=== PATIENT | male | born 1960 | race Caucasian/White ===

== ENCOUNTER 2022-01-06 05:56 | Inpatient (IN) | payer MEDICAID ==
[~2022-01-06] VITALS: Ht 175.3 cm; Wt 73.1 kg
[2022-01-06] MEDS ORDERED: LORazepam 0.5 MG TAB PO ONE (11:15)
[2022-01-06] MEDS ORDERED: D5W/SOD CHLO 0.9% 1,000 ML IV ONE (11:15)
[2022-01-06 12:00] LABS: Basophils # (auto) 0 10 ^3/uL (0-0.2); Basophils % (auto) 0.1 % (0.0-2.0); Eosinophils # (auto) 0 10 ^3/uL (0-0.8); Hematocrit 9.9 % (41.0-53.0); Lymphocytes % (auto) 7.3 % (10.0-50.0); Mean Corpuscular Hemoglobin 23.1 pg (28.0-32.0); Mean Corpuscular Volume 79.6 fL (80.0-100.0); Monocytes # (auto) 1.4 10 ^3/uL (0-1.3); Monocytes % (auto) 10.8 % (0.0-12.0); Neutrophils # (auto) 10.7 10 ^3/uL (1.6-8.6); Neutrophils % (auto) 81.8 % (37.0-80.0); Nucleated Red Blood Cells % 0.3 %; Red Blood Cells 1.25 10^6/uL (4.5-5.90); White Blood Cell 13.1 10^3/uL (4.4-10.8)
[2022-01-06 12:01] LABS: INR 1.83 (0.9-1.15); Partial Thromboplastin Time 31.5 sec (24.6-33.4)
[2022-01-06 12:02] LABS: Albumin 2.7 g/dL (3.4-5.0); Anion Gap 12 (5-15); Blood Urea Nitrogen 19 mg/dL (7-18); Calcium 7.9 mg/dL (8.5-10.1); Carbon Dioxide 19 mmol/L (21-32); Chloride 106 mmol/L (98-107); Glucose 105 mg/dL (74-106); Hemoglobin 2.9 g/dL (13.5-17.5); Potassium 3.5 mmol/L (3.5-5.1); Red Cell Distribution Width 20.8 % (11.8-14.3); Sodium 137 mmol/L (136-145)
[2022-01-06 12:07] LABS: Alanine Aminotransferase 32 U/L (16-61); Alkaline Phosphatase 58 U/L (45-117); Aspartate Aminotransferase 44 U/L (15-37); BUN/Creatinine Ratio 19.6; Bilirubin, Total 2.2 mg/dL (0.2-1.0); Blood Alcohol < 3.0 mg/dL (0-5); GFR African American 102 mL/min; GFR Non-African American 84 mL/min; Total Protein 5.7 g/dL (6.4-8.2)
[2022-01-06] MEDS ORDERED: LIDOCAINE 1%HCL (LOCAL ANESTH) 10 ML MDV ONE (13:08)
[2022-01-06] MEDS ORDERED: IOHEXOL 300 MG/ML 100ML BOTTLE IJ ONE (14:14)
[2022-01-06] MEDS ORDERED: HALOPERIDOL LACTATE 5 MG/ML INJ VIAL IV ONE (14:15)
[2022-01-06] MEDS ORDERED: CALCIUM CHL 100MG/ML 1,000 MG in D5W 5% 100 ML IV ONE (14:15)
[2022-01-06 15:10] LABS: Basophils # (auto) 0 10 ^3/uL (0-0.2); Basophils % (auto) 0.4 % (0.0-2.0); Eosinophils # (auto) 0 10 ^3/uL (0-0.8); Hematocrit 19.3 % (41.0-53.0); Lymphocytes # (auto) 0.8 10 ^3/uL (0.4-5.4); Lymphocytes % (auto) 6.7 % (10.0-50.0); Mean Corpuscular Hemoglobin 25.6 pg (28.0-32.0); Mean Corpuscular Volume 82.7 fL (80.0-100.0); Monocytes # (auto) 1.6 10 ^3/uL (0-1.3); Monocytes % (auto) 12.6 % (0.0-12.0); Neutrophils # (auto) 10.1 10 ^3/uL (1.6-8.6); Neutrophils % (auto) 80.3 % (37.0-80.0); Nucleated Red Blood Cells % 0.3 %; Red Blood Cells 2.33 10^6/uL (4.5-5.90); Red Cell Distribution Width 18.9 % (11.8-14.3); White Blood Cell 12.5 10^3/uL (4.4-10.8)
[2022-01-06 15:35] LABS: Lactic Acid w/Reflex 3.1 mmol/L (0.4-2.0)
[2022-01-06 15:39] LABS: Albumin 2.5 g/dL (3.4-5.0); Calcium 7.3 mg/dL (8.5-10.1); Potassium 3.3 mmol/L (3.5-5.1)
[2022-01-06 15:41] LABS: BUN/Creatinine Ratio 21.8
[2022-01-06 15:43] LABS: Bilirubin, Total 2.6 mg/dL (0.2-1.0); Total Protein 5.6 g/dL (6.4-8.2)
[2022-01-06] MEDS ORDERED: cefTRIAXone 1GM/50ML D5W 50 ML IV ONE (18:30)
[2022-01-06] MEDS ORDERED: MORPHINE SULFATE INJ 2 MG/ml SYRG IV PRN (18:30)
[2022-01-06] MEDS ORDERED: NITROGLYCERIN 0.4 MG SL TAB SL PRN (18:30)
[2022-01-06] MEDS ORDERED: PANTOPRAZOLE 40 MG/10 ML VIAL INJ IV ONE (18:30)
[2022-01-06] MEDS ORDERED: phytonadione 10 MG in SODIUM CHL 0.9% 50 ML IV ONE (18:30)
[2022-01-06 21:18] VITALS: BP 152/85
[2022-01-06 21:33] VITALS: BP 154/84
[2022-01-06] MEDS: metroNIDAZOLE 500MG/100ML 100 ML IV SCH (21:48)
[2022-01-06 22:10] VITALS: BP 136/85
[2022-01-06] MEDS: FOLIC ACID 1 MG, MULTIPLE VITAMIN 10 ML, THIAMINE INJ 100 MG in SODIUM CHLORIDE 0.9% 1,... INJ SCH (22:22)
[2022-01-06 22:50] VITALS: BP 136/74
[2022-01-06 23:05] VITALS: BP 142/82
[2022-01-06] MEDS: MIDAZOLAM HCL 2MG/2ML 2ml VIAL (1mg/ml) IV PRN (23:29)
[2022-01-06 23:30] LABS: Hematocrit 20.3 % (41.0-53.0)
[2022-01-06 23:38] LABS: Hemoglobin 6.3 g/dL (13.5-17.5)
[2022-01-07] VITALS (15 sets, daily range): BP systolic 130–167; BP diastolic 82–98
[2022-01-07 04:02] LABS: Basophils # (auto) 0 10 ^3/uL (0-0.2); Basophils % (auto) 0.1 % (0.0-2.0); Eosinophils # (auto) 0 10 ^3/uL (0-0.8); Hematocrit 22.6 % (41.0-53.0); Hemoglobin 7.3 g/dL (13.5-17.5); Lymphocytes # (auto) 0.7 10 ^3/uL (0.4-5.4); Lymphocytes % (auto) 4.1 % (10.0-50.0); Mean Corpuscular Hemoglobin 26.6 pg (28.0-32.0); Mean Corpuscular Hgb Conc. 32.4 g/dL (32.0-36.0); Mean Corpuscular Volume 82.1 fL (80.0-100.0); Monocytes # (auto) 1.6 10 ^3/uL (0-1.3); Monocytes % (auto) 8.8 % (0.0-12.0); Neutrophils # (auto) 16.1 10 ^3/uL (1.6-8.6); Nucleated Red Blood Cells % 0.3 %; Red Blood Cells 2.76 10^6/uL (4.5-5.90); Red Cell Distribution Width 18.2 % (11.8-14.3); White Blood Cell 18.5 10^3/uL (4.4-10.8)
[2022-01-07] MEDS: MIDAZOLAM HCL 2MG/2ML 2ml VIAL (1mg/ml) IV PRN ×5 (04:13→23:18)
[2022-01-07 04:24] LABS: Albumin 2.9 g/dL (3.4-5.0); BUN/Creatinine Ratio 17.9; Bilirubin, Total 4.9 mg/dL (0.2-1.0); Total Protein 6.2 g/dL (6.4-8.2)
[2022-01-07 04:33] LABS: Potassium 2.9 mmol/L (3.5-5.1)
[2022-01-07] MEDS: POTASSIUM CHL 20MEQ/100ML 100 ML IV SCH ×2 (05:12→08:59)
[2022-01-07 06:14] LABS: INR 1.46 (0.9-1.15); Partial Thromboplastin Time 31.3 sec (24.6-33.4)
[2022-01-07] MEDS: metroNIDAZOLE 500MG/100ML 100 ML IV SCH ×3 (06:25→21:26)
[2022-01-07] MEDS: PANTOPRAZOLE 40 MG/10 ML VIAL INJ IV SCH ×2 (06:56→19:15)
[2022-01-07] MEDS ORDERED: cefTRIAXone 1GM/50ML D5W 50 ML IV SCH (09:00)
[2022-01-07] MEDS: FOLIC ACID 1 MG, MULTIPLE VITAMIN 10 ML, THIAMINE INJ 100 MG in SODIUM CHLORIDE 0.9% 1,... INJ SCH (12:00)
[2022-01-07 12:42] LABS: Hemoglobin 7.1 g/dL (13.5-17.5)
[2022-01-07 12:43] LABS: Hematocrit 23.2 % (41.0-53.0)
[2022-01-07] MEDS ORDERED: FUROSEMIDE 20 MG/2 ML VIAL IV ONE (13:00)
[2022-01-07] MEDS ORDERED: OCTREOTIDE ACETATE 100 MCG in SODIUM CHL 0.9% 50 ML IV ONE (13:15)
[2022-01-07] MEDS ORDERED: diphenhdrAMINE HCL 50 MG/1 ML VL ONE (15:37)
[2022-01-07] MEDS ORDERED: ACETAMINOPHEN 650 MG RECT SUPP PR PRN (15:45)
[2022-01-07] MEDS ORDERED: diphenhdrAMINE HCL 50 MG/1 ML VL IV ONE (15:45)
[2022-01-07] MEDS: OCTREOTIDE ACETATE 500 MCG in SODIUM CHL 0.9% 99 ML IV SCH (15:55)
[2022-01-07] MEDS: PIPERACILLIN-TAZOB 3.375GM 100 ML IV SCH ×2 (17:54→22:00)
[2022-01-07 19:59] LABS: Hematocrit 23.4 % (41.0-53.0)
[2022-01-07] MEDS ORDERED: OCTREOTIDE ACETATE 500 MCG/ML VL ONE (23:52)
[2022-01-08] VITALS (68 sets, daily range): BP systolic 94–150; BP diastolic 61–74
[2022-01-08] MEDS ORDERED: OCTREOTIDE ACETATE 500 MCG/ML VL ONE
[2022-01-08] MEDS ORDERED: OCTREOTIDE ACETATE 100 MCG/ML VL ONE (00:01)
[2022-01-08] MEDS: OCTREOTIDE ACETATE 500 MCG in SODIUM CHL 0.9% 99 ML IV SCH ×2 (00:07→09:10)
[2022-01-08] MEDS ORDERED: HALOPERIDOL LACTATE 5 MG/ML INJ VIAL IM ONE (00:45)
[2022-01-08] MEDS ORDERED: ALBUTEROL SULF 2.5 MG/0.5ML(0.5%) NEB SOLN ONE (01:06)
[2022-01-08] MEDS ORDERED: IPRATROPIUM BROM 0.5 MG/2.5ML INH SOL ONE (01:06)
[2022-01-08] MEDS: MIDAZOLAM HCL 2MG/2ML 2ml VIAL (1mg/ml) IV PRN ×2 (01:16→03:14)
[2022-01-08] MEDS ORDERED: ETOMIDATE (2MG/ML) 20ML VIAL IV ONE ×2 (04:07→04:10)
[2022-01-08] MEDS ORDERED: SUCCINYLCHOLINE CHLORIDE 20 MG/ML 10ML VIAL IV ONE ×2 (04:08→04:10)
[2022-01-08 04:10] LABS: Urine Bacteria NONE SEEN /hpf (None Seen); Urine Blood 2+ /uL (Negative); Urine Specific Gravity 1.024 (1.001-1.035); Urine WBC 15 /hpf (0 - 3)
[2022-01-08] MEDS ORDERED: PROPOFOL 100 ML IV ONE (04:16)
[2022-01-08 04:20] LABS: Alcohol, Urine < 3.0 mg/dL (0-10); Amphetamine Screen, Urine NEGATIVE (NEGATIVE); Barbiturate Scree,Urine NEGATIVE (NEGATIVE); Benzodiazephine Screen, Urine POSITIVE (NEGATIVE); Cannabinoid Screen, Urine NEGATIVE (NEGATIVE); Cocaine Screen, Urine NEGATIVE (NEGATIVE); Opiate Scree,Urine NEGATIVE (NEGATIVE); Phencyclidine Screen, Urine NEGATIVE (NEGATIVE)
[2022-01-08] MEDS: PROPOFOL 100 ML IV SCH ×2 (04:20→13:36)
[2022-01-08] MEDS ORDERED: NOREPINEPHRINE 8 MG/250ML KIT 250 ML IV ONE (04:58)
[2022-01-08] MEDS: NOREPINEPHRINE 8 MG/250ML KIT 250 ML IV SCH (05:10)
[2022-01-08] MEDS: metroNIDAZOLE 500MG/100ML 100 ML IV SCH (05:10)
[2022-01-08] MEDS ORDERED: POTASSIUM CHL 20MEQ/100ML 100 ML IV ONE (05:15)
[2022-01-08 05:56] LABS: Basophils # (auto) 0 10 ^3/uL (0-0.2); Basophils % (auto) 0.1 % (0.0-2.0); Eosinophils # (auto) 0 10 ^3/uL (0-0.8); Red Cell Distribution Width 18.5 % (11.8-14.3)
[2022-01-08 05:59] LABS: Hematocrit 21.5 % (41.0-53.0); Lymphocytes # (auto) 0.4 10 ^3/uL (0.4-5.4); Lymphocytes % (auto) 1.9 % (10.0-50.0); Mean Corpuscular Hemoglobin 25.7 pg (28.0-32.0); Mean Corpuscular Hgb Conc. 30.3 g/dL (32.0-36.0); Mean Corpuscular Volume 84.9 fL (80.0-100.0); Monocytes # (auto) 2.1 10 ^3/uL (0-1.3); Monocytes % (auto) 10.9 % (0.0-12.0); Neutrophils # (auto) 16.6 10 ^3/uL (1.6-8.6); Neutrophils % (auto) 87.1 % (37.0-80.0); Nucleated Red Blood Cells % 0.2 %; Red Blood Cells 2.54 10^6/uL (4.5-5.90); White Blood Cell 19.1 10^3/uL (4.4-10.8)
[2022-01-08 06:09] LABS: Hemoglobin 6.5 g/dL (13.5-17.5)
[2022-01-08] MEDS: fentaNYL Drip 2500mCg/250mlNS 250 ML IV SCH (06:09)
[2022-01-08 06:22] LABS: Albumin 2.5 g/dL (3.4-5.0); BUN/Creatinine Ratio 14.9; Bilirubin, Total 3.6 mg/dL (0.2-1.0); Calcium 7.4 mg/dL (8.5-10.1); Total Protein 5.5 g/dL (6.4-8.2)
[2022-01-08] MEDS: PIPERACILLIN-TAZOB 3.375GM 100 ML IV SCH ×3 (06:22→23:00)
[2022-01-08] MEDS: PANTOPRAZOLE 40 MG/10 ML VIAL INJ IV SCH ×2 (06:49→22:00)
[2022-01-08] MEDS ORDERED: VANCOMYCIN PER PHARMACY 0 MG IV SCH (08:45)
[2022-01-08] MEDS: VANCOMYCIN 1GM/250ML 250 ML IV SCH ×2 (10:30→22:00)
[2022-01-08] MEDS: FOLIC ACID 1 MG, MULTIPLE VITAMIN 10 ML, THIAMINE INJ 100 MG in SODIUM CHLORIDE 0.9% 1,... INJ SCH (12:00)
[2022-01-09] VITALS (91 sets, daily range): BP systolic 92–118; BP diastolic 51–89
[2022-01-09 03:58] LABS: Basophils # (auto) 0.1 10 ^3/uL (0-0.2); Basophils % (auto) 0.7 % (0.0-2.0); Eosinophils # (auto) 0.5 10 ^3/uL (0-0.8); Eosinophils % (auto) 3.2 % (0.0-7.0); Hematocrit 23.6 % (41.0-53.0); Hemoglobin 7.3 g/dL (13.5-17.5); Lymphocytes # (auto) 1.5 10 ^3/uL (0.4-5.4); Lymphocytes % (auto) 9.5 % (10.0-50.0); Mean Corpuscular Hemoglobin 26.3 pg (28.0-32.0); Mean Corpuscular Volume 84.7 fL (80.0-100.0); Monocytes # (auto) 2.2 10 ^3/uL (0-1.3); Monocytes % (auto) 13.9 % (0.0-12.0); Neutrophils # (auto) 11.5 10 ^3/uL (1.6-8.6); Neutrophils % (auto) 72.7 % (37.0-80.0); Nucleated Red Blood Cells % 0.1 %; Red Blood Cells 2.79 10^6/uL (4.5-5.90); Red Cell Distribution Width 19.4 % (11.8-14.3); White Blood Cell 15.9 10^3/uL (4.4-10.8)
[2022-01-09 04:29] LABS: INR 1.52 (0.9-1.15); Partial Thromboplastin Time 34.2 sec (24.6-33.4)
[2022-01-09 05:32] LABS: BUN/Creatinine Ratio 18.8; Calcium 7.5 mg/dL (8.5-10.1); Potassium 3.3 mmol/L (3.5-5.1)
[2022-01-09] MEDS: PIPERACILLIN-TAZOB 3.375GM 100 ML IV SCH ×3 (06:00→21:40)
[2022-01-09] MEDS: OCTREOTIDE ACETATE 500 MCG in SODIUM CHL 0.9% 99 ML IV SCH ×2 (07:49→16:56)
[2022-01-09] MEDS: PROPOFOL 100 ML IV SCH ×4 (09:15→22:43)
[2022-01-09] MEDS: VANCOMYCIN 1GM/250ML 250 ML IV SCH ×2 (09:27→22:00)
[2022-01-09] MEDS: PANTOPRAZOLE 40 MG/10 ML VIAL INJ IV SCH ×2 (09:28→21:33)
[2022-01-09] MEDS: FOLIC ACID 1 MG, MULTIPLE VITAMIN 10 ML, THIAMINE INJ 100 MG in SODIUM CHLORIDE 0.9% 1,... INJ SCH (12:51)
[2022-01-09] MEDS: NOREPINEPHRINE 8 MG/250ML KIT 250 ML IV SCH (19:59)
[2022-01-10] VITALS (106 sets, daily range): BP systolic 86–120; BP diastolic 53–78
[2022-01-10] MEDS: OCTREOTIDE ACETATE 500 MCG in SODIUM CHL 0.9% 99 ML IV SCH (01:55)
[2022-01-10] MEDS: PROPOFOL 100 ML IV SCH ×4 (02:53→18:43)
[2022-01-10] MEDS: fentaNYL Drip 2500mCg/250mlNS 250 ML IV SCH ×2 (03:55→05:15)
[2022-01-10 04:34] LABS: Basophils # (auto) 0.1 10 ^3/uL (0-0.2); Basophils % (auto) 0.8 % (0.0-2.0); Eosinophils # (auto) 0.5 10 ^3/uL (0-0.8); Eosinophils % (auto) 3.7 % (0.0-7.0); Hematocrit 23.4 % (41.0-53.0); Lymphocytes # (auto) 1.3 10 ^3/uL (0.4-5.4); Mean Corpuscular Hemoglobin 25.4 pg (28.0-32.0); Mean Corpuscular Hgb Conc. 29.9 g/dL (32.0-36.0); Mean Corpuscular Volume 84.8 fL (80.0-100.0); Monocytes # (auto) 2.1 10 ^3/uL (0-1.3); Monocytes % (auto) 14.6 % (0.0-12.0); Neutrophils # (auto) 10.4 10 ^3/uL (1.6-8.6); Neutrophils % (auto) 71.9 % (37.0-80.0); Nucleated Red Blood Cells % 0.2 %; Red Blood Cells 2.76 10^6/uL (4.5-5.90); White Blood Cell 14.4 10^3/uL (4.4-10.8)
[2022-01-10 04:38] LABS: Red Cell Distribution Width 20.1 % (11.8-14.3)
[2022-01-10 04:50] LABS: INR 1.56 (0.9-1.15); Partial Thromboplastin Time 40.7 sec (24.6-33.4)
[2022-01-10 04:55] LABS: BUN/Creatinine Ratio 13.9; Calcium 7.5 mg/dL (8.5-10.1); Potassium 3.5 mmol/L (3.5-5.1)
[2022-01-10] MEDS: NOREPINEPHRINE 8 MG/250ML KIT 250 ML IV SCH ×2 (05:15→10:38)
[2022-01-10] MEDS: PIPERACILLIN-TAZOB 3.375GM 100 ML IV SCH (05:45)
[2022-01-10] MEDS ORDERED: FLUMAZENIL 0.1 MG/ML INJ 10ML MDV IV ONE (07:45)
[2022-01-10] MEDS ORDERED: NALOXONE HCL 0.4 MG/ML VIAL ONE (07:45)
[2022-01-10] MEDS ORDERED: SODIUM CHLORIDE LOCK 10 ML ONE (07:49)
[2022-01-10] MEDS ORDERED: MIDAZOLAM HCL 5 MG/ML-1ML VIAL ONE (07:50)
[2022-01-10] MEDS ORDERED: fentaNYL CITRATE 100 MCG/2 ML VL ONE (07:50)
[2022-01-10] MEDS ORDERED: diphenhdrAMINE HCL 50 MG/1 ML VL ONE (07:50)
[2022-01-10 09:48] LABS: Hemoglobin 7.3 g/dL (13.5-17.5)
[2022-01-10] MEDS: VANCOMYCIN 1GM/250ML 250 ML IV SCH ×2 (10:36→22:00)
[2022-01-10] MEDS: PANTOPRAZOLE 40 MG/10 ML VIAL INJ IV SCH ×2 (10:37→21:53)
[2022-01-10] MEDS ORDERED: FUROSEMIDE 20 MG/2 ML VIAL IV ONE (11:30)
[2022-01-10] MEDS: FOLIC ACID 1 MG, MULTIPLE VITAMIN 10 ML, THIAMINE INJ 100 MG in SODIUM CHLORIDE 0.9% 1,... INJ SCH (12:49)
[2022-01-11] VITALS (104 sets, daily range): BP systolic 84–123; BP diastolic 53–80
[2022-01-11] MEDS: PROPOFOL 100 ML IV SCH ×6 (00:12→20:50)
[2022-01-11] MEDS: fentaNYL Drip 2500mCg/250mlNS 250 ML IV SCH ×2 (01:07→16:59)
[2022-01-11 04:38] LABS: Basophils # (auto) 0.1 10 ^3/uL (0-0.2); Eosinophils # (auto) 0.3 10 ^3/uL (0-0.8); Neutrophils # (auto) 7.2 10 ^3/uL (1.6-8.6); Nucleated Red Blood Cells % 0.2 %; Red Blood Cells 2.68 10^6/uL (4.5-5.90)
[2022-01-11 04:39] LABS: Basophils % (auto) 1.4 % (0.0-2.0); Eosinophils % (auto) 3.2 % (0.0-7.0); Hematocrit 22.2 % (41.0-53.0); Lymphocytes # (auto) 0.9 10 ^3/uL (0.4-5.4); Lymphocytes % (auto) 9.1 % (10.0-50.0); Mean Corpuscular Hemoglobin 26.1 pg (28.0-32.0); Mean Corpuscular Hgb Conc. 31.5 g/dL (32.0-36.0); Monocytes # (auto) 1.6 10 ^3/uL (0-1.3); Monocytes % (auto) 15.3 % (0.0-12.0); White Blood Cell 10.2 10^3/uL (4.4-10.8)
[2022-01-11 04:44] LABS: Red Cell Distribution Width 20.6 % (11.8-14.3)
[2022-01-11 04:56] LABS: Calcium 7.6 mg/dL (8.5-10.1); Potassium 3.4 mmol/L (3.5-5.1)
[2022-01-11] MEDS: PANTOPRAZOLE 40 MG/10 ML VIAL INJ IV SCH ×2 (09:34→22:09)
[2022-01-11] MEDS: VANCOMYCIN 1GM/250ML 250 ML IV SCH (09:34)
[2022-01-11] MEDS: FUROSEMIDE 20 MG/2 ML VIAL IV SCH (09:35)
[2022-01-11] MEDS ORDERED: ceFAZolin 1GM/50ML 50 ML IV ONE (12:15)
[2022-01-11] MEDS: FOLIC ACID 1 MG, MULTIPLE VITAMIN 10 ML, THIAMINE INJ 100 MG in SODIUM CHLORIDE 0.9% 1,... INJ SCH (12:50)
[2022-01-11] MEDS: ACETYLCYSTEINE 10 %(100MG/ML) SOL 4ML NEB SCH ×2 (15:35→22:12)
[2022-01-11] MEDS: ALBUTEROL SULF 2.5 MG/0.5ML(0.5%) NEB SOLN NEB PRN ×2 (15:35→22:12)
[2022-01-11] MEDS: ceFAZolin 1GM/50ML 50 ML IV SCH (22:09)
[2022-01-12] VITALS (109 sets, daily range): BP systolic 87–104; BP diastolic 46–60
[2022-01-12] MEDS: PROPOFOL 100 ML IV SCH ×7 (00:50→22:19)
[2022-01-12 03:58] LABS: Eosinophils # (auto) 0.4 10 ^3/uL (0-0.8); Lymphocytes # (auto) 1.1 10 ^3/uL (0.4-5.4); Mean Corpuscular Hemoglobin 25.7 pg (28.0-32.0); Mean Corpuscular Hgb Conc. 30.6 g/dL (32.0-36.0)
[2022-01-12 04:02] LABS: Basophils # (auto) 0.1 10 ^3/uL (0-0.2); Eosinophils % (auto) 2.7 % (0.0-7.0); Hematocrit 22.9 % (41.0-53.0); Lymphocytes % (auto) 7.8 % (10.0-50.0); Mean Corpuscular Volume 83.8 fL (80.0-100.0); Monocytes # (auto) 1.9 10 ^3/uL (0-1.3); Monocytes % (auto) 13.2 % (0.0-12.0); Neutrophils % (auto) 75.3 % (37.0-80.0); Red Blood Cells 2.73 10^6/uL (4.5-5.90); White Blood Cell 14.6 10^3/uL (4.4-10.8)
[2022-01-12 04:24] LABS: Potassium 3.7 mmol/L (3.5-5.1)
[2022-01-12 04:35] LABS: Albumin 1.9 g/dL (3.4-5.0); BUN/Creatinine Ratio 10.4; Bilirubin, Total 2.3 mg/dL (0.2-1.0); Calcium 7.5 mg/dL (8.5-10.1); Total Protein 5.2 g/dL (6.4-8.2)
[2022-01-12] MEDS: fentaNYL Drip 2500mCg/250mlNS 250 ML IV SCH ×2 (04:50→16:55)
[2022-01-12 05:21] LABS: Red Cell Distribution Width 20.6 % (11.8-14.3)
[2022-01-12] MEDS: ceFAZolin 1GM/50ML 50 ML IV SCH ×3 (06:17→22:19)
[2022-01-12] MEDS: ACETYLCYSTEINE 10 %(100MG/ML) SOL 4ML NEB SCH ×3 (07:44→22:19)
[2022-01-12] MEDS: ALBUTEROL SULF 2.5 MG/0.5ML(0.5%) NEB SOLN NEB PRN ×4 (07:45→22:19)
[2022-01-12] MEDS: NOREPINEPHRINE 8 MG/250ML KIT 250 ML IV SCH (08:29)
[2022-01-12] MEDS: PANTOPRAZOLE 40 MG/10 ML VIAL INJ IV SCH ×2 (10:12→22:19)
[2022-01-12] MEDS: FUROSEMIDE 20 MG/2 ML VIAL IV SCH (10:13)
[2022-01-12] MEDS: FOLIC ACID 1 MG, MULTIPLE VITAMIN 10 ML, THIAMINE INJ 100 MG in SODIUM CHLORIDE 0.9% 1,... INJ SCH (12:06)
[2022-01-12 12:25] LABS: Protein, Urine 17.2 mg/dL (0.0-11.9)
[2022-01-12 12:37] LABS: Urine Bacteria FEW /hpf (None Seen); Urine Blood 3+ /uL (Negative); Urine Specific Gravity 1.002 (1.001-1.035); Urine WBC 4 /hpf (0 - 3)
[2022-01-13] VITALS (107 sets, daily range): BP systolic 92–118; BP diastolic 51–68
[2022-01-13] MEDS: PROPOFOL 100 ML IV SCH ×4 (02:50→22:35)
[2022-01-13] MEDS: fentaNYL Drip 2500mCg/250mlNS 250 ML IV SCH ×2 (04:50→17:03)
[2022-01-13 05:12] LABS: Basophils # (auto) 0.2 10 ^3/uL (0-0.2); Eosinophils # (auto) 0.4 10 ^3/uL (0-0.8); Nucleated Red Blood Cells % 0.1 %
[2022-01-13 05:15] LABS: Albumin 1.7 g/dL (3.4-5.0); Calcium 7.6 mg/dL (8.5-10.1); Potassium 3.7 mmol/L (3.5-5.1)
[2022-01-13] MEDS: NOREPINEPHRINE 8 MG/250ML KIT 250 ML IV SCH ×2 (05:15→14:41)
[2022-01-13 05:17] LABS: Basophils % (auto) 1.2 % (0.0-2.0); Eosinophils % (auto) 2.4 % (0.0-7.0); Hematocrit 25.7 % (41.0-53.0); Lymphocytes # (auto) 1.3 10 ^3/uL (0.4-5.4); Lymphocytes % (auto) 8.9 % (10.0-50.0); Mean Corpuscular Hemoglobin 26.1 pg (28.0-32.0); Mean Corpuscular Volume 84.2 fL (80.0-100.0); Monocytes # (auto) 1.8 10 ^3/uL (0-1.3); Monocytes % (auto) 12.1 % (0.0-12.0); Neutrophils # (auto) 11.3 10 ^3/uL (1.6-8.6); Neutrophils % (auto) 75.4 % (37.0-80.0); Red Blood Cells 3.05 10^6/uL (4.5-5.90)
[2022-01-13 05:19] LABS: BUN/Creatinine Ratio 8.2; Total Protein 5.3 g/dL (6.4-8.2); Uric Acid 4.3 mg/dL (3.5-7.2)
[2022-01-13 06:00] LABS: Red Cell Distribution Width 20.2 % (11.8-14.3)
[2022-01-13] MEDS: ceFAZolin 1GM/50ML 50 ML IV SCH ×3 (06:06→22:35)
[2022-01-13] MEDS: ALBUTEROL SULF 2.5 MG/0.5ML(0.5%) NEB SOLN NEB PRN ×4 (06:13→22:09)
[2022-01-13] MEDS: ACETYLCYSTEINE 10 %(100MG/ML) SOL 4ML NEB SCH ×3 (06:13→18:06)
[2022-01-13] MEDS: PANTOPRAZOLE 40 MG/10 ML VIAL INJ IV SCH ×2 (10:07→22:35)
[2022-01-13] MEDS: FUROSEMIDE 20 MG/2 ML VIAL IV SCH (10:07)
[2022-01-13] MEDS: FOLIC ACID 1 MG, MULTIPLE VITAMIN 10 ML, THIAMINE INJ 100 MG in SODIUM CHLORIDE 0.9% 1,... INJ SCH (12:34)
[2022-01-13] MEDS ORDERED: BUMETANIDE INJECTION 10 ML ONE (16:56)
[2022-01-13] MEDS ORDERED: BUMETANIDE 2.5mg/10ml (0.25 mg/ml) INJ IV ONE (17:00)
[2022-01-14] VITALS (104 sets, daily range): BP systolic 91–128; BP diastolic 48–69
[2022-01-14] MEDS: ALBUTEROL SULF 2.5 MG/0.5ML(0.5%) NEB SOLN NEB PRN ×4 (02:15→18:51)
[2022-01-14 03:43] LABS: Monocytes # (auto) 1.6 10 ^3/uL (0-1.3)
[2022-01-14 03:47] LABS: Basophils # (auto) 0.1 10 ^3/uL (0-0.2); Basophils % (auto) 0.9 % (0.0-2.0); Eosinophils # (auto) 0.4 10 ^3/uL (0-0.8); Eosinophils % (auto) 3.2 % (0.0-7.0); Hematocrit 25.8 % (41.0-53.0); Hemoglobin 8.2 g/dL (13.5-17.5); Lymphocytes # (auto) 1.1 10 ^3/uL (0.4-5.4); Lymphocytes % (auto) 8.2 % (10.0-50.0); Mean Corpuscular Hemoglobin 26.6 pg (28.0-32.0); Mean Corpuscular Hgb Conc. 31.7 g/dL (32.0-36.0); Neutrophils # (auto) 10.8 10 ^3/uL (1.6-8.6); Neutrophils % (auto) 76.7 % (37.0-80.0); Red Blood Cells 3.07 10^6/uL (4.5-5.90); White Blood Cell 14.1 10^3/uL (4.4-10.8)
[2022-01-14 03:56] LABS: Red Cell Distribution Width 20.4 % (11.8-14.3)
[2022-01-14 04:01] LABS: Albumin 1.8 g/dL (3.4-5.0); Anion Gap 13 (5-15); Blood Urea Nitrogen 40 mg/dL (7-18); Calcium 8.1 mg/dL (8.5-10.1); Carbon Dioxide 18 mmol/L (21-32); Chloride 112 mmol/L (98-107); Glucose 92 mg/dL (74-106); Potassium 3.7 mmol/L (3.5-5.1); Sodium 143 mmol/L (136-145)
[2022-01-14 04:03] LABS: BUN/Creatinine Ratio 8.6; GFR African American 17 mL/min; GFR Non-African American 14 mL/min
[2022-01-14 04:06] LABS: Alanine Aminotransferase < 6 U/L (16-61); Alkaline Phosphatase 117 U/L (45-117); Aspartate Aminotransferase 43 U/L (15-37); Total Protein 5.6 g/dL (6.4-8.2)
[2022-01-14] MEDS: ACETYLCYSTEINE 10 %(100MG/ML) SOL 4ML NEB SCH ×3 (06:09→18:51)
[2022-01-14] MEDS: fentaNYL Drip 2500mCg/250mlNS 250 ML IV SCH (06:23)
[2022-01-14] MEDS: ceFAZolin 1GM/50ML 50 ML IV SCH ×3 (06:23→22:01)
[2022-01-14 08:51] LABS: Cholesterol 86 mg/dL (< 200); HDL Cholesterol 11 mg/dL (40-59); LDL Cholesterol 50 mg/dL (< 100); Triglycerides 144 mg/dL (< 150)
[2022-01-14] MEDS: FUROSEMIDE 20 MG/2 ML VIAL IV SCH (09:01)
[2022-01-14] MEDS: PANTOPRAZOLE 40 MG/10 ML VIAL INJ IV SCH ×2 (09:01→22:00)
[2022-01-14 10:54] LABS: Folate (Folic Acid) > 24.00 ng/mL (5.38-24)
[2022-01-14] MEDS: FOLIC ACID 1 MG, MULTIPLE VITAMIN 10 ML, THIAMINE INJ 100 MG in SODIUM CHLORIDE 0.9% 1,... INJ SCH (12:00)
[2022-01-14] MEDS: ALBUMIN 25% 100 ML IV SCH ×2 (15:31→22:53)
[2022-01-14] MEDS: SODIUM BICARBONATE 8.4 % INJ 50ML VIAL IV SCH ×2 (15:41→22:01)
[2022-01-14] MEDS: FUROSEMIDE 100 MG/10ML VIAL IV SCH ×2 (16:26→18:00)
[2022-01-15] VITALS (106 sets, daily range): BP systolic 93–128; BP diastolic 37–68
[2022-01-15] MEDS: PROPOFOL 100 ML IV SCH ×3 (03:33→23:13)
[2022-01-15 03:39] LABS: Eosinophils # (auto) 0.3 10 ^3/uL (0-0.8); Mean Corpuscular Hemoglobin 26.7 pg (28.0-32.0)
[2022-01-15 03:41] LABS: Basophils # (auto) 0 10 ^3/uL (0-0.2); Basophils % (auto) 0.2 % (0.0-2.0); Eosinophils % (auto) 1.8 % (0.0-7.0); Hematocrit 22.9 % (41.0-53.0); Hemoglobin 7.4 g/dL (13.5-17.5); Lymphocytes # (auto) 0.8 10 ^3/uL (0.4-5.4); Lymphocytes % (auto) 5.5 % (10.0-50.0); Mean Corpuscular Hgb Conc. 32.1 g/dL (32.0-36.0); Mean Corpuscular Volume 83.1 fL (80.0-100.0); Monocytes # (auto) 1.5 10 ^3/uL (0-1.3); Neutrophils # (auto) 12.3 10 ^3/uL (1.6-8.6); Neutrophils % (auto) 82.5 % (37.0-80.0); Red Blood Cells 2.76 10^6/uL (4.5-5.90)
[2022-01-15 03:48] LABS: Red Cell Distribution Width 20.7 % (11.8-14.3)
[2022-01-15 03:50] LABS: Alanine Aminotransferase < 6 U/L (16-61); Albumin 2.3 g/dL (3.4-5.0); Anion Gap 13 (5-15); Aspartate Aminotransferase 42 U/L (15-37); BUN/Creatinine Ratio 8.5; Blood Urea Nitrogen 48 mg/dL (7-18); Calcium 8.2 mg/dL (8.5-10.1); Carbon Dioxide 20 mmol/L (21-32); Chloride 111 mmol/L (98-107); GFR African American 13 mL/min; GFR Non-African American 11 mL/min; Glucose 91 mg/dL (74-106); Magnesium 2.2 mg/dL (1.6-2.6); Potassium 3.8 mmol/L (3.5-5.1); Sodium 144 mmol/L (136-145)
[2022-01-15 03:53] LABS: Alkaline Phosphatase 107 U/L (45-117); Bilirubin, Total 2.4 mg/dL (0.2-1.0); Total Protein 5.7 g/dL (6.4-8.2)
[2022-01-15] MEDS: NOREPINEPHRINE 8 MG/250ML KIT 250 ML IV SCH (05:15)
[2022-01-15] MEDS: FUROSEMIDE 100 MG/10ML VIAL IV SCH (05:46)
[2022-01-15] MEDS: ceFAZolin 1GM/50ML 50 ML IV SCH ×3 (05:47→21:45)
[2022-01-15] MEDS: SODIUM BICARBONATE 8.4 % INJ 50ML VIAL IV SCH ×3 (05:53→21:45)
[2022-01-15] MEDS: ACETYLCYSTEINE 10 %(100MG/ML) SOL 4ML NEB SCH ×3 (06:24→22:06)
[2022-01-15] MEDS: ALBUTEROL SULF 2.5 MG/0.5ML(0.5%) NEB SOLN NEB PRN ×3 (06:24→22:06)
[2022-01-15] MEDS: ALBUMIN 25% 100 ML IV SCH (06:32)
[2022-01-15] MEDS ORDERED: Jevity 1.2 Cal/Fiber 1 Liter GT SCH (08:30)
[2022-01-15] MEDS: PANTOPRAZOLE 40 MG/10 ML VIAL INJ IV SCH ×2 (08:58→21:45)
[2022-01-15] MEDS: THIAMINE 100mg/ml INJ (200mg/2ml VIAL) IV SCH (09:15)
[2022-01-15] MEDS: FOLIC ACID 1 MG in D5W 5% 50 ML INJ SCH (10:25)
[2022-01-15 11:22] LABS: INR 1.47 (0.9-1.15)
[2022-01-15] MEDS: FUROSEMIDE INJECTION 100 MG in D5W 5% 100 ML IV SCH ×2 (15:35→18:10)
[2022-01-16] VITALS (104 sets, daily range): BP systolic 92–129; BP diastolic 44–74
[2022-01-16 03:45] LABS: Basophils % (auto) 1.7 % (0.0-2.0); Lymphocytes % (auto) 6.6 % (10.0-50.0); Mean Corpuscular Hgb Conc. 31.7 g/dL (32.0-36.0); White Blood Cell 14.6 10^3/uL (4.4-10.8)
[2022-01-16 03:48] LABS: Basophils # (auto) 0.3 10 ^3/uL (0-0.2); Eosinophils # (auto) 0.3 10 ^3/uL (0-0.8); Hematocrit 22.8 % (41.0-53.0); Hemoglobin 7.2 g/dL (13.5-17.5); Mean Corpuscular Hemoglobin 26.2 pg (28.0-32.0); Mean Corpuscular Volume 82.7 fL (80.0-100.0); Monocytes # (auto) 1.5 10 ^3/uL (0-1.3); Monocytes % (auto) 9.9 % (0.0-12.0); Neutrophils # (auto) 11.7 10 ^3/uL (1.6-8.6); Neutrophils % (auto) 79.8 % (37.0-80.0); Red Blood Cells 2.76 10^6/uL (4.5-5.90)
[2022-01-16 04:02] LABS: Red Cell Distribution Width 20.5 % (11.8-14.3)
[2022-01-16 04:13] LABS: Albumin 2.3 g/dL (3.4-5.0); Anion Gap 12 (5-15); Blood Urea Nitrogen 55 mg/dL (7-18); Calcium 7.8 mg/dL (8.5-10.1); Carbon Dioxide 23 mmol/L (21-32); Chloride 111 mmol/L (98-107); Glucose 113 mg/dL (74-106); Potassium 3.7 mmol/L (3.5-5.1); Sodium 146 mmol/L (136-145)
[2022-01-16 04:18] LABS: Alanine Aminotransferase < 6 U/L (16-61); Alkaline Phosphatase 108 U/L (45-117); Aspartate Aminotransferase 37 U/L (15-37); BUN/Creatinine Ratio 8.2; Bilirubin, Total 2.2 mg/dL (0.2-1.0); GFR African American 11 mL/min; GFR Non-African American 9 mL/min; Total Protein 5.7 g/dL (6.4-8.2)
[2022-01-16] MEDS: FUROSEMIDE INJECTION 100 MG in D5W 5% 100 ML IV SCH ×3 (04:30→10:29)
[2022-01-16] MEDS: NOREPINEPHRINE 8 MG/250ML KIT 250 ML IV SCH (05:15)
[2022-01-16] MEDS: fentaNYL Drip 2500mCg/250mlNS 250 ML IV SCH (05:15)
[2022-01-16] MEDS: ceFAZolin 1GM/50ML 50 ML IV SCH ×3 (05:40→21:32)
[2022-01-16] MEDS: SODIUM BICARBONATE 8.4 % INJ 50ML VIAL IV SCH ×2 (05:42→17:25)
[2022-01-16] MEDS: ACETYLCYSTEINE 10 %(100MG/ML) SOL 4ML NEB SCH ×3 (06:16→22:22)
[2022-01-16] MEDS: ALBUTEROL SULF 2.5 MG/0.5ML(0.5%) NEB SOLN NEB PRN ×4 (06:18→22:22)
[2022-01-16] MEDS: THIAMINE 100mg/ml INJ (200mg/2ml VIAL) IV SCH (10:29)
[2022-01-16] MEDS: PANTOPRAZOLE 40 MG/10 ML VIAL INJ IV SCH ×2 (10:29→21:32)
[2022-01-16] MEDS: FOLIC ACID 1 MG in D5W 5% 50 ML INJ SCH (10:30)
[2022-01-16] MEDS ORDERED: SODIUM CHL 0.9% 1000 ML BAG XX ONE (12:15)
[2022-01-16] MEDS ORDERED: SODIUM BICARBONATE 8.4 % INJ 50ML VIAL IV ONE (17:19)
[2022-01-16] MEDS ORDERED: EPOETIN ALFA-EPBX 10,000 UNIT/1ML VIAL SC ONE (21:00)
[2022-01-16] MEDS: PROPOFOL 100 ML IV SCH (21:48)
[2022-01-17] VITALS (102 sets, daily range): BP systolic 88–135; BP diastolic 48–76
[2022-01-17] MEDS: fentaNYL Drip 2500mCg/250mlNS 250 ML IV SCH ×2 (02:16→16:45)
[2022-01-17] MEDS: NOREPINEPHRINE 8 MG/250ML KIT 250 ML IV SCH (02:16)
[2022-01-17 03:40] LABS: BUN/Creatinine Ratio 7.5; Calcium 8.1 mg/dL (8.5-10.1); Potassium 3.5 mmol/L (3.5-5.1)
[2022-01-17 04:33] LABS: Basophils # (auto) 0.3 10 ^3/uL (0-0.2); Hematocrit 22.7 % (41.0-53.0); Nucleated Red Blood Cells % 0.1 %
[2022-01-17 04:34] LABS: Basophils % (auto) 1.8 % (0.0-2.0); Eosinophils # (auto) 0.5 10 ^3/uL (0-0.8); Eosinophils % (auto) 3.5 % (0.0-7.0); Hemoglobin 7.3 g/dL (13.5-17.5); Lymphocytes # (auto) 1.2 10 ^3/uL (0.4-5.4); Lymphocytes % (auto) 8.4 % (10.0-50.0); Mean Corpuscular Hemoglobin 26.3 pg (28.0-32.0); Mean Corpuscular Hgb Conc. 32.1 g/dL (32.0-36.0); Mean Corpuscular Volume 82.1 fL (80.0-100.0); Monocytes # (auto) 1.4 10 ^3/uL (0-1.3); Monocytes % (auto) 9.7 % (0.0-12.0); Neutrophils % (auto) 76.6 % (37.0-80.0); Red Blood Cells 2.77 10^6/uL (4.5-5.90); White Blood Cell 14.3 10^3/uL (4.4-10.8)
[2022-01-17 04:35] LABS: Red Cell Distribution Width 20.9 % (11.8-14.3)
[2022-01-17] MEDS: ceFAZolin 1GM/50ML 50 ML IV SCH ×3 (06:00→21:41)
[2022-01-17] MEDS: PROPOFOL 100 ML IV SCH ×2 (06:28→15:30)
[2022-01-17] MEDS ORDERED: SODIUM CHL 0.9% 1000 ML BAG XX ONE (07:00)
[2022-01-17] MEDS: THIAMINE 100mg/ml INJ (200mg/2ml VIAL) IV SCH (10:00)
[2022-01-17] MEDS: FOLIC ACID 1 MG in D5W 5% 50 ML INJ SCH (10:00)
[2022-01-17] MEDS: PANTOPRAZOLE 40 MG/10 ML VIAL INJ IV SCH ×2 (10:00→21:41)
[2022-01-17 13:28] LABS: Hepatitis A Ab IgM Negative
[2022-01-17 13:29] LABS: Hepatitis B Core IgM Negative; Hepatitis C Antibody Negative (Negative)
[2022-01-17] MEDS: ALBUMIN 25% 100 ML IV PRN ×2 (15:34→17:00)
[2022-01-17] MEDS ORDERED: FUROSEMIDE 20 MG/2 ML VIAL IV ONE (20:00)
[2022-01-17] MEDS ORDERED: EPOETIN ALFA-EPBX 10,000 UNIT/1ML VIAL SC ONE (21:00)
[2022-01-17] MEDS: ACETYLCYSTEINE 10 %(100MG/ML) SOL 4ML NEB SCH (22:20)
[2022-01-17] MEDS: ALBUTEROL SULF 2.5 MG/0.5ML(0.5%) NEB SOLN NEB PRN (22:20)
[2022-01-18] VITALS (112 sets, daily range): BP systolic 86–147; BP diastolic 48–81
[2022-01-18] MEDS: PROPOFOL 100 ML IV SCH ×3 (00:28→21:38)
[2022-01-18 02:34] LABS: Basophils # (auto) 0.3 10 ^3/uL (0-0.2); Basophils % (auto) 2.2 % (0.0-2.0); Lymphocytes # (auto) 1.2 10 ^3/uL (0.4-5.4); Nucleated Red Blood Cells % 0.1 %; White Blood Cell 13.7 10^3/uL (4.4-10.8)
[2022-01-18 02:36] LABS: Eosinophils # (auto) 0.6 10 ^3/uL (0-0.8); Eosinophils % (auto) 4.3 % (0.0-7.0); Hematocrit 21.5 % (41.0-53.0); Lymphocytes % (auto) 9.1 % (10.0-50.0); Mean Corpuscular Hemoglobin 26.3 pg (28.0-32.0); Mean Corpuscular Hgb Conc. 32.1 g/dL (32.0-36.0); Mean Corpuscular Volume 81.9 fL (80.0-100.0); Monocytes # (auto) 1.1 10 ^3/uL (0-1.3); Monocytes % (auto) 8.1 % (0.0-12.0); Neutrophils # (auto) 10.4 10 ^3/uL (1.6-8.6); Neutrophils % (auto) 76.3 % (37.0-80.0); Red Blood Cells 2.63 10^6/uL (4.5-5.90)
[2022-01-18 02:52] LABS: BUN/Creatinine Ratio 7.4; Calcium 8.2 mg/dL (8.5-10.1); Potassium 3.7 mmol/L (3.5-5.1)
[2022-01-18 03:07] LABS: Red Cell Distribution Width 20.9 % (11.8-14.3)
[2022-01-18 03:08] LABS: Hemoglobin 6.9 g/dL (13.5-17.5)
[2022-01-18] MEDS: NOREPINEPHRINE 8 MG/250ML KIT 250 ML IV SCH (05:15)
[2022-01-18] MEDS: fentaNYL Drip 2500mCg/250mlNS 250 ML IV SCH ×2 (05:15→09:20)
[2022-01-18] MEDS: ceFAZolin 1GM/50ML 50 ML IV SCH ×3 (05:45→21:36)
[2022-01-18] MEDS: ALBUTEROL SULF 2.5 MG/0.5ML(0.5%) NEB SOLN NEB PRN ×3 (06:20→22:12)
[2022-01-18] MEDS: ACETYLCYSTEINE 10 %(100MG/ML) SOL 4ML NEB SCH ×3 (06:21→22:12)
[2022-01-18] MEDS: PANTOPRAZOLE 40 MG/10 ML VIAL INJ IV SCH ×2 (09:07→21:38)
[2022-01-18] MEDS: THIAMINE 100mg/ml INJ (200mg/2ml VIAL) IV SCH (09:07)
[2022-01-18] MEDS: FOLIC ACID 1 MG in D5W 5% 50 ML INJ SCH (09:08)
[2022-01-18] MEDS: ALBUMIN 25% 100 ML IV SCH ×2 (09:25→15:27)
[2022-01-18] MEDS ORDERED: FUROSEMIDE 20 MG/2 ML VIAL IV SCH (10:00)
[2022-01-18] MEDS: DOPamine 1600MCG/ML D5W 250 ML IV SCH (10:14)
[2022-01-18] MEDS: BUMETANIDE INJECTION 12.5 MG in GIVE UN-DILUTED 0 ML IV SCH ×2 (10:25→22:27)
[2022-01-18] MEDS: OCTREOTIDE ACETATE 100 MCG/ML VL SUBCUT SCH ×2 (13:44→21:38)
[2022-01-19] VITALS (107 sets, daily range): BP systolic 106–152; BP diastolic 51–88
[2022-01-19] MEDS: ALBUMIN 25% 100 ML IV SCH (00:30)
[2022-01-19 04:06] LABS: Eosinophils # (auto) 0.8 10 ^3/uL (0-0.8); Lymphocytes # (auto) 1.2 10 ^3/uL (0.4-5.4); Lymphocytes % (auto) 8.1 % (10.0-50.0); Nucleated Red Blood Cells % 0.1 %
[2022-01-19 04:10] LABS: Basophils # (auto) 0.3 10 ^3/uL (0-0.2); Basophils % (auto) 1.9 % (0.0-2.0); Eosinophils % (auto) 5.6 % (0.0-7.0); Hematocrit 30.4 % (41.0-53.0); Hemoglobin 9.7 g/dL (13.5-17.5); Mean Corpuscular Hemoglobin 26.4 pg (28.0-32.0); Mean Corpuscular Volume 82.4 fL (80.0-100.0); Monocytes # (auto) 1.2 10 ^3/uL (0-1.3); Monocytes % (auto) 8.2 % (0.0-12.0); Neutrophils # (auto) 10.9 10 ^3/uL (1.6-8.6); Neutrophils % (auto) 76.2 % (37.0-80.0); Red Blood Cells 3.69 10^6/uL (4.5-5.90); Red Cell Distribution Width 19.1 % (11.8-14.3); White Blood Cell 14.2 10^3/uL (4.4-10.8)
[2022-01-19] MEDS: fentaNYL Drip 2500mCg/250mlNS 250 ML IV SCH ×2 (04:24→12:45)
[2022-01-19 04:29] LABS: Alanine Aminotransferase < 6 U/L (16-61); Albumin 3.1 g/dL (3.4-5.0); Anion Gap 13 (5-15); Aspartate Aminotransferase 39 U/L (15-37); BUN/Creatinine Ratio 7.5; Blood Urea Nitrogen 45 mg/dL (7-18); Calcium 9.1 mg/dL (8.5-10.1); Carbon Dioxide 25 mmol/L (21-32); Chloride 104 mmol/L (98-107); GFR African American 12 mL/min; GFR Non-African American 10 mL/min; Glucose 94 mg/dL (74-106); Potassium 3.7 mmol/L (3.5-5.1); Sodium 142 mmol/L (136-145)
[2022-01-19 04:32] LABS: Alkaline Phosphatase 96 U/L (45-117); Bilirubin, Total 2.8 mg/dL (0.2-1.0); Total Protein 6.2 g/dL (6.4-8.2)
[2022-01-19] MEDS: NOREPINEPHRINE 8 MG/250ML KIT 250 ML IV SCH (05:15)
[2022-01-19] MEDS: ceFAZolin 1GM/50ML 50 ML IV SCH ×3 (05:54→22:01)
[2022-01-19] MEDS: OCTREOTIDE ACETATE 100 MCG/ML VL SUBCUT SCH ×3 (05:54→22:08)
[2022-01-19] MEDS: PROPOFOL 100 ML IV SCH ×2 (05:55→12:59)
[2022-01-19] MEDS: ACETYLCYSTEINE 10 %(100MG/ML) SOL 4ML NEB SCH ×3 (06:34→22:21)
[2022-01-19] MEDS: ALBUTEROL SULF 2.5 MG/0.5ML(0.5%) NEB SOLN NEB PRN ×3 (06:36→22:22)
[2022-01-19] MEDS: DOPamine 1600MCG/ML D5W 250 ML IV SCH ×2 (08:15→16:54)
[2022-01-19] MEDS: PANTOPRAZOLE 40 MG/10 ML VIAL INJ IV SCH ×2 (10:45→22:04)
[2022-01-19] MEDS: THIAMINE 100mg/ml INJ (200mg/2ml VIAL) IV SCH (10:45)
[2022-01-19] MEDS: FOLIC ACID 1 MG in D5W 5% 50 ML INJ SCH (10:57)
[2022-01-19] MEDS ORDERED: METOCLOPRAMIDE HCL 5MG/ml INJ 2ml VIAL IV ONE (12:00)
[2022-01-19] MEDS: BUMETANIDE INJECTION 12.5 MG in GIVE UN-DILUTED 0 ML IV SCH (22:45)
[2022-01-20] VITALS (108 sets, daily range): BP systolic 86–181; BP diastolic 49–96
[2022-01-20] MEDS: fentaNYL Drip 2500mCg/250mlNS 250 ML IV SCH (00:46)
[2022-01-20] MEDS: PROPOFOL 100 ML IV SCH (01:33)
[2022-01-20 04:02] LABS: Neutrophils # (auto) 14.1 10 ^3/uL (1.6-8.6); White Blood Cell 17.4 10^3/uL (4.4-10.8)
[2022-01-20 04:03] LABS: Basophils # (auto) 0.3 10 ^3/uL (0-0.2); Eosinophils # (auto) 0.5 10 ^3/uL (0-0.8); Eosinophils % (auto) 2.9 % (0.0-7.0); Hematocrit 30.8 % (41.0-53.0); Hemoglobin 9.9 g/dL (13.5-17.5); Lymphocytes # (auto) 1.1 10 ^3/uL (0.4-5.4); Lymphocytes % (auto) 6.5 % (10.0-50.0); Mean Corpuscular Hemoglobin 26.5 pg (28.0-32.0); Mean Corpuscular Hgb Conc. 32.1 g/dL (32.0-36.0); Mean Corpuscular Volume 82.5 fL (80.0-100.0); Monocytes # (auto) 1.3 10 ^3/uL (0-1.3); Monocytes % (auto) 7.7 % (0.0-12.0); Neutrophils % (auto) 80.9 % (37.0-80.0); Red Blood Cells 3.73 10^6/uL (4.5-5.90); Red Cell Distribution Width 19.8 % (11.8-14.3)
[2022-01-20 04:16] LABS: BUN/Creatinine Ratio 7.8; Calcium 8.7 mg/dL (8.5-10.1)
[2022-01-20] MEDS: NOREPINEPHRINE 8 MG/250ML KIT 250 ML IV SCH ×2 (05:15→19:42)
[2022-01-20] MEDS: OCTREOTIDE ACETATE 100 MCG/ML VL SUBCUT SCH ×3 (05:38→21:45)
[2022-01-20] MEDS: ceFAZolin 1GM/50ML 50 ML IV SCH ×3 (05:39→21:42)
[2022-01-20] MEDS: ALBUTEROL SULF 2.5 MG/0.5ML(0.5%) NEB SOLN NEB PRN ×3 (05:59→22:24)
[2022-01-20] MEDS: ACETYLCYSTEINE 10 %(100MG/ML) SOL 4ML NEB SCH ×3 (05:59→22:24)
[2022-01-20] MEDS ORDERED: SODIUM CHL 0.9% 1000 ML BAG XX ONE (09:30)
[2022-01-20] MEDS: PANTOPRAZOLE 40 MG/10 ML VIAL INJ IV SCH ×2 (10:23→21:42)
[2022-01-20] MEDS: METOCLOPRAMIDE HCL 5MG/ml INJ 2ml VIAL IV SCH (10:23)
[2022-01-20] MEDS: THIAMINE 100mg/ml INJ (200mg/2ml VIAL) IV SCH (10:23)
[2022-01-20] MEDS: FOLIC ACID 1 MG in D5W 5% 50 ML INJ SCH (10:25)
[2022-01-20] MEDS: PIPERACILLIN-TAZOB 2.25GM 50 ML IV SCH ×2 (12:29→21:05)
[2022-01-20] MEDS: ALBUMIN 25% 100 ML IV PRN ×2 (19:20→19:28)
[2022-01-20] MEDS ORDERED: BUMETANIDE INJECTION 50 ML ONE (20:57)
[2022-01-20] MEDS ORDERED: EPOETIN ALFA-EPBX 10,000 UNIT/1ML VIAL SC ONE (21:00)
[2022-01-20] MEDS: BUMETANIDE INJECTION 12.5 MG in GIVE UN-DILUTED 0 ML IV SCH (21:47)
[2022-01-21] VITALS (100 sets, daily range): BP systolic 103–167; BP diastolic 66–109
[2022-01-21] MEDS: DOPamine 1600MCG/ML D5W 250 ML IV SCH (03:36)
[2022-01-21 03:52] LABS: Hemoglobin 9.3 g/dL (13.5-17.5)
[2022-01-21 03:58] LABS: Hematocrit 29.8 % (41.0-53.0); Mean Corpuscular Hemoglobin 25.9 pg (28.0-32.0); Mean Corpuscular Hgb Conc. 31.1 g/dL (32.0-36.0); Mean Corpuscular Volume 83.3 fL (80.0-100.0); Red Blood Cells 3.57 10^6/uL (4.5-5.90); White Blood Cell 25.2 10^3/uL (4.4-10.8)
[2022-01-21 04:09] LABS: BUN/Creatinine Ratio 6.9; Calcium 8.8 mg/dL (8.5-10.1); Potassium 3.8 mmol/L (3.5-5.1)
[2022-01-21 04:30] LABS: Red Cell Distribution Width 20.6 % (11.8-14.3)
[2022-01-21] MEDS: PROPOFOL 100 ML IV SCH (04:30)
[2022-01-21 04:32] LABS: Band Neutrophils % (manual) 0; Basophils % (manual) 0 (0.0-2.0); Blast Cells 0; Eosinophils % (manual) 0 (0-7); Metamyelocytes % 0; Myelocytes % 0; Promyelocytes % 0; Reactive Lymphocytes 0
[2022-01-21] MEDS: ceFAZolin 1GM/50ML 50 ML IV SCH (06:06)
[2022-01-21] MEDS: PIPERACILLIN-TAZOB 2.25GM 50 ML IV SCH ×3 (06:06→20:11)
[2022-01-21] MEDS: OCTREOTIDE ACETATE 100 MCG/ML VL SUBCUT SCH ×3 (06:07→22:45)
[2022-01-21] MEDS: ACETYLCYSTEINE 10 %(100MG/ML) SOL 4ML NEB SCH ×3 (06:08→18:18)
[2022-01-21] MEDS: ALBUTEROL SULF 2.5 MG/0.5ML(0.5%) NEB SOLN NEB PRN ×4 (06:08→22:20)
[2022-01-21] MEDS: FOLIC ACID 1 MG in D5W 5% 50 ML INJ SCH (09:21)
[2022-01-21] MEDS: METOCLOPRAMIDE HCL 5MG/ml INJ 2ml VIAL IV SCH (09:21)
[2022-01-21] MEDS: THIAMINE 100mg/ml INJ (200mg/2ml VIAL) IV SCH (09:21)
[2022-01-21] MEDS: PANTOPRAZOLE 40 MG/10 ML VIAL INJ IV SCH ×2 (09:21→22:45)
[2022-01-21] MEDS: fentaNYL Drip 2500mCg/250mlNS 250 ML IV SCH (12:32)
[2022-01-21 13:38] LABS: Lymphocytes % (manual) 6 (10.0-50.0); Monocytes % (manual) 6 (0-12)
[2022-01-21] MEDS: MIDAZOLAM HCL 2MG/2ML 2ml VIAL (1mg/ml) IV PRN (16:40)
[2022-01-21 16:57] LABS: INR 1.64 (0.9-1.15); Partial Thromboplastin Time 49.6 sec (24.6-33.4)
[2022-01-21] MEDS ORDERED: MIDAZOLAM DRIP 50 mg/50mL 50 ML IV ONE (17:10)
[2022-01-21] MEDS: MIDAZOLAM DRIP 50 mg/50mL 50 ML IV SCH (17:11)
[2022-01-21] MEDS ORDERED: PHENYTOIN IV DILANTIN 1,000 MG in SODIUM CHL 0.9% 250 ML IV ONE (19:15)
[2022-01-22] VITALS (101 sets, daily range): BP systolic 72–174; BP diastolic 24–92
[2022-01-22] MEDS: BUMETANIDE INJECTION 12.5 MG in GIVE UN-DILUTED 0 ML IV SCH (01:10)
[2022-01-22] MEDS: MIDAZOLAM DRIP 50 mg/50mL 50 ML IV SCH ×2 (01:10→07:26)
[2022-01-22] MEDS: PROPOFOL 100 ML IV SCH (04:30)
[2022-01-22] MEDS: PIPERACILLIN-TAZOB 2.25GM 50 ML IV SCH ×3 (04:36→21:02)
[2022-01-22 05:03] LABS: Hematocrit 28.7 % (41.0-53.0); Hemoglobin 9.1 g/dL (13.5-17.5); Mean Corpuscular Hemoglobin 26.4 pg (28.0-32.0); Mean Corpuscular Hgb Conc. 31.8 g/dL (32.0-36.0); Mean Corpuscular Volume 83.1 fL (80.0-100.0); Red Blood Cells 3.46 10^6/uL (4.5-5.90)
[2022-01-22] MEDS: NOREPINEPHRINE 8 MG/250ML KIT 250 ML IV SCH (05:15)
[2022-01-22 05:20] LABS: Red Cell Distribution Width 20.7 % (11.8-14.3)
[2022-01-22 05:22] LABS: Metamyelocytes % 0; Promyelocytes % 0
[2022-01-22] MEDS: ACETYLCYSTEINE 10 %(100MG/ML) SOL 4ML NEB SCH ×3 (06:20→22:43)
[2022-01-22] MEDS: ALBUTEROL SULF 2.5 MG/0.5ML(0.5%) NEB SOLN NEB PRN ×3 (06:21→22:43)
[2022-01-22] MEDS: PHENYTOIN SODIUM 50 MG/ML 2ML VIAL IV SCH ×3 (06:40→21:16)
[2022-01-22] MEDS: OCTREOTIDE ACETATE 100 MCG/ML VL SUBCUT SCH ×3 (06:41→21:12)
[2022-01-22] MEDS ORDERED: SODIUM CHL 0.9% 1000 ML BAG XX ONE (07:15)
[2022-01-22] MEDS ORDERED: ALBUMIN 25% 100 ML IV PRN (07:15)
[2022-01-22] MEDS: ALBUMIN 25% 100 ML IV PRN ×3 (07:25→09:14)
[2022-01-22 07:36] LABS: BUN/Creatinine Ratio 7.8; Potassium 4.1 mmol/L (3.5-5.1)
[2022-01-22 08:14] LABS: Band Neutrophils % (manual) 4; Basophils % (manual) 1 (0.0-2.0); Blast Cells 1; Eosinophils % (manual) 6 (0-7); Lymphocytes % (manual) 7 (10.0-50.0); Monocytes % (manual) 9 (0-12); Myelocytes % 1; Reactive Lymphocytes 1
[2022-01-22] MEDS: THIAMINE 100mg/ml INJ (200mg/2ml VIAL) IV SCH (10:27)
[2022-01-22] MEDS: METOCLOPRAMIDE HCL 5MG/ml INJ 2ml VIAL IV SCH (10:28)
[2022-01-22] MEDS: PANTOPRAZOLE 40 MG/10 ML VIAL INJ IV SCH ×2 (10:28→21:16)
[2022-01-22] MEDS: FOLIC ACID 1 MG in D5W 5% 50 ML INJ SCH (10:30)
[2022-01-22] MEDS: DOPamine 1600MCG/ML D5W 250 ML IV SCH (11:59)
[2022-01-22] MEDS: fentaNYL Drip 2500mCg/250mlNS 250 ML IV SCH (12:45)
[2022-01-22] MEDS ORDERED: EPOETIN ALFA-EPBX 10,000 UNIT/1ML VIAL SC ONE (21:00)
[2022-01-23] VITALS (107 sets, daily range): BP systolic 112–152; BP diastolic 31–93
[2022-01-23 04:07] LABS: Lymphocytes # (auto) 1.2 10 ^3/uL (0.4-5.4)
[2022-01-23 04:08] LABS: Basophils # (auto) 0.5 10 ^3/uL (0-0.2); Basophils % (auto) 2.9 % (0.0-2.0); Eosinophils % (auto) 5.4 % (0.0-7.0); Hematocrit 26.9 % (41.0-53.0); Hemoglobin 8.5 g/dL (13.5-17.5); Lymphocytes % (auto) 6.8 % (10.0-50.0); Mean Corpuscular Hemoglobin 26.4 pg (28.0-32.0); Mean Corpuscular Hgb Conc. 31.5 g/dL (32.0-36.0); Mean Corpuscular Volume 83.8 fL (80.0-100.0); Monocytes # (auto) 1.7 10 ^3/uL (0-1.3); Monocytes % (auto) 9.3 % (0.0-12.0); Neutrophils # (auto) 13.5 10 ^3/uL (1.6-8.6); Neutrophils % (auto) 75.6 % (37.0-80.0); Red Blood Cells 3.21 10^6/uL (4.5-5.90); White Blood Cell 17.8 10^3/uL (4.4-10.8)
[2022-01-23 04:21] LABS: Alanine Aminotransferase < 6 U/L (16-61); Albumin 3.2 g/dL (3.4-5.0); Anion Gap 13 (5-15); Aspartate Aminotransferase 30 U/L (15-37); BUN/Creatinine Ratio 6.9; Blood Urea Nitrogen 42 mg/dL (7-18); Calcium 8.6 mg/dL (8.5-10.1); Carbon Dioxide 25 mmol/L (21-32); Chloride 102 mmol/L (98-107); GFR African American 12 mL/min; GFR Non-African American 10 mL/min; Glucose 127 mg/dL (74-106); Potassium 3.6 mmol/L (3.5-5.1); Sodium 140 mmol/L (136-145)
[2022-01-23 04:24] LABS: Alkaline Phosphatase 81 U/L (45-117); Bilirubin, Total 4.2 mg/dL (0.2-1.0); Total Protein 6.4 g/dL (6.4-8.2)
[2022-01-23] MEDS: PROPOFOL 100 ML IV SCH (04:30)
[2022-01-23] MEDS: PIPERACILLIN-TAZOB 2.25GM 50 ML IV SCH ×3 (04:33→20:27)
[2022-01-23] MEDS: NOREPINEPHRINE 8 MG/250ML KIT 250 ML IV SCH (05:15)
[2022-01-23] MEDS: OCTREOTIDE ACETATE 100 MCG/ML VL SUBCUT SCH ×3 (05:34→22:02)
[2022-01-23] MEDS: PHENYTOIN SODIUM 50 MG/ML 2ML VIAL IV SCH ×3 (05:34→21:59)
[2022-01-23] MEDS: ACETYLCYSTEINE 10 %(100MG/ML) SOL 4ML NEB SCH ×3 (05:58→22:05)
[2022-01-23] MEDS: ALBUTEROL SULF 2.5 MG/0.5ML(0.5%) NEB SOLN NEB PRN ×3 (05:58→22:05)
[2022-01-23] MEDS ORDERED: SODIUM CHL 0.9% 1000 ML BAG XX ONE (07:00)
[2022-01-23] MEDS: DOPamine 1600MCG/ML D5W 250 ML IV SCH (08:15)
[2022-01-23] MEDS: BUMETANIDE INJECTION 12.5 MG in GIVE UN-DILUTED 0 ML IV SCH ×2 (08:30→18:14)
[2022-01-23] MEDS: PANTOPRAZOLE 40 MG/10 ML VIAL INJ IV SCH ×2 (09:57→21:56)
[2022-01-23] MEDS: METOCLOPRAMIDE HCL 5MG/ml INJ 2ml VIAL IV SCH (09:57)
[2022-01-23] MEDS: THIAMINE 100mg/ml INJ (200mg/2ml VIAL) IV SCH (09:57)
[2022-01-23] MEDS: FOLIC ACID 1 MG in D5W 5% 50 ML INJ SCH (09:58)
[2022-01-23] MEDS: fentaNYL Drip 2500mCg/250mlNS 250 ML IV SCH (12:45)
[2022-01-23] MEDS: MIDAZOLAM DRIP 50 mg/50mL 50 ML IV SCH (17:30)
[2022-01-23] MEDS ORDERED: EPOETIN ALFA-EPBX 10,000 UNIT/1ML VIAL SC ONE (21:00)
[2022-01-24] VITALS (102 sets, daily range): BP systolic 102–179; BP diastolic 61–92
[2022-01-24] MEDS: DOPamine 1600MCG/ML D5W 250 ML IV SCH ×2 (00:20→23:59)
[2022-01-24 03:41] LABS: Eosinophils # (auto) 0.9 10 ^3/uL (0-0.8); Hemoglobin 8.8 g/dL (13.5-17.5); Mean Corpuscular Volume 83.6 fL (80.0-100.0); Neutrophils # (auto) 14.1 10 ^3/uL (1.6-8.6)
[2022-01-24 03:44] LABS: Basophils # (auto) 0.4 10 ^3/uL (0-0.2); Basophils % (auto) 2.4 % (0.0-2.0); Hematocrit 27.7 % (41.0-53.0); Lymphocytes # (auto) 1.1 10 ^3/uL (0.4-5.4); Lymphocytes % (auto) 6.2 % (10.0-50.0); Mean Corpuscular Hemoglobin 26.7 pg (28.0-32.0); Mean Corpuscular Hgb Conc. 31.9 g/dL (32.0-36.0); Monocytes # (auto) 1.5 10 ^3/uL (0-1.3); Monocytes % (auto) 8.4 % (0.0-12.0); Nucleated Red Blood Cells % 0.1 %; Red Blood Cells 3.31 10^6/uL (4.5-5.90); Red Cell Distribution Width 21.9 % (11.8-14.3)
[2022-01-24 03:58] LABS: Albumin 2.9 g/dL (3.4-5.0); Anion Gap 12 (5-15); Blood Urea Nitrogen 51 mg/dL (7-18); Calcium 8.6 mg/dL (8.5-10.1); Carbon Dioxide 25 mmol/L (21-32); Chloride 102 mmol/L (98-107); Glucose 101 mg/dL (74-106); Potassium 3.7 mmol/L (3.5-5.1); Sodium 139 mmol/L (136-145)
[2022-01-24 04:01] LABS: Alanine Aminotransferase < 6 U/L (16-61); Alkaline Phosphatase 88 U/L (45-117); Aspartate Aminotransferase 33 U/L (15-37); BUN/Creatinine Ratio 7.1; Bilirubin, Total 3.9 mg/dL (0.2-1.0); GFR African American 10 mL/min; GFR Non-African American 8 mL/min; Phosphorus 4.8 mg/dL (2.5-4.90); Total Protein 6.4 g/dL (6.4-8.2)
[2022-01-24] MEDS: PROPOFOL 100 ML IV SCH (04:10)
[2022-01-24] MEDS: PIPERACILLIN-TAZOB 2.25GM 50 ML IV SCH ×3 (04:10→20:14)
[2022-01-24] MEDS: NOREPINEPHRINE 8 MG/250ML KIT 250 ML IV SCH ×2 (05:15→06:53)
[2022-01-24] MEDS: PHENYTOIN SODIUM 50 MG/ML 2ML VIAL IV SCH ×3 (05:43→22:22)
[2022-01-24] MEDS: OCTREOTIDE ACETATE 100 MCG/ML VL SUBCUT SCH ×3 (05:45→22:23)
[2022-01-24] MEDS: ALBUTEROL SULF 2.5 MG/0.5ML(0.5%) NEB SOLN NEB PRN ×4 (06:00→22:05)
[2022-01-24] MEDS: ACETYLCYSTEINE 10 %(100MG/ML) SOL 4ML NEB SCH ×3 (06:00→22:05)
[2022-01-24] MEDS: ALBUMIN 25% 100 ML IV PRN ×2 (06:35→06:40)
[2022-01-24] MEDS ORDERED: SODIUM CHL 0.9% 1000 ML BAG XX ONE (07:00)
[2022-01-24] MEDS ORDERED: ALBUMIN 25% 100 ML IV PRN (08:45)
[2022-01-24] MEDS: FLUCONAZOLE 200MG/100ML 100 ML IV SCH ×2 (10:19→11:50)
[2022-01-24] MEDS: METOCLOPRAMIDE HCL 5MG/ml INJ 2ml VIAL IV SCH (10:19)
[2022-01-24] MEDS: PANTOPRAZOLE 40 MG/10 ML VIAL INJ IV SCH ×2 (10:19→22:22)
[2022-01-24] MEDS: THIAMINE 100mg/ml INJ (200mg/2ml VIAL) IV SCH (10:19)
[2022-01-24] MEDS: FOLIC ACID 1 MG in D5W 5% 50 ML INJ SCH (10:20)
[2022-01-24] MEDS: fentaNYL Drip 2500mCg/250mlNS 250 ML IV SCH (12:45)
[2022-01-24] MEDS: MIDAZOLAM DRIP 50 mg/50mL 50 ML IV SCH (17:30)
[2022-01-24] MEDS: BUMETANIDE INJECTION 12.5 MG in GIVE UN-DILUTED 0 ML IV SCH ×2 (19:13→22:30)
[2022-01-25] VITALS (106 sets, daily range): BP systolic 115–147; BP diastolic 71–89
[2022-01-25 03:34] LABS: Eosinophils # (auto) 0.9 10 ^3/uL (0-0.8); Mean Corpuscular Hemoglobin 26.4 pg (28.0-32.0); Mean Corpuscular Hgb Conc. 31.1 g/dL (32.0-36.0); Monocytes # (auto) 1.7 10 ^3/uL (0-1.3); Monocytes % (auto) 8.6 % (0.0-12.0); Nucleated Red Blood Cells % 0.1 %; White Blood Cell 19.4 10^3/uL (4.4-10.8)
[2022-01-25 03:36] LABS: Basophils # (auto) 0.3 10 ^3/uL (0-0.2); Basophils % (auto) 1.4 % (0.0-2.0); Eosinophils % (auto) 4.6 % (0.0-7.0); Hematocrit 27.1 % (41.0-53.0); Hemoglobin 8.5 g/dL (13.5-17.5); Lymphocytes # (auto) 1.5 10 ^3/uL (0.4-5.4); Lymphocytes % (auto) 7.9 % (10.0-50.0); Mean Corpuscular Volume 84.9 fL (80.0-100.0); Neutrophils # (auto) 15.1 10 ^3/uL (1.6-8.6); Neutrophils % (auto) 77.5 % (37.0-80.0)
[2022-01-25 03:37] LABS: Red Cell Distribution Width 22.9 % (11.8-14.3)
[2022-01-25 03:50] LABS: Albumin 3.2 g/dL (3.4-5.0); Anion Gap 14 (5-15); BUN/Creatinine Ratio 6.5; Blood Urea Nitrogen 39 mg/dL (7-18); Calcium 8.8 mg/dL (8.5-10.1); Carbon Dioxide 25 mmol/L (21-32); Chloride 101 mmol/L (98-107); GFR African American 12 mL/min; GFR Non-African American 10 mL/min; Glucose 100 mg/dL (74-106); Potassium 3.7 mmol/L (3.5-5.1); Sodium 140 mmol/L (136-145)
[2022-01-25 03:59] LABS: Alanine Aminotransferase < 6 U/L (16-61); Alkaline Phosphatase 85 U/L (45-117); Aspartate Aminotransferase 33 U/L (15-37); Bilirubin, Total 4.6 mg/dL (0.2-1.0); Total Protein 6.6 g/dL (6.4-8.2)
[2022-01-25] MEDS: PIPERACILLIN-TAZOB 2.25GM 50 ML IV SCH ×2 (04:30→12:51)
[2022-01-25] MEDS: PROPOFOL 100 ML IV SCH (04:30)
[2022-01-25] MEDS: ACETYLCYSTEINE 10 %(100MG/ML) SOL 4ML NEB SCH ×3 (06:04→22:23)
[2022-01-25] MEDS: ALBUTEROL SULF 2.5 MG/0.5ML(0.5%) NEB SOLN NEB PRN ×4 (06:06→22:23)
[2022-01-25] MEDS: PHENYTOIN SODIUM 50 MG/ML 2ML VIAL IV SCH ×3 (06:17→22:00)
[2022-01-25] MEDS: OCTREOTIDE ACETATE 100 MCG/ML VL SUBCUT SCH ×3 (06:18→22:00)
[2022-01-25] MEDS: METOCLOPRAMIDE HCL 5MG/ml INJ 2ml VIAL IV SCH ×2 (10:28→22:00)
[2022-01-25] MEDS: PANTOPRAZOLE 40 MG/10 ML VIAL INJ IV SCH ×2 (10:28→22:00)
[2022-01-25] MEDS: FLUCONAZOLE 200MG/100ML 100 ML IV SCH ×2 (10:29→12:50)
[2022-01-25] MEDS: THIAMINE 100mg/ml INJ (200mg/2ml VIAL) IV SCH (10:29)
[2022-01-25] MEDS: FOLIC ACID 1 MG in D5W 5% 50 ML INJ SCH (10:30)
[2022-01-25] MEDS: fentaNYL Drip 2500mCg/250mlNS 250 ML IV SCH (12:40)
[2022-01-25] MEDS: LACTULOSE 20Gm/30ML SOLN PO SCH ×2 (15:36→22:00)
[2022-01-25] MEDS: MIDAZOLAM DRIP 50 mg/50mL 50 ML IV SCH (17:30)
[2022-01-25] MEDS ORDERED: CLINIMIX PER PHARMACY IV NR (20:00)
[2022-01-25] MEDS ORDERED: TPN PER PHARMACY 0 ML IV SCH (20:45)
[2022-01-25] MEDS ORDERED: DEXTROSE (50%) 50ML SYRG IV SCH (21:00)
[2022-01-25] MEDS: BUMETANIDE INJECTION 12.5 MG in GIVE UN-DILUTED 0 ML IV SCH (22:00)
[2022-01-25] MEDS: DOPamine 1600MCG/ML D5W 250 ML IV SCH (22:00)
[2022-01-25] MEDS ORDERED: METOCLOPRAMIDE HCL 5MG/ml INJ 2ml VIAL IV ONE (22:00)
[2022-01-26] VITALS (108 sets, daily range): BP systolic 82–157; BP diastolic 49–93
[2022-01-26 04:12] LABS: Basophils # (auto) 0.4 10 ^3/uL (0-0.2); Hematocrit 27.2 % (41.0-53.0); Hemoglobin 8.6 g/dL (13.5-17.5); Lymphocytes # (auto) 1.2 10 ^3/uL (0.4-5.4)
[2022-01-26 04:14] LABS: Basophils % (auto) 2.2 % (0.0-2.0); Eosinophils # (auto) 0.9 10 ^3/uL (0-0.8); Eosinophils % (auto) 4.5 % (0.0-7.0); Lymphocytes % (auto) 6.1 % (10.0-50.0); Mean Corpuscular Hemoglobin 26.8 pg (28.0-32.0); Mean Corpuscular Hgb Conc. 31.5 g/dL (32.0-36.0); Mean Corpuscular Volume 85.1 fL (80.0-100.0); Monocytes # (auto) 1.9 10 ^3/uL (0-1.3); Monocytes % (auto) 9.7 % (0.0-12.0); Neutrophils % (auto) 77.5 % (37.0-80.0); White Blood Cell 19.3 10^3/uL (4.4-10.8)
[2022-01-26 04:51] LABS: Red Cell Distribution Width 24.6 % (11.8-14.3)
[2022-01-26] MEDS: ALBUTEROL SULF 2.5 MG/0.5ML(0.5%) NEB SOLN NEB PRN ×2 (05:38→22:05)
[2022-01-26 05:57] LABS: Alanine Aminotransferase < 6 U/L (16-61); Albumin 2.9 g/dL (3.4-5.0); Anion Gap 16 (5-15); Aspartate Aminotransferase 42 U/L (15-37); BUN/Creatinine Ratio 6.7; Blood Urea Nitrogen 47 mg/dL (7-18); Calcium 8.5 mg/dL (8.5-10.1); Carbon Dioxide 23 mmol/L (21-32); Chloride 100 mmol/L (98-107); GFR African American 10 mL/min; GFR Non-African American 9 mL/min; Glucose 157 mg/dL (74-106); Magnesium 1.8 mg/dL (1.6-2.6); Potassium 3.8 mmol/L (3.5-5.1); Sodium 139 mmol/L (136-145)
[2022-01-26 05:59] LABS: Alkaline Phosphatase 130 U/L (45-117); Bilirubin, Total 3.9 mg/dL (0.2-1.0); Phosphorus 4.6 mg/dL (2.5-4.90); Total Protein 6.7 g/dL (6.4-8.2)
[2022-01-26] MEDS: PHENYTOIN SODIUM 50 MG/ML 2ML VIAL IV SCH ×3 (06:00→22:10)
[2022-01-26] MEDS: ACCU-CHEK COMFORT CURVE STRIP VI SCH ×4 (06:00→17:52)
[2022-01-26] MEDS: InsuLIN REG 1unit/0.01ml Soln (100units/ml) SC SCH ×4 (06:00→17:53)
[2022-01-26] MEDS: OCTREOTIDE ACETATE 100 MCG/ML VL SUBCUT SCH ×3 (06:00→22:05)
[2022-01-26 06:23] LABS: Triglycerides 180 mg/dL (< 150)
[2022-01-26] MEDS: PROPOFOL 100 ML IV SCH (07:50)
[2022-01-26] MEDS: NOREPINEPHRINE 8 MG/250ML KIT 250 ML IV SCH ×2 (07:50→11:43)
[2022-01-26] MEDS: PANTOPRAZOLE 40 MG/10 ML VIAL INJ IV SCH ×2 (09:23→22:04)
[2022-01-26] MEDS: THIAMINE 100mg/ml INJ (200mg/2ml VIAL) IV SCH (09:24)
[2022-01-26] MEDS: fentaNYL Drip 2500mCg/250mlNS 250 ML IV SCH (09:24)
[2022-01-26] MEDS: METOCLOPRAMIDE HCL 5MG/ml INJ 2ml VIAL IV SCH ×2 (09:24→22:00)
[2022-01-26] MEDS: LACTULOSE 20Gm/30ML SOLN PO SCH (09:24)
[2022-01-26] MEDS: FOLIC ACID 1 MG in D5W 5% 50 ML INJ SCH (09:28)
[2022-01-26] MEDS: ACETYLCYSTEINE 10 %(100MG/ML) SOL 4ML NEB SCH ×2 (09:34→22:05)
[2022-01-26] MEDS ORDERED: SODIUM CHL 0.9% 1000 ML BAG XX ONE (11:00)
[2022-01-26] MEDS: ALBUMIN 25% 100 ML IV SCH ×2 (13:01→13:55)
[2022-01-26] MEDS: MIDAZOLAM DRIP 50 mg/50mL 50 ML IV SCH (13:55)
[2022-01-26] MEDS ORDERED: TPN PER PHARMACY IV NR ×5 (20:00)
[2022-01-26] MEDS ORDERED: EPOETIN ALFA-EPBX 10,000 UNIT/1ML VIAL SC ONE (21:00)
[2022-01-26] MEDS: BUMETANIDE INJECTION 12.5 MG in GIVE UN-DILUTED 0 ML IV SCH (22:26)
[2022-01-27] VITALS (103 sets, daily range): BP systolic 123–181; BP diastolic 18–87
[2022-01-27 04:10] LABS: Basophils # (auto) 0.3 10 ^3/uL (0-0.2); Basophils % (auto) 1.6 % (0.0-2.0); Hemoglobin 7.9 g/dL (13.5-17.5)
[2022-01-27 04:12] LABS: Eosinophils % (auto) 4.8 % (0.0-7.0); Hematocrit 25.1 % (41.0-53.0); Lymphocytes # (auto) 1.4 10 ^3/uL (0.4-5.4); Mean Corpuscular Hemoglobin 26.8 pg (28.0-32.0); Mean Corpuscular Hgb Conc. 31.4 g/dL (32.0-36.0); Mean Corpuscular Volume 85.3 fL (80.0-100.0); Monocytes # (auto) 2.2 10 ^3/uL (0-1.3); Monocytes % (auto) 10.9 % (0.0-12.0); Neutrophils # (auto) 15.1 10 ^3/uL (1.6-8.6); Neutrophils % (auto) 75.7 % (37.0-80.0); Red Blood Cells 2.95 10^6/uL (4.5-5.90)
[2022-01-27 04:14] LABS: Chloride 99 mmol/L (98-107); Sodium 138 mmol/L (136-145)
[2022-01-27 04:18] LABS: Alanine Aminotransferase < 6 U/L (16-61); Albumin 3.4 g/dL (3.4-5.0); Anion Gap 12 (5-15); Aspartate Aminotransferase 43 U/L (15-37); BUN/Creatinine Ratio 6.6; Blood Urea Nitrogen 37 mg/dL (7-18); Calcium 8.8 mg/dL (8.5-10.1); Carbon Dioxide 27 mmol/L (21-32); GFR African American 13 mL/min; GFR Non-African American 11 mL/min; Glucose 162 mg/dL (74-106); Magnesium 1.8 mg/dL (1.6-2.6)
[2022-01-27 04:20] LABS: Alkaline Phosphatase 94 U/L (45-117); Bilirubin, Total 3.9 mg/dL (0.2-1.0); Phosphorus 2.6 mg/dL (2.5-4.90)
[2022-01-27] MEDS: PROPOFOL 100 ML IV SCH (04:30)
[2022-01-27 04:36] LABS: Red Cell Distribution Width 25.4 % (11.8-14.3)
[2022-01-27] MEDS ORDERED: POTASSIUM CHL 20MEQ/100ML 100 ML IV ONE (05:45)
[2022-01-27] MEDS: OCTREOTIDE ACETATE 100 MCG/ML VL SUBCUT SCH ×3 (05:49→21:54)
[2022-01-27] MEDS: InsuLIN REG 1unit/0.01ml Soln (100units/ml) SC SCH ×5 (05:55→23:39)
[2022-01-27] MEDS: PHENYTOIN SODIUM 50 MG/ML 2ML VIAL IV SCH ×3 (05:55→21:58)
[2022-01-27] MEDS: ACCU-CHEK COMFORT CURVE STRIP VI SCH ×5 (05:59→23:56)
[2022-01-27] MEDS: ALBUTEROL SULF 2.5 MG/0.5ML(0.5%) NEB SOLN NEB PRN ×3 (06:50→22:15)
[2022-01-27] MEDS: ACETYLCYSTEINE 10 %(100MG/ML) SOL 4ML NEB SCH ×3 (06:51→22:15)
[2022-01-27] MEDS: PANTOPRAZOLE 40 MG/10 ML VIAL INJ IV SCH ×2 (09:51→21:53)
[2022-01-27] MEDS: DOPamine 1600MCG/ML D5W 250 ML IV SCH (09:51)
[2022-01-27] MEDS: LACTULOSE 20Gm/30ML SOLN PO SCH (09:52)
[2022-01-27] MEDS: METOCLOPRAMIDE HCL 5MG/ml INJ 2ml VIAL IV SCH ×2 (09:52→21:53)
[2022-01-27] MEDS: fentaNYL Drip 2500mCg/250mlNS 250 ML IV SCH (12:45)
[2022-01-27] MEDS: MIDAZOLAM DRIP 50 mg/50mL 50 ML IV SCH (16:59)
[2022-01-27] MEDS: TPN PER PHARMACY IV NR ×9 (20:00)
[2022-01-28] VITALS (61 sets, daily range): BP systolic 102–172; BP diastolic 23–76
[2022-01-28 03:52] LABS: Basophils # (auto) 0.1 10 ^3/uL (0-0.2); Eosinophils # (auto) 1.2 10 ^3/uL (0-0.8); Eosinophils % (auto) 5.6 % (0.0-7.0); Monocytes # (auto) 2.2 10 ^3/uL (0-1.3)
[2022-01-28 03:56] LABS: Basophils % (auto) 0.4 % (0.0-2.0); Hematocrit 25.2 % (41.0-53.0); Hemoglobin 8.2 g/dL (13.5-17.5); Lymphocytes # (auto) 1.5 10 ^3/uL (0.4-5.4); Mean Corpuscular Hemoglobin 27.6 pg (28.0-32.0); Mean Corpuscular Hgb Conc. 32.4 g/dL (32.0-36.0); Mean Corpuscular Volume 85.3 fL (80.0-100.0); Monocytes % (auto) 10.5 % (0.0-12.0); Neutrophils % (auto) 76.5 % (37.0-80.0); Red Blood Cells 2.96 10^6/uL (4.5-5.90); White Blood Cell 20.9 10^3/uL (4.4-10.8)
[2022-01-28 03:57] LABS: Red Cell Distribution Width 25.4 % (11.8-14.3)
[2022-01-28 04:08] LABS: Albumin 2.9 g/dL (3.4-5.0); Anion Gap 12 (5-15); Blood Urea Nitrogen 47 mg/dL (7-18); Calcium 8.6 mg/dL (8.5-10.1); Carbon Dioxide 25 mmol/L (21-32); Chloride 98 mmol/L (98-107); Glucose 130 mg/dL (74-106); Potassium 3.2 mmol/L (3.5-5.1); Sodium 135 mmol/L (136-145)
[2022-01-28 04:12] LABS: Alanine Aminotransferase < 6 U/L (16-61); Alkaline Phosphatase 98 U/L (45-117); Aspartate Aminotransferase 48 U/L (15-37); BUN/Creatinine Ratio 7.4; Bilirubin, Total 3.7 mg/dL (0.2-1.0); GFR African American 12 mL/min; GFR Non-African American 10 mL/min; Phosphorus 3.1 mg/dL (2.5-4.90); Total Protein 6.8 g/dL (6.4-8.2)
[2022-01-28] MEDS: PROPOFOL 100 ML IV SCH (04:30)
[2022-01-28] MEDS: NOREPINEPHRINE 8 MG/250ML KIT 250 ML IV SCH (05:15)
[2022-01-28] MEDS: OCTREOTIDE ACETATE 100 MCG/ML VL SUBCUT SCH ×3 (05:54→22:44)
[2022-01-28] MEDS: InsuLIN REG 1unit/0.01ml Soln (100units/ml) SC SCH ×3 (05:54→23:48)
[2022-01-28] MEDS: PHENYTOIN SODIUM 50 MG/ML 2ML VIAL IV SCH ×3 (05:54→22:46)
[2022-01-28] MEDS: ACCU-CHEK COMFORT CURVE STRIP VI SCH ×3 (05:55→23:49)
[2022-01-28] MEDS: ALBUTEROL SULF 2.5 MG/0.5ML(0.5%) NEB SOLN NEB PRN ×3 (06:43→22:47)
[2022-01-28] MEDS: ACETYLCYSTEINE 10 %(100MG/ML) SOL 4ML NEB SCH ×3 (06:43→22:47)
[2022-01-28] MEDS: BUMETANIDE INJECTION 12.5 MG in GIVE UN-DILUTED 0 ML IV SCH ×2 (08:30→16:37)
[2022-01-28] MEDS: METOCLOPRAMIDE HCL 5MG/ml INJ 2ml VIAL IV SCH ×2 (09:39→22:00)
[2022-01-28] MEDS: LACTULOSE 20Gm/30ML SOLN PO SCH (09:39)
[2022-01-28] MEDS: PANTOPRAZOLE 40 MG/10 ML VIAL INJ IV SCH ×2 (09:39→22:44)
[2022-01-28] MEDS: POTASSIUM CHL 20MEQ/100ML 100 ML IV SCH (09:56)
[2022-01-28 11:06] LABS: INR 1.57 (0.9-1.15)
[2022-01-28] MEDS: fentaNYL Drip 2500mCg/250mlNS 250 ML IV SCH (12:45)
[2022-01-28] MEDS: MIDAZOLAM DRIP 50 mg/50mL 50 ML IV SCH (17:30)
[2022-01-28] MEDS: TPN PER PHARMACY IV NR ×9 (19:59)
[2022-01-28] MEDS ORDERED: TPN PER PHARMACY IV NR ×9 (20:00)
[2022-01-29] VITALS (83 sets, daily range): BP systolic 126–178; BP diastolic 21–90
[2022-01-29] MEDS: PROPOFOL 100 ML IV SCH (04:30)
[2022-01-29 04:32] LABS: Albumin 2.9 g/dL (3.4-5.0); Anion Gap 13 (5-15); Blood Urea Nitrogen 60 mg/dL (7-18); Calcium 8.7 mg/dL (8.5-10.1); Carbon Dioxide 24 mmol/L (21-32); Chloride 98 mmol/L (98-107); Glucose 149 mg/dL (74-106); Magnesium 1.8 mg/dL (1.6-2.6); Potassium 3.4 mmol/L (3.5-5.1); Sodium 135 mmol/L (136-145)
[2022-01-29 04:34] LABS: Alanine Aminotransferase < 6 U/L (16-61); Aspartate Aminotransferase 49 U/L (15-37); BUN/Creatinine Ratio 8.8; Bilirubin, Total 3.5 mg/dL (0.2-1.0); GFR African American 11 mL/min; GFR Non-African American 9 mL/min; Phosphorus 3.4 mg/dL (2.5-4.90); Total Protein 6.9 g/dL (6.4-8.2)
[2022-01-29] MEDS: NOREPINEPHRINE 8 MG/250ML KIT 250 ML IV SCH (05:15)
[2022-01-29] MEDS: ACCU-CHEK COMFORT CURVE STRIP VI SCH ×4 (06:00→23:50)
[2022-01-29] MEDS: InsuLIN REG 1unit/0.01ml Soln (100units/ml) SC SCH ×4 (06:00→23:51)
[2022-01-29] MEDS: OCTREOTIDE ACETATE 100 MCG/ML VL SUBCUT SCH ×3 (06:08→22:27)
[2022-01-29] MEDS: PHENYTOIN SODIUM 50 MG/ML 2ML VIAL IV SCH ×3 (06:09→22:28)
[2022-01-29] MEDS: ALBUTEROL SULF 2.5 MG/0.5ML(0.5%) NEB SOLN NEB PRN ×3 (06:15→22:05)
[2022-01-29 06:55] LABS: Alkaline Phosphatase 107 U/L (45-117)
[2022-01-29] MEDS ORDERED: SODIUM CHL 0.9% 1000 ML BAG XX ONE (07:00)
[2022-01-29] MEDS ORDERED: POTASSIUM CHL 20MEQ/100ML 100 ML IV ONE ×2 (09:15→13:30)
[2022-01-29] MEDS: LACTULOSE 20Gm/30ML SOLN PO SCH (10:39)
[2022-01-29] MEDS: PANTOPRAZOLE 40 MG/10 ML VIAL INJ IV SCH ×2 (10:39→22:26)
[2022-01-29] MEDS: METOCLOPRAMIDE HCL 5MG/ml INJ 2ml VIAL IV SCH ×2 (10:39→22:31)
[2022-01-29] MEDS: fentaNYL Drip 2500mCg/250mlNS 250 ML IV SCH (12:45)
[2022-01-29] MEDS: ACETYLCYSTEINE 10 %(100MG/ML) SOL 4ML NEB SCH ×2 (14:48→22:05)
[2022-01-29] MEDS: BUMETANIDE INJECTION 12.5 MG in GIVE UN-DILUTED 0 ML IV SCH (17:15)
[2022-01-29] MEDS: MIDAZOLAM DRIP 50 mg/50mL 50 ML IV SCH (19:00)
[2022-01-29] MEDS ORDERED: TPN PER PHARMACY IV NR ×10 (20:00)
[2022-01-29] MEDS ORDERED: EPOETIN ALFA-EPBX 10,000 UNIT/1ML VIAL SC ONE (21:00)
[2022-01-30] VITALS (82 sets, daily range): BP systolic 82–160; BP diastolic 12–76
[2022-01-30] MEDS: PROPOFOL 100 ML IV SCH ×3 (04:30→22:45)
[2022-01-30 04:37] LABS: Albumin 2.8 g/dL (3.4-5.0); Anion Gap 12 (5-15); Blood Urea Nitrogen 76 mg/dL (7-18); Calcium 8.8 mg/dL (8.5-10.1); Carbon Dioxide 26 mmol/L (21-32); Chloride 99 mmol/L (98-107); Glucose 129 mg/dL (74-106); Magnesium 1.8 mg/dL (1.6-2.6); Potassium 4.1 mmol/L (3.5-5.1); Sodium 137 mmol/L (136-145)
[2022-01-30 04:41] LABS: Alanine Aminotransferase < 6 U/L (16-61); Alkaline Phosphatase 117 U/L (45-117); Aspartate Aminotransferase 52 U/L (15-37); BUN/Creatinine Ratio 10.7; Bilirubin, Total 3.4 mg/dL (0.2-1.0); GFR African American 10 mL/min; GFR Non-African American 8 mL/min; Phosphorus 4.3 mg/dL (2.5-4.90); Total Protein 6.6 g/dL (6.4-8.2)
[2022-01-30] MEDS: NOREPINEPHRINE 8 MG/250ML KIT 250 ML IV SCH ×2 (05:15→14:19)
[2022-01-30] MEDS: PHENYTOIN SODIUM 50 MG/ML 2ML VIAL IV SCH ×3 (05:54→22:46)
[2022-01-30] MEDS: InsuLIN REG 1unit/0.01ml Soln (100units/ml) SC SCH ×4 (05:56→23:09)
[2022-01-30] MEDS: ACCU-CHEK COMFORT CURVE STRIP VI SCH ×4 (05:56→23:09)
[2022-01-30] MEDS: OCTREOTIDE ACETATE 100 MCG/ML VL SUBCUT SCH ×3 (05:56→22:47)
[2022-01-30] MEDS: ALBUTEROL SULF 2.5 MG/0.5ML(0.5%) NEB SOLN NEB PRN ×4 (07:46→21:53)
[2022-01-30] MEDS: ACETYLCYSTEINE 10 %(100MG/ML) SOL 4ML NEB SCH ×3 (07:46→21:53)
[2022-01-30] MEDS: LACTULOSE 20Gm/30ML SOLN PO SCH (09:52)
[2022-01-30] MEDS: PANTOPRAZOLE 40 MG/10 ML VIAL INJ IV SCH ×2 (09:52→22:51)
[2022-01-30] MEDS: METOCLOPRAMIDE HCL 5MG/ml INJ 2ml VIAL IV SCH ×2 (09:53→22:48)
[2022-01-30] MEDS ORDERED: SODIUM CHL 0.9% 1000 ML BAG XX ONE (11:00)
[2022-01-30 11:46] LABS: Hemoglobin 8.3 g/dL (13.5-17.5)
[2022-01-30 11:48] LABS: Hematocrit 26.6 % (41.0-53.0)
[2022-01-30] MEDS: ACETAMINOPHEN 120 MG RECT SUPP PR PRN ×2 (14:20→18:41)
[2022-01-30] MEDS ORDERED: CATHFLO ACTIVASE (ALTEPLASE) 2 MG VIAL IV ONE (16:30)
[2022-01-30] MEDS: MIDAZOLAM DRIP 50 mg/50mL 50 ML IV SCH (17:30)
[2022-01-30] MEDS: BUMETANIDE INJECTION 12.5 MG in GIVE UN-DILUTED 0 ML IV SCH (19:09)
[2022-01-30] MEDS ORDERED: TPN PER PHARMACY IV NR ×10 (20:00)
[2022-01-30] MEDS ORDERED: EPOETIN ALFA-EPBX 10,000 UNIT/1ML VIAL SC ONE (21:00)
[2022-01-31] VITALS (103 sets, daily range): BP systolic 80–149; BP diastolic 14–105
[2022-01-31 03:31] LABS: Hematocrit 24.4 % (41.0-53.0); Hemoglobin 7.8 g/dL (13.5-17.5); Lymphocytes # (auto) 1.6 10 ^3/uL (0.4-5.4); Mean Corpuscular Hgb Conc. 31.8 g/dL (32.0-36.0); Neutrophils # (auto) 11.6 10 ^3/uL (1.6-8.6); Nucleated Red Blood Cells % 0.1 %; Red Blood Cells 2.48 10^6/uL (4.5-5.90)
[2022-01-31 03:33] LABS: Basophils # (auto) 0.1 10 ^3/uL (0-0.2); Basophils % (auto) 0.7 % (0.0-2.0); Eosinophils # (auto) 0.4 10 ^3/uL (0-0.8); Eosinophils % (auto) 2.6 % (0.0-7.0); Lymphocytes % (auto) 9.5 % (10.0-50.0); Mean Corpuscular Hemoglobin 31.3 pg (28.0-32.0); Mean Corpuscular Volume 98.5 fL (80.0-100.0); Monocytes # (auto) 2.6 10 ^3/uL (0-1.3); Monocytes % (auto) 15.7 % (0.0-12.0); Neutrophils % (auto) 71.5 % (37.0-80.0); White Blood Cell 16.3 10^3/uL (4.4-10.8)
[2022-01-31 03:42] LABS: Red Cell Distribution Width 26.8 % (11.8-14.3)
[2022-01-31] MEDS: PHENYTOIN SODIUM 50 MG/ML 2ML VIAL IV SCH ×3 (05:36→22:17)
[2022-01-31] MEDS: OCTREOTIDE ACETATE 100 MCG/ML VL SUBCUT SCH ×3 (05:37→22:19)
[2022-01-31 05:38] LABS: Chloride 100 mmol/L (98-107); Potassium 3.9 mmol/L (3.5-5.1); Sodium 138 mmol/L (136-145)
[2022-01-31 05:42] LABS: Albumin 2.7 g/dL (3.4-5.0); Anion Gap 15 (5-15); BUN/Creatinine Ratio 11.1; Blood Urea Nitrogen 70 mg/dL (7-18); Calcium 8.5 mg/dL (8.5-10.1); Carbon Dioxide 23 mmol/L (21-32); GFR African American 12 mL/min; GFR Non-African American 10 mL/min; Glucose 181 mg/dL (74-106); Magnesium 2.2 mg/dL (1.6-2.6)
[2022-01-31 05:52] LABS: Alanine Aminotransferase < 6 U/L (16-61); Alkaline Phosphatase 139 U/L (45-117); Aspartate Aminotransferase 60 U/L (15-37); Phosphorus 4.4 mg/dL (2.5-4.90); Total Protein 6.6 g/dL (6.4-8.2)
[2022-01-31] MEDS: ACCU-CHEK COMFORT CURVE STRIP VI SCH ×3 (06:06→18:17)
[2022-01-31] MEDS: InsuLIN REG 1unit/0.01ml Soln (100units/ml) SC SCH ×3 (06:07→18:17)
[2022-01-31] MEDS: PROPOFOL 100 ML IV SCH ×2 (06:13→22:20)
[2022-01-31] MEDS: ACETYLCYSTEINE 10 %(100MG/ML) SOL 4ML NEB SCH ×3 (06:41→22:15)
[2022-01-31] MEDS: ALBUTEROL SULF 2.5 MG/0.5ML(0.5%) NEB SOLN NEB PRN ×3 (06:41→22:15)
[2022-01-31] MEDS ORDERED: SODIUM CHL 0.9% 1000 ML BAG XX ONE (06:45)
[2022-01-31] MEDS: MIDAZOLAM DRIP 50 mg/50mL 50 ML IV SCH (07:34)
[2022-01-31] MEDS: ALBUMIN 25% 100 ML IV PRN ×3 (07:40→09:04)
[2022-01-31] MEDS: METOCLOPRAMIDE HCL 5MG/ml INJ 2ml VIAL IV SCH ×2 (10:00→22:18)
[2022-01-31] MEDS: PANTOPRAZOLE 40 MG/10 ML VIAL INJ IV SCH ×2 (10:25→22:18)
[2022-01-31] MEDS: LACTULOSE 20Gm/30ML SOLN PO SCH (10:25)
[2022-01-31 11:25] LABS: Hematocrit 24.7 % (41.0-53.0); Hemoglobin 7.8 g/dL (13.5-17.5)
[2022-01-31 11:41] LABS: % Iron Saturation 22.5 % (20-55)
[2022-01-31 13:19] LABS: Hepatitis A Ab IgM Negative; Hepatitis C Antibody Negative (Negative)
[2022-01-31 16:50] LABS: Hepatitis B Core IgM Negative
[2022-01-31] MEDS ORDERED: TPN PER PHARMACY IV NR ×11 (20:00)
[2022-01-31] MEDS ORDERED: EPOETIN ALFA-EPBX 10,000 UNIT/1ML VIAL SC ONE (21:00)
[2022-01-31] MEDS: BUMETANIDE INJECTION 12.5 MG in GIVE UN-DILUTED 0 ML IV SCH (22:22)
[2022-02-01] VITALS (86 sets, daily range): BP systolic 97–158; BP diastolic 21–98
[2022-02-01] MEDS: ACCU-CHEK COMFORT CURVE STRIP VI SCH ×5 (00:22→23:43)
[2022-02-01] MEDS: InsuLIN REG 1unit/0.01ml Soln (100units/ml) SC SCH ×5 (00:22→23:43)
[2022-02-01] MEDS: PROPOFOL 100 ML IV SCH ×2 (03:26→09:37)
[2022-02-01] MEDS: NOREPINEPHRINE 8 MG/250ML KIT 250 ML IV SCH (05:15)
[2022-02-01 06:02] LABS: Albumin 3.2 g/dL (3.4-5.0); Calcium 8.8 mg/dL (8.5-10.1); Magnesium 2.8 mg/dL (1.6-2.6); Potassium 3.9 mmol/L (3.5-5.1)
[2022-02-01 06:06] LABS: BUN/Creatinine Ratio 11.7; Bilirubin, Total 2.9 mg/dL (0.2-1.0); Phosphorus 3.1 mg/dL (2.5-4.90); Total Protein 7.2 g/dL (6.4-8.2)
[2022-02-01 06:10] LABS: Hematocrit 22.2 % (41.0-53.0); Monocytes # (auto) 2.4 10 ^3/uL (0-1.3)
[2022-02-01 06:12] LABS: Basophils # (auto) 0.5 10 ^3/uL (0-0.2); Basophils % (auto) 3.2 % (0.0-2.0); Eosinophils # (auto) 0.8 10 ^3/uL (0-0.8); Eosinophils % (auto) 5.6 % (0.0-7.0); Lymphocytes # (auto) 1.3 10 ^3/uL (0.4-5.4); Lymphocytes % (auto) 8.7 % (10.0-50.0); Mean Corpuscular Hemoglobin 27.1 pg (28.0-32.0); Mean Corpuscular Hgb Conc. 31.7 g/dL (32.0-36.0); Mean Corpuscular Volume 85.6 fL (80.0-100.0); Monocytes % (auto) 16.2 % (0.0-12.0); Neutrophils # (auto) 9.7 10 ^3/uL (1.6-8.6); Neutrophils % (auto) 66.3 % (37.0-80.0); Red Blood Cells 2.59 10^6/uL (4.5-5.90); White Blood Cell 14.6 10^3/uL (4.4-10.8)
[2022-02-01] MEDS: ACETYLCYSTEINE 10 %(100MG/ML) SOL 4ML NEB SCH ×3 (06:24→22:15)
[2022-02-01] MEDS: ALBUTEROL SULF 2.5 MG/0.5ML(0.5%) NEB SOLN NEB PRN ×3 (06:24→22:15)
[2022-02-01] MEDS: PHENYTOIN SODIUM 50 MG/ML 2ML VIAL IV SCH ×3 (06:34→21:34)
[2022-02-01] MEDS: OCTREOTIDE ACETATE 100 MCG/ML VL SUBCUT SCH ×3 (06:35→21:35)
[2022-02-01] MEDS: METOCLOPRAMIDE HCL 5MG/ml INJ 2ml VIAL IV SCH ×2 (12:06→21:34)
[2022-02-01] MEDS: PANTOPRAZOLE 40 MG/10 ML VIAL INJ IV SCH ×2 (12:06→21:34)
[2022-02-01] MEDS: LACTULOSE 20Gm/30ML SOLN PO SCH (12:07)
[2022-02-01] MEDS: MIDAZOLAM DRIP 50 mg/50mL 50 ML IV SCH (17:30)
[2022-02-01] MEDS ORDERED: TPN PER PHARMACY IV NR ×8 (20:00)
[2022-02-02] VITALS (62 sets, daily range): BP systolic 131–171; BP diastolic 34–105
[2022-02-02 04:22] LABS: Basophils # (auto) 0.1 10 ^3/uL (0-0.2); Eosinophils # (auto) 0.8 10 ^3/uL (0-0.8); Hematocrit 26.2 % (41.0-53.0); Hemoglobin 8.4 g/dL (13.5-17.5); Monocytes # (auto) 1.7 10 ^3/uL (0-1.3); Neutrophils # (auto) 9.4 10 ^3/uL (1.6-8.6); Red Blood Cells 3.08 10^6/uL (4.5-5.90)
[2022-02-02 04:26] LABS: Basophils % (auto) 0.6 % (0.0-2.0); Eosinophils % (auto) 6.1 % (0.0-7.0); Lymphocytes % (auto) 7.6 % (10.0-50.0); Mean Corpuscular Hemoglobin 27.3 pg (28.0-32.0); Mean Corpuscular Volume 85.2 fL (80.0-100.0); Monocytes % (auto) 13.1 % (0.0-12.0); Neutrophils % (auto) 72.6 % (37.0-80.0); White Blood Cell 12.9 10^3/uL (4.4-10.8)
[2022-02-02 05:05] LABS: Potassium 4.5 mmol/L (3.5-5.1)
[2022-02-02 05:13] LABS: Albumin 3.3 g/dL (3.4-5.0); BUN/Creatinine Ratio 15.7; Calcium 9.2 mg/dL (8.5-10.1); Magnesium 2.7 mg/dL (1.6-2.6)
[2022-02-02] MEDS: NOREPINEPHRINE 8 MG/250ML KIT 250 ML IV SCH (05:15)
[2022-02-02 05:16] LABS: Bilirubin, Total 3.2 mg/dL (0.2-1.0); Phosphorus 3.7 mg/dL (2.5-4.90); Total Protein 7.5 g/dL (6.4-8.2)
[2022-02-02 05:39] LABS: Red Cell Distribution Width 22.8 % (11.8-14.3)
[2022-02-02] MEDS: OCTREOTIDE ACETATE 100 MCG/ML VL SUBCUT SCH ×3 (05:47→22:05)
[2022-02-02] MEDS: ACCU-CHEK COMFORT CURVE STRIP VI SCH ×3 (05:47→18:15)
[2022-02-02] MEDS: PHENYTOIN SODIUM 50 MG/ML 2ML VIAL IV SCH ×3 (05:47→22:05)
[2022-02-02] MEDS: InsuLIN REG 1unit/0.01ml Soln (100units/ml) SC SCH ×3 (05:49→18:00)
[2022-02-02] MEDS: ALBUTEROL SULF 2.5 MG/0.5ML(0.5%) NEB SOLN NEB PRN ×3 (06:06→23:27)
[2022-02-02] MEDS: ACETYLCYSTEINE 10 %(100MG/ML) SOL 4ML NEB SCH ×3 (06:06→23:27)
[2022-02-02] MEDS: BUMETANIDE INJECTION 12.5 MG in GIVE UN-DILUTED 0 ML IV SCH (08:30)
[2022-02-02] MEDS: PANTOPRAZOLE 40 MG/10 ML VIAL INJ IV SCH ×2 (10:00→22:04)
[2022-02-02] MEDS: METOCLOPRAMIDE HCL 5MG/ml INJ 2ml VIAL IV SCH ×2 (10:00→22:05)
[2022-02-02] MEDS: LACTULOSE 20Gm/30ML SOLN PO SCH (10:00)
[2022-02-02] MEDS ORDERED: TPN PER PHARMACY IV NR ×8 (20:00)
[2022-02-02] MEDS: SODIUM CHLORIDE 0.9% 1,000 ML IV SCH (20:00)
[2022-02-03] VITALS (39 sets, daily range): BP systolic 138–172; BP diastolic 81–99
[2022-02-03] MEDS: ACCU-CHEK COMFORT CURVE STRIP VI SCH ×4 (00:04→18:00)
[2022-02-03 03:35] LABS: Basophils # (auto) 0.1 10 ^3/uL (0-0.2); Basophils % (auto) 0.6 % (0.0-2.0); Eosinophils # (auto) 0.6 10 ^3/uL (0-0.8); Hematocrit 27.1 % (41.0-53.0); Hemoglobin 8.7 g/dL (13.5-17.5); Lymphocytes # (auto) 1.2 10 ^3/uL (0.4-5.4); Lymphocytes % (auto) 10.4 % (10.0-50.0); Mean Corpuscular Hemoglobin 27.2 pg (28.0-32.0); Mean Corpuscular Volume 84.9 fL (80.0-100.0); Monocytes # (auto) 1.7 10 ^3/uL (0-1.3); Monocytes % (auto) 14.5 % (0.0-12.0); Neutrophils # (auto) 8.3 10 ^3/uL (1.6-8.6); Neutrophils % (auto) 69.5 % (37.0-80.0); Red Blood Cells 3.19 10^6/uL (4.5-5.90); White Blood Cell 11.9 10^3/uL (4.4-10.8)
[2022-02-03 04:43] LABS: Albumin 3.1 g/dL (3.4-5.0); Calcium 9.2 mg/dL (8.5-10.1); Magnesium 2.2 mg/dL (1.6-2.6)
[2022-02-03 04:51] LABS: BUN/Creatinine Ratio 18.7; Bilirubin, Total 3.5 mg/dL (0.2-1.0); Phosphorus 4.1 mg/dL (2.5-4.90); Total Protein 7.6 g/dL (6.4-8.2)
[2022-02-03] MEDS: InsuLIN REG 1unit/0.01ml Soln (100units/ml) SC SCH ×4 (06:01→18:00)
[2022-02-03] MEDS: OCTREOTIDE ACETATE 100 MCG/ML VL SUBCUT SCH ×3 (06:04→22:06)
[2022-02-03] MEDS: PHENYTOIN SODIUM 50 MG/ML 2ML VIAL IV SCH ×3 (06:05→22:07)
[2022-02-03] MEDS: ALBUTEROL SULF 2.5 MG/0.5ML(0.5%) NEB SOLN NEB PRN ×3 (06:09→23:01)
[2022-02-03] MEDS: ACETYLCYSTEINE 10 %(100MG/ML) SOL 4ML NEB SCH ×3 (06:10→23:01)
[2022-02-03] MEDS: LABETALOL HCL 5 MG/ML 4ML SYRINGE IV PRN ×2 (09:08→14:15)
[2022-02-03] MEDS: SODIUM CHLORIDE 0.9% 1,000 ML IV SCH ×2 (11:00→12:00)
[2022-02-03] MEDS: PANTOPRAZOLE 40 MG/10 ML VIAL INJ IV SCH ×2 (14:47→22:07)
[2022-02-03] MEDS: LACTULOSE 20Gm/30ML SOLN PO SCH (14:47)
[2022-02-03] MEDS: METOCLOPRAMIDE HCL 5MG/ml INJ 2ml VIAL IV SCH ×2 (14:48→22:07)
[2022-02-03] MEDS: TPN PER PHARMACY IV NR ×9 (19:54)
[2022-02-04] VITALS (26 sets, daily range): BP systolic 140–170; BP diastolic 76–100
[2022-02-04] MEDS: ACCU-CHEK COMFORT CURVE STRIP VI SCH ×4 (00:24→17:47)
[2022-02-04] MEDS: InsuLIN REG 1unit/0.01ml Soln (100units/ml) SC SCH ×4 (00:25→17:46)
[2022-02-04] MEDS: SODIUM CHLORIDE 0.9% 1,000 ML IV SCH ×3 (00:26→20:35)
[2022-02-04 04:16] LABS: Hematocrit 26.5 % (41.0-53.0); Hemoglobin 8.6 g/dL (13.5-17.5); Mean Corpuscular Hemoglobin 27.3 pg (28.0-32.0); Mean Corpuscular Hgb Conc. 32.4 g/dL (32.0-36.0); Mean Corpuscular Volume 84.2 fL (80.0-100.0); Red Blood Cells 3.15 10^6/uL (4.5-5.90); White Blood Cell 14.7 10^3/uL (4.4-10.8)
[2022-02-04 04:18] LABS: Red Cell Distribution Width 22.5 % (11.8-14.3)
[2022-02-04 04:21] LABS: Basophils % (manual) 0 (0.0-2.0); Blast Cells 0; Metamyelocytes % 0; Myelocytes % 0; Promyelocytes % 0; Reactive Lymphocytes 0
[2022-02-04 04:22] LABS: Albumin 3.1 g/dL (3.4-5.0); BUN/Creatinine Ratio 23.6; Calcium 8.9 mg/dL (8.5-10.1); Magnesium 1.9 mg/dL (1.6-2.6); Potassium 3.7 mmol/L (3.5-5.1)
[2022-02-04 04:25] LABS: Bilirubin, Total 3.8 mg/dL (0.2-1.0); Total Protein 7.4 g/dL (6.4-8.2)
[2022-02-04] MEDS: OCTREOTIDE ACETATE 100 MCG/ML VL SUBCUT SCH ×3 (06:04→22:36)
[2022-02-04] MEDS: PHENYTOIN SODIUM 50 MG/ML 2ML VIAL IV SCH ×3 (06:04→22:41)
[2022-02-04] MEDS: ACETYLCYSTEINE 10 %(100MG/ML) SOL 4ML NEB SCH ×3 (06:27→19:37)
[2022-02-04] MEDS: ALBUTEROL SULF 2.5 MG/0.5ML(0.5%) NEB SOLN NEB PRN ×2 (06:27→19:37)
[2022-02-04 06:49] LABS: Band Neutrophils % (manual) 9; Eosinophils % (manual) 5 (0-7); Lymphocytes % (manual) 11 (10.0-50.0); Monocytes % (manual) 10 (0-12)
[2022-02-04] MEDS: PANTOPRAZOLE 40 MG/10 ML VIAL INJ IV SCH ×2 (08:35→22:34)
[2022-02-04] MEDS: METOCLOPRAMIDE HCL 5MG/ml INJ 2ml VIAL IV SCH ×2 (08:35→22:39)
[2022-02-04] MEDS: LACTULOSE 20Gm/30ML SOLN PO SCH (08:35)
[2022-02-04] MEDS ORDERED: MORPHINE SULFATE INJ 2 MG/ml SYRG IV PRN (11:15)
[2022-02-04] MEDS ORDERED: TPN PER PHARMACY IV NR ×8 (20:00)
[2022-02-04] MEDS: TPN PER PHARMACY IV NR ×9 (20:21)
[2022-02-05] VITALS (24 sets, daily range): BP systolic 126–164; BP diastolic 20–90
[2022-02-05] MEDS: ACCU-CHEK COMFORT CURVE STRIP VI SCH ×4 (00:29→17:43)
[2022-02-05] MEDS: LABETALOL HCL 5 MG/ML 4ML SYRINGE IV PRN (00:30)
[2022-02-05] MEDS: InsuLIN REG 1unit/0.01ml Soln (100units/ml) SC SCH ×4 (00:35→17:43)
[2022-02-05] MEDS: PHENYTOIN SODIUM 50 MG/ML 2ML VIAL IV SCH (05:56)
[2022-02-05] MEDS: OCTREOTIDE ACETATE 100 MCG/ML VL SUBCUT SCH ×3 (05:56→22:53)
[2022-02-05 06:19] LABS: Albumin 2.9 g/dL (3.4-5.0); Calcium 8.7 mg/dL (8.5-10.1); Magnesium 1.8 mg/dL (1.6-2.6); Potassium 3.5 mmol/L (3.5-5.1)
[2022-02-05 06:23] LABS: Bilirubin, Total 3.9 mg/dL (0.2-1.0); Phosphorus 4.7 mg/dL (2.5-4.90); Total Protein 7.6 g/dL (6.4-8.2)
[2022-02-05] MEDS: SODIUM CHLORIDE 0.9% 1,000 ML IV SCH ×2 (06:39→14:57)
[2022-02-05] MEDS: METOCLOPRAMIDE HCL 5MG/ml INJ 2ml VIAL IV SCH ×2 (08:12→22:52)
[2022-02-05] MEDS: PANTOPRAZOLE 40 MG/10 ML VIAL INJ IV SCH ×2 (08:12→22:51)
[2022-02-05] MEDS: LACTULOSE 20Gm/30ML SOLN PO SCH (08:13)
[2022-02-05] MEDS ORDERED: POTASSIUM CHL 20MEQ/100ML 100 ML IV ONE (10:00)
[2022-02-05] MEDS ORDERED: DOPamine 1600MCG/ML D5W 250 ML IV SCH (10:45)
[2022-02-05] MEDS: CALCIUM ACETATE 667 MG CAP PO SCH ×2 (13:03→17:43)
[2022-02-05] MEDS ORDERED: TPN PER PHARMACY IV NR ×6 (20:00)
[2022-02-05] MEDS: PHENYTOIN SODIUM 100 MG CAP PO SCH (22:52)
[2022-02-06] VITALS (24 sets, daily range): BP systolic 127–179; BP diastolic 22–78
[2022-02-06] MEDS: SODIUM CHLORIDE 0.9% 1,000 ML IV SCH ×2 (04:00)
[2022-02-06 04:51] LABS: Albumin 2.9 g/dL (3.4-5.0); BUN/Creatinine Ratio 34.6; Calcium 8.9 mg/dL (8.5-10.1); Magnesium 1.9 mg/dL (1.6-2.6); Potassium 3.4 mmol/L (3.5-5.1)
[2022-02-06 04:54] LABS: Bilirubin, Total 3.3 mg/dL (0.2-1.0); Total Protein 7.2 g/dL (6.4-8.2)
[2022-02-06] MEDS: CALCIUM ACETATE 667 MG CAP PO SCH ×3 (08:13→18:56)
[2022-02-06] MEDS: PANTOPRAZOLE 40 MG/10 ML VIAL INJ IV SCH ×2 (09:57→22:23)
[2022-02-06] MEDS: METOCLOPRAMIDE HCL 5MG/ml INJ 2ml VIAL IV SCH ×2 (09:57→22:24)
[2022-02-06] MEDS: LACTULOSE 20Gm/30ML SOLN PO SCH (09:57)
[2022-02-06] MEDS: POTASSIUM CHL 20MEQ/100ML 100 ML IV SCH ×2 (10:01→12:49)
[2022-02-06] MEDS: SOD CHL 0.45% 1,000 ML IV SCH ×2 (11:23→17:15)
[2022-02-06] MEDS: InsuLIN REG 1unit/0.01ml Soln (100units/ml) SC SCH ×3 (12:00→18:00)
[2022-02-06] MEDS: ACCU-CHEK COMFORT CURVE STRIP VI SCH ×3 (14:39→18:53)
[2022-02-06] MEDS: OCTREOTIDE ACETATE 100 MCG/ML VL SUBCUT SCH ×2 (15:07→22:24)
[2022-02-06] MEDS ORDERED: TPN PER PHARMACY IV NR ×7 (20:00)
[2022-02-06] MEDS: PHENYTOIN SODIUM 100 MG CAP PO SCH ×2 (22:00→22:25)
[2022-02-07] VITALS (24 sets, daily range): BP systolic 129–178; BP diastolic 24–86
[2022-02-07] MEDS: ACCU-CHEK COMFORT CURVE STRIP VI SCH ×4 (01:33→18:16)
[2022-02-07] MEDS: SOD CHL 0.45% 1,000 ML IV SCH ×3 (01:36→18:16)
[2022-02-07 04:50] LABS: Calcium 8.8 mg/dL (8.5-10.1); Magnesium 2.1 mg/dL (1.6-2.6); Potassium 3.9 mmol/L (3.5-5.1)
[2022-02-07 04:55] LABS: BUN/Creatinine Ratio 37.2; Bilirubin, Total 3.6 mg/dL (0.2-1.0); Phosphorus 3.7 mg/dL (2.5-4.90); Total Protein 7.6 g/dL (6.4-8.2)
[2022-02-07] MEDS: OCTREOTIDE ACETATE 100 MCG/ML VL SUBCUT SCH ×3 (05:48→21:56)
[2022-02-07] MEDS: InsuLIN REG 1unit/0.01ml Soln (100units/ml) SC SCH ×4 (05:51→18:00)
[2022-02-07] MEDS: CALCIUM ACETATE 667 MG CAP PO SCH ×3 (10:00→18:35)
[2022-02-07] MEDS: LACTULOSE 20Gm/30ML SOLN PO SCH (10:01)
[2022-02-07] MEDS: METOCLOPRAMIDE HCL 5MG/ml INJ 2ml VIAL IV SCH ×2 (10:01→21:55)
[2022-02-07] MEDS: PANTOPRAZOLE 40 MG/10 ML VIAL INJ IV SCH ×2 (10:01→21:55)
[2022-02-07 10:22] LABS: Basophils % (auto) 1.1 % (0.0-2.0); Eosinophils # (auto) 0.7 10 ^3/uL (0-0.8); Lymphocytes # (auto) 1.4 10 ^3/uL (0.4-5.4)
[2022-02-07 10:29] LABS: Basophils # (auto) 0.1 10 ^3/uL (0-0.2); Eosinophils % (auto) 4.7 % (0.0-7.0); Hematocrit 21.9 % (41.0-53.0); Hemoglobin 7.1 g/dL (13.5-17.5); Lymphocytes % (auto) 9.8 % (10.0-50.0); Mean Corpuscular Hemoglobin 28.4 pg (28.0-32.0); Mean Corpuscular Hgb Conc. 32.5 g/dL (32.0-36.0); Mean Corpuscular Volume 87.3 fL (80.0-100.0); Monocytes # (auto) 1.5 10 ^3/uL (0-1.3); Monocytes % (auto) 10.9 % (0.0-12.0); Neutrophils # (auto) 10.3 10 ^3/uL (1.6-8.6); Neutrophils % (auto) 73.5 % (37.0-80.0); Red Blood Cells 2.51 10^6/uL (4.5-5.90)
[2022-02-07 10:32] LABS: Red Cell Distribution Width 23.7 % (11.8-14.3)
[2022-02-07] MEDS: LABETALOL HCL 5 MG/ML 4ML SYRINGE IV PRN (15:02)
[2022-02-07] MEDS ORDERED: TPN PER PHARMACY IV NR ×7 (20:00)
[2022-02-07] MEDS: PHENYTOIN SODIUM 100 MG CAP PO SCH (21:53)
[2022-02-08] VITALS (17 sets, daily range): BP systolic 121–158; BP diastolic 26–91
[2022-02-08] MEDS: SOD CHL 0.45% 1,000 ML IV SCH ×2 (01:25→08:31)
[2022-02-08 04:47] LABS: Eosinophils # (auto) 0.7 10 ^3/uL (0-0.8); Red Cell Distribution Width 23.4 % (11.8-14.3)
[2022-02-08 04:49] LABS: Basophils # (auto) 0.5 10 ^3/uL (0-0.2); Basophils % (auto) 3.2 % (0.0-2.0); Eosinophils % (auto) 4.6 % (0.0-7.0); Hemoglobin 7.7 g/dL (13.5-17.5); Lymphocytes # (auto) 1.8 10 ^3/uL (0.4-5.4); Lymphocytes % (auto) 11.6 % (10.0-50.0); Mean Corpuscular Hemoglobin 27.8 pg (28.0-32.0); Mean Corpuscular Hgb Conc. 32.2 g/dL (32.0-36.0); Mean Corpuscular Volume 86.4 fL (80.0-100.0); Monocytes # (auto) 1.7 10 ^3/uL (0-1.3); Monocytes % (auto) 11.1 % (0.0-12.0); Neutrophils # (auto) 10.6 10 ^3/uL (1.6-8.6); Neutrophils % (auto) 69.5 % (37.0-80.0); Nucleated Red Blood Cells % 0.1 %; Red Blood Cells 2.77 10^6/uL (4.5-5.90); White Blood Cell 15.3 10^3/uL (4.4-10.8)
[2022-02-08 04:53] LABS: Albumin 2.8 g/dL (3.4-5.0); Calcium 8.7 mg/dL (8.5-10.1); Magnesium 2.1 mg/dL (1.6-2.6)
[2022-02-08 04:57] LABS: BUN/Creatinine Ratio 39.4; Bilirubin, Total 3.2 mg/dL (0.2-1.0); Phosphorus 4.4 mg/dL (2.5-4.90)
[2022-02-08] MEDS: OCTREOTIDE ACETATE 100 MCG/ML VL SUBCUT SCH ×3 (05:48→22:34)
[2022-02-08] MEDS: ACCU-CHEK COMFORT CURVE STRIP VI SCH ×4 (05:50→18:00)
[2022-02-08] MEDS: InsuLIN REG 1unit/0.01ml Soln (100units/ml) SC SCH ×4 (05:50→18:00)
[2022-02-08] MEDS: METOCLOPRAMIDE HCL 5MG/ml INJ 2ml VIAL IV SCH ×2 (08:31→22:34)
[2022-02-08] MEDS: LACTULOSE 20Gm/30ML SOLN PO SCH (08:31)
[2022-02-08] MEDS: CALCIUM ACETATE 667 MG CAP PO SCH ×3 (08:31→18:00)
[2022-02-08] MEDS ORDERED: TPN PER PHARMACY IV NR ×7 (20:00)
[2022-02-08] MEDS: PHENYTOIN SODIUM 100 MG CAP PO SCH (22:00)
[2022-02-09] MEDS: ACCU-CHEK COMFORT CURVE STRIP VI SCH ×5 (01:02→23:26)
[2022-02-09] MEDS: SOD CHL 0.45% 1,000 ML IV SCH ×4 (01:15→17:38)
[2022-02-09 05:00] VITALS: BP 130/86
[2022-02-09] MEDS: OCTREOTIDE ACETATE 100 MCG/ML VL SUBCUT SCH ×3 (05:53→23:01)
[2022-02-09] MEDS: InsuLIN REG 1unit/0.01ml Soln (100units/ml) SC SCH ×5 (06:00→23:26)
[2022-02-09 07:01] LABS: BUN/Creatinine Ratio 36.6; Calcium 8.7 mg/dL (8.5-10.1); Magnesium 1.8 mg/dL (1.6-2.6); Potassium 4.1 mmol/L (3.5-5.1)
[2022-02-09 07:04] LABS: Bilirubin, Total 3.1 mg/dL (0.2-1.0); Phosphorus 4.7 mg/dL (2.5-4.90); Total Protein 7.4 g/dL (6.4-8.2)
[2022-02-09 09:00] VITALS: BP 145/83
[2022-02-09] MEDS: CALCIUM ACETATE 667 MG CAP PO SCH ×3 (09:08→17:38)
[2022-02-09] MEDS: METOCLOPRAMIDE HCL 5MG/ml INJ 2ml VIAL IV SCH ×2 (09:09→23:00)
[2022-02-09] MEDS: LACTULOSE 20Gm/30ML SOLN PO SCH (09:09)
[2022-02-09] MEDS ORDERED: PHENYTOIN 100 MG/4 ML SUSP PO SCH (10:00)
[2022-02-09 12:52] VITALS: BP 141/79
[2022-02-09 16:56] VITALS: BP 145/83
[2022-02-09] MEDS ORDERED: TPN PER PHARMACY IV NR ×6 (20:00)
[2022-02-09 22:00] VITALS: BP 148/85
[2022-02-09] MEDS: PHENYTOIN 100 MG/4 ML SUSP PO SCH (23:01)
[2022-02-10] MEDS: SOD CHL 0.45% 1,000 ML IV SCH ×4 (02:04→20:15)
[2022-02-10 05:00] VITALS: BP 143/83
[2022-02-10] MEDS: OCTREOTIDE ACETATE 100 MCG/ML VL SUBCUT SCH (06:00)
[2022-02-10] MEDS: InsuLIN REG 1unit/0.01ml Soln (100units/ml) SC SCH ×4 (06:00→23:58)
[2022-02-10] MEDS: ACCU-CHEK COMFORT CURVE STRIP VI SCH ×4 (06:35→23:57)
[2022-02-10 06:57] LABS: Eosinophils # (auto) 0.5 10 ^3/uL (0-0.8); Hemoglobin 7.8 g/dL (13.5-17.5); Lymphocytes # (auto) 1.5 10 ^3/uL (0.4-5.4)
[2022-02-10 07:01] LABS: Basophils # (auto) 0.2 10 ^3/uL (0-0.2); Basophils % (auto) 1.4 % (0.0-2.0); Eosinophils % (auto) 3.6 % (0.0-7.0); Hematocrit 23.6 % (41.0-53.0); Lymphocytes % (auto) 9.9 % (10.0-50.0); Mean Corpuscular Hemoglobin 28.6 pg (28.0-32.0); Mean Corpuscular Volume 86.6 fL (80.0-100.0); Monocytes # (auto) 1.7 10 ^3/uL (0-1.3); Monocytes % (auto) 11.6 % (0.0-12.0); Neutrophils # (auto) 10.9 10 ^3/uL (1.6-8.6); Neutrophils % (auto) 73.5 % (37.0-80.0); Nucleated Red Blood Cells % 0.1 %; Red Blood Cells 2.72 10^6/uL (4.5-5.90); White Blood Cell 14.9 10^3/uL (4.4-10.8)
[2022-02-10 07:07] LABS: Potassium 3.8 mmol/L (3.5-5.1)
[2022-02-10 07:15] LABS: Albumin 2.7 g/dL (3.4-5.0); BUN/Creatinine Ratio 34.6; Bilirubin, Total 3.4 mg/dL (0.2-1.0); Calcium 8.5 mg/dL (8.5-10.1); Magnesium 1.6 mg/dL (1.6-2.6); Phosphorus 4.2 mg/dL (2.5-4.90); Total Protein 7.2 g/dL (6.4-8.2)
[2022-02-10 09:00] VITALS: BP 141/87
[2022-02-10] MEDS: METOCLOPRAMIDE HCL 5MG/ml INJ 2ml VIAL IV SCH ×2 (09:29→22:13)
[2022-02-10] MEDS: LACTULOSE 20Gm/30ML SOLN PO SCH (09:29)
[2022-02-10] MEDS: CALCIUM ACETATE 667 MG CAP PO SCH ×3 (09:29→18:16)
[2022-02-10 13:00] VITALS: BP 150/86
[2022-02-10] MEDS ORDERED: cloNIDine HCL 0.1 MG TAB PO PRN (16:00)
[2022-02-10] MEDS ORDERED: cloNIDine HCL 0.1 MG TAB PO ONE (16:00)
[2022-02-10 17:00] VITALS: BP 164/89
[2022-02-10] MEDS ORDERED: TPN PER PHARMACY IV NR ×8 (20:00)
[2022-02-10 21:28] VITALS: BP 130/91
[2022-02-10] MEDS: PHENYTOIN 100 MG/4 ML SUSP PO SCH (22:13)
[2022-02-11 04:47] VITALS: BP 134/78
[2022-02-11] MEDS: SOD CHL 0.45% 1,000 ML IV SCH ×2 (05:43→17:33)
[2022-02-11] MEDS: InsuLIN REG 1unit/0.01ml Soln (100units/ml) SC SCH ×4 (05:44→23:58)
[2022-02-11] MEDS: ACCU-CHEK COMFORT CURVE STRIP VI SCH ×4 (05:44→23:58)
[2022-02-11 06:54] LABS: Potassium 4.3 mmol/L (3.5-5.1)
[2022-02-11 07:00] LABS: Albumin 2.9 g/dL (3.4-5.0); BUN/Creatinine Ratio 32.5; Bilirubin, Total 3.6 mg/dL (0.2-1.0); Calcium 8.6 mg/dL (8.5-10.1); Magnesium 1.9 mg/dL (1.6-2.6); Phosphorus 4.5 mg/dL (2.5-4.90); Total Protein 7.6 g/dL (6.4-8.2)
[2022-02-11 09:00] VITALS: BP 139/73
[2022-02-11] MEDS: METOCLOPRAMIDE HCL 5MG/ml INJ 2ml VIAL IV SCH ×2 (10:51→21:27)
[2022-02-11] MEDS: LACTULOSE 20Gm/30ML SOLN PO SCH (10:51)
[2022-02-11 13:00] VITALS: BP 108/57
[2022-02-11 16:47] VITALS: BP 121/66
[2022-02-11] MEDS ORDERED: TPN PER PHARMACY IV NR ×7 (20:00)
[2022-02-11] MEDS: PHENYTOIN 100 MG/4 ML SUSP PO SCH (21:27)
[2022-02-11 22:58] VITALS: BP 130/56
[2022-02-12] MEDS: SOD CHL 0.45% 1,000 ML IV SCH ×3 (01:13→21:02)
[2022-02-12 05:00] LABS: Albumin 2.7 g/dL (3.4-5.0); Calcium 8.5 mg/dL (8.5-10.1); Magnesium 1.8 mg/dL (1.6-2.6); Potassium 3.5 mmol/L (3.5-5.1)
[2022-02-12 05:03] LABS: BUN/Creatinine Ratio 30.6
[2022-02-12 05:08] LABS: Bilirubin, Total 3.6 mg/dL (0.2-1.0); Phosphorus 3.9 mg/dL (2.5-4.90); Total Protein 7.2 g/dL (6.4-8.2)
[2022-02-12] MEDS: InsuLIN REG 1unit/0.01ml Soln (100units/ml) SC SCH ×3 (05:25→17:02)
[2022-02-12] MEDS: ACCU-CHEK COMFORT CURVE STRIP VI SCH ×3 (05:25→17:02)
[2022-02-12 06:03] VITALS: BP 124/73
[2022-02-12 09:00] VITALS: BP 120/69
[2022-02-12] MEDS ORDERED: FOLIC ACID 1 MG TAB PO SCH (10:00)
[2022-02-12] MEDS ORDERED: THIAMINE HCL 100 MG TAB PO SCH (10:00)
[2022-02-12] MEDS ORDERED: MULTIPLE VITAMIN TAB PO SCH (10:00)
[2022-02-12] MEDS: METOCLOPRAMIDE HCL 5MG/ml INJ 2ml VIAL IV SCH ×2 (10:37→21:02)
[2022-02-12] MEDS: LACTULOSE 20Gm/30ML SOLN PO SCH (10:37)
[2022-02-12] MEDS: FOLIC ACID 1 MG, MULTIPLE VITAMIN 10 ML, THIAMINE INJ 100 MG in D5W 5% 1,000 ML INJ SCH (12:19)
[2022-02-12 12:47] VITALS: BP 127/79
[2022-02-12 16:40] VITALS: BP 130/87
[2022-02-12] MEDS ORDERED: TPN PER PHARMACY IV NR ×8 (20:00)
[2022-02-12] MEDS: PHENYTOIN 100 MG/4 ML SUSP PO SCH (21:02)
[2022-02-12 22:00] VITALS: BP 135/80
[2022-02-13] MEDS: ACCU-CHEK COMFORT CURVE STRIP VI SCH ×5 (00:15→23:49)
[2022-02-13] MEDS: InsuLIN REG 1unit/0.01ml Soln (100units/ml) SC SCH ×5 (00:16→23:49)
[2022-02-13 05:00] VITALS: BP 144/80
[2022-02-13 05:56] LABS: Albumin 2.7 g/dL (3.4-5.0); Calcium 8.5 mg/dL (8.5-10.1); Magnesium 1.9 mg/dL (1.6-2.6); Potassium 3.6 mmol/L (3.5-5.1)
[2022-02-13 06:01] LABS: BUN/Creatinine Ratio 29.5; Bilirubin, Total 3.3 mg/dL (0.2-1.0); Phosphorus 4.1 mg/dL (2.5-4.90)
[2022-02-13] MEDS: METOCLOPRAMIDE HCL 5MG/ml INJ 2ml VIAL IV SCH ×2 (08:49→22:28)
[2022-02-13] MEDS: SOD CHL 0.45% 1,000 ML IV SCH ×2 (08:49→17:43)
[2022-02-13] MEDS: LACTULOSE 20Gm/30ML SOLN PO SCH (08:49)
[2022-02-13 09:24] VITALS: BP 136/77
[2022-02-13 12:18] VITALS: BP 132/72
[2022-02-13] MEDS: FOLIC ACID 1 MG, MULTIPLE VITAMIN 10 ML, THIAMINE INJ 100 MG in D5W 5% 1,000 ML INJ SCH (14:15)
[2022-02-13 16:55] VITALS: BP 140/85
[2022-02-13] MEDS ORDERED: TPN PER PHARMACY IV NR ×8 (20:00)
[2022-02-13 21:05] VITALS: BP 140/82
[2022-02-13] MEDS: PHENYTOIN 100 MG/4 ML SUSP PO SCH (22:28)
[2022-02-14] MEDS: SOD CHL 0.45% 1,000 ML IV SCH ×2 (05:00→13:10)
[2022-02-14] MEDS: InsuLIN REG 1unit/0.01ml Soln (100units/ml) SC SCH ×3 (06:00→16:50)
[2022-02-14] MEDS: ACCU-CHEK COMFORT CURVE STRIP VI SCH ×3 (06:07→16:50)
[2022-02-14 06:40] LABS: INR 1.69 (0.9-1.15)
[2022-02-14 06:41] LABS: Basophils # (auto) 0.1 10 ^3/uL (0-0.2); Eosinophils # (auto) 0.3 10 ^3/uL (0-0.8); Eosinophils % (auto) 2.5 % (0.0-7.0); Monocytes # (auto) 1.7 10 ^3/uL (0-1.3)
[2022-02-14 06:42] LABS: Hematocrit 24.2 % (41.0-53.0); Hemoglobin 8.1 g/dL (13.5-17.5); Lymphocytes # (auto) 1.2 10 ^3/uL (0.4-5.4); Lymphocytes % (auto) 10.7 % (10.0-50.0); Mean Corpuscular Hemoglobin 30.3 pg (28.0-32.0); Mean Corpuscular Hgb Conc. 33.3 g/dL (32.0-36.0); Mean Corpuscular Volume 90.9 fL (80.0-100.0); Monocytes % (auto) 14.7 % (0.0-12.0); Neutrophils # (auto) 8.1 10 ^3/uL (1.6-8.6); Neutrophils % (auto) 71.1 % (37.0-80.0); Nucleated Red Blood Cells % 0.1 %; Red Blood Cells 2.66 10^6/uL (4.5-5.90); White Blood Cell 11.3 10^3/uL (4.4-10.8)
[2022-02-14 06:56] LABS: Potassium 3.9 mmol/L (3.5-5.1)
[2022-02-14 06:58] LABS: Red Cell Distribution Width 22.3 % (11.8-14.3)
[2022-02-14 07:11] LABS: Albumin 2.8 g/dL (3.4-5.0); BUN/Creatinine Ratio 24.7; Bilirubin, Total 3.4 mg/dL (0.2-1.0); Calcium 8.7 mg/dL (8.5-10.1); Magnesium 2.1 mg/dL (1.6-2.6); Phosphorus 4.5 mg/dL (2.5-4.90); Total Protein 7.1 g/dL (6.4-8.2)
[2022-02-14] MEDS: LACTULOSE 20Gm/30ML SOLN PO SCH (08:56)
[2022-02-14] MEDS: METOCLOPRAMIDE HCL 5MG/ml INJ 2ml VIAL IV SCH ×2 (08:56→23:26)
[2022-02-14 09:00] VITALS: BP 117/63
[2022-02-14 13:00] VITALS: BP 157/84
[2022-02-14] MEDS: FOLIC ACID 1 MG, MULTIPLE VITAMIN 10 ML, THIAMINE INJ 100 MG in D5W 5% 1,000 ML INJ SCH (13:10)
[2022-02-14 17:00] VITALS: BP 145/76
[2022-02-14] MEDS ORDERED: TPN PER PHARMACY IV NR ×8 (20:00)
[2022-02-14 22:00] VITALS: BP 133/79
[2022-02-14] MEDS: PHENYTOIN 100 MG/4 ML SUSP PO SCH (23:26)
[2022-02-15] MEDS: ACCU-CHEK COMFORT CURVE STRIP VI SCH ×5 (00:26→23:58)
[2022-02-15] MEDS: SOD CHL 0.45% 1,000 ML IV SCH ×3 (00:27→20:04)
[2022-02-15 05:00] VITALS: BP 108/48
[2022-02-15] MEDS: InsuLIN REG 1unit/0.01ml Soln (100units/ml) SC SCH ×5 (05:58→23:59)
[2022-02-15 06:09] LABS: Albumin 2.8 g/dL (3.4-5.0); Calcium 8.6 mg/dL (8.5-10.1); Potassium 3.8 mmol/L (3.5-5.1)
[2022-02-15 06:13] LABS: BUN/Creatinine Ratio 25.8; Bilirubin, Total 3.3 mg/dL (0.2-1.0); Phosphorus 3.9 mg/dL (2.5-4.90); Total Protein 7.2 g/dL (6.4-8.2)
[2022-02-15 06:17] LABS: Basophils # (auto) 0.1 10 ^3/uL (0-0.2); Basophils % (auto) 0.7 % (0.0-2.0); Eosinophils # (auto) 0.3 10 ^3/uL (0-0.8); Eosinophils % (auto) 2.4 % (0.0-7.0); Hematocrit 22.2 % (41.0-53.0); Hemoglobin 7.5 g/dL (13.5-17.5); Lymphocytes # (auto) 1.4 10 ^3/uL (0.4-5.4); Lymphocytes % (auto) 9.5 % (10.0-50.0); Mean Corpuscular Hemoglobin 29.6 pg (28.0-32.0); Mean Corpuscular Hgb Conc. 33.7 g/dL (32.0-36.0); Monocytes % (auto) 13.8 % (0.0-12.0); Neutrophils # (auto) 10.5 10 ^3/uL (1.6-8.6); Neutrophils % (auto) 73.6 % (37.0-80.0); Red Blood Cells 2.52 10^6/uL (4.5-5.90); Red Cell Distribution Width 22.1 % (11.8-14.3); White Blood Cell 14.3 10^3/uL (4.4-10.8)
[2022-02-15 09:00] VITALS: BP 120/72
[2022-02-15] MEDS: METOCLOPRAMIDE HCL 5MG/ml INJ 2ml VIAL IV SCH ×2 (09:07→22:57)
[2022-02-15] MEDS: LACTULOSE 20Gm/30ML SOLN PO SCH (09:07)
[2022-02-15] MEDS: FOLIC ACID 1 MG, MULTIPLE VITAMIN 10 ML, THIAMINE INJ 100 MG in D5W 5% 1,000 ML INJ SCH (12:00)
[2022-02-15 13:00] VITALS: BP 130/73
[2022-02-15 17:00] VITALS: BP 136/77
[2022-02-15] MEDS ORDERED: TPN PER PHARMACY IV NR ×9 (20:00)
[2022-02-15 22:00] VITALS: BP 140/75
[2022-02-15] MEDS: PHENYTOIN 100 MG/4 ML SUSP PO SCH (22:58)
[2022-02-16 05:00] VITALS: BP 122/69
[2022-02-16] MEDS: InsuLIN REG 1unit/0.01ml Soln (100units/ml) SC SCH ×3 (06:00→18:00)
[2022-02-16] MEDS: SOD CHL 0.45% 1,000 ML IV SCH ×2 (06:28→17:07)
[2022-02-16] MEDS: ACCU-CHEK COMFORT CURVE STRIP VI SCH ×3 (06:29→18:17)
[2022-02-16 09:00] VITALS: BP 117/54
[2022-02-16] MEDS: LACTULOSE 20Gm/30ML SOLN PO SCH (10:00)
[2022-02-16] MEDS: METOCLOPRAMIDE HCL 5MG/ml INJ 2ml VIAL IV SCH ×2 (10:19→22:24)
[2022-02-16 11:18] LABS: Albumin 2.8 g/dL (3.4-5.0); Calcium 8.9 mg/dL (8.5-10.1); Magnesium 2.4 mg/dL (1.6-2.6); Potassium 4.4 mmol/L (3.5-5.1)
[2022-02-16 11:21] LABS: Bilirubin, Total 3.4 mg/dL (0.2-1.0); Phosphorus 4.3 mg/dL (2.5-4.90); Total Protein 7.4 g/dL (6.4-8.2)
[2022-02-16 13:00] VITALS: BP 116/56
[2022-02-16] MEDS: FOLIC ACID 1 MG, MULTIPLE VITAMIN 10 ML, THIAMINE INJ 100 MG in D5W 5% 1,000 ML INJ SCH (13:50)
[2022-02-16 16:29] VITALS: BP 127/65
[2022-02-16] MEDS ORDERED: TPN PER PHARMACY IV NR ×7 (20:00)
[2022-02-16 22:00] VITALS: BP 130/64
[2022-02-16] MEDS: PHENYTOIN 100 MG/4 ML SUSP PO SCH (22:24)
[2022-02-17] MEDS: ACCU-CHEK COMFORT CURVE STRIP VI SCH ×5 (00:14→23:10)
[2022-02-17] MEDS: SOD CHL 0.45% 1,000 ML IV SCH ×3 (02:57→21:44)
[2022-02-17 04:45] VITALS: BP 136/74
[2022-02-17] MEDS: InsuLIN REG 1unit/0.01ml Soln (100units/ml) SC SCH ×5 (05:53→23:10)
[2022-02-17 08:58] LABS: Calcium 9.1 mg/dL (8.5-10.1); Magnesium 2.1 mg/dL (1.6-2.6); Potassium 4.1 mmol/L (3.5-5.1)
[2022-02-17 09:00] VITALS: BP 117/63
[2022-02-17 09:08] LABS: Albumin 2.7 g/dL (3.4-5.0); BUN/Creatinine Ratio 26.7; Bilirubin, Total 2.8 mg/dL (0.2-1.0); Phosphorus 4.5 mg/dL (2.5-4.90)
[2022-02-17] MEDS: LACTULOSE 20Gm/30ML SOLN PO SCH (11:19)
[2022-02-17] MEDS: METOCLOPRAMIDE HCL 5MG/ml INJ 2ml VIAL IV SCH ×2 (11:19→21:43)
[2022-02-17 13:00] VITALS: BP 134/78
[2022-02-17] MEDS: FOLIC ACID 1 MG, MULTIPLE VITAMIN 10 ML, THIAMINE INJ 100 MG in D5W 5% 1,000 ML INJ SCH (14:55)
[2022-02-17 17:00] VITALS: BP 134/72
[2022-02-17] MEDS ORDERED: VANCOMYCIN PER PHARMACY 0 MG IV STA (19:01)
[2022-02-17] MEDS ORDERED: SODIUM CHLORIDE 0.9% 1,000 ML IV ONE (19:15)
[2022-02-17] MEDS ORDERED: VANCOMYCIN 1GM/250ML 250 ML IV ONE (19:15)
[2022-02-17] MEDS ORDERED: PIPERACILLIN-TAZOB 3.375GM 100 ML IV SCH (19:15)
[2022-02-17 19:24] VITALS: BP 136/79
[2022-02-17 19:44] LABS: Urine Bacteria FEW /hpf (None Seen); Urine Blood Negative /uL (Negative); Urine Specific Gravity 1.011 (1.001-1.035); Urine WBC 95 /hpf (0 - 3)
[2022-02-17 19:46] LABS: Eosinophils # (auto) 0.3 10 ^3/uL (0-0.8); Hemoglobin 7.5 g/dL (13.5-17.5); Lymphocytes # (auto) 1.3 10 ^3/uL (0.4-5.4); Neutrophils # (auto) 10.8 10 ^3/uL (1.6-8.6)
[2022-02-17 19:47] LABS: Basophils # (auto) 0 10 ^3/uL (0-0.2); Basophils % (auto) 0.3 % (0.0-2.0); Hematocrit 22.7 % (41.0-53.0); Lymphocytes % (auto) 9.1 % (10.0-50.0); Mean Corpuscular Hgb Conc. 33.1 g/dL (32.0-36.0); Mean Corpuscular Volume 87.6 fL (80.0-100.0); Monocytes # (auto) 1.6 10 ^3/uL (0-1.3); Monocytes % (auto) 11.5 % (0.0-12.0); Neutrophils % (auto) 77.1 % (37.0-80.0); Red Blood Cells 2.59 10^6/uL (4.5-5.90)
[2022-02-17] MEDS ORDERED: ACETAMINOPHEN 325 MG RECT SUPP PR ONE (19:56)
[2022-02-17] MEDS ORDERED: TPN PER PHARMACY IV NR ×6 (20:00)
[2022-02-17 20:27] LABS: Albumin 2.7 g/dL (3.4-5.0); Calcium 8.8 mg/dL (8.5-10.1)
[2022-02-17] MEDS ORDERED: ACETAMINOPHEN 650 MG RECT SUPP PR PRN (20:30)
[2022-02-17 20:31] LABS: BUN/Creatinine Ratio 21.7; Bilirubin, Total 2.8 mg/dL (0.2-1.0); Total Protein 7.2 g/dL (6.4-8.2)
[2022-02-17 22:00] VITALS: BP 130/78
[2022-02-17] MEDS: PHENYTOIN 100 MG/4 ML SUSP PO SCH (22:00)
[2022-02-18] MEDS: VANCOMYCIN 1GM/250ML 250 ML IV SCH ×2 (04:03→11:01)
[2022-02-18] MEDS: SOD CHL 0.45% 1,000 ML IV SCH ×2 (04:47→18:25)
[2022-02-18 05:00] VITALS: BP 117/70
[2022-02-18 05:50] LABS: Potassium 4.3 mmol/L (3.5-5.1)
[2022-02-18 05:58] LABS: Albumin 2.6 g/dL (3.4-5.0); BUN/Creatinine Ratio 22.6; Bilirubin, Total 2.7 mg/dL (0.2-1.0); Calcium 8.9 mg/dL (8.5-10.1); Magnesium 1.8 mg/dL (1.6-2.6); Phosphorus 4.4 mg/dL (2.5-4.90)
[2022-02-18] MEDS: InsuLIN REG 1unit/0.01ml Soln (100units/ml) SC SCH ×4 (05:58→23:30)
[2022-02-18] MEDS: ACCU-CHEK COMFORT CURVE STRIP VI SCH ×4 (05:58→23:30)
[2022-02-18 09:00] VITALS: BP 119/67
[2022-02-18] MEDS: METOCLOPRAMIDE HCL 5MG/ml INJ 2ml VIAL IV SCH ×2 (10:00→21:28)
[2022-02-18] MEDS: LACTULOSE 20Gm/30ML SOLN PO SCH (10:00)
[2022-02-18] MEDS: FOLIC ACID 1 MG, MULTIPLE VITAMIN 10 ML, THIAMINE INJ 100 MG in D5W 5% 1,000 ML INJ SCH (12:45)
[2022-02-18 13:00] VITALS: BP 128/73
[2022-02-18 17:11] VITALS: BP 131/70
[2022-02-18] MEDS ORDERED: MORPHINE SULFATE INJ 2 MG/ml SYRG IV ONE (17:45)
[2022-02-18] MEDS ORDERED: TPN PER PHARMACY IV NR ×6 (20:00)
[2022-02-18] MEDS: PHENYTOIN 100 MG/4 ML SUSP PO SCH (21:29)
[2022-02-18 22:00] VITALS: BP 140/79
[2022-02-19] MEDS: SOD CHL 0.45% 1,000 ML IV SCH ×3 (02:55→23:24)
[2022-02-19] MEDS: InsuLIN REG 1unit/0.01ml Soln (100units/ml) SC SCH ×4 (05:53→23:24)
[2022-02-19] MEDS: ACCU-CHEK COMFORT CURVE STRIP VI SCH ×4 (05:53→23:24)
[2022-02-19 06:59] LABS: Potassium 4.1 mmol/L (3.5-5.1)
[2022-02-19 07:08] LABS: Albumin 2.6 g/dL (3.4-5.0); BUN/Creatinine Ratio 23.2; Bilirubin, Total 2.5 mg/dL (0.2-1.0); Calcium 8.7 mg/dL (8.5-10.1); Magnesium 1.7 mg/dL (1.6-2.6); Phosphorus 3.8 mg/dL (2.5-4.90)
[2022-02-19 08:53] VITALS: BP 126/72
[2022-02-19] MEDS: LACTULOSE 20Gm/30ML SOLN PO SCH (09:52)
[2022-02-19] MEDS: METOCLOPRAMIDE HCL 5MG/ml INJ 2ml VIAL IV SCH ×2 (09:52→21:35)
[2022-02-19] MEDS: FOLIC ACID 1 MG, MULTIPLE VITAMIN 10 ML, THIAMINE INJ 100 MG in D5W 5% 1,000 ML INJ SCH (13:01)
[2022-02-19 16:38] VITALS: BP 130/74
[2022-02-19] MEDS ORDERED: TPN PER PHARMACY IV NR ×7 (20:00)
[2022-02-19] MEDS: PHENYTOIN 100 MG/4 ML SUSP PO SCH (21:35)
[2022-02-19 22:00] VITALS: BP 147/70
[2022-02-19] MEDS ORDERED: ACETAMINOPHEN 120 MG RECT SUPP PR ONE (22:30)
[2022-02-20 05:00] VITALS: BP 151/81
[2022-02-20] MEDS: InsuLIN REG 1unit/0.01ml Soln (100units/ml) SC SCH ×3 (06:00→18:00)
[2022-02-20] MEDS: ACCU-CHEK COMFORT CURVE STRIP VI SCH ×3 (06:00→18:00)
[2022-02-20] MEDS ORDERED: ACETAMINOPHEN 325 MG RECT SUPP PR PRN (07:15)
[2022-02-20 08:46] LABS: Albumin 2.6 g/dL (3.4-5.0); Calcium 9.1 mg/dL (8.5-10.1); Magnesium 2.2 mg/dL (1.6-2.6); Potassium 4.3 mmol/L (3.5-5.1)
[2022-02-20 08:49] LABS: BUN/Creatinine Ratio 21.1; Phosphorus 3.8 mg/dL (2.5-4.90); Total Protein 7.4 g/dL (6.4-8.2)
[2022-02-20 09:00] VITALS: BP 148/85
[2022-02-20] MEDS ORDERED: FOLI1TAB6 PO (10:09)
[2022-02-20] MEDS ORDERED: CHL25C PA (10:09)
[2022-02-20] MEDS ORDERED: THIA100T5 PO (10:09)
[2022-02-20] MEDS ORDERED: MULT1TAB95 PO (10:09)
[2022-02-20] MEDS ORDERED: PHE100C PO (10:09)
[2022-02-20] MEDS: SOD CHL 0.45% 1,000 ML IV SCH (11:36)
[2022-02-20] MEDS: METOCLOPRAMIDE HCL 5MG/ml INJ 2ml VIAL IV SCH (11:37)
[2022-02-20] MEDS: LACTULOSE 20Gm/30ML SOLN PO SCH (11:43)
[2022-02-20] MEDS: FOLIC ACID 1 MG, MULTIPLE VITAMIN 10 ML, THIAMINE INJ 100 MG in D5W 5% 1,000 ML INJ SCH (12:55)
[2022-02-20 13:00] VITALS: BP 140/78
[2022-02-20 16:43] VITALS: BP 119/71
[2022-02-20 17:10] VITALS: BP 119/71
== END 2022-02-20 19:20 | disposition home or self-care (01) | DRG 720 ==
LOC: EDBD 05:56 → ER 05:56 → TELE 18:57 → ICU WEST 01-08 08:03 → CENTRAL 02-08 16:19 → EAST 02-13 16:20 → TELE-EAST 02-17 20:02 → EAST 02-20 16:20
PROVIDERS: ADMIT Registered Nurse; ATTEND Family Medicine
PROC: 30233N1 Transfusion of Nonautologous Red Blood Cells into Peripheral Vein, Percutaneous Approach (ICD-10-PCS; 2022-01-06)
PROC: 02HV33Z Insertion of Infusion Device into Superior Vena Cava, Percutaneous Approach (ICD-10-PCS; principal; 2022-01-07)
PROC: 30233K1 Transfusion of Nonautologous Frozen Plasma into Peripheral Vein, Percutaneous Approach (ICD-10-PCS; 2022-01-07)
PROC: 5A1955Z Respiratory Ventilation, Greater than 96 Consecutive Hours (ICD-10-PCS; 2022-01-08)
PROC: 0BH17EZ Insertion of Endotracheal Airway into Trachea, Via Natural or Artificial Opening (ICD-10-PCS; 2022-01-08)
PROC: 0DJ08ZZ Inspection of Upper Intestinal Tract, Via Natural or Artificial Opening Endoscopic (ICD-10-PCS; 2022-01-10)
PROC: 02HV33Z Insertion of Infusion Device into Superior Vena Cava, Percutaneous Approach (ICD-10-PCS; 2022-01-16)
PROC: B548ZZA Ultrasonography of Superior Vena Cava, Guidance (ICD-10-PCS; 2022-01-16)
PROC: 0W9G3ZZ Drainage of Peritoneal Cavity, Percutaneous Approach (ICD-10-PCS; 2022-01-29)
DX: A41.9 Sepsis, unspecified organism (principal); R57.1 Hypovolemic shock; J96.01 Acute respiratory failure with hypoxia; N17.0 Acute kidney failure with tubular necrosis; K72.00 Acute and subacute hepatic failure without coma; J15.211 Pneumonia due to Methicillin susceptible Staphylococcus aureus; G93.41 Metabolic encephalopathy; E43 Unspecified severe protein-calorie malnutrition; E87.2 Acidosis; R18.8 Other ascites; Z20.822 Contact with and (suspected) exposure to COVID-19; K92.2 Gastrointestinal hemorrhage, unspecified; F10.239 Alcohol dependence with withdrawal, unspecified; E78.5 Hyperlipidemia, unspecified; E88.09 Other disorders of plasma-protein metabolism, not elsewhere classified; G40.909 Epilepsy, unspecified, not intractable, without status epilepticus; G93.1 Anoxic brain damage, not elsewhere classified; K72.90 Hepatic failure, unspecified without coma; N18.2 Chronic kidney disease, stage 2 (mild); J90 Pleural effusion, not elsewhere classified; D62 Acute posthemorrhagic anemia; E78.00 Pure hypercholesterolemia, unspecified; E87.6 Hypokalemia; F10.229 Alcohol dependence with intoxication, unspecified; I12.9 Hypertensive chronic kidney disease with stage 1 through stage 4 chronic kidney disease, or unspecified chronic kidney disease; J98.11 Atelectasis; K22.70 Barrett's esophagus without dysplasia; Z51.5 Encounter for palliative care; Z81.8 Family history of other mental and behavioral disorders; Z86.73 Personal history of transient ischemic attack (TIA), and cerebral infarction without residual deficits; Z87.828 Personal history of other (healed) physical injury and trauma; Z68.28 Body mass index [BMI] 28.0-28.9, adult
CPT/HCPCS: 36415; 36569; 36600; 70450; 71045; 74176; 74177; 76700; 76942; 80048; 80053; 80061; 80074; 80185; 80202; 80307; 80320; 81001; 82040; 82140; 82270; 82570; 82607; 82728; 82746; 82805; 82962; 83540; 83550; 83605; 83615; 83735; 83880; 83986; 84100; 84156; 84300; 84443; 84478; 84484; 84550; 85007; 85014; 85018; 85025; 85027; 85379; 85610; 85730; 86850; 86900; 86901; 86920; 87040; 87070; 87077; 87081; 87086; 87088; 87186; 87205; 89051; 90935; 92507; 92610; 93005; 93306; 93886; 93970; 93971; 94002; 94003; 94640; 94644; 95819; 96361; 96365; 96375; 97110; 97116; 97530; C9113; G0378; J0330; J0690; J0696; J1450; J1642; J1815; J2001; J2250; J2543; J2704; J3430; J3480; J3490; J7060; J7131; P9047

== ENCOUNTER 2022-02-24 12:18 | Inpatient (IN) | payer MEDICAID ==
[~2022-02-24] VITALS: Ht 185.4 cm; Wt 68.4 kg
[~2022-02-24 12:18] MED LIST: CHL25C PA; FOLI1TAB6 PO; MULT1TAB95 PO; PHE100C PO; THIA100T5 PO
[2022-02-24 13:40] LABS: Basophils # (auto) 0.1 10 ^3/uL (0-0.2); Eosinophils # (auto) 0.3 10 ^3/uL (0-0.8)
[2022-02-24 13:42] LABS: Basophils % (auto) 0.8 % (0.0-2.0); Hematocrit 24.2 % (41.0-53.0); Hemoglobin 8.3 g/dL (13.5-17.5); Lymphocytes # (auto) 1.3 10 ^3/uL (0.4-5.4); Mean Corpuscular Hemoglobin 29.8 pg (28.0-32.0); Mean Corpuscular Hgb Conc. 34.2 g/dL (32.0-36.0); Mean Corpuscular Volume 87.2 fL (80.0-100.0); Monocytes # (auto) 1.1 10 ^3/uL (0-1.3); Monocytes % (auto) 12.4 % (0.0-12.0); Neutrophils # (auto) 5.8 10 ^3/uL (1.6-8.6); Neutrophils % (auto) 67.8 % (37.0-80.0); Nucleated Red Blood Cells % 0.2 %; Red Blood Cells 2.77 10^6/uL (4.5-5.90); Red Cell Distribution Width 19.6 % (11.8-14.3); White Blood Cell 8.5 10^3/uL (4.4-10.8)
[2022-02-24 13:56] LABS: Albumin 3.1 g/dL (3.4-5.0); Calcium 9.2 mg/dL (8.5-10.1); Potassium 3.5 mmol/L (3.5-5.1)
[2022-02-24 14:00] LABS: BUN/Creatinine Ratio 10.8; Bilirubin, Total 2.5 mg/dL (0.2-1.0); Total Protein 8.5 g/dL (6.4-8.2)
[2022-02-25] MEDS ORDERED: VANCOMYCIN 1GM/250ML 250 ML IV ONE (04:15)
[2022-02-25] MEDS ORDERED: ALBUTEROL SULF 2.5 MG/0.5ML(0.5%) NEB SOLN NEB PRN (05:15)
[2022-02-25] MEDS ORDERED: ONDANSETRON HCL 4 MG/2 ML VIAL IV PRN (05:15)
[2022-02-25] MEDS: chlordiazePOXIDE HCL 25 MG CAP PO SCH ×3 (06:00→18:47)
[2022-02-25] MEDS ORDERED: cefTRIAXone 1GM/50ML D5W 50 ML IV SCH (09:00)
[2022-02-25] MEDS: LACTULOSE 20Gm/30ML SOLN PO SCH ×2 (10:00→22:38)
[2022-02-25] MEDS: PANTOPRAZOLE 40 MG TAB PO SCH (10:14)
[2022-02-25] MEDS: levoFLOXacin 500MG 100 ML IV SCH (10:14)
[2022-02-25 10:58] VITALS: BP 127/60
[2022-02-25] MEDS ORDERED: FUROSEMIDE 20 MG/2 ML VIAL IV ONE (12:15)
[2022-02-25] MEDS: FOLIC ACID 1 MG, MULTIPLE VITAMIN 10 ML, MAGNESIUM SULF SDV 50% 8 MEQ, THIAMINE INJ 100... INJ SCH ×5 (13:11)
[2022-02-25] MEDS: PHENYTOIN SODIUM 100 MG CAP PO SCH (22:38)
[2022-02-26] MEDS: chlordiazePOXIDE HCL 25 MG CAP PO SCH ×4 (00:47→18:15)
[2022-02-26 06:40] LABS: Basophils # (auto) 0.1 10 ^3/uL (0-0.2); Eosinophils # (auto) 0.3 10 ^3/uL (0-0.8); Hemoglobin 7.8 g/dL (13.5-17.5)
[2022-02-26 06:42] LABS: Eosinophils % (auto) 3.9 % (0.0-7.0); Hematocrit 22.9 % (41.0-53.0); Lymphocytes # (auto) 1.3 10 ^3/uL (0.4-5.4); Lymphocytes % (auto) 18.5 % (10.0-50.0); Mean Corpuscular Hemoglobin 29.7 pg (28.0-32.0); Mean Corpuscular Hgb Conc. 34.1 g/dL (32.0-36.0); Mean Corpuscular Volume 87.1 fL (80.0-100.0); Monocytes # (auto) 0.8 10 ^3/uL (0-1.3); Neutrophils # (auto) 4.6 10 ^3/uL (1.6-8.6); Neutrophils % (auto) 64.6 % (37.0-80.0); Red Blood Cells 2.63 10^6/uL (4.5-5.90); Red Cell Distribution Width 19.5 % (11.8-14.3)
[2022-02-26 06:47] LABS: Albumin 2.8 g/dL (3.4-5.0); Calcium 9.1 mg/dL (8.5-10.1); Potassium 3.5 mmol/L (3.5-5.1)
[2022-02-26 06:50] LABS: BUN/Creatinine Ratio 12.4
[2022-02-26 07:26] LABS: Bilirubin, Total 2.2 mg/dL (0.2-1.0); Total Protein 7.5 g/dL (6.4-8.2)
[2022-02-26 08:00] VITALS: BP 128/74
[2022-02-26 09:00] VITALS: BP 117/75
[2022-02-26] MEDS: LACTULOSE 20Gm/30ML SOLN PO SCH ×2 (10:49→21:52)
[2022-02-26] MEDS: PANTOPRAZOLE 40 MG TAB PO SCH (10:49)
[2022-02-26] MEDS: FUROSEMIDE 20 MG/2 ML VIAL IV SCH (10:49)
[2022-02-26] MEDS: levoFLOXacin 500MG 100 ML IV SCH (11:01)
[2022-02-26] MEDS: FOLIC ACID 1 MG, MULTIPLE VITAMIN 10 ML, MAGNESIUM SULF SDV 50% 8 MEQ, THIAMINE INJ 100... INJ SCH ×5 (12:59)
[2022-02-26 13:00] VITALS: BP 107/71
[2022-02-26 17:00] VITALS: BP 102/69
[2022-02-26 20:00] VITALS: BP 111/74
[2022-02-26] MEDS: PHENYTOIN SODIUM 100 MG CAP PO SCH (21:52)
[2022-02-26 22:00] VITALS: BP 111/74
[2022-02-27 05:26] LABS: Eosinophils # (auto) 0.2 10 ^3/uL (0-0.8); Monocytes # (auto) 0.7 10 ^3/uL (0-1.3)
[2022-02-27 05:28] LABS: Basophils # (auto) 0 10 ^3/uL (0-0.2); Basophils % (auto) 0.7 % (0.0-2.0); Eosinophils % (auto) 2.7 % (0.0-7.0); Hematocrit 21.4 % (41.0-53.0); Hemoglobin 7.5 g/dL (13.5-17.5); Lymphocytes # (auto) 1.5 10 ^3/uL (0.4-5.4); Lymphocytes % (auto) 21.9 % (10.0-50.0); Mean Corpuscular Hemoglobin 30.3 pg (28.0-32.0); Mean Corpuscular Hgb Conc. 34.9 g/dL (32.0-36.0); Mean Corpuscular Volume 86.9 fL (80.0-100.0); Monocytes % (auto) 10.4 % (0.0-12.0); Neutrophils # (auto) 4.4 10 ^3/uL (1.6-8.6); Neutrophils % (auto) 64.3 % (37.0-80.0); Red Blood Cells 2.47 10^6/uL (4.5-5.90); Red Cell Distribution Width 19.2 % (11.8-14.3); White Blood Cell 6.8 10^3/uL (4.4-10.8)
[2022-02-27 05:30] VITALS: BP 131/73
[2022-02-27 05:42] LABS: Albumin 2.6 g/dL (3.4-5.0); Calcium 8.6 mg/dL (8.5-10.1); Potassium 3.4 mmol/L (3.5-5.1)
[2022-02-27 05:44] LABS: BUN/Creatinine Ratio 12.4
[2022-02-27 05:46] LABS: Total Protein 6.8 g/dL (6.4-8.2)
[2022-02-27] MEDS: chlordiazePOXIDE HCL 25 MG CAP PO SCH ×3 (05:48→12:29)
[2022-02-27 08:30] VITALS: BP 112/69
[2022-02-27] MEDS ORDERED: LACT10SO3 PO (10:17)
[2022-02-27] MEDS ORDERED: LEVO750T8 PO (10:17)
[2022-02-27] MEDS ORDERED: POTASSIUM EFFERVESENT TAB 25 MEQ GT ONE (10:30)
[2022-02-27] MEDS: LACTULOSE 20Gm/30ML SOLN PO SCH (10:52)
[2022-02-27] MEDS: PANTOPRAZOLE 40 MG TAB PO SCH (10:52)
[2022-02-27] MEDS: FUROSEMIDE 20 MG/2 ML VIAL IV SCH (10:53)
[2022-02-27] MEDS: levoFLOXacin 500MG 100 ML IV SCH (10:53)
[2022-02-27] MEDS: FOLIC ACID 1 MG, MULTIPLE VITAMIN 10 ML, MAGNESIUM SULF SDV 50% 8 MEQ, THIAMINE INJ 100... INJ SCH ×5 (12:39)
[2022-02-27 12:56] VITALS: BP 112/69
[2022-02-27] MEDS ORDERED: LACTULOSE 20Gm/30ML SOLN PO SCH (16:00)
[2022-02-28 09:53] LABS: Hepatitis B Surface Antibody Negative (Negative)
[2022-02-28 10:29] LABS: Hepatitis A Total Antibody Negative (Negative)
[2022-02-28 16:46] LABS: Hepatitis C Antibody Negative (Negative)
== END 2022-02-27 17:30 | disposition home or self-care (01) | DRG 139 ==
LOC: ER 12:18 → EDBD 12:18 → OVERFLOW 02-25 05:09 → EAST 02-26 08:56
PROVIDERS: ADMIT Nurse Practitioner; ATTEND Internal Medicine Pulmonary Disease
DX: J15.9 Unspecified bacterial pneumonia (principal); K76.82 Hepatic encephalopathy; J90 Pleural effusion, not elsewhere classified; F03.90 Unspecified dementia, unspecified severity, without behavioral disturbance, psychotic disturbance, mood disturbance, and anxiety; K74.60 Unspecified cirrhosis of liver; E78.5 Hyperlipidemia, unspecified; E87.6 Hypokalemia; Z20.822 Contact with and (suspected) exposure to COVID-19; D64.9 Anemia, unspecified; F10.10 Alcohol abuse, uncomplicated; I10 Essential (primary) hypertension; Z88.5 Allergy status to narcotic agent; Z88.0 Allergy status to penicillin
CPT/HCPCS: 36415; 71045; 74176; 76705; 80053; 82140; 82728; 83880; 84484; 85025; 86704; 86706; 86708; 86803; 87340; 93005; 96365; G0378; J0696; J1956

== ENCOUNTER 2022-03-03 15:00 | Inpatient (IN) | payer MEDICAID ==
[~2022-03-03] VITALS: Ht 182.9 cm; Wt 71.0 kg
[~2022-03-03 15:00] MED LIST changes: +LACT10SO3 PO; +LEVO750T8 PO
[2022-03-03 15:43] LABS: Basophils # (auto) 0 10 ^3/uL (0-0.2); Basophils % (auto) 0.8 % (0.0-2.0); Eosinophils # (auto) 0.1 10 ^3/uL (0-0.8); Eosinophils % (auto) 2.5 % (0.0-7.0); Hematocrit 27.5 % (41.0-53.0); Hemoglobin 9.2 g/dL (13.5-17.5); Lymphocytes # (auto) 1.2 10 ^3/uL (0.4-5.4); Lymphocytes % (auto) 20.1 % (10.0-50.0); Mean Corpuscular Hemoglobin 29.8 pg (28.0-32.0); Mean Corpuscular Hgb Conc. 33.5 g/dL (32.0-36.0); Mean Corpuscular Volume 88.9 fL (80.0-100.0); Monocytes # (auto) 0.5 10 ^3/uL (0-1.3); Monocytes % (auto) 7.7 % (0.0-12.0); Neutrophils # (auto) 4.1 10 ^3/uL (1.6-8.6); Neutrophils % (auto) 68.9 % (37.0-80.0); Nucleated Red Blood Cells % 0.1 %; Red Blood Cells 3.09 10^6/uL (4.5-5.90); Red Cell Distribution Width 19.2 % (11.8-14.3)
[2022-03-03 15:58] LABS: INR 1.59 (0.9-1.15); Partial Thromboplastin Time 35.8 sec (24.6-33.4)
[2022-03-03 16:29] LABS: Albumin 3.1 g/dL (3.4-5.0); Calcium 9.4 mg/dL (8.5-10.1); Magnesium 1.6 mg/dL (1.6-2.6); Potassium 3.9 mmol/L (3.5-5.1)
[2022-03-03 16:32] LABS: BUN/Creatinine Ratio 9.9; Bilirubin, Total 2.3 mg/dL (0.2-1.0); Total Protein 7.7 g/dL (6.4-8.2)
[2022-03-03] MEDS ORDERED: LACTULOSE 20Gm/30ML SOLN PO ONE (17:15)
[2022-03-03] MEDS ORDERED: NITROGLYCERIN 0.4 MG SL TAB SL PRN (17:45)
[2022-03-03] MEDS: LACTULOSE 10g/15ml SOLN 473ML PR SCH (18:00)
[2022-03-03] MEDS: FOLIC ACID 1 MG, MULTIPLE VITAMIN 10 ML, THIAMINE INJ 100 MG in SODIUM CHLORIDE 0.9% 1,... INJ SCH (18:26)
[2022-03-03] MEDS ORDERED: chlordiazePOXIDE HCL 25 MG CAP PO SCH (22:00)
[2022-03-03] MEDS ORDERED: PHENYTOIN SODIUM 100 MG CAP PO SCH (22:00)
[2022-03-03] MEDS ORDERED: LACTULOSE 20Gm/30ML SOLN PO SCH (22:00)
[2022-03-04] MEDS: LACTULOSE 10g/15ml SOLN 473ML PR SCH ×4 (00:20→18:00)
[2022-03-04 06:46] LABS: Basophils # (auto) 0 10 ^3/uL (0-0.2); Eosinophils # (auto) 0.2 10 ^3/uL (0-0.8); Hemoglobin 8.2 g/dL (13.5-17.5); Lymphocytes # (auto) 1.3 10 ^3/uL (0.4-5.4); Mean Corpuscular Hemoglobin 30.2 pg (28.0-32.0); Monocytes # (auto) 0.6 10 ^3/uL (0-1.3); Nucleated Red Blood Cells % 0.1 %; Red Blood Cells 2.73 10^6/uL (4.5-5.90)
[2022-03-04 06:48] LABS: Basophils % (auto) 0.9 % (0.0-2.0); Hematocrit 24.1 % (41.0-53.0); Lymphocytes % (auto) 25.6 % (10.0-50.0); Mean Corpuscular Hgb Conc. 34.1 g/dL (32.0-36.0); Mean Corpuscular Volume 88.6 fL (80.0-100.0); Monocytes % (auto) 11.4 % (0.0-12.0); Neutrophils % (auto) 58.1 % (37.0-80.0); Red Cell Distribution Width 19.7 % (11.8-14.3); White Blood Cell 5.1 10^3/uL (4.4-10.8)
[2022-03-04 07:02] LABS: Albumin 2.7 g/dL (3.4-5.0); Calcium 9.1 mg/dL (8.5-10.1); Potassium 3.8 mmol/L (3.5-5.1)
[2022-03-04 07:06] LABS: BUN/Creatinine Ratio 14.3; Bilirubin, Total 2.2 mg/dL (0.2-1.0); Total Protein 6.7 g/dL (6.4-8.2)
[2022-03-04] MEDS ORDERED: PHENYTOIN SODIUM 50 MG/ML 2ML VIAL IV ONE ×2 (10:00→11:03)
[2022-03-04] MEDS ORDERED: MULTIPLE VITAMIN TAB PO SCH (10:00)
[2022-03-04] MEDS ORDERED: THIAMINE HCL 100 MG TAB PO SCH (10:00)
[2022-03-04] MEDS ORDERED: FOLIC ACID 1 MG TAB PO SCH (10:00)
[2022-03-04] MEDS ORDERED: LORazepam 2MG/ML-1ML VIAL IV PRN (10:15)
[2022-03-04 11:27] LABS: Alcohol, Urine < 3.0 mg/dL (0-10); Amphetamine Screen, Urine NEGATIVE (NEGATIVE); Barbiturate Scree,Urine NEGATIVE (NEGATIVE); Benzodiazephine Screen, Urine POSITIVE (NEGATIVE); Cannabinoid Screen, Urine NEGATIVE (NEGATIVE); Cocaine Screen, Urine NEGATIVE (NEGATIVE); Opiate Scree,Urine NEGATIVE (NEGATIVE); Phencyclidine Screen, Urine NEGATIVE (NEGATIVE)
[2022-03-04 11:53] LABS: Urine Bacteria NONE SEEN /hpf (None Seen); Urine Blood 3+ /uL (Negative); Urine Specific Gravity 1.016 (1.001-1.035); Urine WBC 37 /hpf (0 - 3)
[2022-03-04] MEDS: FOLIC ACID 1 MG, MULTIPLE VITAMIN 10 ML, THIAMINE INJ 100 MG in SODIUM CHLORIDE 0.9% 1,... INJ SCH (12:55)
[2022-03-04] MEDS: PHENYTOIN SODIUM 50 MG/ML 2ML VIAL IV SCH (14:00)
[2022-03-04 19:00] VITALS: BP 133/72
[2022-03-04 22:00] VITALS: BP 111/61
[2022-03-05] MEDS: PHENYTOIN SODIUM 50 MG/ML 2ML VIAL IV SCH ×4 (00:32→21:33)
[2022-03-05 05:00] VITALS: BP 118/70
[2022-03-05] MEDS: LACTULOSE 10g/15ml SOLN 473ML PR SCH ×3 (06:00→12:57)
[2022-03-05 06:02] LABS: Basophils # (auto) 0.1 10 ^3/uL (0-0.2); Eosinophils # (auto) 0.2 10 ^3/uL (0-0.8); Eosinophils % (auto) 2.5 % (0.0-7.0); Hematocrit 23.4 % (41.0-53.0); Hemoglobin 8.1 g/dL (13.5-17.5); Lymphocytes # (auto) 1.3 10 ^3/uL (0.4-5.4); Lymphocytes % (auto) 18.8 % (10.0-50.0); Mean Corpuscular Hgb Conc. 34.5 g/dL (32.0-36.0); Mean Corpuscular Volume 89.6 fL (80.0-100.0); Monocytes # (auto) 0.7 10 ^3/uL (0-1.3); Monocytes % (auto) 9.8 % (0.0-12.0); Neutrophils # (auto) 4.8 10 ^3/uL (1.6-8.6); Neutrophils % (auto) 67.9 % (37.0-80.0); Nucleated Red Blood Cells % 0.1 %; Red Blood Cells 2.61 10^6/uL (4.5-5.90); Red Cell Distribution Width 19.7 % (11.8-14.3); White Blood Cell 7.1 10^3/uL (4.4-10.8)
[2022-03-05 06:08] LABS: Calcium 8.9 mg/dL (8.5-10.1); Potassium 3.5 mmol/L (3.5-5.1)
[2022-03-05 06:10] LABS: BUN/Creatinine Ratio 17.9
[2022-03-05 09:00] VITALS: BP 133/73
[2022-03-05] MEDS: FOLIC ACID 1 MG, MULTIPLE VITAMIN 10 ML, THIAMINE INJ 100 MG in SODIUM CHLORIDE 0.9% 1,... INJ SCH (12:56)
[2022-03-05 13:00] VITALS: BP 130/68
[2022-03-05 17:00] VITALS: BP 108/66
[2022-03-05 20:00] VITALS: BP 124/64
[2022-03-05 22:00] VITALS: BP 124/64
[2022-03-06] MEDS: LACTULOSE 20Gm/30ML SOLN NG SCH ×7 (00:03→23:18)
[2022-03-06] MEDS: PHENYTOIN SODIUM 50 MG/ML 2ML VIAL IV SCH ×3 (05:05→21:17)
[2022-03-06 05:54] LABS: Potassium 3.6 mmol/L (3.5-5.1)
[2022-03-06 05:56] LABS: BUN/Creatinine Ratio 18.3
[2022-03-06 07:06] LABS: Basophils # (auto) 0.1 10 ^3/uL (0-0.2); Basophils % (auto) 0.7 % (0.0-2.0); Eosinophils # (auto) 0.1 10 ^3/uL (0-0.8); Hematocrit 25.2 % (41.0-53.0); Hemoglobin 8.5 g/dL (13.5-17.5); Lymphocytes # (auto) 1.6 10 ^3/uL (0.4-5.4); Lymphocytes % (auto) 22.2 % (10.0-50.0); Mean Corpuscular Hemoglobin 30.8 pg (28.0-32.0); Mean Corpuscular Hgb Conc. 33.7 g/dL (32.0-36.0); Mean Corpuscular Volume 91.5 fL (80.0-100.0); Monocytes # (auto) 0.8 10 ^3/uL (0-1.3); Monocytes % (auto) 10.9 % (0.0-12.0); Neutrophils # (auto) 4.5 10 ^3/uL (1.6-8.6); Neutrophils % (auto) 64.2 % (37.0-80.0); Nucleated Red Blood Cells % 0.2 %; Red Blood Cells 2.75 10^6/uL (4.5-5.90); Red Cell Distribution Width 18.9 % (11.8-14.3)
[2022-03-06 08:30] VITALS: BP 126/64
[2022-03-06] MEDS ORDERED: FUROSEMIDE 20 MG/2 ML VIAL IV ONE (10:45)
[2022-03-06 12:00] VITALS: BP 118/68
[2022-03-06] MEDS: FOLIC ACID 1 MG, MULTIPLE VITAMIN 10 ML, THIAMINE INJ 100 MG in SODIUM CHLORIDE 0.9% 1,... INJ SCH (12:16)
[2022-03-06 22:00] VITALS: BP 127/76
[2022-03-07 05:00] VITALS: BP 126/74
[2022-03-07 05:20] LABS: Eosinophils # (auto) 0.2 10 ^3/uL (0-0.8); Hemoglobin 8.2 g/dL (13.5-17.5); Monocytes # (auto) 0.7 10 ^3/uL (0-1.3)
[2022-03-07] MEDS: PHENYTOIN SODIUM 50 MG/ML 2ML VIAL IV SCH ×3 (05:21→23:05)
[2022-03-07 05:24] LABS: Basophils # (auto) 0 10 ^3/uL (0-0.2); Basophils % (auto) 0.7 % (0.0-2.0); Eosinophils % (auto) 2.8 % (0.0-7.0); Hematocrit 23.3 % (41.0-53.0); Lymphocytes # (auto) 1.3 10 ^3/uL (0.4-5.4); Lymphocytes % (auto) 21.6 % (10.0-50.0); Mean Corpuscular Hemoglobin 31.1 pg (28.0-32.0); Mean Corpuscular Hgb Conc. 35.2 g/dL (32.0-36.0); Mean Corpuscular Volume 88.4 fL (80.0-100.0); Monocytes % (auto) 11.4 % (0.0-12.0); Neutrophils # (auto) 3.9 10 ^3/uL (1.6-8.6); Neutrophils % (auto) 63.5 % (37.0-80.0); Red Blood Cells 2.63 10^6/uL (4.5-5.90); Red Cell Distribution Width 19.4 % (11.8-14.3); White Blood Cell 6.1 10^3/uL (4.4-10.8)
[2022-03-07 05:40] LABS: Calcium 8.7 mg/dL (8.5-10.1); Potassium 3.1 mmol/L (3.5-5.1)
[2022-03-07 05:43] LABS: BUN/Creatinine Ratio 17.1
[2022-03-07] MEDS: LACTULOSE 20Gm/30ML SOLN NG SCH ×4 (07:02→23:05)
[2022-03-07 09:55] VITALS: BP 125/75
[2022-03-07] MEDS: FUROSEMIDE 20 MG/2 ML VIAL IV SCH (10:48)
[2022-03-07] MEDS: POTASSIUM CHLORIDE 40 MEQ in D5W 5% 1,000 ML IV SCH ×2 (11:13→20:12)
[2022-03-07] MEDS: FOLIC ACID 1 MG, MULTIPLE VITAMIN 10 ML, THIAMINE INJ 100 MG in SODIUM CHLORIDE 0.9% 1,... INJ SCH (13:07)
[2022-03-07 14:59] VITALS: BP 123/80
[2022-03-07 17:22] VITALS: BP 125/80
[2022-03-07 22:00] VITALS: BP 141/71
[2022-03-08] VITALS (7 sets, daily range): BP systolic 109–132; BP diastolic 68–85
[2022-03-08 05:12] LABS: Basophils # (auto) 0.1 10 ^3/uL (0-0.2); Basophils % (auto) 1.3 % (0.0-2.0); Eosinophils # (auto) 0.2 10 ^3/uL (0-0.8); Eosinophils % (auto) 3.4 % (0.0-7.0); Hematocrit 25.3 % (41.0-53.0); Hemoglobin 8.8 g/dL (13.5-17.5); Lymphocytes # (auto) 1.7 10 ^3/uL (0.4-5.4); Lymphocytes % (auto) 26.1 % (10.0-50.0); Mean Corpuscular Hemoglobin 30.9 pg (28.0-32.0); Mean Corpuscular Volume 88.1 fL (80.0-100.0); Monocytes # (auto) 0.8 10 ^3/uL (0-1.3); Monocytes % (auto) 12.2 % (0.0-12.0); Neutrophils # (auto) 3.7 10 ^3/uL (1.6-8.6); Nucleated Red Blood Cells % 0.1 %; Red Blood Cells 2.87 10^6/uL (4.5-5.90); Red Cell Distribution Width 18.7 % (11.8-14.3); White Blood Cell 6.6 10^3/uL (4.4-10.8)
[2022-03-08 05:35] LABS: Calcium 8.7 mg/dL (8.5-10.1); Potassium 3.4 mmol/L (3.5-5.1)
[2022-03-08] MEDS: PHENYTOIN SODIUM 50 MG/ML 2ML VIAL IV SCH ×3 (06:18→22:13)
[2022-03-08] MEDS: LACTULOSE 20Gm/30ML SOLN NG SCH ×4 (06:19→23:32)
[2022-03-08] MEDS: POTASSIUM CHLORIDE 40 MEQ in D5W 5% 1,000 ML IV SCH ×2 (06:19→16:44)
[2022-03-08] MEDS: FUROSEMIDE 20 MG/2 ML VIAL IV SCH (10:05)
[2022-03-08] MEDS: FOLIC ACID 1 MG, MULTIPLE VITAMIN 10 ML, THIAMINE INJ 100 MG in SODIUM CHLORIDE 0.9% 1,... INJ SCH (12:32)
[2022-03-08] MEDS ORDERED: CLINIMIX PER PHARMACY 0 ML IV SCH (16:00)
[2022-03-08 16:48] LABS: Magnesium 1.4 mg/dL (1.6-2.6); Phosphorus 4.1 mg/dL (2.5-4.90)
[2022-03-08] MEDS ORDERED: AMINO ACID INFUSION IN D10W 1,000 ML IV NR (20:00)
[2022-03-08] MEDS: MAGNESIUM SULFATE 1GM/100ML 100 ML IV SCH ×3 (21:03→23:34)
[2022-03-08] MEDS: ACCU-CHEK COMFORT CURVE STRIP VI SCH (23:32)
[2022-03-08] MEDS: InsuLIN REG 1unit/0.01ml Soln (100units/ml) SC SCH (23:32)
[2022-03-09] MEDS ORDERED: DEXTROSE (50%) 50ML SYRG IV SCH
[2022-03-09 05:00] VITALS: BP 122/74
[2022-03-09 05:01] LABS: Basophils # (auto) 0.1 10 ^3/uL (0-0.2); Eosinophils # (auto) 0.3 10 ^3/uL (0-0.8); Eosinophils % (auto) 4.6 % (0.0-7.0); Hematocrit 24.7 % (41.0-53.0); Hemoglobin 8.5 g/dL (13.5-17.5); Lymphocytes # (auto) 1.4 10 ^3/uL (0.4-5.4); Lymphocytes % (auto) 20.4 % (10.0-50.0); Mean Corpuscular Hemoglobin 30.4 pg (28.0-32.0); Mean Corpuscular Hgb Conc. 34.2 g/dL (32.0-36.0); Mean Corpuscular Volume 88.8 fL (80.0-100.0); Monocytes # (auto) 0.9 10 ^3/uL (0-1.3); Monocytes % (auto) 13.8 % (0.0-12.0); Neutrophils # (auto) 4.1 10 ^3/uL (1.6-8.6); Neutrophils % (auto) 60.2 % (37.0-80.0); Red Blood Cells 2.78 10^6/uL (4.5-5.90); Red Cell Distribution Width 18.5 % (11.8-14.3); White Blood Cell 6.8 10^3/uL (4.4-10.8)
[2022-03-09 05:18] LABS: Albumin 2.7 g/dL (3.4-5.0); BUN/Creatinine Ratio 10.4; Calcium 8.1 mg/dL (8.5-10.1); Potassium 3.3 mmol/L (3.5-5.1)
[2022-03-09 05:28] LABS: Bilirubin, Total 2.6 mg/dL (0.2-1.0); Phosphorus 3.7 mg/dL (2.5-4.90); Total Protein 6.7 g/dL (6.4-8.2)
[2022-03-09] MEDS: POTASSIUM CHLORIDE 40 MEQ in D5W 5% 1,000 ML IV SCH ×3 (05:39→23:50)
[2022-03-09] MEDS: PHENYTOIN SODIUM 50 MG/ML 2ML VIAL IV SCH ×2 (05:39→14:07)
[2022-03-09] MEDS: InsuLIN REG 1unit/0.01ml Soln (100units/ml) SC SCH ×4 (05:40→23:51)
[2022-03-09] MEDS: LACTULOSE 20Gm/30ML SOLN NG SCH ×4 (05:40→23:52)
[2022-03-09] MEDS: ACCU-CHEK COMFORT CURVE STRIP VI SCH ×4 (05:40→23:51)
[2022-03-09 09:00] VITALS: BP 111/71
[2022-03-09] MEDS: FUROSEMIDE 20 MG/2 ML VIAL IV SCH (09:57)
[2022-03-09] MEDS: FOLIC ACID 1 MG, MULTIPLE VITAMIN 10 ML, THIAMINE INJ 100 MG in SODIUM CHLORIDE 0.9% 1,... INJ SCH (12:40)
[2022-03-09 13:00] VITALS: BP 118/71
[2022-03-09] MEDS ORDERED: SODIUM CHL 0.9% IV SCH (14:00)
[2022-03-09] MEDS ORDERED: POTASSIUM ACETATE IV SCH (14:00)
[2022-03-09] MEDS ORDERED: POTASSIUM ACETATE IV ONE (16:15)
[2022-03-09] MEDS ORDERED: SODIUM CHL 0.9% IV ONE (16:15)
[2022-03-09 17:01] VITALS: BP 120/76
[2022-03-09] MEDS: CLINIMIX PER PHARMACY IV NR (21:10)
[2022-03-09 22:00] VITALS: BP 118/76
[2022-03-10 05:00] VITALS: BP 119/69
[2022-03-10 05:43] LABS: BUN/Creatinine Ratio 9.9; Bilirubin, Direct 1.4 mg/dL (0-0.2); Calcium 8.3 mg/dL (8.5-10.1); Magnesium 1.3 mg/dL (1.6-2.6); Phosphorus 3.1 mg/dL (2.5-4.90); Potassium 3.7 mmol/L (3.5-5.1)
[2022-03-10 05:47] LABS: INR 1.59 (0.9-1.15)
[2022-03-10] MEDS: ACCU-CHEK COMFORT CURVE STRIP VI SCH ×3 (05:53→18:38)
[2022-03-10] MEDS: LACTULOSE 20Gm/30ML SOLN NG SCH ×4 (05:54→23:59)
[2022-03-10] MEDS: InsuLIN REG 1unit/0.01ml Soln (100units/ml) SC SCH ×3 (05:54→18:00)
[2022-03-10 06:20] LABS: Basophils # (auto) 0.1 10 ^3/uL (0-0.2); Eosinophils # (auto) 0.3 10 ^3/uL (0-0.8); Eosinophils % (auto) 5.2 % (0.0-7.0); Hematocrit 23.5 % (41.0-53.0); Hemoglobin 8.5 g/dL (13.5-17.5); Lymphocytes # (auto) 1.7 10 ^3/uL (0.4-5.4); Mean Corpuscular Hemoglobin 31.9 pg (28.0-32.0); Mean Corpuscular Hgb Conc. 36.2 g/dL (32.0-36.0); Mean Corpuscular Volume 88.2 fL (80.0-100.0); Monocytes # (auto) 0.8 10 ^3/uL (0-1.3); Monocytes % (auto) 12.3 % (0.0-12.0); Neutrophils # (auto) 3.8 10 ^3/uL (1.6-8.6); Neutrophils % (auto) 56.5 % (37.0-80.0); Red Blood Cells 2.66 10^6/uL (4.5-5.90); Red Cell Distribution Width 18.6 % (11.8-14.3); White Blood Cell 6.7 10^3/uL (4.4-10.8)
[2022-03-10 09:00] VITALS: BP 120/70
[2022-03-10] MEDS: FUROSEMIDE 20 MG/2 ML VIAL IV SCH (09:11)
[2022-03-10] MEDS: MAGNESIUM SULFATE 1GM/100ML 100 ML IV SCH ×4 (09:12→14:20)
[2022-03-10] MEDS: POTASSIUM CHLORIDE 40 MEQ in D5W 5% 1,000 ML IV SCH ×2 (09:33→20:38)
[2022-03-10] MEDS: FOLIC ACID 1 MG, MULTIPLE VITAMIN 10 ML, THIAMINE INJ 100 MG in SODIUM CHLORIDE 0.9% 1,... INJ SCH (12:59)
[2022-03-10 13:00] VITALS: BP 112/74
[2022-03-10 17:00] VITALS: BP 119/79
[2022-03-10] MEDS: CLINIMIX PER PHARMACY IV NR ×2 (19:49→20:39)
[2022-03-10] MEDS: LORazepam 2MG/ML-1ML VIAL IV PRN (21:39)
[2022-03-10 22:00] VITALS: BP 132/68
[2022-03-11] MEDS: LORazepam 2MG/ML-1ML VIAL IV PRN ×2 (02:22→13:33)
[2022-03-11 05:00] VITALS: BP 120/74
[2022-03-11] MEDS: POTASSIUM CHLORIDE 40 MEQ in D5W 5% 1,000 ML IV SCH ×2 (05:48→13:00)
[2022-03-11] MEDS: ACCU-CHEK COMFORT CURVE STRIP VI SCH ×5 (05:50→23:32)
[2022-03-11] MEDS: InsuLIN REG 1unit/0.01ml Soln (100units/ml) SC SCH ×5 (05:51→23:33)
[2022-03-11 06:20] LABS: Basophils # (auto) 0 10 ^3/uL (0-0.2); Basophils % (auto) 0.7 % (0.0-2.0); Eosinophils # (auto) 0.2 10 ^3/uL (0-0.8); Eosinophils % (auto) 3.1 % (0.0-7.0); Hematocrit 26.4 % (41.0-53.0); Hemoglobin 9.1 g/dL (13.5-17.5); Lymphocytes # (auto) 1.3 10 ^3/uL (0.4-5.4); Lymphocytes % (auto) 19.2 % (10.0-50.0); Mean Corpuscular Hemoglobin 31.1 pg (28.0-32.0); Mean Corpuscular Hgb Conc. 34.4 g/dL (32.0-36.0); Mean Corpuscular Volume 90.2 fL (80.0-100.0); Monocytes # (auto) 0.9 10 ^3/uL (0-1.3); Monocytes % (auto) 13.5 % (0.0-12.0); Neutrophils # (auto) 4.5 10 ^3/uL (1.6-8.6); Neutrophils % (auto) 63.5 % (37.0-80.0); Red Blood Cells 2.93 10^6/uL (4.5-5.90); Red Cell Distribution Width 18.4 % (11.8-14.3)
[2022-03-11] MEDS: LACTULOSE 20Gm/30ML SOLN NG SCH ×4 (06:26→23:32)
[2022-03-11 06:36] LABS: Calcium 8.7 mg/dL (8.5-10.1); Potassium 4.4 mmol/L (3.5-5.1)
[2022-03-11 06:42] LABS: Albumin 2.8 g/dL (3.4-5.0); BUN/Creatinine Ratio 12.5; Bilirubin, Total 2.8 mg/dL (0.2-1.0)
[2022-03-11 08:30] VITALS: BP 117/69
[2022-03-11] MEDS: FUROSEMIDE 20 MG/2 ML VIAL IV SCH (10:15)
[2022-03-11 12:30] VITALS: BP 124/71
[2022-03-11 16:47] VITALS: BP 118/77
[2022-03-11] MEDS: CLINIMIX PER PHARMACY IV NR (20:35)
[2022-03-11 21:54] VITALS: BP 117/72
[2022-03-12] MEDS: POTASSIUM CHLORIDE 40 MEQ in D5W 5% 1,000 ML IV SCH ×4 (02:38→19:15)
[2022-03-12 04:54] VITALS: BP 127/81
[2022-03-12] MEDS: LACTULOSE 20Gm/30ML SOLN NG SCH ×3 (05:45→18:31)
[2022-03-12] MEDS: ACCU-CHEK COMFORT CURVE STRIP VI SCH ×4 (05:45→23:32)
[2022-03-12] MEDS: InsuLIN REG 1unit/0.01ml Soln (100units/ml) SC SCH ×4 (05:45→23:32)
[2022-03-12 07:14] LABS: Albumin 2.9 g/dL (3.4-5.0); BUN/Creatinine Ratio 14.3; Calcium 8.9 mg/dL (8.5-10.1); Magnesium 1.4 mg/dL (1.6-2.6)
[2022-03-12 07:17] LABS: Bilirubin, Total 2.9 mg/dL (0.2-1.0); Phosphorus 3.4 mg/dL (2.5-4.90); Total Protein 7.1 g/dL (6.4-8.2)
[2022-03-12 08:25] VITALS: BP 129/84
[2022-03-12] MEDS: MAGNESIUM SULFATE 1GM/100ML 100 ML IV SCH ×3 (10:49→13:47)
[2022-03-12] MEDS: FUROSEMIDE 20 MG/2 ML VIAL IV SCH (10:49)
[2022-03-12 12:28] VITALS: BP 125/80
[2022-03-12] MEDS ORDERED: PHENYTOIN SODIUM 100 MG CAP PO SCH (14:00)
[2022-03-12 16:54] VITALS: BP 128/79
[2022-03-12] MEDS: CLINIMIX PER PHARMACY IV NR (21:03)
[2022-03-12 21:54] VITALS: BP 114/74
[2022-03-12] MEDS: LACTULOSE 20Gm/30ML SOLN PO SCH (23:32)
[2022-03-13 05:03] LABS: Albumin 2.7 g/dL (3.4-5.0); Calcium 8.6 mg/dL (8.5-10.1); Magnesium 1.8 mg/dL (1.6-2.6); Potassium 4.1 mmol/L (3.5-5.1)
[2022-03-13 05:04] LABS: BUN/Creatinine Ratio 18.5; Phosphorus 3.8 mg/dL (2.5-4.90)
[2022-03-13 05:29] VITALS: BP 116/70
[2022-03-13] MEDS: InsuLIN REG 1unit/0.01ml Soln (100units/ml) SC SCH ×3 (06:00→17:56)
[2022-03-13] MEDS: LACTULOSE 20Gm/30ML SOLN PO SCH ×3 (06:06→17:56)
[2022-03-13] MEDS: ACCU-CHEK COMFORT CURVE STRIP VI SCH ×3 (06:06→17:56)
[2022-03-13 08:48] VITALS: BP 122/77
[2022-03-13] MEDS: POTASSIUM CHLORIDE 40 MEQ in D5W 5% 1,000 ML IV SCH (09:13)
[2022-03-13] MEDS: FUROSEMIDE 20 MG/2 ML VIAL IV SCH (09:14)
== END 2022-03-13 19:20 | disposition home or self-care (01) | DRG 52 ==
LOC: EDBD 15:00 → ER 15:00 → TELE 17:50 → TELE-EAST 03-04 18:45
PROVIDERS: ADMIT Registered Nurse; ATTEND Internal Medicine
DX: G93.41 Metabolic encephalopathy (principal); E43 Unspecified severe protein-calorie malnutrition; D68.59 Other primary thrombophilia; E87.0 Hyperosmolality and hypernatremia; F03.92 Unspecified dementia, unspecified severity, with psychotic disturbance; K76.82 Hepatic encephalopathy; K70.30 Alcoholic cirrhosis of liver without ascites; I10 Essential (primary) hypertension; Z20.822 Contact with and (suspected) exposure to COVID-19; D64.9 Anemia, unspecified; R47.81 Slurred speech; G40.909 Epilepsy, unspecified, not intractable, without status epilepticus; E78.5 Hyperlipidemia, unspecified; E87.6 Hypokalemia; Z87.01 Personal history of pneumonia (recurrent); Z68.20 Body mass index [BMI] 20.0-20.9, adult
CPT/HCPCS: 36415; 70450; 70551; 71045; 80048; 80053; 80069; 80185; 80307; 80320; 81001; 82140; 82248; 82962; 83605; 83735; 83880; 84100; 84439; 84443; 84484; 85025; 85610; 85730; 87040; 87081; 87426; 92610; 93005; 95819; 96365; 96375; 96376; 97163; G0378

== ENCOUNTER 2022-03-30 20:38 | Inpatient (IN) | payer MEDICAID ==
[~2022-03-30] VITALS: Ht 180.3 cm; Wt 62.1 kg
[~2022-03-30 20:38] MED LIST changes: -CHL25C PA; -LEVO750T8 PO
[2022-03-30] MEDS ORDERED: SODIUM CHLORIDE 0.9% 1,000 ML IV ONE (21:45)
[2022-03-30] MEDS ORDERED: PANTOPRAZOLE 40 MG/10 ML VIAL INJ IV ONE (22:15)
[2022-03-30] MEDS ORDERED: PANTOPRAZOLE 80 MG in SODIUM CHL 0.9% 100 ML IV ONE (22:15)
[2022-03-30] MEDS ORDERED: PANTOPRAZOLE 40mg/50ML NS AE 50 ML IV ONE (22:30)
[2022-03-30 22:31] LABS: Eosinophils # (auto) 0 10 ^3/uL (0-0.8); Eosinophils % (auto) 0.2 % (0.0-7.0); Hemoglobin 7.4 g/dL (13.5-17.5); Lymphocytes # (auto) 1.1 10 ^3/uL (0.4-5.4); Lymphocytes % (auto) 19.7 % (10.0-50.0); Nucleated Red Blood Cells % 0.1 %; Red Cell Distribution Width 17.5 % (11.8-14.3); White Blood Cell 5.4 10^3/uL (4.4-10.8)
[2022-03-30 22:35] LABS: Basophils # (auto) 0.1 10 ^3/uL (0-0.2); Hematocrit 20.6 % (41.0-53.0); Mean Corpuscular Hemoglobin 32.9 pg (28.0-32.0); Mean Corpuscular Hgb Conc. 35.6 g/dL (32.0-36.0); Mean Corpuscular Volume 92.3 fL (80.0-100.0); Monocytes # (auto) 0.5 10 ^3/uL (0-1.3); Monocytes % (auto) 8.6 % (0.0-12.0); Neutrophils # (auto) 3.8 10 ^3/uL (1.6-8.6); Neutrophils % (auto) 70.5 % (37.0-80.0); Red Blood Cells 2.24 10^6/uL (4.5-5.90)
[2022-03-30 22:46] LABS: Albumin 3.2 g/dL (3.4-5.0); BUN/Creatinine Ratio 25.8; Calcium 9.1 mg/dL (8.5-10.1)
[2022-03-30 22:51] LABS: INR 1.53 (0.9-1.15); Partial Thromboplastin Time 33.1 sec (24.6-33.4)
[2022-03-30 22:53] LABS: Bilirubin, Total 3.8 mg/dL (0.2-1.0); Total Protein 6.8 g/dL (6.4-8.2)
[2022-03-30 22:56] LABS: Potassium 2.9 mmol/L (3.5-5.1)
[2022-03-31] VITALS (11 sets, daily range): BP systolic 134–155; BP diastolic 72–88
[2022-03-31] MEDS: POTASSIUM CHL 20MEQ/100ML 100 ML IV SCH ×2 (00:10→01:57)
[2022-03-31] MEDS ORDERED: MORPHINE SULFATE INJ 2 MG/ml SYRG IV PRN ×3 (01:15→10:30)
[2022-03-31] MEDS ORDERED: NITROGLYCERIN 0.4 MG SL TAB SL PRN (01:15)
[2022-03-31] MEDS ORDERED: ACETAMINOPHEN 325 MG TAB PO PRN (01:15)
[2022-03-31] MEDS ORDERED: DOCUSATE SOD 100 MG CAP PO PRN (01:15)
[2022-03-31] MEDS ORDERED: SOD CHL 0.45% 1,000 ML IV SCH (01:15)
[2022-03-31] MEDS: ONDANSETRON HCL 4 MG/2 ML VIAL IV PRN ×2 (01:37→05:48)
[2022-03-31 06:12] LABS: Alanine Aminotransferase 20 U/L (16-61); Albumin 2.6 g/dL (3.4-5.0); Anion Gap 12 (5-15); Aspartate Aminotransferase 35 U/L (15-37); BUN/Creatinine Ratio 28.6; Blood Urea Nitrogen 28 mg/dL (7-18); Calcium 7.9 mg/dL (8.5-10.1); Carbon Dioxide 20 mmol/L (21-32); Chloride 113 mmol/L (98-107); GFR African American 100 mL/min; GFR Non-African American 83 mL/min; Glucose 126 mg/dL (74-106); Potassium 4.1 mmol/L (3.5-5.1); Sodium 145 mmol/L (136-145)
[2022-03-31 06:14] LABS: Alkaline Phosphatase 86 U/L (45-117); Bilirubin, Total 3.5 mg/dL (0.2-1.0)
[2022-03-31] MEDS: PANTOPRAZOLE 40mg/50ML NS AE 50 ML IV SCH ×4 (06:52→21:00)
[2022-03-31] MEDS ORDERED: phytonadione 10 MG in SODIUM CHL 0.9% 50 ML IV ONE (09:45)
[2022-03-31] MEDS ORDERED: PANTOPRAZOLE 40 MG/10 ML VIAL INJ IV SCH (10:00)
[2022-03-31] MEDS ORDERED: LORazepam 2MG/ML-1ML VIAL IV PRN (10:30)
[2022-03-31] MEDS ORDERED: ONDANSETRON HCL 4 MG/2 ML VIAL IV PRN (10:30)
[2022-03-31] MEDS ORDERED: cefTRIAXone 1GM/50ML D5W 50 ML IV ONE (10:30)
[2022-03-31] MEDS: SODIUM CHLORIDE 0.9% 1,000 ML IV SCH ×2 (10:56→18:35)
[2022-03-31] MEDS: metroNIDAZOLE 500MG/100ML 100 ML IV SCH ×2 (13:59→22:00)
[2022-03-31 15:23] LABS: Basophils # (auto) 0 10 ^3/uL (0-0.2); Basophils % (auto) 0.4 % (0.0-2.0); Eosinophils # (auto) 0 10 ^3/uL (0-0.8); Hematocrit 26.1 % (41.0-53.0); Hemoglobin 9.2 g/dL (13.5-17.5); Lymphocytes # (auto) 1.6 10 ^3/uL (0.4-5.4); Lymphocytes % (auto) 18.1 % (10.0-50.0); Mean Corpuscular Hemoglobin 31.7 pg (28.0-32.0); Mean Corpuscular Hgb Conc. 35.1 g/dL (32.0-36.0); Mean Corpuscular Volume 90.4 fL (80.0-100.0); Monocytes # (auto) 1.1 10 ^3/uL (0-1.3); Monocytes % (auto) 12.2 % (0.0-12.0); Neutrophils # (auto) 6.1 10 ^3/uL (1.6-8.6); Neutrophils % (auto) 69.3 % (37.0-80.0); Red Blood Cells 2.89 10^6/uL (4.5-5.90); Red Cell Distribution Width 15.9 % (11.8-14.3); White Blood Cell 8.8 10^3/uL (4.4-10.8)
[2022-04-01] VITALS (44 sets, daily range): BP systolic 107–146; BP diastolic 51–90
[2022-04-01] MEDS: PANTOPRAZOLE 40mg/50ML NS AE 50 ML IV SCH ×5 (02:00→22:00)
[2022-04-01] MEDS: SODIUM CHLORIDE 0.9% 1,000 ML IV SCH (04:55)
[2022-04-01] MEDS: metroNIDAZOLE 500MG/100ML 100 ML IV SCH ×3 (06:00→22:00)
[2022-04-01 09:32] LABS: Basophils # (auto) 0 10 ^3/uL (0-0.2); Basophils % (auto) 0.5 % (0.0-2.0); Eosinophils # (auto) 0 10 ^3/uL (0-0.8); Hemoglobin 7.4 g/dL (13.5-17.5); Mean Corpuscular Volume 94.1 fL (80.0-100.0); Neutrophils # (auto) 4.3 10 ^3/uL (1.6-8.6); Nucleated Red Blood Cells % 0.1 %
[2022-04-01 09:34] LABS: Eosinophils % (auto) 0.5 % (0.0-7.0); Hematocrit 21.3 % (41.0-53.0); Lymphocytes # (auto) 1.1 10 ^3/uL (0.4-5.4); Lymphocytes % (auto) 18.5 % (10.0-50.0); Mean Corpuscular Hemoglobin 32.8 pg (28.0-32.0); Mean Corpuscular Hgb Conc. 34.9 g/dL (32.0-36.0); Monocytes # (auto) 0.5 10 ^3/uL (0-1.3); Monocytes % (auto) 9.1 % (0.0-12.0); Neutrophils % (auto) 71.4 % (37.0-80.0); Red Blood Cells 2.26 10^6/uL (4.5-5.90)
[2022-04-01 10:01] LABS: Albumin 2.8 g/dL (3.4-5.0); BUN/Creatinine Ratio 31.9; Calcium 7.7 mg/dL (8.5-10.1); Potassium 3.2 mmol/L (3.5-5.1); Total Protein 5.7 g/dL (6.4-8.2)
[2022-04-01] MEDS: cefTRIAXone 1GM/50ML D5W 50 ML IV SCH (11:30)
[2022-04-01] MEDS ORDERED: POTASSIUM CHLORIDE 20 MEQ, LIDOCAINE 1% (LOCAL ANESTH.) 2 ML in SODIUM CHL 0.9% 100 ML IV ONE (11:45)
[2022-04-01] MEDS ORDERED: D5W/SOD CHL 0.45%/KCL 40MEQ 1,000 ML IV ONE (11:45)
[2022-04-01 15:35] LABS: Hematocrit 19.7 % (41.0-53.0)
[2022-04-02] VITALS (52 sets, daily range): BP systolic 105–142; BP diastolic 60–83
[2022-04-02 05:29] LABS: Basophils # (auto) 0 10 ^3/uL (0-0.2); Basophils % (auto) 0.8 % (0.0-2.0); Eosinophils # (auto) 0 10 ^3/uL (0-0.8); Eosinophils % (auto) 1.1 % (0.0-7.0); Hematocrit 24.6 % (41.0-53.0); Hemoglobin 8.7 g/dL (13.5-17.5); Lymphocytes # (auto) 1.4 10 ^3/uL (0.4-5.4); Mean Corpuscular Hgb Conc. 35.2 g/dL (32.0-36.0); Mean Corpuscular Volume 90.8 fL (80.0-100.0); Monocytes # (auto) 0.4 10 ^3/uL (0-1.3); Monocytes % (auto) 9.4 % (0.0-12.0); Neutrophils # (auto) 2.7 10 ^3/uL (1.6-8.6); Neutrophils % (auto) 58.7 % (37.0-80.0); Nucleated Red Blood Cells % 0.1 %; Red Blood Cells 2.71 10^6/uL (4.5-5.90); Red Cell Distribution Width 15.4 % (11.8-14.3); White Blood Cell 4.7 10^3/uL (4.4-10.8)
[2022-04-02 05:35] LABS: Albumin 2.7 g/dL (3.4-5.0); Calcium 7.9 mg/dL (8.5-10.1); Magnesium 1.9 mg/dL (1.6-2.6); Potassium 3.3 mmol/L (3.5-5.1)
[2022-04-02] MEDS: metroNIDAZOLE 500MG/100ML 100 ML IV SCH ×3 (05:35→22:00)
[2022-04-02 05:46] LABS: BUN/Creatinine Ratio 21.5; Bilirubin, Total 3.1 mg/dL (0.2-1.0); Phosphorus 2.3 mg/dL (2.5-4.90); Total Protein 5.4 g/dL (6.4-8.2)
[2022-04-02] MEDS: PANTOPRAZOLE 40mg/50ML NS AE 50 ML IV SCH ×5 (06:27→23:00)
[2022-04-02] MEDS: cefTRIAXone 1GM/50ML D5W 50 ML IV SCH (09:20)
[2022-04-02] MEDS ORDERED: POTASSIUM PHOSPHATE 26.4 MEQ in SODIUM CHL 0.9% 100 ML IV ONE (10:30)
[2022-04-02] MEDS: LACTULOSE 20Gm/30ML SOLN PO SCH ×2 (12:00→19:46)
[2022-04-02] MEDS: MAGNESIUM SULFATE 1GM/100ML 100 ML IV SCH ×2 (12:27→12:45)
[2022-04-02] MEDS ORDERED: MIDAZOLAM HCL 5 MG/ML-1ML VIAL ONE (14:45)
[2022-04-02] MEDS ORDERED: SODIUM CHLORIDE LOCK 10 ML ONE (14:45)
[2022-04-02] MEDS ORDERED: LIDOCAINE VISCOUS 2% 15ML UD ONE (14:45)
[2022-04-02] MEDS ORDERED: diphenhdrAMINE HCL 50 MG/1 ML VL ONE (14:46)
[2022-04-02] MEDS: fentaNYL CITRATE 100 MCG/2 ML VL ONE ×2 (16:40→16:43)
[2022-04-03] VITALS (20 sets, daily range): BP systolic 119–154; BP diastolic 71–88
[2022-04-03 05:15] LABS: Basophils # (auto) 0.1 10 ^3/uL (0-0.2); Basophils % (auto) 0.9 % (0.0-2.0); Eosinophils # (auto) 0.1 10 ^3/uL (0-0.8); Eosinophils % (auto) 1.8 % (0.0-7.0); Hematocrit 25.6 % (41.0-53.0); Hemoglobin 8.9 g/dL (13.5-17.5); Lymphocytes # (auto) 1.5 10 ^3/uL (0.4-5.4); Lymphocytes % (auto) 26.4 % (10.0-50.0); Mean Corpuscular Hemoglobin 32.2 pg (28.0-32.0); Mean Corpuscular Hgb Conc. 34.8 g/dL (32.0-36.0); Mean Corpuscular Volume 92.4 fL (80.0-100.0); Monocytes # (auto) 0.8 10 ^3/uL (0-1.3); Monocytes % (auto) 13.3 % (0.0-12.0); Neutrophils # (auto) 3.3 10 ^3/uL (1.6-8.6); Neutrophils % (auto) 57.6 % (37.0-80.0); Nucleated Red Blood Cells % 0.1 %; Red Blood Cells 2.77 10^6/uL (4.5-5.90); Red Cell Distribution Width 15.9 % (11.8-14.3); White Blood Cell 5.8 10^3/uL (4.4-10.8)
[2022-04-03 05:28] LABS: Albumin 2.6 g/dL (3.4-5.0); Calcium 7.7 mg/dL (8.5-10.1); Potassium 3.2 mmol/L (3.5-5.1)
[2022-04-03 05:36] LABS: BUN/Creatinine Ratio 15.4; Bilirubin, Total 2.7 mg/dL (0.2-1.0); Total Protein 5.5 g/dL (6.4-8.2)
[2022-04-03] MEDS: PANTOPRAZOLE 40mg/50ML NS AE 50 ML IV SCH ×4 (05:54→19:00)
[2022-04-03] MEDS: metroNIDAZOLE 500MG/100ML 100 ML IV SCH ×3 (05:54→21:56)
[2022-04-03] MEDS: LACTULOSE 20Gm/30ML SOLN PO SCH ×4 (06:00→18:00)
[2022-04-03] MEDS: cefTRIAXone 1GM/50ML D5W 50 ML IV SCH (09:09)
[2022-04-03] MEDS ORDERED: POTASSIUM CHLORIDE 40 MEQ, LIDOCAINE 1% (LOCAL ANESTH.) 4 ML in SODIUM CHL 0.9% 250 ML IV ONE (09:30)
[2022-04-03] MEDS: MAGNESIUM SULFATE 1GM/100ML 100 ML IV SCH ×3 (10:00→12:00)
[2022-04-03] MEDS ORDERED: MAGNESIUM SULFATE 1GM/100ML 100 ML IV SCH (17:30)
[2022-04-04] VITALS (16 sets, daily range): BP systolic 114–145; BP diastolic 67–91
[2022-04-04] MEDS: PANTOPRAZOLE 40mg/50ML NS AE 50 ML IV SCH ×2 (05:00)
[2022-04-04] MEDS: metroNIDAZOLE 500MG/100ML 100 ML IV SCH ×2 (05:50→14:00)
[2022-04-04] MEDS: LACTULOSE 20Gm/30ML SOLN PO SCH ×4 (05:50→18:00)
[2022-04-04] MEDS: SUCRALFATE 1 GM/10 ML ORAL SUSP GT SCH ×2 (07:34→17:00)
[2022-04-04 08:42] LABS: Albumin 2.8 g/dL (3.4-5.0); Potassium 3.6 mmol/L (3.5-5.1)
[2022-04-04 08:46] LABS: Total Protein 5.9 g/dL (6.4-8.2)
[2022-04-04 08:52] LABS: BUN/Creatinine Ratio 7.7
[2022-04-04] MEDS: cefTRIAXone 1GM/50ML D5W 50 ML IV SCH (09:00)
[2022-04-04] MEDS ORDERED: PANTOPRAZOLE 40 MG/10 ML VIAL INJ IV SCH (10:00)
== END 2022-04-04 18:50 | disposition hospice, home (50) | DRG 241 ==
LOC: EDBD 20:38 → ER 20:40 → OVERFLOW 03-31 01:14 → DOU IN ICU 03-31 22:26
PROVIDERS: ADMIT Nurse Practitioner Family; ATTEND Internal Medicine
PROC: 30233K1 Transfusion of Nonautologous Frozen Plasma into Peripheral Vein, Percutaneous Approach (ICD-10-PCS; 2022-03-31)
PROC: 30233N1 Transfusion of Nonautologous Red Blood Cells into Peripheral Vein, Percutaneous Approach (ICD-10-PCS; 2022-03-31)
PROC: 05H933Z Insertion of Infusion Device into Right Brachial Vein, Percutaneous Approach (ICD-10-PCS; 2022-04-01)
PROC: B54MZZA Ultrasonography of Right Upper Extremity Veins, Guidance (ICD-10-PCS; 2022-04-01)
PROC: 0DB68ZX Excision of Stomach, Via Natural or Artificial Opening Endoscopic, Diagnostic (ICD-10-PCS; 2022-04-02)
PROC: 0DB38ZX Excision of Lower Esophagus, Via Natural or Artificial Opening Endoscopic, Diagnostic (ICD-10-PCS; 2022-04-02)
PROC: 0DB98ZX Excision of Duodenum, Via Natural or Artificial Opening Endoscopic, Diagnostic (ICD-10-PCS; principal; 2022-04-02 16:15)
DX: K29.71 Gastritis, unspecified, with bleeding (principal); E43 Unspecified severe protein-calorie malnutrition; K76.82 Hepatic encephalopathy; D69.6 Thrombocytopenia, unspecified; K76.6 Portal hypertension; D62 Acute posthemorrhagic anemia; F03.90 Unspecified dementia, unspecified severity, without behavioral disturbance, psychotic disturbance, mood disturbance, and anxiety; K70.30 Alcoholic cirrhosis of liver without ascites; E86.1 Hypovolemia; K22.70 Barrett's esophagus without dysplasia; K44.9 Diaphragmatic hernia without obstruction or gangrene; Z20.822 Contact with and (suspected) exposure to COVID-19; K31.9 Disease of stomach and duodenum, unspecified; E78.5 Hyperlipidemia, unspecified; I10 Essential (primary) hypertension; K21.9 Gastro-esophageal reflux disease without esophagitis; E87.6 Hypokalemia; Z88.5 Allergy status to narcotic agent; Z88.0 Allergy status to penicillin; Z68.1 Body mass index [BMI] 19.9 or less, adult; Z51.5 Encounter for palliative care
CPT/HCPCS: 36415; 36430; 43239; 70450; 71045; 74176; 80053; 82140; 82270; 83735; 84100; 85014; 85018; 85025; 85610; 85730; 86850; 86900; 86901; 86920; 87081; 87426; 96361; 96365; C9113; G0378; J0696; J2001; J2250; J2405; J3430; J3480; J3490

== ENCOUNTER 2022-05-14 19:25 | Inpatient (IN) | payer MEDICAID ==
[~2022-05-14] VITALS: Ht 175.3 cm; Wt 66.9 kg
[2022-05-14] MEDS ORDERED: SODIUM CHLORIDE 0.9% 1,000 ML IV ONE ×3 (19:30→22:00)
[2022-05-14 20:17] LABS: Basophils # (auto) 0.1 10 ^3/uL (0-0.2); Basophils % (auto) 0.8 % (0.0-2.0); Eosinophils # (auto) 0.3 10 ^3/uL (0-0.8); Eosinophils % (auto) 3.9 % (0.0-7.0); Hematocrit 26.1 % (41.0-53.0); Hemoglobin 8.6 g/dL (13.5-17.5); Lymphocytes # (auto) 3.1 10 ^3/uL (0.4-5.4); Lymphocytes % (auto) 35.5 % (10.0-50.0); Mean Corpuscular Hemoglobin 30.8 pg (28.0-32.0); Mean Corpuscular Hgb Conc. 32.9 g/dL (32.0-36.0); Mean Corpuscular Volume 93.5 fL (80.0-100.0); Monocytes % (auto) 11.3 % (0.0-12.0); Neutrophils # (auto) 4.3 10 ^3/uL (1.6-8.6); Neutrophils % (auto) 48.5 % (37.0-80.0); Red Blood Cells 2.79 10^6/uL (4.5-5.90); Red Cell Distribution Width 17.1 % (11.8-14.3); White Blood Cell 8.9 10^3/uL (4.4-10.8)
[2022-05-14 20:23] LABS: Albumin 3.1 g/dL (3.4-5.0); Calcium 8.3 mg/dL (8.5-10.1); Potassium 3.1 mmol/L (3.5-5.1)
[2022-05-14 20:26] LABS: BUN/Creatinine Ratio 12.1; Bilirubin, Total 1.9 mg/dL (0.2-1.0); Total Protein 6.8 g/dL (6.4-8.2)
[2022-05-14] MEDS ORDERED: levETIRAcetam 500 MG/5ML INJ IV ONE (21:57)
[2022-05-14] MEDS ORDERED: levoFLOXacin 750MG 150 ML IV ONE (22:00)
[2022-05-14] MEDS ORDERED: IOHEXOL 350 MG/ML 100ML IJ ONE (22:09)
[2022-05-14 22:25] LABS: Urine Blood Negative /uL (Negative); Urine Specific Gravity 1.012 (1.001-1.035)
[2022-05-14] MEDS ORDERED: ACETAMINOPHEN 325 MG TAB PO PRN (22:30)
[2022-05-14] MEDS ORDERED: DOCUSATE SOD 100 MG CAP PO PRN (22:30)
[2022-05-14] MEDS ORDERED: ONDANSETRON HCL 4 MG/2 ML VIAL IV PRN (22:30)
[2022-05-14] MEDS ORDERED: LORazepam 2MG/ML-1ML VIAL IV PRN (22:30)
[2022-05-14] MEDS ORDERED: SODIUM CHLORIDE 0.9% 1,000 ML IV SCH (22:30)
[2022-05-14] MEDS ORDERED: LORazepam 2MG/ML-1ML VIAL ONE ×2 (23:36→23:39)
[2022-05-14] MEDS ORDERED: ETOMIDATE (2MG/ML) 20ML VIAL IV ONE (23:41)
[2022-05-14] MEDS ORDERED: ROCURONIUM 10MG/ML 10ML VIAL IV ONE (23:41)
[2022-05-14] MEDS ORDERED: PROPOFOL 100 ML IV ONE (23:45)
[2022-05-15] VITALS (12 sets, daily range): BP systolic 92–170; BP diastolic 52–107
[2022-05-15] MEDS ORDERED: ACETAMINOPHEN 650 mg PER 20.3 mL UD PO PRN
[2022-05-15] MEDS: PROPOFOL 100 ML IV SCH ×2 (00:29)
[2022-05-15] MEDS ORDERED: ROCURONIUM 10MG/ML 10ML VIAL IV ONE (01:45)
[2022-05-15] MEDS ORDERED: ETOMIDATE (2MG/ML) 20ML VIAL IV ONE (01:45)
[2022-05-15] MEDS ORDERED: LORazepam 2MG/ML-1ML VIAL IV ONE ×2 (01:45)
[2022-05-15 05:31] LABS: Basophils # (auto) 0.1 10 ^3/uL (0-0.2); Basophils % (auto) 0.6 % (0.0-2.0); Eosinophils # (auto) 0 10 ^3/uL (0-0.8); Eosinophils % (auto) 0.1 % (0.0-7.0); Hematocrit 25.8 % (41.0-53.0); Hemoglobin 8.5 g/dL (13.5-17.5); Lymphocytes # (auto) 0.9 10 ^3/uL (0.4-5.4); Lymphocytes % (auto) 6.9 % (10.0-50.0); Mean Corpuscular Hemoglobin 30.5 pg (28.0-32.0); Mean Corpuscular Volume 92.5 fL (80.0-100.0); Monocytes # (auto) 1.6 10 ^3/uL (0-1.3); Monocytes % (auto) 12.1 % (0.0-12.0); Neutrophils # (auto) 10.6 10 ^3/uL (1.6-8.6); Neutrophils % (auto) 80.3 % (37.0-80.0); Red Blood Cells 2.79 10^6/uL (4.5-5.90); Red Cell Distribution Width 17.1 % (11.8-14.3); White Blood Cell 13.2 10^3/uL (4.4-10.8)
[2022-05-15 05:34] LABS: BUN/Creatinine Ratio 14.5; Potassium 3.7 mmol/L (3.5-5.1)
[2022-05-15] MEDS: MIDAZOLAM DRIP 50 mg/50mL 50 ML IV SCH (09:00)
[2022-05-15] MEDS: LACTULOSE 20Gm/30ML SOLN PO SCH ×2 (11:18→21:59)
[2022-05-15] MEDS: FOLIC ACID 1 MG TAB PO SCH (11:18)
[2022-05-15] MEDS: THIAMINE HCL 100 MG TAB PO SCH (11:19)
[2022-05-15] MEDS ORDERED: IPRATROPIUM BROM 0.5 MG/2.5ML INH SOL NEB SCH (15:30)
[2022-05-15] MEDS: NOREPINEPHRINE 8 MG/250ML KIT 250 ML IV SCH (15:30)
[2022-05-15] MEDS ORDERED: ALBUTEROL SULF 2.5 MG/0.5ML(0.5%) NEB SOLN NEB SCH (18:00)
[2022-05-15] MEDS ORDERED: ACETYLCYSTEINE 10 %(100MG/ML) SOL 4ML NEB SCH (18:00)
[2022-05-15] MEDS: MIDODRINE HCL 10 MG TAB PO SCH (18:07)
[2022-05-15] MEDS: SPIRONOLACTONE 25 MG TAB PO SCH (18:09)
[2022-05-15] MEDS: ACETYLCYSTEINE 10 %(100MG/ML) SOL 4ML NEB SCH (18:31)
[2022-05-15] MEDS: IPRATROPIUM BROM 0.5 MG/2.5ML INH SOL NEB SCH (18:31)
[2022-05-15] MEDS: BUDESONIDE (INHALATION) 0.5 MG/2 ML NEB NEB SCH (18:32)
[2022-05-15] MEDS: ALBUTEROL SULF 2.5 MG/0.5ML(0.5%) NEB SOLN NEB SCH (18:32)
[2022-05-15] MEDS: methylPREDNISolone SOD SUCC 40 MG/ML VL IV SCH (21:59)
[2022-05-15] MEDS: metroNIDAZOLE 500MG/100ML 100 ML IV SCH (21:59)
[2022-05-16] VITALS (12 sets, daily range): BP systolic 90–129; BP diastolic 38–66
[2022-05-16] MEDS: PROPOFOL 100 ML IV SCH (00:02)
[2022-05-16] MEDS: MIDAZOLAM DRIP 50 mg/50mL 50 ML IV SCH (00:02)
[2022-05-16] MEDS: IPRATROPIUM BROM 0.5 MG/2.5ML INH SOL NEB SCH ×4 (00:07→19:45)
[2022-05-16] MEDS: ALBUTEROL SULF 2.5 MG/0.5ML(0.5%) NEB SOLN NEB SCH ×3 (00:07→19:45)
[2022-05-16] MEDS: ACETYLCYSTEINE 10 %(100MG/ML) SOL 4ML NEB SCH ×2 (00:08→10:47)
[2022-05-16 05:43] LABS: Potassium 3.5 mmol/L (3.5-5.1)
[2022-05-16 05:51] LABS: Albumin 2.6 g/dL (3.4-5.0); BUN/Creatinine Ratio 17.2; Bilirubin, Total 1.9 mg/dL (0.2-1.0); Calcium 8.4 mg/dL (8.5-10.1); Total Protein 5.8 g/dL (6.4-8.2)
[2022-05-16 05:54] LABS: Basophils # (auto) 0 10 ^3/uL (0-0.2); Eosinophils # (auto) 0 10 ^3/uL (0-0.8); Hemoglobin 7.1 g/dL (13.5-17.5); Lymphocytes # (auto) 0.5 10 ^3/uL (0.4-5.4); Monocytes # (auto) 0.3 10 ^3/uL (0-1.3)
[2022-05-16 05:56] LABS: Basophils % (auto) 0.2 % (0.0-2.0); Hematocrit 21.1 % (41.0-53.0); Lymphocytes % (auto) 6.4 % (10.0-50.0); Mean Corpuscular Hemoglobin 31.3 pg (28.0-32.0); Mean Corpuscular Hgb Conc. 33.6 g/dL (32.0-36.0); Mean Corpuscular Volume 93.1 fL (80.0-100.0); Monocytes % (auto) 3.8 % (0.0-12.0); Neutrophils # (auto) 6.9 10 ^3/uL (1.6-8.6); Neutrophils % (auto) 89.6 % (37.0-80.0); Red Blood Cells 2.27 10^6/uL (4.5-5.90); White Blood Cell 7.7 10^3/uL (4.4-10.8)
[2022-05-16] MEDS: metroNIDAZOLE 500MG/100ML 100 ML IV SCH ×2 (06:57→13:07)
[2022-05-16] MEDS: MIDODRINE HCL 10 MG TAB PO SCH ×3 (07:02→17:41)
[2022-05-16] MEDS: SPIRONOLACTONE 25 MG TAB PO SCH ×2 (07:06→17:41)
[2022-05-16] MEDS: BUDESONIDE (INHALATION) 0.5 MG/2 ML NEB NEB SCH ×2 (07:07→19:45)
[2022-05-16] MEDS: LACTULOSE 20Gm/30ML SOLN PO SCH ×2 (10:21→22:33)
[2022-05-16] MEDS: FOLIC ACID 1 MG TAB PO SCH (10:21)
[2022-05-16] MEDS: levoFLOXacin 750MG 150 ML IV SCH (10:22)
[2022-05-16] MEDS: THIAMINE HCL 100 MG TAB PO SCH (10:27)
[2022-05-16] MEDS: methylPREDNISolone SOD SUCC 40 MG/ML VL IV SCH ×2 (10:27→22:34)
[2022-05-16] MEDS ORDERED: FUROSEMIDE 20 MG/2 ML VIAL IV SCH (10:30)
[2022-05-16] MEDS: NOREPINEPHRINE 8 MG/250ML KIT 250 ML IV SCH (15:30)
[2022-05-17] VITALS (23 sets, daily range): BP systolic 90–138; BP diastolic 24–71
[2022-05-17] MEDS: ALBUTEROL SULF 2.5 MG/0.5ML(0.5%) NEB SOLN NEB SCH ×4 (00:15→18:28)
[2022-05-17] MEDS: IPRATROPIUM BROM 0.5 MG/2.5ML INH SOL NEB SCH ×4 (00:15→18:28)
[2022-05-17] MEDS: PROPOFOL 100 ML IV SCH (00:52)
[2022-05-17] MEDS: MIDAZOLAM DRIP 50 mg/50mL 50 ML IV SCH ×2 (00:53→12:10)
[2022-05-17] MEDS: BUDESONIDE (INHALATION) 0.5 MG/2 ML NEB NEB SCH ×2 (06:00→22:43)
[2022-05-17] MEDS: SPIRONOLACTONE 25 MG TAB PO SCH ×2 (06:36→16:24)
[2022-05-17] MEDS: MIDODRINE HCL 10 MG TAB PO SCH ×3 (06:37→16:24)
[2022-05-17 06:50] LABS: Basophils # (auto) 0 10 ^3/uL (0-0.2); Basophils % (auto) 0.2 % (0.0-2.0); Eosinophils # (auto) 0 10 ^3/uL (0-0.8); Lymphocytes # (auto) 0.8 10 ^3/uL (0.4-5.4); Neutrophils # (auto) 8.4 10 ^3/uL (1.6-8.6); Red Cell Distribution Width 16.6 % (11.8-14.3)
[2022-05-17 06:56] LABS: Hematocrit 21.6 % (41.0-53.0); Hemoglobin 7.6 g/dL (13.5-17.5); Lymphocytes % (auto) 8.1 % (10.0-50.0); Mean Corpuscular Hemoglobin 32.3 pg (28.0-32.0); Mean Corpuscular Hgb Conc. 35.1 g/dL (32.0-36.0); Mean Corpuscular Volume 91.9 fL (80.0-100.0); Monocytes # (auto) 0.6 10 ^3/uL (0-1.3); Monocytes % (auto) 6.2 % (0.0-12.0); Neutrophils % (auto) 85.5 % (37.0-80.0); Red Blood Cells 2.35 10^6/uL (4.5-5.90); White Blood Cell 9.8 10^3/uL (4.4-10.8)
[2022-05-17 07:01] LABS: Calcium 8.6 mg/dL (8.5-10.1); Potassium 3.4 mmol/L (3.5-5.1)
[2022-05-17 07:04] LABS: BUN/Creatinine Ratio 28.8
[2022-05-17] MEDS: LACTULOSE 20Gm/30ML SOLN PO SCH ×2 (07:51→22:31)
[2022-05-17] MEDS: FOLIC ACID 1 MG TAB PO SCH (07:51)
[2022-05-17] MEDS: THIAMINE HCL 100 MG TAB PO SCH (07:52)
[2022-05-17] MEDS: methylPREDNISolone SOD SUCC 40 MG/ML VL IV SCH ×2 (09:41→22:31)
[2022-05-17] MEDS: levoFLOXacin 750MG 150 ML IV SCH (09:42)
[2022-05-17] MEDS: PANTOPRAZOLE 40 MG/10 ML VIAL INJ IV SCH ×2 (09:44→22:31)
[2022-05-17 14:29] LABS: Hemoglobin 7.3 g/dL (13.5-17.5)
[2022-05-17 14:32] LABS: Hematocrit 20.3 % (41.0-53.0)
[2022-05-17] MEDS: NOREPINEPHRINE 8 MG/250ML KIT 250 ML IV SCH (14:43)
[2022-05-17] MEDS ORDERED: FUROSEMIDE 40 MG/4 ML VIAL IV ONE (15:45)
[2022-05-17] MEDS ORDERED: ROCURONIUM 10MG/ML 10ML VIAL IV ONE (15:45)
[2022-05-17 16:23] LABS: INR 1.39 (0.9-1.15); Partial Thromboplastin Time 33.2 sec (24.6-33.4)
[2022-05-17] MEDS: OCTREOTIDE ACETATE 500 MCG in SODIUM CHL 0.9% 99 ML IV SCH (16:38)
[2022-05-17 23:36] LABS: Hematocrit 21.9 % (41.0-53.0); Hemoglobin 7.4 g/dL (13.5-17.5)
[2022-05-18] VITALS (104 sets, daily range): BP systolic 85–131; BP diastolic 44–72
[2022-05-18] MEDS: OCTREOTIDE ACETATE 500 MCG in SODIUM CHL 0.9% 99 ML IV SCH ×3 (00:58→21:15)
[2022-05-18] MEDS: PROPOFOL 100 ML IV SCH ×4 (00:59→21:48)
[2022-05-18] MEDS: IPRATROPIUM BROM 0.5 MG/2.5ML INH SOL NEB SCH ×4 (01:58→18:18)
[2022-05-18] MEDS: ALBUTEROL SULF 2.5 MG/0.5ML(0.5%) NEB SOLN NEB SCH ×4 (01:58→18:18)
[2022-05-18 04:32] LABS: Calcium 8.6 mg/dL (8.5-10.1); Potassium 3.7 mmol/L (3.5-5.1)
[2022-05-18 04:34] LABS: BUN/Creatinine Ratio 27.4
[2022-05-18 04:41] LABS: Basophils # (auto) 0 10 ^3/uL (0-0.2); Eosinophils # (auto) 0 10 ^3/uL (0-0.8); Hemoglobin 7.6 g/dL (13.5-17.5); Mean Corpuscular Hemoglobin 32.3 pg (28.0-32.0); Mean Corpuscular Hgb Conc. 35.5 g/dL (32.0-36.0); Red Blood Cells 2.35 10^6/uL (4.5-5.90)
[2022-05-18 04:43] LABS: Basophils % (auto) 0.4 % (0.0-2.0); Eosinophils % (auto) 0.4 % (0.0-7.0); Hematocrit 21.3 % (41.0-53.0); Lymphocytes # (auto) 0.6 10 ^3/uL (0.4-5.4); Monocytes # (auto) 0.2 10 ^3/uL (0-1.3); Monocytes % (auto) 3.9 % (0.0-12.0); Neutrophils # (auto) 5.1 10 ^3/uL (1.6-8.6); Neutrophils % (auto) 85.3 % (37.0-80.0); Nucleated Red Blood Cells % 0.2 %; Red Cell Distribution Width 16.5 % (11.8-14.3)
[2022-05-18] MEDS: SPIRONOLACTONE 25 MG TAB PO SCH ×2 (05:33→18:46)
[2022-05-18] MEDS: MIDODRINE HCL 10 MG TAB PO SCH ×3 (06:01→18:46)
[2022-05-18] MEDS: BUDESONIDE (INHALATION) 0.5 MG/2 ML NEB NEB SCH ×2 (06:26→18:18)
[2022-05-18] MEDS: MIDAZOLAM DRIP 50 mg/50mL 50 ML IV SCH (07:05)
[2022-05-18] MEDS: methylPREDNISolone SOD SUCC 40 MG/ML VL IV SCH (09:39)
[2022-05-18] MEDS: LACTULOSE 20Gm/30ML SOLN PO SCH ×2 (09:39→21:43)
[2022-05-18] MEDS: PANTOPRAZOLE 40 MG/10 ML VIAL INJ IV SCH ×2 (09:39→21:43)
[2022-05-18] MEDS: FOLIC ACID 1 MG TAB PO SCH (09:39)
[2022-05-18] MEDS: levoFLOXacin 750MG 150 ML IV SCH (09:40)
[2022-05-18] MEDS: THIAMINE HCL 100 MG TAB PO SCH (09:40)
[2022-05-18] MEDS ORDERED: PIPERACILLIN-TAZOB 2.25GM 50 ML IV SCH (14:00)
[2022-05-18 15:08] LABS: Hemoglobin 7.5 g/dL (13.5-17.5)
[2022-05-18 15:10] LABS: Hematocrit 21.8 % (41.0-53.0)
[2022-05-18] MEDS: NOREPINEPHRINE 8 MG/250ML KIT 250 ML IV SCH (15:30)
[2022-05-18] MEDS: MEROPENEM 1GM IVPB 100 ML IV SCH (17:43)
[2022-05-18] MEDS ORDERED: MEROPENEM 500MG IVPB 50 ML IV SCH (22:00)
[2022-05-18 22:41] LABS: Hemoglobin 7.2 g/dL (13.5-17.5)
[2022-05-18 22:43] LABS: Hematocrit 20.7 % (41.0-53.0)
[2022-05-19] VITALS (105 sets, daily range): BP systolic 91–163; BP diastolic 50–83
[2022-05-19] MEDS: ALBUTEROL SULF 2.5 MG/0.5ML(0.5%) NEB SOLN NEB SCH ×4 (00:09→17:49)
[2022-05-19] MEDS: IPRATROPIUM BROM 0.5 MG/2.5ML INH SOL NEB SCH ×4 (00:09→17:49)
[2022-05-19] MEDS: MEROPENEM 1GM IVPB 100 ML IV SCH ×3 (01:01→16:33)
[2022-05-19] MEDS: PROPOFOL 100 ML IV SCH ×2 (02:47→07:50)
[2022-05-19 04:17] LABS: Basophils # (auto) 0 10 ^3/uL (0-0.2); Eosinophils # (auto) 0 10 ^3/uL (0-0.8); Monocytes # (auto) 0.8 10 ^3/uL (0-1.3); Neutrophils # (auto) 4.3 10 ^3/uL (1.6-8.6); White Blood Cell 6.4 10^3/uL (4.4-10.8)
[2022-05-19 04:20] LABS: Basophils % (auto) 0.1 % (0.0-2.0); Hematocrit 20.4 % (41.0-53.0); Hemoglobin 7.1 g/dL (13.5-17.5); Lymphocytes # (auto) 1.3 10 ^3/uL (0.4-5.4); Lymphocytes % (auto) 19.9 % (10.0-50.0); Mean Corpuscular Hemoglobin 31.3 pg (28.0-32.0); Mean Corpuscular Volume 89.3 fL (80.0-100.0); Monocytes % (auto) 12.5 % (0.0-12.0); Neutrophils % (auto) 67.5 % (37.0-80.0); Red Blood Cells 2.28 10^6/uL (4.5-5.90); Red Cell Distribution Width 16.1 % (11.8-14.3)
[2022-05-19 04:38] LABS: BUN/Creatinine Ratio 29.3; Calcium 8.2 mg/dL (8.5-10.1); Potassium 3.1 mmol/L (3.5-5.1)
[2022-05-19] MEDS: SPIRONOLACTONE 25 MG TAB PO SCH ×2 (05:15→18:40)
[2022-05-19] MEDS: MIDODRINE HCL 10 MG TAB PO SCH ×3 (05:19→18:40)
[2022-05-19] MEDS: BUDESONIDE (INHALATION) 0.5 MG/2 ML NEB NEB SCH (05:58)
[2022-05-19] MEDS: LACTULOSE 20Gm/30ML SOLN PO SCH ×2 (09:59→21:29)
[2022-05-19] MEDS: PANTOPRAZOLE 40 MG/10 ML VIAL INJ IV SCH ×2 (09:59→21:30)
[2022-05-19] MEDS: THIAMINE HCL 100 MG TAB PO SCH (10:00)
[2022-05-19] MEDS: POTASSIUM CHL 20MEQ/100ML 100 ML IV SCH ×4 (10:01→20:01)
[2022-05-19] MEDS: FOLIC ACID 1 MG TAB PO SCH (10:13)
[2022-05-19] MEDS: NOREPINEPHRINE 8 MG/250ML KIT 250 ML IV SCH (15:14)
[2022-05-19 16:03] LABS: Hematocrit 21.8 % (41.0-53.0); Hemoglobin 7.6 g/dL (13.5-17.5)
[2022-05-19 16:34] LABS: Potassium 3.4 mmol/L (3.5-5.1)
[2022-05-19 16:36] LABS: Magnesium 2.2 mg/dL (1.6-2.6)
[2022-05-19 23:24] LABS: Hematocrit 21.5 % (41.0-53.0); Hemoglobin 7.4 g/dL (13.5-17.5)
[2022-05-20] VITALS (94 sets, daily range): BP systolic 88–136; BP diastolic 48–76
[2022-05-20] MEDS: IPRATROPIUM BROM 0.5 MG/2.5ML INH SOL NEB SCH ×5 (00:05→23:59)
[2022-05-20] MEDS: BUDESONIDE (INHALATION) 0.5 MG/2 ML NEB NEB SCH ×3 (00:05→18:54)
[2022-05-20] MEDS: ALBUTEROL SULF 2.5 MG/0.5ML(0.5%) NEB SOLN NEB SCH ×5 (00:05→23:59)
[2022-05-20] MEDS: MEROPENEM 1GM IVPB 100 ML IV SCH ×3 (00:25→17:14)
[2022-05-20 04:20] LABS: Basophils # (auto) 0 10 ^3/uL (0-0.2); Basophils % (auto) 0.6 % (0.0-2.0); Eosinophils # (auto) 0.1 10 ^3/uL (0-0.8); Eosinophils % (auto) 1.3 % (0.0-7.0); Hemoglobin 7.3 g/dL (13.5-17.5); Lymphocytes # (auto) 1.3 10 ^3/uL (0.4-5.4)
[2022-05-20 04:21] LABS: Hematocrit 21.1 % (41.0-53.0); Lymphocytes % (auto) 27.8 % (10.0-50.0); Mean Corpuscular Hemoglobin 31.4 pg (28.0-32.0); Mean Corpuscular Hgb Conc. 34.8 g/dL (32.0-36.0); Mean Corpuscular Volume 90.4 fL (80.0-100.0); Monocytes # (auto) 0.6 10 ^3/uL (0-1.3); Monocytes % (auto) 11.5 % (0.0-12.0); Neutrophils # (auto) 2.8 10 ^3/uL (1.6-8.6); Neutrophils % (auto) 58.8 % (37.0-80.0); Red Blood Cells 2.34 10^6/uL (4.5-5.90); Red Cell Distribution Width 16.3 % (11.8-14.3); White Blood Cell 4.8 10^3/uL (4.4-10.8)
[2022-05-20 04:38] LABS: Calcium 8.1 mg/dL (8.5-10.1); Magnesium 2.1 mg/dL (1.6-2.6); Potassium 4.1 mmol/L (3.5-5.1)
[2022-05-20 04:41] LABS: BUN/Creatinine Ratio 23.8
[2022-05-20] MEDS: SPIRONOLACTONE 25 MG TAB PO SCH ×2 (05:16→18:11)
[2022-05-20] MEDS: MIDODRINE HCL 10 MG TAB PO SCH ×3 (05:16→18:11)
[2022-05-20] MEDS ORDERED: GLYCOPYRROLATE 0.2 MG/ML 1ML VIAL IV ONE (09:00)
[2022-05-20] MEDS: LACTULOSE 20Gm/30ML SOLN PO SCH ×2 (10:19→21:40)
[2022-05-20] MEDS: PANTOPRAZOLE 40 MG/10 ML VIAL INJ IV SCH ×2 (10:19→21:40)
[2022-05-20] MEDS: THIAMINE HCL 100 MG TAB PO SCH (10:20)
[2022-05-20] MEDS: FOLIC ACID 1 MG TAB PO SCH (10:20)
[2022-05-20] MEDS: NOREPINEPHRINE 8 MG/250ML KIT 250 ML IV SCH (15:30)
[2022-05-20] MEDS: PROPOFOL 100 ML IV SCH (21:40)
[2022-05-20] MEDS: MIDAZOLAM DRIP 50 mg/50mL 50 ML IV SCH ×2 (21:40)
[2022-05-21] VITALS (44 sets, daily range): BP systolic 98–123; BP diastolic 54–74
[2022-05-21] MEDS: MEROPENEM 1GM IVPB 100 ML IV SCH (00:58)
[2022-05-21 04:23] LABS: Basophils # (auto) 0 10 ^3/uL (0-0.2); Basophils % (auto) 0.1 % (0.0-2.0); Eosinophils # (auto) 0.2 10 ^3/uL (0-0.8); Lymphocytes # (auto) 1.5 10 ^3/uL (0.4-5.4); Mean Corpuscular Volume 90.4 fL (80.0-100.0)
[2022-05-21 04:26] LABS: Eosinophils % (auto) 2.9 % (0.0-7.0); Hematocrit 22.2 % (41.0-53.0); Hemoglobin 7.7 g/dL (13.5-17.5); Lymphocytes % (auto) 23.5 % (10.0-50.0); Mean Corpuscular Hemoglobin 31.3 pg (28.0-32.0); Mean Corpuscular Hgb Conc. 34.7 g/dL (32.0-36.0); Monocytes # (auto) 0.7 10 ^3/uL (0-1.3); Monocytes % (auto) 10.1 % (0.0-12.0); Neutrophils # (auto) 4.1 10 ^3/uL (1.6-8.6); Neutrophils % (auto) 63.4 % (37.0-80.0); Nucleated Red Blood Cells % 0.1 %; Red Blood Cells 2.46 10^6/uL (4.5-5.90); Red Cell Distribution Width 16.2 % (11.8-14.3); White Blood Cell 6.5 10^3/uL (4.4-10.8)
[2022-05-21 04:35] LABS: Calcium 8.1 mg/dL (8.5-10.1); Potassium 3.8 mmol/L (3.5-5.1)
[2022-05-21 04:38] LABS: Albumin 2.5 g/dL (3.4-5.0); BUN/Creatinine Ratio 22.9
[2022-05-21 04:41] LABS: Bilirubin, Total 2.6 mg/dL (0.2-1.0); Total Protein 5.7 g/dL (6.4-8.2)
[2022-05-21] MEDS: SPIRONOLACTONE 25 MG TAB PO SCH ×2 (05:49→17:40)
[2022-05-21] MEDS: MIDODRINE HCL 10 MG TAB PO SCH ×3 (05:49→17:40)
[2022-05-21] MEDS: IPRATROPIUM BROM 0.5 MG/2.5ML INH SOL NEB SCH ×3 (07:00→18:45)
[2022-05-21] MEDS: ALBUTEROL SULF 2.5 MG/0.5ML(0.5%) NEB SOLN NEB SCH ×3 (07:00→18:45)
[2022-05-21] MEDS: BUDESONIDE (INHALATION) 0.5 MG/2 ML NEB NEB SCH ×2 (07:00→18:45)
[2022-05-21] MEDS: LACTULOSE 20Gm/30ML SOLN PO SCH ×2 (10:08→21:17)
[2022-05-21] MEDS: FOLIC ACID 1 MG TAB PO SCH (10:09)
[2022-05-21] MEDS: THIAMINE HCL 100 MG TAB PO SCH (10:09)
[2022-05-21] MEDS: PANTOPRAZOLE 40 MG/10 ML VIAL INJ IV SCH ×2 (10:09→21:17)
[2022-05-22] MEDS: IPRATROPIUM BROM 0.5 MG/2.5ML INH SOL NEB SCH ×4 (00:13→18:57)
[2022-05-22] MEDS: ALBUTEROL SULF 2.5 MG/0.5ML(0.5%) NEB SOLN NEB SCH ×4 (00:13→18:57)
[2022-05-22 05:00] VITALS: BP 103/60
[2022-05-22] MEDS: MIDODRINE HCL 10 MG TAB PO SCH ×3 (05:28→18:12)
[2022-05-22] MEDS: SPIRONOLACTONE 25 MG TAB PO SCH ×2 (05:28→18:12)
[2022-05-22] MEDS: BUDESONIDE (INHALATION) 0.5 MG/2 ML NEB NEB SCH ×2 (06:55→18:57)
[2022-05-22 09:00] VITALS: BP 99/67
[2022-05-22] MEDS: PANTOPRAZOLE 40 MG/10 ML VIAL INJ IV SCH ×2 (10:40→23:16)
[2022-05-22] MEDS: LACTULOSE 20Gm/30ML SOLN PO SCH ×2 (10:40→23:16)
[2022-05-22] MEDS: FOLIC ACID 1 MG TAB PO SCH (10:40)
[2022-05-22] MEDS: THIAMINE HCL 100 MG TAB PO SCH (10:41)
[2022-05-22 13:00] VITALS: BP 101/64
[2022-05-22 17:00] VITALS: BP 103/63
[2022-05-22 22:00] VITALS: BP 128/69
[2022-05-23] MEDS: IPRATROPIUM BROM 0.5 MG/2.5ML INH SOL NEB SCH ×4 (00:01→18:55)
[2022-05-23] MEDS: ALBUTEROL SULF 2.5 MG/0.5ML(0.5%) NEB SOLN NEB SCH ×2 (00:01→06:00)
[2022-05-23 05:00] VITALS: BP 105/70
[2022-05-23] MEDS: SPIRONOLACTONE 25 MG TAB PO SCH ×2 (05:42→17:30)
[2022-05-23] MEDS: MIDODRINE HCL 10 MG TAB PO SCH ×3 (05:43→17:30)
[2022-05-23] MEDS ORDERED: ALBUTEROL MEDNEB 2.5 mg/3ml NEB ONE ×2 (06:15→10:39)
[2022-05-23] MEDS: BUDESONIDE (INHALATION) 0.5 MG/2 ML NEB NEB SCH ×2 (07:52→18:55)
[2022-05-23] MEDS: LORazepam 2MG/ML-1ML VIAL IV PRN ×2 (08:55→09:03)
[2022-05-23 09:21] VITALS: BP 125/62
[2022-05-23] MEDS: LACTULOSE 20Gm/30ML SOLN PO SCH ×2 (10:00→22:00)
[2022-05-23] MEDS: FOLIC ACID 1 MG TAB PO SCH (10:00)
[2022-05-23] MEDS: THIAMINE HCL 100 MG TAB PO SCH (10:00)
[2022-05-23] MEDS: PANTOPRAZOLE 40 MG/10 ML VIAL INJ IV SCH (10:26)
[2022-05-23] MEDS: ALBUTEROL MEDNEB 2.5 mg/3ml NEB NEB SCH ×2 (12:22→18:54)
[2022-05-23 12:42] VITALS: BP 97/43
[2022-05-23 16:42] VITALS: BP 94/54
[2022-05-23 22:00] VITALS: BP 97/53
[2022-05-24] MEDS: IPRATROPIUM BROM 0.5 MG/2.5ML INH SOL NEB SCH ×5 (00:26→23:44)
[2022-05-24] MEDS: ALBUTEROL MEDNEB 2.5 mg/3ml NEB NEB SCH ×5 (00:26→23:44)
[2022-05-24 00:53] VITALS: BP 97/53
[2022-05-24] MEDS: PANTOPRAZOLE 40 MG/10 ML VIAL INJ IV SCH ×3 (02:18→21:53)
[2022-05-24 05:00] VITALS: BP 123/68
[2022-05-24] MEDS: MIDODRINE HCL 10 MG TAB PO SCH ×3 (06:00→18:00)
[2022-05-24] MEDS: SPIRONOLACTONE 25 MG TAB PO SCH ×2 (06:00→18:05)
[2022-05-24 09:00] VITALS: BP 124/62
[2022-05-24] MEDS: THIAMINE HCL 100 MG TAB PO SCH (10:47)
[2022-05-24] MEDS: FOLIC ACID 1 MG TAB PO SCH (10:47)
[2022-05-24] MEDS: LACTULOSE 20Gm/30ML SOLN PO SCH ×2 (10:47→22:00)
[2022-05-24 10:58] LABS: Potassium 3.4 mmol/L (3.5-5.1)
[2022-05-24 11:02] LABS: BUN/Creatinine Ratio 11.1; Calcium 8.2 mg/dL (8.5-10.1)
[2022-05-24] MEDS: BUDESONIDE (INHALATION) 0.5 MG/2 ML NEB NEB SCH ×2 (11:38→18:07)
[2022-05-24 12:44] VITALS: BP 107/63
[2022-05-24 17:38] VITALS: BP 130/61
[2022-05-24 22:00] VITALS: BP 106/50
[2022-05-24] MEDS: VALPROATE INJ 500 MG in SODIUM CHL 0.9% 100 ML IV SCH (22:30)
[2022-05-24] MEDS ORDERED: VALPROATE INJ 1,000 MG in SODIUM CHL 0.9% 100 ML IV ONE (22:30)
[2022-05-24] MEDS: LORazepam 2MG/ML-1ML VIAL IV PRN (23:55)
[2022-05-25 05:00] VITALS: BP 121/70
[2022-05-25] MEDS: ALBUTEROL MEDNEB 2.5 mg/3ml NEB NEB SCH ×2 (06:39→12:00)
[2022-05-25] MEDS: BUDESONIDE (INHALATION) 0.5 MG/2 ML NEB NEB SCH (06:39)
[2022-05-25] MEDS: IPRATROPIUM BROM 0.5 MG/2.5ML INH SOL NEB SCH ×2 (06:39→12:00)
[2022-05-25] MEDS: SPIRONOLACTONE 25 MG TAB PO SCH (07:07)
[2022-05-25] MEDS: MIDODRINE HCL 10 MG TAB PO SCH (07:07)
[2022-05-25] MEDS: VALPROATE INJ 500 MG in SODIUM CHL 0.9% 100 ML IV SCH (07:33)
[2022-05-25 09:13] VITALS: BP 112/75
[2022-05-25] MEDS: PANTOPRAZOLE 40 MG/10 ML VIAL INJ IV SCH (10:50)
[2022-05-25] MEDS: LACTULOSE 20Gm/30ML SOLN PO SCH (11:00)
[2022-05-25] MEDS: THIAMINE HCL 100 MG TAB PO SCH (11:00)
[2022-05-25] MEDS: FOLIC ACID 1 MG TAB PO SCH (11:00)
[2022-05-25 13:20] VITALS: BP 113/71
[2022-05-25 14:27] VITALS: BP 113/71
== END 2022-05-25 17:26 | disposition hospice, home (50) | DRG 130 ==
LOC: EDBD 19:25 → ER 19:30 → TELE 22:25 → ICU WEST 05-17 21:18 → TELE-EAST 05-21 11:10
PROVIDERS: ADMIT Hospitalist; ATTEND Nurse Practitioner Acute Care
PROC: 5A1955Z Respiratory Ventilation, Greater than 96 Consecutive Hours (ICD-10-PCS; principal; 2022-05-15)
PROC: 0BH17EZ Insertion of Endotracheal Airway into Trachea, Via Natural or Artificial Opening (ICD-10-PCS; 2022-05-15)
DX: J96.00 Acute respiratory failure, unspecified whether with hypoxia or hypercapnia (principal); R40.20 Unspecified coma; J69.0 Pneumonitis due to inhalation of food and vomit; E43 Unspecified severe protein-calorie malnutrition; K76.6 Portal hypertension; G40.901 Epilepsy, unspecified, not intractable, with status epilepticus; E87.20 Acidosis, unspecified; F03.92 Unspecified dementia, unspecified severity, with psychotic disturbance; K92.2 Gastrointestinal hemorrhage, unspecified; J98.11 Atelectasis; Z20.822 Contact with and (suspected) exposure to COVID-19; D72.829 Elevated white blood cell count, unspecified; K70.31 Alcoholic cirrhosis of liver with ascites; E78.5 Hyperlipidemia, unspecified; I10 Essential (primary) hypertension; Z51.5 Encounter for palliative care; Z88.0 Allergy status to penicillin; Z99.11 Dependence on respirator [ventilator] status; Z81.8 Family history of other mental and behavioral disorders; Z68.20 Body mass index [BMI] 20.0-20.9, adult
CPT/HCPCS: 36415; 36600; 70450; 71045; 71260; 74177; 80048; 80053; 80185; 81003; 82140; 82805; 82962; 83735; 84132; 84484; 85014; 85018; 85025; 85610; 85730; 86850; 86900; 86901; 87040; 87070; 87081; 87205; 87426; 92610; 93005; 94002; 94003; 94640; 95819; 96365; 96375; 97110; 97116; 97163; 97530; 99291; C9113; G0378; J1956; J2185; J2250; J2405; J2704; J3480; J3490; J7060

== ENCOUNTER 2022-06-07 20:26 | Inpatient (IN) | payer MEDICAID ==
[~2022-06-07] VITALS: Ht 162.6 cm; Wt 70.7 kg
[2022-06-07] MEDS ORDERED: LORazepam 2MG/ML-1ML VIAL ONE (20:35)
[2022-06-07] MEDS ORDERED: levoFLOXacin 500 MG/100 ML PREMIX BAG IV ONE (20:45)
[2022-06-07] MEDS ORDERED: LORazepam 2MG/ML-1ML VIAL IV ONE (20:45)
[2022-06-07] MEDS ORDERED: ACETAMINOPHEN 650 MG RECT SUPP PR ONE (20:45)
[2022-06-07] MEDS ORDERED: cefTRIAXone 1GM/50ML D5W 50 ML IV ONE (20:45)
[2022-06-07] MEDS ORDERED: SODIUM CHLORIDE 0.9% 1,000 ML IV ONE (20:45)
[2022-06-07 21:45] LABS: Albumin 3.4 g/dL (3.4-5.0); Anion Gap 10 (5-15); Blood Alcohol < 3.0 mg/dL (0-5); Blood Urea Nitrogen 12 mg/dL (7-18); Calcium 9.4 mg/dL (8.5-10.1); Carbon Dioxide 23 mmol/L (21-32); Chloride 109 mmol/L (98-107); Glucose 98 mg/dL (74-106); Magnesium 1.9 mg/dL (1.6-2.6); Potassium 4.2 mmol/L (3.5-5.1); Sodium 142 mmol/L (136-145)
[2022-06-07 21:47] LABS: Alanine Aminotransferase 20 U/L (16-61); Aspartate Aminotransferase 38 U/L (15-37); BUN/Creatinine Ratio 19.4; GFR African American 170 mL/min; GFR Non-African American 141 mL/min
[2022-06-07 21:50] LABS: Alkaline Phosphatase 102 U/L (45-117); Bilirubin, Total 3.9 mg/dL (0.2-1.0); INR 1.38 (0.9-1.15); Partial Thromboplastin Time 29.4 sec (24.6-33.4); Total Protein 7.4 g/dL (6.4-8.2)
[2022-06-07 21:53] LABS: Basophils # (auto) 0.1 10 ^3/uL (0-0.2); Basophils % (auto) 0.7 % (0.0-2.0); Eosinophils # (auto) 0.1 10 ^3/uL (0-0.8); Eosinophils % (auto) 1.4 % (0.0-7.0); Hematocrit 30.7 % (41.0-53.0); Hemoglobin 10.4 g/dL (13.5-17.5); Lymphocytes % (auto) 12.2 % (10.0-50.0); Mean Corpuscular Hemoglobin 29.9 pg (28.0-32.0); Mean Corpuscular Hgb Conc. 33.8 g/dL (32.0-36.0); Mean Corpuscular Volume 88.6 fL (80.0-100.0); Monocytes # (auto) 0.8 10 ^3/uL (0-1.3); Monocytes % (auto) 10.2 % (0.0-12.0); Neutrophils # (auto) 6.1 10 ^3/uL (1.6-8.6); Neutrophils % (auto) 75.5 % (37.0-80.0); Red Blood Cells 3.46 10^6/uL (4.5-5.90); Red Cell Distribution Width 16.2 % (11.8-14.3); White Blood Cell 8.1 10^3/uL (4.4-10.8)
[2022-06-08] MEDS ORDERED: LORazepam 2MG/ML-1ML VIAL IV PRN
[2022-06-08] MEDS ORDERED: ACETAMINOPHEN 325 MG TAB PO PRN
[2022-06-08] MEDS ORDERED: NITROGLYCERIN 0.4 MG SL TAB SL PRN
[2022-06-08] MEDS ORDERED: ONDANSETRON HCL 4 MG/2 ML VIAL IV PRN
[2022-06-08 01:13] LABS: Urine Bacteria FEW /hpf (None Seen); Urine Blood 3+ /uL (Negative); Urine Budding Yeast MODERATE /hpf (None Seen); Urine WBC 223 /hpf (0 - 3)
[2022-06-08] MEDS: D5W/SOD CHL 0.45% 1,000 ML IV SCH ×2 (01:38→20:00)
[2022-06-08] MEDS: LACTULOSE 10g/15ml SOLN 473ML PR SCH ×3 (01:52→12:00)
[2022-06-08 06:24] LABS: Basophils # (auto) 0 10 ^3/uL (0-0.2); Basophils % (auto) 0.5 % (0.0-2.0); Eosinophils # (auto) 0.1 10 ^3/uL (0-0.8); Eosinophils % (auto) 1.7 % (0.0-7.0); Hematocrit 34.3 % (41.0-53.0); Hemoglobin 10.2 g/dL (13.5-17.5); Lymphocytes # (auto) 1.3 10 ^3/uL (0.4-5.4); Lymphocytes % (auto) 21.6 % (10.0-50.0); Mean Corpuscular Hemoglobin 29.7 pg (28.0-32.0); Mean Corpuscular Hgb Conc. 29.7 g/dL (32.0-36.0); Monocytes # (auto) 0.7 10 ^3/uL (0-1.3); Monocytes % (auto) 12.4 % (0.0-12.0); Neutrophils # (auto) 3.8 10 ^3/uL (1.6-8.6); Neutrophils % (auto) 63.8 % (37.0-80.0); Nucleated Red Blood Cells % 0.4 %; Red Blood Cells 3.43 10^6/uL (4.5-5.90); Red Cell Distribution Width 17.1 % (11.8-14.3)
[2022-06-08 08:14] LABS: Calcium 8.4 mg/dL (8.5-10.1); Potassium 4.6 mmol/L (3.5-5.1)
[2022-06-08 08:17] LABS: BUN/Creatinine Ratio 19.3; Bilirubin, Total 3.4 mg/dL (0.2-1.0); Total Protein 6.9 g/dL (6.4-8.2)
[2022-06-08] MEDS: levoFLOXacin 250MG 50 ML IV SCH (09:52)
[2022-06-08] MEDS: ENOXAPARIN SOD 40 MG/0.4 ML SYRINGE SC SCH (09:58)
[2022-06-08] MEDS ORDERED: FAMOTIDINE (10MG/ML) 2ML VL IV SCH (10:00)
[2022-06-08] MEDS: VALPROATE INJ 500 MG in SODIUM CHL 0.9% 100 ML IV SCH (16:15)
[2022-06-08] MEDS ORDERED: VALPROATE INJ 1,000 MG in SODIUM CHL 0.9% 100 ML IV ONE (16:15)
[2022-06-08] MEDS: LACTULOSE 20Gm/30ML SOLN PO SCH (22:00)
[2022-06-09] MEDS: VALPROATE INJ 500 MG in SODIUM CHL 0.9% 100 ML IV SCH ×3 (00:11→16:15)
[2022-06-09] MEDS: LACTULOSE 20Gm/30ML SOLN PO SCH ×3 (06:00→21:42)
[2022-06-09] MEDS: levoFLOXacin 250MG 50 ML IV SCH (10:26)
[2022-06-09] MEDS: ENOXAPARIN SOD 40 MG/0.4 ML SYRINGE SC SCH (10:27)
[2022-06-09] MEDS: LORazepam 2MG/ML-1ML VIAL IV PRN ×2 (16:47→21:54)
[2022-06-09] MEDS: D5W/SOD CHL 0.45% 1,000 ML IV SCH (16:53)
[2022-06-09] MEDS: VALPROATE INJ 750 MG in SODIUM CHL 0.9% 100 ML IV SCH (20:29)
[2022-06-09] MEDS ORDERED: PHENobarbital SODIUM INJ 260 MG in SODIUM CHL 0.9% 100 ML IV ONE (22:45)
[2022-06-09] MEDS ORDERED: PHENobarbital SODIUM 130 MG/ML VL ONE (23:10)
[2022-06-10] VITALS (97 sets, daily range): BP systolic 52–133; BP diastolic 40–89
[2022-06-10] MEDS ORDERED: ETOMIDATE (2MG/ML) 20ML VIAL IV ONE ×2 (00:51→01:00)
[2022-06-10] MEDS ORDERED: SUCCINYLCHOLINE CHLORIDE 20 MG/ML 10ML VIAL IV ONE ×2 (00:52→01:00)
[2022-06-10] MEDS: LORazepam 2MG/ML-1ML VIAL IV PRN (01:54)
[2022-06-10] MEDS: MIDAZOLAM DRIP 50 mg/50mL 50 ML IV SCH ×2 (01:58→18:23)
[2022-06-10] MEDS ORDERED: ACETAMINOPHEN 650 mg PER 20.3 mL UD GT PRN (02:15)
[2022-06-10] MEDS ORDERED: ALBUMIN 5% 250 ML IV ONE ×2 (03:36→03:45)
[2022-06-10] MEDS: VALPROATE INJ 750 MG in SODIUM CHL 0.9% 100 ML IV SCH ×3 (04:11→21:34)
[2022-06-10] MEDS: NOREPINEPHRINE 8 MG/250ML KIT 250 ML IV SCH (04:11)
[2022-06-10] MEDS: LACTULOSE 20Gm/30ML SOLN PO SCH ×3 (06:00→21:33)
[2022-06-10 09:16] LABS: Basophils # (auto) 0 10 ^3/uL (0-0.2); Eosinophils # (auto) 0 10 ^3/uL (0-0.8); Lymphocytes # (auto) 1.7 10 ^3/uL (0.4-5.4); Monocytes # (auto) 1.2 10 ^3/uL (0-1.3)
[2022-06-10 09:20] LABS: Basophils % (auto) 0.3 % (0.0-2.0); Hematocrit 23.9 % (41.0-53.0); Hemoglobin 8.3 g/dL (13.5-17.5); Lymphocytes % (auto) 15.4 % (10.0-50.0); Mean Corpuscular Hemoglobin 30.5 pg (28.0-32.0); Mean Corpuscular Hgb Conc. 34.6 g/dL (32.0-36.0); Mean Corpuscular Volume 88.3 fL (80.0-100.0); Monocytes % (auto) 10.9 % (0.0-12.0); Neutrophils # (auto) 7.9 10 ^3/uL (1.6-8.6); Neutrophils % (auto) 73.4 % (37.0-80.0); Red Blood Cells 2.71 10^6/uL (4.5-5.90); Red Cell Distribution Width 16.2 % (11.8-14.3); White Blood Cell 10.8 10^3/uL (4.4-10.8)
[2022-06-10] MEDS: levoFLOXacin 250MG 50 ML IV SCH (09:26)
[2022-06-10] MEDS: ENOXAPARIN SOD 40 MG/0.4 ML SYRINGE SC SCH (09:26)
[2022-06-10 09:35] LABS: Albumin 2.9 g/dL (3.4-5.0); Calcium 8.6 mg/dL (8.5-10.1); Potassium 3.7 mmol/L (3.5-5.1)
[2022-06-10 09:37] LABS: Lactic Acid w/Reflex 2.7 mmol/L (0.4-2.0)
[2022-06-10 09:40] LABS: Bilirubin, Total 2.4 mg/dL (0.2-1.0); Total Protein 6.4 g/dL (6.4-8.2)
[2022-06-10] MEDS ORDERED: VANCOMYCIN PER PHARMACY 0 MG IV SCH (11:15)
[2022-06-10] MEDS ORDERED: MEROPENEM 1GM IVPB 100 ML IV ONE (12:00)
[2022-06-10] MEDS ORDERED: methylPREDNISolone SOD SUCC 40 MG/ML VL IV ONE (12:45)
[2022-06-10] MEDS ORDERED: PANTOPRAZOLE 40 MG/10 ML VIAL INJ IV ONE (13:00)
[2022-06-10] MEDS: fentaNYL Drip 2500mCg/250mlNS 250 ML IV SCH (14:51)
[2022-06-10] MEDS: VANCOMYCIN 750mg/250ml 250 ML IV SCH (15:11)
[2022-06-10] MEDS ORDERED: FUROSEMIDE 20 MG/2 ML VIAL IV ONE (18:00)
[2022-06-10] MEDS ORDERED: VALPROATE INJ 1,000 MG in SODIUM CHL 0.9% 100 ML IV ONE (21:00)
[2022-06-10] MEDS: methylPREDNISolone SOD SUCC 40 MG/ML VL IV SCH (21:33)
[2022-06-10] MEDS: MEROPENEM 1GM IVPB 100 ML IV SCH (21:34)
[2022-06-11] VITALS (105 sets, daily range): BP systolic 89–128; BP diastolic 59–84
[2022-06-11] MEDS: VANCOMYCIN 750mg/250ml 250 ML IV SCH ×2 (01:03→15:10)
[2022-06-11] MEDS: NOREPINEPHRINE 8 MG/250ML KIT 250 ML IV SCH (03:45)
[2022-06-11 04:15] LABS: Potassium 3.7 mmol/L (3.5-5.1)
[2022-06-11 04:21] LABS: Albumin 2.7 g/dL (3.4-5.0); BUN/Creatinine Ratio 17.8; Bilirubin, Total 1.9 mg/dL (0.2-1.0); Calcium 8.9 mg/dL (8.5-10.1); Total Protein 6.3 g/dL (6.4-8.2)
[2022-06-11] MEDS: VALPROATE INJ 750 MG in SODIUM CHL 0.9% 100 ML IV SCH ×3 (04:22→19:33)
[2022-06-11] MEDS: MEROPENEM 1GM IVPB 100 ML IV SCH ×3 (04:23→19:51)
[2022-06-11 04:28] LABS: Lactic Acid w/Reflex 2.2 mmol/L (0.4-2.0)
[2022-06-11 05:04] LABS: Basophils # (auto) 0 10 ^3/uL (0-0.2); Basophils % (auto) 0.5 % (0.0-2.0); Eosinophils # (auto) 0 10 ^3/uL (0-0.8); Eosinophils % (auto) 0.1 % (0.0-7.0); Hematocrit 22.5 % (41.0-53.0); Hemoglobin 7.6 g/dL (13.5-17.5); Lymphocytes # (auto) 0.6 10 ^3/uL (0.4-5.4); Lymphocytes % (auto) 25.6 % (10.0-50.0); Mean Corpuscular Hemoglobin 29.6 pg (28.0-32.0); Mean Corpuscular Hgb Conc. 33.8 g/dL (32.0-36.0); Mean Corpuscular Volume 87.5 fL (80.0-100.0); Monocytes # (auto) 0.2 10 ^3/uL (0-1.3); Monocytes % (auto) 8.1 % (0.0-12.0); Neutrophils # (auto) 1.6 10 ^3/uL (1.6-8.6); Neutrophils % (auto) 65.7 % (37.0-80.0); Nucleated Red Blood Cells % 0.1 %; Red Blood Cells 2.57 10^6/uL (4.5-5.90); Red Cell Distribution Width 16.3 % (11.8-14.3); White Blood Cell 2.4 10^3/uL (4.4-10.8)
[2022-06-11] MEDS: LACTULOSE 20Gm/30ML SOLN PO SCH ×3 (06:10→21:51)
[2022-06-11] MEDS: ENOXAPARIN SOD 40 MG/0.4 ML SYRINGE SC SCH (07:53)
[2022-06-11] MEDS: MIDAZOLAM DRIP 50 mg/50mL 50 ML IV SCH (08:18)
[2022-06-11] MEDS: methylPREDNISolone SOD SUCC 40 MG/ML VL IV SCH ×2 (09:42→21:51)
[2022-06-11] MEDS: PANTOPRAZOLE 40 MG/10 ML VIAL INJ IV SCH (09:42)
[2022-06-11] MEDS ORDERED: FUROSEMIDE 20 MG/2 ML VIAL IV ONE (10:45)
[2022-06-11] MEDS: fentaNYL Drip 2500mCg/250mlNS 250 ML IV SCH (11:20)
[2022-06-12] VITALS (104 sets, daily range): BP systolic 91–152; BP diastolic 56–93
[2022-06-12] MEDS: VANCOMYCIN 750mg/250ml 250 ML IV SCH ×2 (02:56→14:32)
[2022-06-12] MEDS: NOREPINEPHRINE 8 MG/250ML KIT 250 ML IV SCH (03:27)
[2022-06-12] MEDS: VALPROATE INJ 750 MG in SODIUM CHL 0.9% 100 ML IV SCH ×3 (03:27→20:13)
[2022-06-12 04:04] LABS: Basophils # (auto) 0 10 ^3/uL (0-0.2); Eosinophils # (auto) 0 10 ^3/uL (0-0.8); Hematocrit 22.9 % (41.0-53.0); Hemoglobin 7.7 g/dL (13.5-17.5); Monocytes # (auto) 0.3 10 ^3/uL (0-1.3)
[2022-06-12 04:07] LABS: Lymphocytes # (auto) 0.4 10 ^3/uL (0.4-5.4); Lymphocytes % (auto) 11.4 % (10.0-50.0); Mean Corpuscular Hemoglobin 29.5 pg (28.0-32.0); Mean Corpuscular Hgb Conc. 33.8 g/dL (32.0-36.0); Mean Corpuscular Volume 87.4 fL (80.0-100.0); Monocytes % (auto) 8.5 % (0.0-12.0); Neutrophils % (auto) 80.1 % (37.0-80.0); Nucleated Red Blood Cells % 0.1 %; Red Blood Cells 2.62 10^6/uL (4.5-5.90); White Blood Cell 3.7 10^3/uL (4.4-10.8)
[2022-06-12] MEDS: MEROPENEM 1GM IVPB 100 ML IV SCH ×3 (04:13→20:14)
[2022-06-12 04:22] LABS: Potassium 3.7 mmol/L (3.5-5.1)
[2022-06-12 04:28] LABS: Albumin 2.8 g/dL (3.4-5.0); BUN/Creatinine Ratio 31.2; Calcium 9.2 mg/dL (8.5-10.1)
[2022-06-12 04:35] LABS: Bilirubin, Total 1.8 mg/dL (0.2-1.0); Total Protein 6.1 g/dL (6.4-8.2)
[2022-06-12] MEDS: LACTULOSE 20Gm/30ML SOLN PO SCH ×3 (05:50→22:05)
[2022-06-12] MEDS: PANTOPRAZOLE 40 MG/10 ML VIAL INJ IV SCH (09:52)
[2022-06-12] MEDS: methylPREDNISolone SOD SUCC 40 MG/ML VL IV SCH ×2 (09:52→22:05)
[2022-06-12] MEDS: FUROSEMIDE 20 MG/2 ML VIAL IV SCH (09:53)
[2022-06-12] MEDS: ENOXAPARIN SOD 40 MG/0.4 ML SYRINGE SC SCH (10:47)
[2022-06-12] MEDS: fentaNYL Drip 2500mCg/250mlNS 250 ML IV SCH (12:00)
[2022-06-13] VITALS (100 sets, daily range): BP systolic 98–174; BP diastolic 64–96
[2022-06-13] MEDS: MIDAZOLAM DRIP 50 mg/50mL 50 ML IV SCH (00:49)
[2022-06-13] MEDS: VANCOMYCIN 750mg/250ml 250 ML IV SCH ×2 (03:00→20:07)
[2022-06-13] MEDS: NOREPINEPHRINE 8 MG/250ML KIT 250 ML IV SCH (03:45)
[2022-06-13] MEDS: VALPROATE INJ 750 MG in SODIUM CHL 0.9% 100 ML IV SCH ×3 (03:54→20:02)
[2022-06-13 03:58] LABS: Basophils # (auto) 0 10 ^3/uL (0-0.2); Basophils % (auto) 0.3 % (0.0-2.0); Eosinophils # (auto) 0 10 ^3/uL (0-0.8); Hematocrit 25.1 % (41.0-53.0); Hemoglobin 8.5 g/dL (13.5-17.5); Lymphocytes # (auto) 0.5 10 ^3/uL (0.4-5.4); Lymphocytes % (auto) 10.6 % (10.0-50.0); Mean Corpuscular Hemoglobin 29.8 pg (28.0-32.0); Mean Corpuscular Hgb Conc. 33.8 g/dL (32.0-36.0); Monocytes # (auto) 0.5 10 ^3/uL (0-1.3); Monocytes % (auto) 11.5 % (0.0-12.0); Neutrophils # (auto) 3.5 10 ^3/uL (1.6-8.6); Neutrophils % (auto) 77.6 % (37.0-80.0); Nucleated Red Blood Cells % 0.1 %; Red Blood Cells 2.85 10^6/uL (4.5-5.90); Red Cell Distribution Width 16.9 % (11.8-14.3); White Blood Cell 4.5 10^3/uL (4.4-10.8)
[2022-06-13 04:14] LABS: BUN/Creatinine Ratio 36.7; Calcium 9.1 mg/dL (8.5-10.1); Potassium 3.1 mmol/L (3.5-5.1)
[2022-06-13] MEDS: MEROPENEM 1GM IVPB 100 ML IV SCH ×3 (04:19→20:00)
[2022-06-13] MEDS: LACTULOSE 20Gm/30ML SOLN PO SCH ×3 (06:00→22:06)
[2022-06-13] MEDS: PANTOPRAZOLE 40 MG/10 ML VIAL INJ IV SCH (09:20)
[2022-06-13] MEDS: FUROSEMIDE 20 MG/2 ML VIAL IV SCH (09:21)
[2022-06-13] MEDS: ENOXAPARIN SOD 40 MG/0.4 ML SYRINGE SC SCH (09:21)
[2022-06-13] MEDS: methylPREDNISolone SOD SUCC 40 MG/ML VL IV SCH ×2 (09:21→22:06)
[2022-06-13] MEDS: POTASSIUM CHL 20MEQ/100ML 100 ML IV SCH ×2 (09:42→11:53)
[2022-06-13] MEDS: fentaNYL Drip 2500mCg/250mlNS 250 ML IV SCH (11:58)
[2022-06-13] MEDS ORDERED: Vital AF 1.2 Cal 1 liter bottle GT SCH (13:15)
[2022-06-14] VITALS (105 sets, daily range): BP systolic 90–169; BP diastolic 54–99
[2022-06-14] MEDS: MIDAZOLAM DRIP 50 mg/50mL 50 ML IV SCH (01:01)
[2022-06-14 03:19] LABS: Basophils # (auto) 0 10 ^3/uL (0-0.2); Basophils % (auto) 0.3 % (0.0-2.0); Eosinophils # (auto) 0 10 ^3/uL (0-0.8); Monocytes # (auto) 0.4 10 ^3/uL (0-1.3); Neutrophils # (auto) 3.5 10 ^3/uL (1.6-8.6); Nucleated Red Blood Cells % 0.1 %; White Blood Cell 4.1 10^3/uL (4.4-10.8)
[2022-06-14 03:21] LABS: Eosinophils % (auto) 0.1 % (0.0-7.0); Hematocrit 23.4 % (41.0-53.0); Lymphocytes # (auto) 0.2 10 ^3/uL (0.4-5.4); Lymphocytes % (auto) 5.8 % (10.0-50.0); Mean Corpuscular Hemoglobin 29.8 pg (28.0-32.0); Mean Corpuscular Hgb Conc. 34.1 g/dL (32.0-36.0); Mean Corpuscular Volume 87.5 fL (80.0-100.0); Monocytes % (auto) 9.4 % (0.0-12.0); Neutrophils % (auto) 84.4 % (37.0-80.0); Red Blood Cells 2.67 10^6/uL (4.5-5.90); Red Cell Distribution Width 16.7 % (11.8-14.3)
[2022-06-14 03:36] LABS: Albumin 2.8 g/dL (3.4-5.0); Calcium 8.7 mg/dL (8.5-10.1); Potassium 3.1 mmol/L (3.5-5.1)
[2022-06-14 03:39] LABS: BUN/Creatinine Ratio 39.2
[2022-06-14 03:42] LABS: Bilirubin, Total 2.3 mg/dL (0.2-1.0); Total Protein 6.2 g/dL (6.4-8.2)
[2022-06-14] MEDS: VALPROATE INJ 750 MG in SODIUM CHL 0.9% 100 ML IV SCH ×3 (03:45→20:01)
[2022-06-14] MEDS: NOREPINEPHRINE 8 MG/250ML KIT 250 ML IV SCH (03:45)
[2022-06-14] MEDS: LACTULOSE 20Gm/30ML SOLN PO SCH ×3 (06:23→22:19)
[2022-06-14] MEDS: ENOXAPARIN SOD 40 MG/0.4 ML SYRINGE SC SCH (10:00)
[2022-06-14] MEDS: FUROSEMIDE 20 MG/2 ML VIAL IV SCH (10:21)
[2022-06-14] MEDS: methylPREDNISolone SOD SUCC 40 MG/ML VL IV SCH ×2 (10:22→22:18)
[2022-06-14] MEDS: PANTOPRAZOLE 40 MG/10 ML VIAL INJ IV SCH (10:22)
[2022-06-14] MEDS: fentaNYL Drip 2500mCg/250mlNS 250 ML IV SCH (12:00)
[2022-06-14] MEDS: VANCOMYCIN 750mg/250ml 250 ML IV SCH (12:13)
[2022-06-14] MEDS: POTASSIUM CHL 20MEQ/100ML 100 ML IV SCH ×2 (14:45→16:54)
[2022-06-15] VITALS (98 sets, daily range): BP systolic 83–133; BP diastolic 56–81
[2022-06-15] MEDS: MIDAZOLAM DRIP 50 mg/50mL 50 ML IV SCH (01:15)
[2022-06-15 03:20] LABS: Basophils # (auto) 0 10 ^3/uL (0-0.2); Basophils % (auto) 0.2 % (0.0-2.0); Eosinophils # (auto) 0 10 ^3/uL (0-0.8); Lymphocytes # (auto) 0.3 10 ^3/uL (0.4-5.4); Monocytes # (auto) 0.3 10 ^3/uL (0-1.3); Neutrophils # (auto) 2.9 10 ^3/uL (1.6-8.6); White Blood Cell 3.4 10^3/uL (4.4-10.8)
[2022-06-15 03:23] LABS: Hematocrit 23.7 % (41.0-53.0); Lymphocytes % (auto) 9.1 % (10.0-50.0); Mean Corpuscular Hemoglobin 29.7 pg (28.0-32.0); Mean Corpuscular Hgb Conc. 33.9 g/dL (32.0-36.0); Mean Corpuscular Volume 87.6 fL (80.0-100.0); Monocytes % (auto) 7.7 % (0.0-12.0); Nucleated Red Blood Cells % 0.2 %; Red Cell Distribution Width 16.6 % (11.8-14.3)
[2022-06-15 03:38] LABS: Albumin 2.7 g/dL (3.4-5.0); BUN/Creatinine Ratio 42.9; Calcium 8.7 mg/dL (8.5-10.1); Potassium 3.5 mmol/L (3.5-5.1)
[2022-06-15 03:41] LABS: Total Protein 6.2 g/dL (6.4-8.2)
[2022-06-15] MEDS: NOREPINEPHRINE 8 MG/250ML KIT 250 ML IV SCH (03:45)
[2022-06-15] MEDS: VALPROATE INJ 750 MG in SODIUM CHL 0.9% 100 ML IV SCH ×3 (03:56→20:39)
[2022-06-15] MEDS: VANCOMYCIN 750mg/250ml 250 ML IV SCH ×2 (04:11→20:57)
[2022-06-15] MEDS: LACTULOSE 20Gm/30ML SOLN PO SCH ×3 (05:58→22:14)
[2022-06-15] MEDS: LORazepam 2MG/ML-1ML VIAL IV PRN (08:02)
[2022-06-15] MEDS: ENOXAPARIN SOD 40 MG/0.4 ML SYRINGE SC SCH (10:00)
[2022-06-15] MEDS: FUROSEMIDE 20 MG/2 ML VIAL IV SCH (10:26)
[2022-06-15] MEDS: methylPREDNISolone SOD SUCC 40 MG/ML VL IV SCH ×2 (10:26→22:14)
[2022-06-15] MEDS: PANTOPRAZOLE 40 MG/10 ML VIAL INJ IV SCH (10:26)
[2022-06-15] MEDS: fentaNYL Drip 2500mCg/250mlNS 250 ML IV SCH (12:00)
[2022-06-16] VITALS (76 sets, daily range): BP systolic 108–145; BP diastolic 52–93
[2022-06-16 03:59] LABS: Basophils # (auto) 0 10 ^3/uL (0-0.2); Basophils % (auto) 0.1 % (0.0-2.0); Eosinophils # (auto) 0 10 ^3/uL (0-0.8); Lymphocytes # (auto) 0.4 10 ^3/uL (0.4-5.4)
[2022-06-16 04:01] LABS: Hematocrit 23.7 % (41.0-53.0); Lymphocytes % (auto) 8.1 % (10.0-50.0); Mean Corpuscular Hemoglobin 29.9 pg (28.0-32.0); Mean Corpuscular Volume 87.9 fL (80.0-100.0); Monocytes # (auto) 0.4 10 ^3/uL (0-1.3); Monocytes % (auto) 7.3 % (0.0-12.0); Neutrophils # (auto) 4.2 10 ^3/uL (1.6-8.6); Neutrophils % (auto) 84.5 % (37.0-80.0); Nucleated Red Blood Cells % 0.1 %; Red Blood Cells 2.69 10^6/uL (4.5-5.90); Red Cell Distribution Width 16.9 % (11.8-14.3); White Blood Cell 4.9 10^3/uL (4.4-10.8)
[2022-06-16 04:22] LABS: Albumin 2.7 g/dL (3.4-5.0); Calcium 8.7 mg/dL (8.5-10.1); Potassium 3.5 mmol/L (3.5-5.1)
[2022-06-16 04:27] LABS: BUN/Creatinine Ratio 38.5; Bilirubin, Total 1.7 mg/dL (0.2-1.0)
[2022-06-16] MEDS: VALPROATE INJ 750 MG in SODIUM CHL 0.9% 100 ML IV SCH ×3 (04:44→20:00)
[2022-06-16] MEDS: LACTULOSE 20Gm/30ML SOLN PO SCH ×3 (06:08→21:02)
[2022-06-16] MEDS: ENOXAPARIN SOD 40 MG/0.4 ML SYRINGE SC SCH (10:00)
[2022-06-16] MEDS: PANTOPRAZOLE 40 MG/10 ML VIAL INJ IV SCH (10:03)
[2022-06-16] MEDS: methylPREDNISolone SOD SUCC 40 MG/ML VL IV SCH ×2 (10:04→21:02)
[2022-06-16] MEDS: FUROSEMIDE 20 MG/2 ML VIAL IV SCH (10:04)
[2022-06-16] MEDS: fentaNYL Drip 2500mCg/250mlNS 250 ML IV SCH (12:00)
[2022-06-16] MEDS: VANCOMYCIN 750mg/250ml 250 ML IV SCH (13:20)
[2022-06-16] MEDS: NOREPINEPHRINE 8 MG/250ML KIT 250 ML IV SCH (20:42)
[2022-06-16] MEDS: MIDAZOLAM DRIP 50 mg/50mL 50 ML IV SCH (20:42)
[2022-06-17] VITALS (24 sets, daily range): BP systolic 91–141; BP diastolic 57–84
[2022-06-17] MEDS: VALPROATE INJ 750 MG in SODIUM CHL 0.9% 100 ML IV SCH ×3 (03:50→20:30)
[2022-06-17] MEDS: NOREPINEPHRINE 8 MG/250ML KIT 250 ML IV SCH (04:15)
[2022-06-17] MEDS: VANCOMYCIN 750mg/250ml 250 ML IV SCH ×2 (04:15→20:30)
[2022-06-17] MEDS: MIDAZOLAM DRIP 50 mg/50mL 50 ML IV SCH (04:16)
[2022-06-17 05:15] LABS: Albumin 2.8 g/dL (3.4-5.0); Calcium 8.1 mg/dL (8.5-10.1); Potassium 3.4 mmol/L (3.5-5.1)
[2022-06-17 05:18] LABS: BUN/Creatinine Ratio 39.3; Bilirubin, Total 1.8 mg/dL (0.2-1.0); Total Protein 5.8 g/dL (6.4-8.2)
[2022-06-17 05:56] LABS: Basophils # (auto) 0 10 ^3/uL (0-0.2); Basophils % (auto) 0.2 % (0.0-2.0); Eosinophils # (auto) 0 10 ^3/uL (0-0.8); Hematocrit 28.8 % (41.0-53.0); Hemoglobin 8.5 g/dL (13.5-17.5); Lymphocytes # (auto) 0.4 10 ^3/uL (0.4-5.4); Lymphocytes % (auto) 8.3 % (10.0-50.0); Mean Corpuscular Hgb Conc. 29.6 g/dL (32.0-36.0); Mean Corpuscular Volume 98.2 fL (80.0-100.0); Monocytes # (auto) 0.4 10 ^3/uL (0-1.3); Monocytes % (auto) 7.6 % (0.0-12.0); Neutrophils # (auto) 4.6 10 ^3/uL (1.6-8.6); Neutrophils % (auto) 83.9 % (37.0-80.0); Nucleated Red Blood Cells % 0.1 %; Red Blood Cells 2.94 10^6/uL (4.5-5.90); Red Cell Distribution Width 17.5 % (11.8-14.3); White Blood Cell 5.4 10^3/uL (4.4-10.8)
[2022-06-17] MEDS: LACTULOSE 20Gm/30ML SOLN PO SCH ×3 (06:00→20:54)
[2022-06-17] MEDS: FUROSEMIDE 20 MG/2 ML VIAL IV SCH (09:31)
[2022-06-17] MEDS: LORazepam 2MG/ML-1ML VIAL IV PRN (09:31)
[2022-06-17] MEDS: methylPREDNISolone SOD SUCC 40 MG/ML VL IV SCH ×2 (09:31→20:54)
[2022-06-17] MEDS: ENOXAPARIN SOD 40 MG/0.4 ML SYRINGE SC SCH (09:32)
[2022-06-17] MEDS: PANTOPRAZOLE 40 MG/10 ML VIAL INJ IV SCH (09:32)
[2022-06-17] MEDS ORDERED: POTASSIUM EFFERVESENT TAB 25 MEQ GT ONE (11:00)
[2022-06-17] MEDS: fentaNYL Drip 2500mCg/250mlNS 250 ML IV SCH (12:00)
[2022-06-18] VITALS (22 sets, daily range): BP systolic 92–134; BP diastolic 59–80
[2022-06-18] MEDS: MIDAZOLAM DRIP 50 mg/50mL 50 ML IV SCH (01:15)
[2022-06-18] MEDS: VALPROATE INJ 750 MG in SODIUM CHL 0.9% 100 ML IV SCH ×3 (03:45→20:00)
[2022-06-18] MEDS: NOREPINEPHRINE 8 MG/250ML KIT 250 ML IV SCH (03:45)
[2022-06-18 05:12] LABS: Basophils # (auto) 0 10 ^3/uL (0-0.2); Basophils % (auto) 0.5 % (0.0-2.0); Eosinophils # (auto) 0 10 ^3/uL (0-0.8); Eosinophils % (auto) 0.1 % (0.0-7.0); Hemoglobin 9.2 g/dL (13.5-17.5); Lymphocytes # (auto) 0.8 10 ^3/uL (0.4-5.4); Lymphocytes % (auto) 10.4 % (10.0-50.0); Mean Corpuscular Hemoglobin 30.1 pg (28.0-32.0); Mean Corpuscular Hgb Conc. 31.8 g/dL (32.0-36.0); Mean Corpuscular Volume 94.7 fL (80.0-100.0); Monocytes # (auto) 0.4 10 ^3/uL (0-1.3); Monocytes % (auto) 5.9 % (0.0-12.0); Neutrophils # (auto) 6.1 10 ^3/uL (1.6-8.6); Neutrophils % (auto) 83.1 % (37.0-80.0); Nucleated Red Blood Cells % 0.1 %; Red Blood Cells 3.07 10^6/uL (4.5-5.90); Red Cell Distribution Width 16.7 % (11.8-14.3); White Blood Cell 7.3 10^3/uL (4.4-10.8)
[2022-06-18 05:24] LABS: Potassium 3.8 mmol/L (3.5-5.1)
[2022-06-18] MEDS: LACTULOSE 20Gm/30ML SOLN PO SCH ×3 (06:26→20:44)
[2022-06-18] MEDS: ENOXAPARIN SOD 40 MG/0.4 ML SYRINGE SC SCH (10:00)
[2022-06-18] MEDS: PANTOPRAZOLE 40 MG/10 ML VIAL INJ IV SCH (10:37)
[2022-06-18] MEDS: methylPREDNISolone SOD SUCC 40 MG/ML VL IV SCH ×2 (10:37→20:41)
[2022-06-18] MEDS: FUROSEMIDE 20 MG/2 ML VIAL IV SCH (10:38)
[2022-06-18] MEDS: VANCOMYCIN 750mg/250ml 250 ML IV SCH ×2 (11:56→12:00)
[2022-06-19] VITALS (41 sets, daily range): BP systolic 77–123; BP diastolic 43–70
[2022-06-19] MEDS: VANCOMYCIN 750mg/250ml 250 ML IV SCH ×2 (00:23→12:12)
[2022-06-19] MEDS: NOREPINEPHRINE 8 MG/250ML KIT 250 ML IV SCH (03:45)
[2022-06-19] MEDS: VALPROATE INJ 750 MG in SODIUM CHL 0.9% 100 ML IV SCH ×3 (04:00→20:23)
[2022-06-19] MEDS: LACTULOSE 20Gm/30ML SOLN PO SCH ×3 (05:33→22:00)
[2022-06-19 08:55] LABS: Basophils # (auto) 0 10 ^3/uL (0-0.2); Basophils % (auto) 0.2 % (0.0-2.0); Eosinophils # (auto) 0 10 ^3/uL (0-0.8); Eosinophils % (auto) 0.1 % (0.0-7.0); Hematocrit 25.4 % (41.0-53.0); Hemoglobin 8.6 g/dL (13.5-17.5); Lymphocytes # (auto) 1.1 10 ^3/uL (0.4-5.4); Lymphocytes % (auto) 11.5 % (10.0-50.0); Mean Corpuscular Volume 88.4 fL (80.0-100.0); Monocytes # (auto) 1.1 10 ^3/uL (0-1.3); Monocytes % (auto) 11.4 % (0.0-12.0); Neutrophils # (auto) 7.7 10 ^3/uL (1.6-8.6); Neutrophils % (auto) 76.8 % (37.0-80.0); Red Blood Cells 2.87 10^6/uL (4.5-5.90); Red Cell Distribution Width 16.3 % (11.8-14.3)
[2022-06-19 09:18] LABS: Albumin 2.8 g/dL (3.4-5.0); Calcium 8.6 mg/dL (8.5-10.1); Potassium 3.2 mmol/L (3.5-5.1)
[2022-06-19 09:27] LABS: BUN/Creatinine Ratio 29.7; Bilirubin, Total 1.7 mg/dL (0.2-1.0); Total Protein 6.2 g/dL (6.4-8.2)
[2022-06-19] MEDS ORDERED: POTASSIUM EFFERVESENT TAB 25 MEQ GT ONE (10:15)
[2022-06-19] MEDS: FUROSEMIDE 20 MG/2 ML VIAL IV SCH (10:39)
[2022-06-19] MEDS: PANTOPRAZOLE 40 MG/10 ML VIAL INJ IV SCH (10:39)
[2022-06-19] MEDS ORDERED: ENOXAPARIN SOD 40 MG/0.4 ML SYRINGE SC ONE (11:00)
[2022-06-19] MEDS: ALBUMIN 25% 100 ML IV SCH ×2 (15:56→23:22)
[2022-06-19] MEDS ORDERED: ALBUTEROL MEDNEB 2.5 mg/3ml NEB ONE (22:04)
[2022-06-19] MEDS: IPRATROPIUM BROM 0.5 MG/2.5ML INH SOL NEB SCH (22:25)
[2022-06-19] MEDS: ALBUTEROL SULF 2.5 MG/0.5ML(0.5%) NEB SOLN NEB SCH (22:25)
[2022-06-20] VITALS (31 sets, daily range): BP systolic 85–113; BP diastolic 48–61
[2022-06-20] MEDS: VANCOMYCIN 750mg/250ml 250 ML IV SCH ×2 (01:03→11:59)
[2022-06-20] MEDS ORDERED: ALBUTEROL MEDNEB 2.5 mg/3ml NEB ONE ×6 (01:21→21:53)
[2022-06-20] MEDS: IPRATROPIUM BROM 0.5 MG/2.5ML INH SOL NEB SCH ×6 (02:28→22:28)
[2022-06-20] MEDS: ALBUTEROL SULF 2.5 MG/0.5ML(0.5%) NEB SOLN NEB SCH ×6 (02:28→22:28)
[2022-06-20] MEDS: NOREPINEPHRINE 8 MG/250ML KIT 250 ML IV SCH (03:45)
[2022-06-20] MEDS: VALPROATE INJ 750 MG in SODIUM CHL 0.9% 100 ML IV SCH ×3 (05:46→21:02)
[2022-06-20] MEDS: LACTULOSE 20Gm/30ML SOLN PO SCH ×3 (06:28→22:03)
[2022-06-20 06:53] LABS: BUN/Creatinine Ratio 29.2; Calcium 8.8 mg/dL (8.5-10.1); Potassium 3.2 mmol/L (3.5-5.1)
[2022-06-20 06:54] LABS: Basophils # (auto) 0 10 ^3/uL (0-0.2); Basophils % (auto) 0.1 % (0.0-2.0); Eosinophils # (auto) 0 10 ^3/uL (0-0.8); Eosinophils % (auto) 0.1 % (0.0-7.0); Hematocrit 22.4 % (41.0-53.0); Hemoglobin 7.6 g/dL (13.5-17.5); Lymphocytes % (auto) 13.2 % (10.0-50.0); Mean Corpuscular Hemoglobin 30.2 pg (28.0-32.0); Mean Corpuscular Hgb Conc. 33.9 g/dL (32.0-36.0); Mean Corpuscular Volume 89.1 fL (80.0-100.0); Monocytes # (auto) 1.1 10 ^3/uL (0-1.3); Monocytes % (auto) 14.5 % (0.0-12.0); Neutrophils # (auto) 5.6 10 ^3/uL (1.6-8.6); Neutrophils % (auto) 72.1 % (37.0-80.0); Nucleated Red Blood Cells % 0.1 %; Red Blood Cells 2.52 10^6/uL (4.5-5.90); Red Cell Distribution Width 16.5 % (11.8-14.3); White Blood Cell 7.8 10^3/uL (4.4-10.8)
[2022-06-20] MEDS: ALBUMIN 25% 100 ML IV SCH (08:09)
[2022-06-20] MEDS: PANTOPRAZOLE 40 MG/10 ML VIAL INJ IV SCH (09:41)
[2022-06-20] MEDS: FUROSEMIDE 20 MG/2 ML VIAL IV SCH (09:41)
[2022-06-20] MEDS: ENOXAPARIN SOD 40 MG/0.4 ML SYRINGE SC SCH (09:41)
[2022-06-20] MEDS ORDERED: ENOXAPARIN SOD 40 MG/0.4 ML SYRINGE SC SCH (10:00)
[2022-06-20] MEDS ORDERED: POTASSIUM EFFERVESENT TAB 25 MEQ GT ONE (10:00)
[2022-06-20] MEDS ORDERED: POTASSIUM CHL 20MEQ/100ML 100 ML IV ONE (10:00)
[2022-06-20] MEDS: POTASSIUM CHLORIDE 40 MEQ in D5W 5% 1,000 ML IV SCH (11:59)
[2022-06-20] MEDS: METOCLOPRAMIDE HCL 5MG/ml INJ 2ml VIAL IV SCH ×2 (13:54→22:03)
[2022-06-21] VITALS: BP 96/55
[2022-06-21] MEDS ORDERED: ALBUTEROL MEDNEB 2.5 mg/3ml NEB ONE ×6 (01:59→21:58)
[2022-06-21] MEDS: ALBUTEROL SULF 2.5 MG/0.5ML(0.5%) NEB SOLN NEB SCH ×6 (02:05→22:01)
[2022-06-21] MEDS: IPRATROPIUM BROM 0.5 MG/2.5ML INH SOL NEB SCH ×6 (02:05→22:01)
[2022-06-21] MEDS: POTASSIUM CHLORIDE 40 MEQ in D5W 5% 1,000 ML IV SCH ×2 (02:17→08:50)
[2022-06-21] MEDS: NOREPINEPHRINE 8 MG/250ML KIT 250 ML IV SCH (03:45)
[2022-06-21 04:00] VITALS: BP 115/61
[2022-06-21] MEDS: VALPROATE INJ 750 MG in SODIUM CHL 0.9% 100 ML IV SCH ×3 (04:34→18:18)
[2022-06-21 05:27] LABS: Hemoglobin 7.4 g/dL (13.5-17.5); Mean Corpuscular Volume 89.8 fL (80.0-100.0); Red Cell Distribution Width 17.1 % (11.8-14.3)
[2022-06-21 05:28] LABS: Hematocrit 22.2 % (41.0-53.0); Mean Corpuscular Hgb Conc. 33.4 g/dL (32.0-36.0); Red Blood Cells 2.47 10^6/uL (4.5-5.90); White Blood Cell 9.1 10^3/uL (4.4-10.8)
[2022-06-21 05:42] LABS: Basophils % (manual) 0 (0.0-2.0); Blast Cells 0; Eosinophils % (manual) 0 (0-7); Metamyelocytes % 0; Myelocytes % 0; Promyelocytes % 0; Reactive Lymphocytes 0
[2022-06-21 05:43] LABS: Albumin 3.1 g/dL (3.4-5.0); BUN/Creatinine Ratio 16.4; Calcium 8.6 mg/dL (8.5-10.1)
[2022-06-21 05:46] LABS: Bilirubin, Total 2.4 mg/dL (0.2-1.0); Total Protein 5.7 g/dL (6.4-8.2)
[2022-06-21] MEDS: METOCLOPRAMIDE HCL 5MG/ml INJ 2ml VIAL IV SCH ×3 (06:38→22:00)
[2022-06-21] MEDS: LACTULOSE 20Gm/30ML SOLN PO SCH ×4 (06:38→22:00)
[2022-06-21 06:51] LABS: Band Neutrophils % (manual) 2; Lymphocytes % (manual) 9 (10.0-50.0); Monocytes % (manual) 9 (0-12)
[2022-06-21 08:00] VITALS: BP 104/60
[2022-06-21] MEDS: PANTOPRAZOLE 40 MG/10 ML VIAL INJ IV SCH (08:49)
[2022-06-21] MEDS: FUROSEMIDE 20 MG/2 ML VIAL IV SCH (08:49)
[2022-06-21] MEDS: ENOXAPARIN SOD 40 MG/0.4 ML SYRINGE SC SCH (08:49)
[2022-06-21 12:00] VITALS: BP 91/55
[2022-06-21] MEDS: Vital AF 1.2 Cal 1 liter bottle GT SCH (13:25)
[2022-06-21 17:06] VITALS: BP 99/63
[2022-06-21 20:00] VITALS: BP 99/61
[2022-06-22] VITALS (56 sets, daily range): BP systolic 80–166; BP diastolic 49–92
[2022-06-22] MEDS: LACTULOSE 20Gm/30ML SOLN PO SCH ×5 (02:00→21:24)
[2022-06-22] MEDS ORDERED: ALBUTEROL MEDNEB 2.5 mg/3ml NEB ONE ×5 (02:02→22:31)
[2022-06-22] MEDS: ALBUTEROL SULF 2.5 MG/0.5ML(0.5%) NEB SOLN NEB SCH ×6 (02:05→22:49)
[2022-06-22] MEDS: IPRATROPIUM BROM 0.5 MG/2.5ML INH SOL NEB SCH ×6 (02:05→22:50)
[2022-06-22] MEDS: NOREPINEPHRINE 8 MG/250ML KIT 250 ML IV SCH ×2 (03:45→15:41)
[2022-06-22 06:32] LABS: Calcium 9.3 mg/dL (8.5-10.1); Potassium 3.8 mmol/L (3.5-5.1)
[2022-06-22 06:36] LABS: BUN/Creatinine Ratio 16.5
[2022-06-22] MEDS: METOCLOPRAMIDE HCL 5MG/ml INJ 2ml VIAL IV SCH ×3 (07:15→22:57)
[2022-06-22] MEDS: VALPROATE INJ 750 MG in SODIUM CHL 0.9% 100 ML IV SCH ×3 (07:16→22:57)
[2022-06-22 08:28] LABS: Hematocrit 30.2 % (41.0-53.0); Hemoglobin 9.6 g/dL (13.5-17.5); Mean Corpuscular Hemoglobin 29.6 pg (28.0-32.0); Mean Corpuscular Hgb Conc. 31.9 g/dL (32.0-36.0); Mean Corpuscular Volume 92.7 fL (80.0-100.0); Red Blood Cells 3.26 10^6/uL (4.5-5.90); Red Cell Distribution Width 17.9 % (11.8-14.3); White Blood Cell 23.5 10^3/uL (4.4-10.8)
[2022-06-22 08:43] LABS: Basophils % (manual) 0 (0.0-2.0); Blast Cells 0; Eosinophils % (manual) 0 (0-7); Promyelocytes % 0; Reactive Lymphocytes 0
[2022-06-22] MEDS: FUROSEMIDE 20 MG/2 ML VIAL IV SCH (09:28)
[2022-06-22] MEDS ORDERED: VANCOMYCIN PER PHARMACY 0 MG IV SCH (10:00)
[2022-06-22] MEDS ORDERED: VANCOMYCIN 1GM/250ML 250 ML IV ONE (10:00)
[2022-06-22 10:16] LABS: Band Neutrophils % (manual) 50; Lymphocytes % (manual) 2 (10.0-50.0); Metamyelocytes % 5; Monocytes % (manual) 16 (0-12); Myelocytes % 3
[2022-06-22] MEDS ORDERED: ROCURONIUM 10MG/ML 10ML VIAL IV ONE (10:25)
[2022-06-22] MEDS ORDERED: ETOMIDATE (2MG/ML) 20ML VIAL IV ONE (10:25)
[2022-06-22] MEDS ORDERED: SUCCINYLCHOLINE CHLORIDE 20 MG/ML 10ML VIAL IV ONE (10:25)
[2022-06-22] MEDS ORDERED: MIDAZOLAM DRIP 50 mg/50mL 50 ML IV ONE (10:26)
[2022-06-22] MEDS ORDERED: NOREPINEPHRINE 8 MG/250ML KIT 250 ML IV ONE (10:27)
[2022-06-22] MEDS ORDERED: fentaNYL Drip 2500mCg/250mlNS 250 ML IV ONE (10:27)
[2022-06-22] MEDS ORDERED: MEROPENEM 500MG IVPB 50 ML IV ONE (11:15)
[2022-06-22] MEDS ORDERED: methylPREDNISolone 4 MG TAB PO ONE (11:15)
[2022-06-22] MEDS ORDERED: PPN PER PHARMACY 0 ML IV SCH (11:30)
[2022-06-22] MEDS: PANTOPRAZOLE 40 MG/10 ML VIAL INJ IV SCH (12:47)
[2022-06-22] MEDS: ENOXAPARIN SOD 40 MG/0.4 ML SYRINGE SC SCH (12:48)
[2022-06-22] MEDS ORDERED: SODIUM BICARBONATE 8.4 % INJ 50ML VIAL IV ONE (13:00)
[2022-06-22] MEDS: MIDAZOLAM DRIP 50 mg/50mL 50 ML IV SCH (13:43)
[2022-06-22] MEDS: fentaNYL Drip 2500mCg/250mlNS 250 ML IV SCH (13:43)
[2022-06-22 15:22] LABS: Calcium 8.2 mg/dL (8.5-10.1); Magnesium 2.2 mg/dL (1.6-2.6); Potassium 3.4 mmol/L (3.5-5.1)
[2022-06-22 15:27] LABS: BUN/Creatinine Ratio 17.2; Bilirubin, Total 3.2 mg/dL (0.2-1.0); Phosphorus 5.1 mg/dL (2.5-4.90); Total Protein 6.2 g/dL (6.4-8.2)
[2022-06-22] MEDS ORDERED: POTASSIUM CHL 20MEQ/100ML 100 ML IV ONE (16:30)
[2022-06-22] MEDS ORDERED: VANCOMYCIN 750mg/250ml 250 ML IV SCH (17:00)
[2022-06-22] MEDS: VANCOMYCIN 750mg/250ml 250 ML IV SCH (17:27)
[2022-06-22] MEDS ORDERED: REMDESIVIR PER PHARMACY 0 ML IV SCH (19:00)
[2022-06-22] MEDS ORDERED: methylPREDNISolone 4 MG TAB PO SCH (20:00)
[2022-06-22] MEDS ORDERED: AMINO ACID INFUSION IN D10W 1,000 ML IV NR (20:00)
[2022-06-22] MEDS ORDERED: REMDESIVIR 200 MG in NS 210ml LOADING DOSE ADULT IV ONE (20:00)
[2022-06-22] MEDS: MEROPENEM 1GM IVPB 100 ML IV SCH (21:22)
[2022-06-22] MEDS ORDERED: MEROPENEM 500MG IVPB 50 ML IV SCH (22:00)
[2022-06-22] MEDS ORDERED: BUDESONIDE (INHALATION) 180 MCG IH IN SCH (22:00)
[2022-06-22] MEDS: BUDESONIDE (INHALATION) 0.5 MG/2 ML NEB NEB SCH (22:50)
[2022-06-23] VITALS (100 sets, daily range): BP systolic 76–147; BP diastolic 44–77
[2022-06-23] MEDS ORDERED: DEXTROSE (50%) 50ML SYRG IV SCH
[2022-06-23] MEDS: NOREPINEPHRINE 8 MG/250ML KIT 250 ML IV SCH ×2 (01:01→13:12)
[2022-06-23] MEDS: LACTULOSE 20Gm/30ML SOLN PO SCH ×6 (02:00→22:00)
[2022-06-23] MEDS ORDERED: ALBUTEROL MEDNEB 2.5 mg/3ml NEB ONE ×3 (02:12→22:04)
[2022-06-23] MEDS: IPRATROPIUM BROM 0.5 MG/2.5ML INH SOL NEB SCH ×3 (02:41→22:10)
[2022-06-23] MEDS: ALBUTEROL SULF 2.5 MG/0.5ML(0.5%) NEB SOLN NEB SCH ×3 (02:41→22:10)
[2022-06-23] MEDS: METOCLOPRAMIDE HCL 5MG/ml INJ 2ml VIAL IV SCH ×3 (06:00→22:00)
[2022-06-23] MEDS: InsuLIN REG 1unit/0.01ml Soln (100units/ml) SC SCH ×4 (06:00→17:47)
[2022-06-23] MEDS: ACCU-CHEK COMFORT CURVE STRIP VI SCH ×4 (06:00→17:46)
[2022-06-23] MEDS: VANCOMYCIN 750mg/250ml 250 ML IV SCH ×2 (06:55→17:42)
[2022-06-23 06:58] LABS: Basophils # (auto) 0 10 ^3/uL (0-0.2); Eosinophils # (auto) 0 10 ^3/uL (0-0.8); Lymphocytes # (auto) 0.4 10 ^3/uL (0.4-5.4); Mean Corpuscular Volume 91.3 fL (80.0-100.0)
[2022-06-23] MEDS: VALPROATE INJ 750 MG in SODIUM CHL 0.9% 100 ML IV SCH ×3 (07:00→23:00)
[2022-06-23 07:15] LABS: Basophils % (auto) 0.1 % (0.0-2.0); Eosinophils % (auto) 0.2 % (0.0-7.0); Hematocrit 21.1 % (41.0-53.0); INR 2.05 (0.9-1.15); Lymphocytes % (auto) 2.3 % (10.0-50.0); Mean Corpuscular Hemoglobin 30.1 pg (28.0-32.0); Monocytes # (auto) 2.4 10 ^3/uL (0-1.3); Monocytes % (auto) 13.7 % (0.0-12.0); Neutrophils # (auto) 14.8 10 ^3/uL (1.6-8.6); Neutrophils % (auto) 83.7 % (37.0-80.0); Red Blood Cells 2.32 10^6/uL (4.5-5.90); Red Cell Distribution Width 17.9 % (11.8-14.3); White Blood Cell 17.7 10^3/uL (4.4-10.8)
[2022-06-23 07:34] LABS: Albumin 2.7 g/dL (3.4-5.0); BUN/Creatinine Ratio 26.4; Bilirubin, Total 2.6 mg/dL (0.2-1.0); Calcium 7.9 mg/dL (8.5-10.1); Magnesium 2.3 mg/dL (1.6-2.6); Phosphorus 2.7 mg/dL (2.5-4.90); Total Protein 5.5 g/dL (6.4-8.2)
[2022-06-23 08:01] LABS: Potassium 2.7 mmol/L (3.5-5.1)
[2022-06-23] MEDS: POTASSIUM CHL 20MEQ/100ML 100 ML IV SCH ×3 (09:20→13:10)
[2022-06-23] MEDS: MIDAZOLAM DRIP 50 mg/50mL 50 ML IV SCH (09:29)
[2022-06-23] MEDS: MEROPENEM 1GM IVPB 100 ML IV SCH ×3 (09:31→21:05)
[2022-06-23] MEDS: PANTOPRAZOLE 40 MG/10 ML VIAL INJ IV SCH (09:46)
[2022-06-23] MEDS: DexAMETHasone SOD PHOS 10MG/1ML VIAL INJ IV SCH (09:46)
[2022-06-23] MEDS: ENOXAPARIN SOD 40 MG/0.4 ML SYRINGE SC SCH (09:47)
[2022-06-23] MEDS: FUROSEMIDE 20 MG/2 ML VIAL IV SCH (09:47)
[2022-06-23] MEDS: fentaNYL Drip 2500mCg/250mlNS 250 ML IV SCH (10:38)
[2022-06-23] MEDS ORDERED: REMDESIVIR 100mg 100 MG in SODIUM CHL 0.9% 230 ML IV SCH (15:00)
[2022-06-23] MEDS: BUDESONIDE (INHALATION) 0.5 MG/2 ML NEB NEB SCH (18:03)
[2022-06-23] MEDS ORDERED: PPN PER PHARMACY IV NR ×7 (20:00)
[2022-06-24] VITALS (102 sets, daily range): BP systolic 93–134; BP diastolic 55–80
[2022-06-24] MEDS: ALBUTEROL SULF 2.5 MG/0.5ML(0.5%) NEB SOLN NEB SCH ×6 (01:44→21:58)
[2022-06-24] MEDS: IPRATROPIUM BROM 0.5 MG/2.5ML INH SOL NEB SCH ×5 (01:44→18:27)
[2022-06-24] MEDS ORDERED: ALBUTEROL MEDNEB 2.5 mg/3ml NEB ONE ×6 (01:44→21:46)
[2022-06-24] MEDS: LACTULOSE 20Gm/30ML SOLN PO SCH ×6 (02:00→22:12)
[2022-06-24 04:54] LABS: Albumin 3.1 g/dL (3.4-5.0); Calcium 8.4 mg/dL (8.5-10.1); Magnesium 2.2 mg/dL (1.6-2.6); Potassium 4.7 mmol/L (3.5-5.1)
[2022-06-24 04:56] LABS: BUN/Creatinine Ratio 33.3; Bilirubin, Total 2.3 mg/dL (0.2-1.0); Phosphorus 2.8 mg/dL (2.5-4.90); Total Protein 7.3 g/dL (6.4-8.2)
[2022-06-24] MEDS: MIDAZOLAM DRIP 50 mg/50mL 50 ML IV SCH (05:37)
[2022-06-24] MEDS: MEROPENEM 1GM IVPB 100 ML IV SCH (05:37)
[2022-06-24] MEDS: METOCLOPRAMIDE HCL 5MG/ml INJ 2ml VIAL IV SCH ×3 (05:39→22:11)
[2022-06-24] MEDS: VANCOMYCIN 750mg/250ml 250 ML IV SCH (05:44)
[2022-06-24] MEDS: InsuLIN REG 1unit/0.01ml Soln (100units/ml) SC SCH ×4 (06:00→17:48)
[2022-06-24] MEDS: ACCU-CHEK COMFORT CURVE STRIP VI SCH ×4 (06:00→17:48)
[2022-06-24] MEDS: VALPROATE INJ 750 MG in SODIUM CHL 0.9% 100 ML IV SCH ×3 (07:00→23:00)
[2022-06-24] MEDS: ENOXAPARIN SOD 40 MG/0.4 ML SYRINGE SC SCH (09:38)
[2022-06-24] MEDS: PANTOPRAZOLE 40 MG/10 ML VIAL INJ IV SCH (09:42)
[2022-06-24] MEDS: FUROSEMIDE 20 MG/2 ML VIAL IV SCH (09:42)
[2022-06-24] MEDS: DexAMETHasone SOD PHOS 10MG/1ML VIAL INJ IV SCH (09:42)
[2022-06-24] MEDS: BUDESONIDE (INHALATION) 0.5 MG/2 ML NEB NEB SCH ×2 (10:00→18:27)
[2022-06-24 11:04] LABS: Basophils # (auto) 0 10 ^3/uL (0-0.2); Eosinophils # (auto) 0 10 ^3/uL (0-0.8); Lymphocytes # (auto) 0.5 10 ^3/uL (0.4-5.4); Mean Corpuscular Volume 90.5 fL (80.0-100.0); Neutrophils # (auto) 13.4 10 ^3/uL (1.6-8.6); Red Blood Cells 2.35 10^6/uL (4.5-5.90)
[2022-06-24 11:05] LABS: Basophils % (auto) 0.2 % (0.0-2.0); Hematocrit 21.2 % (41.0-53.0); Lymphocytes % (auto) 3.3 % (10.0-50.0); Mean Corpuscular Hemoglobin 29.7 pg (28.0-32.0); Mean Corpuscular Hgb Conc. 32.8 g/dL (32.0-36.0); Monocytes # (auto) 1.9 10 ^3/uL (0-1.3); Monocytes % (auto) 12.1 % (0.0-12.0); Neutrophils % (auto) 84.4 % (37.0-80.0); Red Cell Distribution Width 17.9 % (11.8-14.3); White Blood Cell 15.8 10^3/uL (4.4-10.8)
[2022-06-24 11:26] LABS: BUN/Creatinine Ratio 46.2
[2022-06-24] MEDS: fentaNYL Drip 2500mCg/250mlNS 250 ML IV SCH ×2 (12:45→21:54)
[2022-06-24] MEDS: NOREPINEPHRINE 8 MG/250ML KIT 250 ML IV SCH (13:19)
[2022-06-24] MEDS ORDERED: PPN PER PHARMACY IV NR ×8 (20:00)
[2022-06-25] VITALS (108 sets, daily range): BP systolic 87–153; BP diastolic 53–93
[2022-06-25] MEDS: ALBUTEROL SULF 2.5 MG/0.5ML(0.5%) NEB SOLN NEB SCH ×4 (01:50→14:42)
[2022-06-25] MEDS: IPRATROPIUM BROM 0.5 MG/2.5ML INH SOL NEB SCH ×7 (01:50→22:35)
[2022-06-25] MEDS ORDERED: ALBUTEROL MEDNEB 2.5 mg/3ml NEB ONE ×4 (01:50→14:42)
[2022-06-25] MEDS: LACTULOSE 20Gm/30ML SOLN PO SCH ×6 (02:00→21:46)
[2022-06-25] MEDS: BUDESONIDE (INHALATION) 0.5 MG/2 ML NEB NEB SCH ×2 (05:49→19:13)
[2022-06-25 05:55] LABS: Basophils # (auto) 0 10 ^3/uL (0-0.2); Eosinophils # (auto) 0 10 ^3/uL (0-0.8); Lymphocytes # (auto) 0.4 10 ^3/uL (0.4-5.4)
[2022-06-25 05:57] LABS: Hematocrit 18.7 % (41.0-53.0); Lymphocytes % (auto) 5.7 % (10.0-50.0); Mean Corpuscular Hemoglobin 29.8 pg (28.0-32.0); Mean Corpuscular Hgb Conc. 32.9 g/dL (32.0-36.0); Mean Corpuscular Volume 90.5 fL (80.0-100.0); Monocytes # (auto) 0.9 10 ^3/uL (0-1.3); Monocytes % (auto) 11.9 % (0.0-12.0); Neutrophils # (auto) 5.9 10 ^3/uL (1.6-8.6); Neutrophils % (auto) 82.4 % (37.0-80.0); Red Blood Cells 2.06 10^6/uL (4.5-5.90); Red Cell Distribution Width 18.3 % (11.8-14.3); White Blood Cell 7.2 10^3/uL (4.4-10.8)
[2022-06-25] MEDS: InsuLIN REG 1unit/0.01ml Soln (100units/ml) SC SCH ×4 (05:57→17:57)
[2022-06-25] MEDS: ACCU-CHEK COMFORT CURVE STRIP VI SCH ×4 (05:57→17:57)
[2022-06-25] MEDS: METOCLOPRAMIDE HCL 5MG/ml INJ 2ml VIAL IV SCH ×3 (05:59→21:46)
[2022-06-25] MEDS: VALPROATE INJ 750 MG in SODIUM CHL 0.9% 100 ML IV SCH ×3 (06:00→23:08)
[2022-06-25 06:09] LABS: Albumin 2.5 g/dL (3.4-5.0); Calcium 7.7 mg/dL (8.5-10.1); Potassium 3.7 mmol/L (3.5-5.1)
[2022-06-25 06:14] LABS: BUN/Creatinine Ratio 56.6; Bilirubin, Total 1.4 mg/dL (0.2-1.0); Magnesium 1.7 mg/dL (1.6-2.6); Total Protein 5.4 g/dL (6.4-8.2)
[2022-06-25 06:25] LABS: Hemoglobin 6.1 g/dL (13.5-17.5)
[2022-06-25] MEDS: ENOXAPARIN SOD 40 MG/0.4 ML SYRINGE SC SCH (10:00)
[2022-06-25] MEDS: PANTOPRAZOLE 40 MG/10 ML VIAL INJ IV SCH (10:07)
[2022-06-25] MEDS: DexAMETHasone SOD PHOS 10MG/1ML VIAL INJ IV SCH (10:07)
[2022-06-25] MEDS: FUROSEMIDE 20 MG/2 ML VIAL IV SCH (10:08)
[2022-06-25] MEDS ORDERED: TPN PER PHARMACY 0 ML IV SCH (10:45)
[2022-06-25] MEDS: MIDAZOLAM DRIP 50 mg/50mL 50 ML IV SCH (12:45)
[2022-06-25] MEDS: NOREPINEPHRINE 8 MG/250ML KIT 250 ML IV SCH (12:46)
[2022-06-25 17:57] LABS: Basophils # (auto) 0 10 ^3/uL (0-0.2); Eosinophils # (auto) 0 10 ^3/uL (0-0.8); Hemoglobin 7.4 g/dL (13.5-17.5); Lymphocytes # (auto) 0.3 10 ^3/uL (0.4-5.4); Red Cell Distribution Width 17.3 % (11.8-14.3)
[2022-06-25] MEDS ORDERED: AMIODARONE 450mg/250ml AE 250 ML IV SCH (18:00)
[2022-06-25 18:02] LABS: Basophils % (auto) 0.1 % (0.0-2.0); Hematocrit 21.8 % (41.0-53.0); Mean Corpuscular Hemoglobin 30.1 pg (28.0-32.0); Mean Corpuscular Hgb Conc. 34.1 g/dL (32.0-36.0); Mean Corpuscular Volume 88.3 fL (80.0-100.0); Monocytes # (auto) 1.3 10 ^3/uL (0-1.3); Monocytes % (auto) 14.8 % (0.0-12.0); Neutrophils % (auto) 81.1 % (37.0-80.0); Red Blood Cells 2.47 10^6/uL (4.5-5.90); White Blood Cell 8.7 10^3/uL (4.4-10.8)
[2022-06-25] MEDS: ALBUTEROL MEDNEB 2.5 mg/3ml NEB NEB SCH ×2 (19:12→22:35)
[2022-06-25] MEDS ORDERED: TPN PER PHARMACY IV NR ×9 (20:00)
[2022-06-26] VITALS (105 sets, daily range): BP systolic 79–124; BP diastolic 49–93
[2022-06-26] MEDS ORDERED: AMIODARONE 450mg/250ml AE 250 ML IV SCH
[2022-06-26] MEDS: ACCU-CHEK COMFORT CURVE STRIP VI SCH ×4 (00:33→18:00)
[2022-06-26] MEDS: IPRATROPIUM BROM 0.5 MG/2.5ML INH SOL NEB SCH ×6 (02:37→21:46)
[2022-06-26] MEDS: ALBUTEROL MEDNEB 2.5 mg/3ml NEB NEB SCH ×6 (02:37→21:46)
[2022-06-26] MEDS: LACTULOSE 20Gm/30ML SOLN PO SCH ×6 (02:41→21:40)
[2022-06-26 04:57] LABS: Basophils # (auto) 0 10 ^3/uL (0-0.2); Eosinophils # (auto) 0 10 ^3/uL (0-0.8); Hemoglobin 7.2 g/dL (13.5-17.5); Lymphocytes # (auto) 0.5 10 ^3/uL (0.4-5.4); Monocytes # (auto) 1.1 10 ^3/uL (0-1.3); Neutrophils # (auto) 4.8 10 ^3/uL (1.6-8.6)
[2022-06-26 04:59] LABS: Basophils % (auto) 0.4 % (0.0-2.0); Hematocrit 21.4 % (41.0-53.0); Lymphocytes % (auto) 8.3 % (10.0-50.0); Mean Corpuscular Hemoglobin 29.6 pg (28.0-32.0); Mean Corpuscular Hgb Conc. 33.6 g/dL (32.0-36.0); Mean Corpuscular Volume 88.1 fL (80.0-100.0); Monocytes % (auto) 17.3 % (0.0-12.0); Nucleated Red Blood Cells % 0.1 %; Red Blood Cells 2.43 10^6/uL (4.5-5.90); Red Cell Distribution Width 17.3 % (11.8-14.3); White Blood Cell 6.5 10^3/uL (4.4-10.8)
[2022-06-26 05:20] LABS: Albumin 2.3 g/dL (3.4-5.0); BUN/Creatinine Ratio 61.3; Bilirubin, Total 1.7 mg/dL (0.2-1.0); Magnesium 1.9 mg/dL (1.6-2.6); Phosphorus 2.1 mg/dL (2.5-4.90); Total Protein 5.3 g/dL (6.4-8.2)
[2022-06-26 05:48] LABS: Potassium 2.9 mmol/L (3.5-5.1)
[2022-06-26] MEDS: METOCLOPRAMIDE HCL 5MG/ml INJ 2ml VIAL IV SCH ×3 (05:52→21:40)
[2022-06-26] MEDS: InsuLIN REG 1unit/0.01ml Soln (100units/ml) SC SCH ×4 (05:53→18:00)
[2022-06-26] MEDS: VALPROATE INJ 750 MG in SODIUM CHL 0.9% 100 ML IV SCH ×2 (06:33→15:00)
[2022-06-26] MEDS ORDERED: POTASSIUM CHL 20MEQ/100ML 100 ML IV ONE ×2 (06:45→06:53)
[2022-06-26] MEDS ORDERED: POTASSIUM CHL 20MEQ/100ML 100 ML IV SCH (09:45)
[2022-06-26] MEDS ORDERED: POTASSIUM PHOSPHATE 44 MEQ in D5W 5% 250 ML IV ONE (09:45)
[2022-06-26] MEDS: BUDESONIDE (INHALATION) 0.5 MG/2 ML NEB NEB SCH ×2 (09:50→21:46)
[2022-06-26] MEDS: FUROSEMIDE 20 MG/2 ML VIAL IV SCH (10:25)
[2022-06-26] MEDS: PANTOPRAZOLE 40 MG/10 ML VIAL INJ IV SCH (10:26)
[2022-06-26] MEDS: ENOXAPARIN SOD 40 MG/0.4 ML SYRINGE SC SCH (10:26)
[2022-06-26] MEDS: DexAMETHasone SOD PHOS 10MG/1ML VIAL INJ IV SCH (10:26)
[2022-06-26] MEDS: fentaNYL Drip 2500mCg/250mlNS 250 ML IV SCH (12:45)
[2022-06-26] MEDS: MIDAZOLAM DRIP 50 mg/50mL 50 ML IV SCH (12:45)
[2022-06-26] MEDS: NOREPINEPHRINE 8 MG/250ML KIT 250 ML IV SCH (14:00)
[2022-06-26] MEDS: TPN PER PHARMACY IV SCH ×16 (19:15→21:06)
[2022-06-27] VITALS (107 sets, daily range): BP systolic 79–158; BP diastolic 17–93
[2022-06-27] MEDS: VALPROATE INJ 750 MG in SODIUM CHL 0.9% 100 ML IV SCH ×2 (00:07→06:07)
[2022-06-27] MEDS: InsuLIN REG 1unit/0.01ml Soln (100units/ml) SC SCH ×4 (00:08→18:00)
[2022-06-27] MEDS: ACCU-CHEK COMFORT CURVE STRIP VI SCH ×4 (00:09→18:00)
[2022-06-27] MEDS: ALBUTEROL MEDNEB 2.5 mg/3ml NEB NEB SCH ×6 (02:14→21:31)
[2022-06-27] MEDS: IPRATROPIUM BROM 0.5 MG/2.5ML INH SOL NEB SCH ×6 (02:14→21:31)
[2022-06-27] MEDS: LACTULOSE 20Gm/30ML SOLN PO SCH ×4 (02:29→22:05)
[2022-06-27 05:53] LABS: Mean Corpuscular Volume 88.7 fL (80.0-100.0); Red Cell Distribution Width 17.3 % (11.8-14.3)
[2022-06-27] MEDS: METOCLOPRAMIDE HCL 5MG/ml INJ 2ml VIAL IV SCH ×3 (05:54→20:59)
[2022-06-27 05:57] LABS: Hematocrit 21.1 % (41.0-53.0); Hemoglobin 7.2 g/dL (13.5-17.5); Mean Corpuscular Hemoglobin 30.3 pg (28.0-32.0); Mean Corpuscular Hgb Conc. 34.2 g/dL (32.0-36.0); Red Blood Cells 2.38 10^6/uL (4.5-5.90); White Blood Cell 7.5 10^3/uL (4.4-10.8)
[2022-06-27 06:01] LABS: Basophils % (manual) 0 (0.0-2.0); Blast Cells 0; Eosinophils % (manual) 0 (0-7); Metamyelocytes % 0; Promyelocytes % 0; Reactive Lymphocytes 0
[2022-06-27 06:15] LABS: Potassium 3.5 mmol/L (3.5-5.1)
[2022-06-27 06:23] LABS: Albumin 2.3 g/dL (3.4-5.0); BUN/Creatinine Ratio 67.3; Bilirubin, Total 1.9 mg/dL (0.2-1.0); Calcium 7.9 mg/dL (8.5-10.1); Magnesium 2.2 mg/dL (1.6-2.6); Phosphorus 3.3 mg/dL (2.5-4.90); Total Protein 5.5 g/dL (6.4-8.2)
[2022-06-27] MEDS: BUDESONIDE (INHALATION) 0.5 MG/2 ML NEB NEB SCH ×2 (06:49→18:18)
[2022-06-27 08:01] LABS: Band Neutrophils % (manual) 31; Lymphocytes % (manual) 10 (10.0-50.0); Monocytes % (manual) 14 (0-12); Myelocytes % 1
[2022-06-27] MEDS: NOREPINEPHRINE 8 MG/250ML KIT 250 ML IV SCH (08:42)
[2022-06-27] MEDS: ENOXAPARIN SOD 40 MG/0.4 ML SYRINGE SC SCH (09:34)
[2022-06-27] MEDS ORDERED: VALPROATE INJ 500 MG in SODIUM CHL 0.9% 100 ML IV SCH (10:00)
[2022-06-27] MEDS: PANTOPRAZOLE 40 MG/10 ML VIAL INJ IV SCH (10:17)
[2022-06-27] MEDS: FUROSEMIDE 20 MG/2 ML VIAL IV SCH (10:18)
[2022-06-27] MEDS: DexAMETHasone SOD PHOS 10MG/1ML VIAL INJ IV SCH (10:19)
[2022-06-27] MEDS: MIDAZOLAM DRIP 50 mg/50mL 50 ML IV SCH (12:45)
[2022-06-27] MEDS: fentaNYL Drip 2500mCg/250mlNS 250 ML IV SCH (18:01)
[2022-06-27] MEDS ORDERED: TPN PER PHARMACY IV NR ×9 (20:00)
[2022-06-27] MEDS: VALPROATE INJ 500 MG in SODIUM CHL 0.9% 100 ML IV SCH (20:38)
[2022-06-27] MEDS: LACOSAMIDE 200 mg/20ml VIAL IV SCH ×2 (22:00→23:03)
[2022-06-28] VITALS (104 sets, daily range): BP systolic 84–160; BP diastolic 49–92
[2022-06-28] MEDS: ACCU-CHEK COMFORT CURVE STRIP VI SCH ×4 (00:26→17:48)
[2022-06-28] MEDS: ALBUTEROL MEDNEB 2.5 mg/3ml NEB NEB SCH ×5 (02:14→22:19)
[2022-06-28] MEDS: IPRATROPIUM BROM 0.5 MG/2.5ML INH SOL NEB SCH ×5 (02:14→22:19)
[2022-06-28] MEDS: VALPROATE INJ 500 MG in SODIUM CHL 0.9% 100 ML IV SCH ×3 (04:16→19:53)
[2022-06-28] MEDS: InsuLIN REG 1unit/0.01ml Soln (100units/ml) SC SCH ×4 (05:09→17:48)
[2022-06-28] MEDS: METOCLOPRAMIDE HCL 5MG/ml INJ 2ml VIAL IV SCH ×3 (05:09→21:21)
[2022-06-28 06:30] LABS: White Blood Cell 10.4 10^3/uL (4.4-10.8)
[2022-06-28 06:32] LABS: Hematocrit 23.3 % (41.0-53.0); Hemoglobin 7.9 g/dL (13.5-17.5); Mean Corpuscular Hemoglobin 29.8 pg (28.0-32.0); Mean Corpuscular Hgb Conc. 33.8 g/dL (32.0-36.0); Mean Corpuscular Volume 88.3 fL (80.0-100.0); Red Blood Cells 2.64 10^6/uL (4.5-5.90); Red Cell Distribution Width 17.7 % (11.8-14.3)
[2022-06-28 06:47] LABS: Basophils % (manual) 0 (0.0-2.0); Blast Cells 0; Eosinophils % (manual) 0 (0-7); Metamyelocytes % 0; Promyelocytes % 0; Reactive Lymphocytes 0
[2022-06-28 06:48] LABS: Albumin 2.4 g/dL (3.4-5.0); BUN/Creatinine Ratio 79.1; Calcium 8.1 mg/dL (8.5-10.1); Potassium 4.1 mmol/L (3.5-5.1)
[2022-06-28 06:50] LABS: Phosphorus 3.3 mg/dL (2.5-4.90); Total Protein 5.8 g/dL (6.4-8.2)
[2022-06-28 08:24] LABS: Band Neutrophils % (manual) 31; Lymphocytes % (manual) 15 (10.0-50.0)
[2022-06-28 08:25] LABS: Myelocytes % 1
[2022-06-28 08:26] LABS: Monocytes % (manual) 19 (0-12)
[2022-06-28] MEDS: PANTOPRAZOLE 40 MG/10 ML VIAL INJ IV SCH (09:44)
[2022-06-28] MEDS: FUROSEMIDE 20 MG/2 ML VIAL IV SCH (09:44)
[2022-06-28] MEDS: LACTULOSE 20Gm/30ML SOLN PO SCH (09:45)
[2022-06-28] MEDS: ENOXAPARIN SOD 40 MG/0.4 ML SYRINGE SC SCH (09:45)
[2022-06-28] MEDS: DexAMETHasone SOD PHOS 10MG/1ML VIAL INJ IV SCH (09:45)
[2022-06-28] MEDS: MIDAZOLAM DRIP 50 mg/50mL 50 ML IV SCH (09:48)
[2022-06-28] MEDS ORDERED: LACTULOSE 20Gm/30ML SOLN PO PRN (10:45)
[2022-06-28] MEDS: fentaNYL Drip 2500mCg/250mlNS 250 ML IV SCH (11:03)
[2022-06-28] MEDS: Vital AF 1.2 Cal 1 liter bottle GT SCH (11:04)
[2022-06-28] MEDS: NOREPINEPHRINE 8 MG/250ML KIT 250 ML IV SCH (11:51)
[2022-06-28] MEDS: BUDESONIDE (INHALATION) 0.5 MG/2 ML NEB NEB SCH ×2 (14:29→22:19)
[2022-06-28] MEDS ORDERED: TPN*HIGH CONC* PER PHARMACY IV NR ×9 (20:00)
[2022-06-28] MEDS: LACOSAMIDE 200 mg/20ml VIAL IV SCH (22:29)
[2022-06-29] VITALS (100 sets, daily range): BP systolic 84–154; BP diastolic 51–94
[2022-06-29] MEDS: ACCU-CHEK COMFORT CURVE STRIP VI SCH ×5 (00:10→23:37)
[2022-06-29] MEDS: ALBUTEROL MEDNEB 2.5 mg/3ml NEB NEB SCH ×6 (02:16→22:21)
[2022-06-29] MEDS: IPRATROPIUM BROM 0.5 MG/2.5ML INH SOL NEB SCH ×6 (02:16→22:21)
[2022-06-29] MEDS: VALPROATE INJ 500 MG in SODIUM CHL 0.9% 100 ML IV SCH ×3 (04:30→19:42)
[2022-06-29] MEDS: fentaNYL Drip 2500mCg/250mlNS 250 ML IV SCH ×2 (05:29→23:49)
[2022-06-29] MEDS: METOCLOPRAMIDE HCL 5MG/ml INJ 2ml VIAL IV SCH ×3 (05:33→21:28)
[2022-06-29 05:53] LABS: Hematocrit 23.4 % (41.0-53.0); Hemoglobin 7.8 g/dL (13.5-17.5); Mean Corpuscular Hemoglobin 30.1 pg (28.0-32.0); Mean Corpuscular Hgb Conc. 33.5 g/dL (32.0-36.0)
[2022-06-29 05:55] LABS: Mean Corpuscular Volume 89.9 fL (80.0-100.0); Red Cell Distribution Width 17.6 % (11.8-14.3); White Blood Cell 11.5 10^3/uL (4.4-10.8)
[2022-06-29] MEDS: InsuLIN REG 1unit/0.01ml Soln (100units/ml) SC SCH ×5 (06:00→23:36)
[2022-06-29 06:05] LABS: Albumin 2.4 g/dL (3.4-5.0); Calcium 8.2 mg/dL (8.5-10.1); Magnesium 2.1 mg/dL (1.6-2.6); Potassium 4.2 mmol/L (3.5-5.1)
[2022-06-29 06:09] LABS: BUN/Creatinine Ratio 73.5; Phosphorus 3.2 mg/dL (2.5-4.90); Total Protein 6.1 g/dL (6.4-8.2)
[2022-06-29] MEDS: BUDESONIDE (INHALATION) 0.5 MG/2 ML NEB NEB SCH ×2 (06:43→22:22)
[2022-06-29 08:32] LABS: Band Neutrophils % (manual) 0; Basophils % (manual) 0 (0.0-2.0); Blast Cells 0; Eosinophils % (manual) 0 (0-7); Metamyelocytes % 0; Myelocytes % 0; Promyelocytes % 0; Reactive Lymphocytes 0
[2022-06-29 08:33] LABS: Lymphocytes % (manual) 10 (10.0-50.0); Monocytes % (manual) 17 (0-12)
[2022-06-29] MEDS: FUROSEMIDE 20 MG/2 ML VIAL IV SCH (09:48)
[2022-06-29] MEDS: PANTOPRAZOLE 40 MG/10 ML VIAL INJ IV SCH (09:48)
[2022-06-29] MEDS: LACOSAMIDE 200 mg/20ml VIAL IV SCH ×2 (09:49→21:29)
[2022-06-29] MEDS: ENOXAPARIN SOD 40 MG/0.4 ML SYRINGE SC SCH (09:49)
[2022-06-29] MEDS: DexAMETHasone SOD PHOS 10MG/1ML VIAL INJ IV SCH (09:49)
[2022-06-29] MEDS: NOREPINEPHRINE 8 MG/250ML KIT 250 ML IV SCH (12:01)
[2022-06-29] MEDS: MIDAZOLAM DRIP 50 mg/50mL 50 ML IV SCH (12:01)
[2022-06-29] MEDS: Vital AF 1.2 Cal 1 liter bottle GT SCH (13:49)
[2022-06-29] MEDS ORDERED: TPN*HIGH CONC* PER PHARMACY IV NR ×6 (20:00)
[2022-06-30] VITALS (103 sets, daily range): BP systolic 81–142; BP diastolic 43–90
[2022-06-30] MEDS: ALBUTEROL MEDNEB 2.5 mg/3ml NEB NEB SCH ×5 (02:37→22:07)
[2022-06-30] MEDS: IPRATROPIUM BROM 0.5 MG/2.5ML INH SOL NEB SCH ×5 (02:38→22:07)
[2022-06-30] MEDS: VALPROATE INJ 500 MG in SODIUM CHL 0.9% 100 ML IV SCH ×3 (05:02→19:47)
[2022-06-30] MEDS: ACCU-CHEK COMFORT CURVE STRIP VI SCH ×4 (05:28→23:44)
[2022-06-30] MEDS: METOCLOPRAMIDE HCL 5MG/ml INJ 2ml VIAL IV SCH ×3 (05:28→22:29)
[2022-06-30 05:52] LABS: Basophils # (auto) 0 10 ^3/uL (0-0.2); Basophils % (auto) 0.1 % (0.0-2.0); Eosinophils # (auto) 0 10 ^3/uL (0-0.8); Lymphocytes # (auto) 0.8 10 ^3/uL (0.4-5.4); Monocytes # (auto) 1.1 10 ^3/uL (0-1.3); Monocytes % (auto) 14.9 % (0.0-12.0); Neutrophils # (auto) 5.5 10 ^3/uL (1.6-8.6); White Blood Cell 7.4 10^3/uL (4.4-10.8)
[2022-06-30 05:57] LABS: Hematocrit 20.7 % (41.0-53.0); Lymphocytes % (auto) 11.4 % (10.0-50.0); Mean Corpuscular Hemoglobin 30.4 pg (28.0-32.0); Mean Corpuscular Hgb Conc. 33.7 g/dL (32.0-36.0); Mean Corpuscular Volume 90.3 fL (80.0-100.0); Neutrophils % (auto) 73.6 % (37.0-80.0); Nucleated Red Blood Cells % 0.2 %; Red Cell Distribution Width 18.3 % (11.8-14.3)
[2022-06-30] MEDS: InsuLIN REG 1unit/0.01ml Soln (100units/ml) SC SCH ×4 (06:00→23:44)
[2022-06-30 06:13] LABS: Albumin 2.2 g/dL (3.4-5.0); Magnesium 2.3 mg/dL (1.6-2.6)
[2022-06-30 06:17] LABS: BUN/Creatinine Ratio 86.4; Bilirubin, Total 2.1 mg/dL (0.2-1.0); Phosphorus 2.9 mg/dL (2.5-4.90); Total Protein 5.7 g/dL (6.4-8.2)
[2022-06-30] MEDS: ENOXAPARIN SOD 40 MG/0.4 ML SYRINGE SC SCH (10:00)
[2022-06-30] MEDS: FUROSEMIDE 20 MG/2 ML VIAL IV SCH (10:14)
[2022-06-30] MEDS: DexAMETHasone SOD PHOS 10MG/1ML VIAL INJ IV SCH (10:14)
[2022-06-30] MEDS: PANTOPRAZOLE 40 MG/10 ML VIAL INJ IV SCH (10:14)
[2022-06-30] MEDS: LACOSAMIDE 200 mg/20ml VIAL IV SCH ×2 (10:16→22:00)
[2022-06-30] MEDS: NOREPINEPHRINE 8 MG/250ML KIT 250 ML IV SCH (11:32)
[2022-06-30] MEDS: MIDAZOLAM DRIP 50 mg/50mL 50 ML IV SCH (12:45)
[2022-06-30] MEDS: BUDESONIDE (INHALATION) 0.5 MG/2 ML NEB NEB SCH ×2 (14:48→22:07)
[2022-06-30] MEDS: fentaNYL Drip 2500mCg/250mlNS 250 ML IV SCH (18:58)
[2022-06-30] MEDS ORDERED: TPN*HIGH CONC* PER PHARMACY IV NR ×6 (20:00)
[2022-07-01] VITALS (105 sets, daily range): BP systolic 74–163; BP diastolic 49–102
[2022-07-01] MEDS: ALBUTEROL MEDNEB 2.5 mg/3ml NEB NEB SCH ×6 (02:52→22:21)
[2022-07-01] MEDS: IPRATROPIUM BROM 0.5 MG/2.5ML INH SOL NEB SCH ×6 (02:53→22:21)
[2022-07-01] MEDS: VALPROATE INJ 500 MG in SODIUM CHL 0.9% 100 ML IV SCH ×3 (04:11→20:23)
[2022-07-01 05:07] LABS: Basophils # (auto) 0 10 ^3/uL (0-0.2); Eosinophils # (auto) 0 10 ^3/uL (0-0.8); Hematocrit 19.2 % (41.0-53.0); Mean Corpuscular Volume 90.2 fL (80.0-100.0); Neutrophils # (auto) 9.6 10 ^3/uL (1.6-8.6); Red Blood Cells 2.13 10^6/uL (4.5-5.90); Red Cell Distribution Width 18.6 % (11.8-14.3); White Blood Cell 12.2 10^3/uL (4.4-10.8)
[2022-07-01 05:09] LABS: Basophils % (auto) 0.1 % (0.0-2.0); Lymphocytes % (auto) 8.5 % (10.0-50.0); Mean Corpuscular Hemoglobin 30.5 pg (28.0-32.0); Mean Corpuscular Hgb Conc. 33.8 g/dL (32.0-36.0); Monocytes # (auto) 1.5 10 ^3/uL (0-1.3); Monocytes % (auto) 12.3 % (0.0-12.0); Neutrophils % (auto) 79.1 % (37.0-80.0)
[2022-07-01 05:20] LABS: BUN/Creatinine Ratio 89.6; Calcium 7.7 mg/dL (8.5-10.1); Potassium 3.5 mmol/L (3.5-5.1)
[2022-07-01] MEDS: METOCLOPRAMIDE HCL 5MG/ml INJ 2ml VIAL IV SCH ×2 (05:33→14:10)
[2022-07-01] MEDS: ACCU-CHEK COMFORT CURVE STRIP VI SCH ×3 (05:33→17:21)
[2022-07-01 05:40] LABS: Hemoglobin 6.5 g/dL (13.5-17.5)
[2022-07-01] MEDS: InsuLIN REG 1unit/0.01ml Soln (100units/ml) SC SCH ×3 (05:45→17:21)
[2022-07-01] MEDS: BUDESONIDE (INHALATION) 0.5 MG/2 ML NEB NEB SCH ×2 (07:25→17:55)
[2022-07-01] MEDS: ENOXAPARIN SOD 40 MG/0.4 ML SYRINGE SC SCH (09:18)
[2022-07-01] MEDS: PANTOPRAZOLE 40 MG/10 ML VIAL INJ IV SCH (09:22)
[2022-07-01] MEDS: DexAMETHasone SOD PHOS 10MG/1ML VIAL INJ IV SCH (09:22)
[2022-07-01] MEDS: FUROSEMIDE 20 MG/2 ML VIAL IV SCH (09:22)
[2022-07-01] MEDS: LACOSAMIDE 200 mg/20ml VIAL IV SCH (10:05)
[2022-07-01] MEDS ORDERED: FUROSEMIDE 20 MG/2 ML VIAL IV ONE (10:15)
[2022-07-01] MEDS: fentaNYL Drip 2500mCg/250mlNS 250 ML IV SCH (12:42)
[2022-07-01] MEDS: MIDAZOLAM DRIP 50 mg/50mL 50 ML IV SCH (12:45)
[2022-07-01] MEDS: NOREPINEPHRINE 8 MG/250ML KIT 250 ML IV SCH (14:00)
[2022-07-02] VITALS (105 sets, daily range): BP systolic 75–143; BP diastolic 40–82
[2022-07-02] MEDS: METOCLOPRAMIDE HCL 5MG/ml INJ 2ml VIAL IV SCH ×4 (00:10→21:24)
[2022-07-02] MEDS: LACOSAMIDE 200 mg/20ml VIAL IV SCH ×2 (00:10→09:05)
[2022-07-02] MEDS: ACCU-CHEK COMFORT CURVE STRIP VI SCH ×5 (00:11→23:28)
[2022-07-02] MEDS: fentaNYL Drip 2500mCg/250mlNS 250 ML IV SCH ×2 (01:09→12:00)
[2022-07-02] MEDS: MIDAZOLAM DRIP 50 mg/50mL 50 ML IV SCH (01:10)
[2022-07-02] MEDS: IPRATROPIUM BROM 0.5 MG/2.5ML INH SOL NEB SCH ×6 (02:18→22:17)
[2022-07-02] MEDS: ALBUTEROL MEDNEB 2.5 mg/3ml NEB NEB SCH ×6 (02:18→22:17)
[2022-07-02] MEDS: VALPROATE INJ 500 MG in SODIUM CHL 0.9% 100 ML IV SCH ×3 (04:00→20:22)
[2022-07-02] MEDS: InsuLIN REG 1unit/0.01ml Soln (100units/ml) SC SCH ×5 (06:00→23:28)
[2022-07-02 06:08] LABS: Basophils # (auto) 0 10 ^3/uL (0-0.2); Basophils % (auto) 0.1 % (0.0-2.0); Eosinophils # (auto) 0 10 ^3/uL (0-0.8); Eosinophils % (auto) 0.1 % (0.0-7.0); Hematocrit 24.3 % (41.0-53.0); Hemoglobin 7.9 g/dL (13.5-17.5); Lymphocytes # (auto) 1.4 10 ^3/uL (0.4-5.4); Lymphocytes % (auto) 6.3 % (10.0-50.0); Mean Corpuscular Hemoglobin 29.1 pg (28.0-32.0); Mean Corpuscular Hgb Conc. 32.5 g/dL (32.0-36.0); Mean Corpuscular Volume 89.5 fL (80.0-100.0); Monocytes # (auto) 1.7 10 ^3/uL (0-1.3); Monocytes % (auto) 7.8 % (0.0-12.0); Neutrophils # (auto) 18.5 10 ^3/uL (1.6-8.6); Neutrophils % (auto) 85.7 % (37.0-80.0); Red Blood Cells 2.71 10^6/uL (4.5-5.90); Red Cell Distribution Width 19.8 % (11.8-14.3); White Blood Cell 21.6 10^3/uL (4.4-10.8)
[2022-07-02 06:29] LABS: BUN/Creatinine Ratio 80.7; Calcium 8.2 mg/dL (8.5-10.1); Potassium 3.2 mmol/L (3.5-5.1)
[2022-07-02] MEDS ORDERED: VANCOMYCIN PER PHARMACY 0 MG IV SCH (08:15)
[2022-07-02] MEDS ORDERED: VANCOMYCIN 1GM/250ML 250 ML IV SCH (09:00)
[2022-07-02] MEDS: FUROSEMIDE 20 MG/2 ML VIAL IV SCH (09:04)
[2022-07-02] MEDS: PANTOPRAZOLE 40 MG/10 ML VIAL INJ IV SCH (09:04)
[2022-07-02] MEDS: NOREPINEPHRINE 8 MG/250ML KIT 250 ML IV SCH (09:05)
[2022-07-02] MEDS: DexAMETHasone SOD PHOS 10MG/1ML VIAL INJ IV SCH (09:05)
[2022-07-02] MEDS: POTASSIUM CHL 20MEQ/100ML 100 ML IV SCH ×2 (09:52→13:08)
[2022-07-02] MEDS: BUDESONIDE (INHALATION) 0.5 MG/2 ML NEB NEB SCH ×2 (10:12→22:17)
[2022-07-02] MEDS: FREE WATER GT SCH ×3 (11:13→23:29)
[2022-07-02] MEDS: LACOSAMIDE 50 MG in SODIUM CHL 0.9% 50 ML IV SCH (22:08)
[2022-07-03] VITALS (105 sets, daily range): BP systolic 87–156; BP diastolic 57–91
[2022-07-03] MEDS: fentaNYL Drip 2500mCg/250mlNS 250 ML IV SCH ×2 (00:42→11:49)
[2022-07-03] MEDS: IPRATROPIUM BROM 0.5 MG/2.5ML INH SOL NEB SCH ×6 (02:02→22:13)
[2022-07-03] MEDS: ALBUTEROL MEDNEB 2.5 mg/3ml NEB NEB SCH ×6 (02:02→22:13)
[2022-07-03] MEDS: VALPROATE INJ 500 MG in SODIUM CHL 0.9% 100 ML IV SCH ×2 (03:18→11:49)
[2022-07-03] MEDS: METOCLOPRAMIDE HCL 5MG/ml INJ 2ml VIAL IV SCH ×2 (05:03→13:42)
[2022-07-03] MEDS: FREE WATER GT SCH ×3 (05:04→18:00)
[2022-07-03] MEDS: NOREPINEPHRINE 8 MG/250ML KIT 250 ML IV SCH (05:04)
[2022-07-03] MEDS: Vital AF 1.2 Cal 1 liter bottle GT SCH (05:05)
[2022-07-03] MEDS: InsuLIN REG 1unit/0.01ml Soln (100units/ml) SC SCH ×3 (06:00→17:22)
[2022-07-03 06:04] LABS: Hemoglobin 7.9 g/dL (13.5-17.5)
[2022-07-03 06:06] LABS: Hematocrit 23.8 % (41.0-53.0); Mean Corpuscular Hemoglobin 29.4 pg (28.0-32.0); Mean Corpuscular Hgb Conc. 33.2 g/dL (32.0-36.0); Mean Corpuscular Volume 88.6 fL (80.0-100.0); Red Blood Cells 2.68 10^6/uL (4.5-5.90); White Blood Cell 27.2 10^3/uL (4.4-10.8)
[2022-07-03] MEDS: ACCU-CHEK COMFORT CURVE STRIP VI SCH ×3 (06:14→17:22)
[2022-07-03 06:15] LABS: Red Cell Distribution Width 20.2 % (11.8-14.3)
[2022-07-03 06:17] LABS: Basophils % (manual) 0 (0.0-2.0); Blast Cells 0; Eosinophils % (manual) 0 (0-7); Metamyelocytes % 0; Myelocytes % 0; Promyelocytes % 0; Reactive Lymphocytes 0
[2022-07-03 06:23] LABS: BUN/Creatinine Ratio 73.1; Calcium 7.7 mg/dL (8.5-10.1)
[2022-07-03] MEDS: BUDESONIDE (INHALATION) 0.5 MG/2 ML NEB NEB SCH ×2 (06:51→18:34)
[2022-07-03 08:22] LABS: Band Neutrophils % (manual) 24; Lymphocytes % (manual) 6 (10.0-50.0); Monocytes % (manual) 5 (0-12)
[2022-07-03] MEDS: LACOSAMIDE 50 MG in SODIUM CHL 0.9% 50 ML IV SCH (09:27)
[2022-07-03] MEDS: DexAMETHasone SOD PHOS 10MG/1ML VIAL INJ IV SCH (10:11)
[2022-07-03] MEDS: PANTOPRAZOLE 40 MG/10 ML VIAL INJ IV SCH (10:11)
[2022-07-03] MEDS: FUROSEMIDE 20 MG/2 ML VIAL IV SCH (10:12)
[2022-07-03] MEDS: MIDAZOLAM DRIP 50 mg/50mL 50 ML IV SCH (12:45)
[2022-07-03] MEDS ORDERED: SODIUM CHL 0.9% IV SCH (20:00)
[2022-07-03] MEDS ORDERED: LACOSAMIDE IV SCH (20:00)
[2022-07-03] MEDS: SODIUM CHL 0.9% IV SCH (20:33)
[2022-07-03] MEDS: VALPROATE IV SCH (20:33)
[2022-07-04] VITALS (110 sets, daily range): BP systolic 83–184; BP diastolic 51–105
[2022-07-04] MEDS: METOCLOPRAMIDE HCL 5MG/ml INJ 2ml VIAL IV SCH ×4 (00:02→20:57)
[2022-07-04] MEDS: LACOSAMIDE IV SCH ×4 (00:02→22:53)
[2022-07-04] MEDS: SODIUM CHL 0.9% IV SCH ×7 (00:02→22:53)
[2022-07-04] MEDS: FREE WATER GT SCH ×4 (00:03→17:45)
[2022-07-04] MEDS: ACCU-CHEK COMFORT CURVE STRIP VI SCH ×4 (00:04→17:45)
[2022-07-04] MEDS: ALBUTEROL MEDNEB 2.5 mg/3ml NEB NEB SCH ×6 (03:18→22:01)
[2022-07-04] MEDS: IPRATROPIUM BROM 0.5 MG/2.5ML INH SOL NEB SCH ×6 (03:19→22:01)
[2022-07-04] MEDS: fentaNYL Drip 2500mCg/250mlNS 250 ML IV SCH (03:20)
[2022-07-04] MEDS: VALPROATE IV SCH ×3 (04:13→20:00)
[2022-07-04 05:20] LABS: Basophils # (auto) 0 10 ^3/uL (0-0.2); Eosinophils # (auto) 0 10 ^3/uL (0-0.8); Neutrophils % (auto) 86.6 % (37.0-80.0); Red Cell Distribution Width 19.7 % (11.8-14.3)
[2022-07-04 05:23] LABS: Basophils % (auto) 0.1 % (0.0-2.0); Hematocrit 20.7 % (41.0-53.0); Lymphocytes % (auto) 6.9 % (10.0-50.0); Mean Corpuscular Hemoglobin 29.7 pg (28.0-32.0); Mean Corpuscular Hgb Conc. 33.7 g/dL (32.0-36.0); Monocytes % (auto) 6.4 % (0.0-12.0); Nucleated Red Blood Cells % 0.1 %; Red Blood Cells 2.36 10^6/uL (4.5-5.90)
[2022-07-04] MEDS: InsuLIN REG 1unit/0.01ml Soln (100units/ml) SC SCH ×4 (06:00→17:48)
[2022-07-04] MEDS: BUDESONIDE (INHALATION) 0.5 MG/2 ML NEB NEB SCH ×2 (06:39→18:15)
[2022-07-04] MEDS ORDERED: LORazepam 2MG/ML-1ML VIAL IV PRN (09:45)
[2022-07-04] MEDS: PANTOPRAZOLE 40 MG/10 ML VIAL INJ IV SCH (11:38)
[2022-07-04] MEDS: DexAMETHasone SOD PHOS 10MG/1ML VIAL INJ IV SCH (11:39)
[2022-07-04] MEDS: FUROSEMIDE 20 MG/2 ML VIAL IV SCH (12:03)
[2022-07-04] MEDS: MIDAZOLAM DRIP 50 mg/50mL 50 ML IV SCH (12:20)
[2022-07-04 12:28] LABS: Hematocrit 19.2 % (41.0-53.0)
[2022-07-04 12:46] LABS: INR 1.73 (0.9-1.15); Partial Thromboplastin Time 43.2 sec (24.6-33.4)
[2022-07-04 13:00] LABS: Hemoglobin 6.5 g/dL (13.5-17.5)
[2022-07-04] MEDS: NOREPINEPHRINE 8 MG/250ML KIT 250 ML IV SCH ×2 (14:00→23:59)
[2022-07-05] VITALS (105 sets, daily range): BP systolic 87–151; BP diastolic 57–102
[2022-07-05] MEDS: IPRATROPIUM BROM 0.5 MG/2.5ML INH SOL NEB SCH ×6 (02:03→22:32)
[2022-07-05] MEDS: ALBUTEROL MEDNEB 2.5 mg/3ml NEB NEB SCH ×6 (02:03→22:32)
[2022-07-05] MEDS: SODIUM CHL 0.9% IV SCH ×5 (05:06→21:08)
[2022-07-05] MEDS: METOCLOPRAMIDE HCL 5MG/ml INJ 2ml VIAL IV SCH ×3 (05:06→21:09)
[2022-07-05] MEDS: VALPROATE IV SCH ×3 (05:06→19:56)
[2022-07-05] MEDS: FREE WATER GT SCH ×4 (05:06→17:35)
[2022-07-05 05:25] LABS: Eosinophils # (auto) 0 10 ^3/uL (0-0.8); Hemoglobin 8.8 g/dL (13.5-17.5); Lymphocytes # (auto) 0.8 10 ^3/uL (0.4-5.4); Monocytes # (auto) 1.1 10 ^3/uL (0-1.3)
[2022-07-05 05:29] LABS: Basophils # (auto) 0.1 10 ^3/uL (0-0.2); Basophils % (auto) 0.4 % (0.0-2.0); Hematocrit 26.1 % (41.0-53.0); Lymphocytes % (auto) 5.4 % (10.0-50.0); Mean Corpuscular Hemoglobin 29.4 pg (28.0-32.0); Mean Corpuscular Hgb Conc. 33.5 g/dL (32.0-36.0); Mean Corpuscular Volume 87.7 fL (80.0-100.0); Monocytes % (auto) 7.6 % (0.0-12.0); Neutrophils # (auto) 12.8 10 ^3/uL (1.6-8.6); Neutrophils % (auto) 86.6 % (37.0-80.0); Red Blood Cells 2.98 10^6/uL (4.5-5.90); Red Cell Distribution Width 18.4 % (11.8-14.3); White Blood Cell 14.7 10^3/uL (4.4-10.8)
[2022-07-05 05:39] LABS: BUN/Creatinine Ratio 71.4; Calcium 8.1 mg/dL (8.5-10.1); Magnesium 2.5 mg/dL (1.6-2.6); Potassium 3.4 mmol/L (3.5-5.1)
[2022-07-05] MEDS: ACCU-CHEK COMFORT CURVE STRIP VI SCH ×4 (05:59→17:35)
[2022-07-05] MEDS: InsuLIN REG 1unit/0.01ml Soln (100units/ml) SC SCH ×4 (05:59→18:00)
[2022-07-05] MEDS: fentaNYL Drip 2500mCg/250mlNS 250 ML IV SCH (06:18)
[2022-07-05] MEDS: LACOSAMIDE IV SCH ×2 (08:30→21:08)
[2022-07-05] MEDS: BUDESONIDE (INHALATION) 0.5 MG/2 ML NEB NEB SCH ×2 (10:00→22:32)
[2022-07-05] MEDS: PANTOPRAZOLE 40 MG/10 ML VIAL INJ IV SCH (11:37)
[2022-07-05] MEDS: FUROSEMIDE 20 MG/2 ML VIAL IV SCH (11:38)
[2022-07-05] MEDS: DexAMETHasone SOD PHOS 10MG/1ML VIAL INJ IV SCH (11:38)
[2022-07-05] MEDS: MIDAZOLAM DRIP 50 mg/50mL 50 ML IV SCH (12:45)
[2022-07-06] VITALS (102 sets, daily range): BP systolic 85–165; BP diastolic 53–105
[2022-07-06] MEDS: ACCU-CHEK COMFORT CURVE STRIP VI SCH ×4 (00:27→17:13)
[2022-07-06] MEDS: FREE WATER GT SCH ×4 (00:27→17:13)
[2022-07-06] MEDS: ALBUTEROL MEDNEB 2.5 mg/3ml NEB NEB SCH ×6 (02:17→22:57)
[2022-07-06] MEDS: IPRATROPIUM BROM 0.5 MG/2.5ML INH SOL NEB SCH ×6 (02:17→22:57)
[2022-07-06] MEDS: VALPROATE IV SCH ×3 (04:28→20:14)
[2022-07-06] MEDS: SODIUM CHL 0.9% IV SCH ×5 (04:28→21:54)
[2022-07-06] MEDS: InsuLIN REG 1unit/0.01ml Soln (100units/ml) SC SCH ×4 (06:00→17:40)
[2022-07-06] MEDS: METOCLOPRAMIDE HCL 5MG/ml INJ 2ml VIAL IV SCH ×3 (06:11→22:27)
[2022-07-06 06:33] LABS: Basophils # (auto) 0.1 10 ^3/uL (0-0.2); Eosinophils # (auto) 0 10 ^3/uL (0-0.8); Neutrophils # (auto) 9.3 10 ^3/uL (1.6-8.6)
[2022-07-06 06:37] LABS: Basophils % (auto) 0.5 % (0.0-2.0); Hematocrit 23.3 % (41.0-53.0); Hemoglobin 7.9 g/dL (13.5-17.5); Lymphocytes # (auto) 0.9 10 ^3/uL (0.4-5.4); Lymphocytes % (auto) 8.4 % (10.0-50.0); Mean Corpuscular Hemoglobin 29.9 pg (28.0-32.0); Mean Corpuscular Hgb Conc. 33.8 g/dL (32.0-36.0); Mean Corpuscular Volume 88.6 fL (80.0-100.0); Monocytes # (auto) 0.9 10 ^3/uL (0-1.3); Monocytes % (auto) 8.4 % (0.0-12.0); Neutrophils % (auto) 82.7 % (37.0-80.0); Red Blood Cells 2.63 10^6/uL (4.5-5.90); Red Cell Distribution Width 18.6 % (11.8-14.3); White Blood Cell 11.2 10^3/uL (4.4-10.8)
[2022-07-06 07:11] LABS: Potassium 3.9 mmol/L (3.5-5.1)
[2022-07-06 07:20] LABS: BUN/Creatinine Ratio 75.4; Calcium 7.1 mg/dL (8.5-10.1)
[2022-07-06] MEDS: FUROSEMIDE 20 MG/2 ML VIAL IV SCH (09:25)
[2022-07-06] MEDS: PANTOPRAZOLE 40 MG/10 ML VIAL INJ IV SCH (09:25)
[2022-07-06] MEDS: LACOSAMIDE IV SCH ×2 (09:25→21:54)
[2022-07-06] MEDS: BUDESONIDE (INHALATION) 0.5 MG/2 ML NEB NEB SCH ×2 (10:04→19:31)
[2022-07-06] MEDS: MIDAZOLAM DRIP 50 mg/50mL 50 ML IV SCH (11:15)
[2022-07-06] MEDS: fentaNYL Drip 2500mCg/250mlNS 250 ML IV SCH (11:15)
[2022-07-06] MEDS: NOREPINEPHRINE 8 MG/250ML KIT 250 ML IV SCH (11:17)
[2022-07-06] MEDS: LACOSAMIDE 100 MG in SODIUM CHL 0.9% 100 ML IV SCH (22:15)
[2022-07-07] VITALS (104 sets, daily range): BP systolic 85–143; BP diastolic 45–85
[2022-07-07] MEDS: IPRATROPIUM BROM 0.5 MG/2.5ML INH SOL NEB SCH ×6 (03:07→23:21)
[2022-07-07] MEDS: ALBUTEROL MEDNEB 2.5 mg/3ml NEB NEB SCH ×6 (03:07→23:21)
[2022-07-07 05:23] LABS: Basophils # (auto) 0 10 ^3/uL (0-0.2); Basophils % (auto) 0.1 % (0.0-2.0); Eosinophils # (auto) 0 10 ^3/uL (0-0.8); Eosinophils % (auto) 0.1 % (0.0-7.0); Hematocrit 23.2 % (41.0-53.0); Hemoglobin 7.6 g/dL (13.5-17.5); Lymphocytes # (auto) 1.2 10 ^3/uL (0.4-5.4); Lymphocytes % (auto) 9.6 % (10.0-50.0); Mean Corpuscular Hemoglobin 29.2 pg (28.0-32.0); Mean Corpuscular Hgb Conc. 32.8 g/dL (32.0-36.0); Mean Corpuscular Volume 89.2 fL (80.0-100.0); Monocytes # (auto) 1.2 10 ^3/uL (0-1.3); Monocytes % (auto) 9.4 % (0.0-12.0); Neutrophils # (auto) 10.6 10 ^3/uL (1.6-8.6); Neutrophils % (auto) 80.8 % (37.0-80.0); Nucleated Red Blood Cells % 0.1 %; Red Cell Distribution Width 18.5 % (11.8-14.3); White Blood Cell 13.1 10^3/uL (4.4-10.8)
[2022-07-07] MEDS: InsuLIN REG 1unit/0.01ml Soln (100units/ml) SC SCH ×4 (06:00→17:33)
[2022-07-07] MEDS: fentaNYL Drip 2500mCg/250mlNS 250 ML IV SCH (06:00)
[2022-07-07 06:08] LABS: BUN/Creatinine Ratio 85.1; Calcium 7.8 mg/dL (8.5-10.1)
[2022-07-07] MEDS: FREE WATER GT SCH ×4 (06:08→17:33)
[2022-07-07] MEDS: ACCU-CHEK COMFORT CURVE STRIP VI SCH ×4 (06:08→17:33)
[2022-07-07] MEDS: METOCLOPRAMIDE HCL 5MG/ml INJ 2ml VIAL IV SCH ×3 (06:08→23:00)
[2022-07-07] MEDS: BUDESONIDE (INHALATION) 0.5 MG/2 ML NEB NEB SCH ×2 (06:10→23:21)
[2022-07-07 06:27] LABS: Potassium 2.9 mmol/L (3.5-5.1)
[2022-07-07] MEDS: POTASSIUM CHL 20MEQ/100ML 100 ML IV SCH ×2 (07:53→10:33)
[2022-07-07] MEDS: FUROSEMIDE 20 MG/2 ML VIAL IV SCH (07:54)
[2022-07-07] MEDS: PANTOPRAZOLE 40 MG/10 ML VIAL INJ IV SCH (07:54)
[2022-07-07] MEDS: levoFLOXacin 500MG 100 ML IV SCH (10:00)
[2022-07-07] MEDS: LACOSAMIDE 100 MG in SODIUM CHL 0.9% 100 ML IV SCH ×2 (10:33→20:18)
[2022-07-07] MEDS: MIDAZOLAM DRIP 50 mg/50mL 50 ML IV SCH (10:53)
[2022-07-07] MEDS: NOREPINEPHRINE 8 MG/250ML KIT 250 ML IV SCH (10:53)
[2022-07-07 12:12] LABS: Urine Bacteria NONE SEEN /hpf (None Seen); Urine Blood TRACE /uL (Negative); Urine Budding Yeast MANY /hpf (None Seen); Urine Specific Gravity 1.013 (1.001-1.035); Urine WBC 13 /hpf (0 - 3)
[2022-07-08] VITALS (103 sets, daily range): BP systolic 91–132; BP diastolic 55–87
[2022-07-08] MEDS: ACCU-CHEK COMFORT CURVE STRIP VI SCH ×4 (00:35→18:21)
[2022-07-08] MEDS: FREE WATER GT SCH ×4 (00:35→18:21)
[2022-07-08] MEDS: InsuLIN REG 1unit/0.01ml Soln (100units/ml) SC SCH ×4 (00:36→18:00)
[2022-07-08] MEDS: ALBUTEROL MEDNEB 2.5 mg/3ml NEB NEB SCH ×6 (02:01→22:07)
[2022-07-08] MEDS: IPRATROPIUM BROM 0.5 MG/2.5ML INH SOL NEB SCH ×6 (02:01→22:07)
[2022-07-08] MEDS: fentaNYL Drip 2500mCg/250mlNS 250 ML IV SCH (04:04)
[2022-07-08 04:51] LABS: Basophils # (auto) 0 10 ^3/uL (0-0.2); Eosinophils # (auto) 0 10 ^3/uL (0-0.8); Eosinophils % (auto) 0.2 % (0.0-7.0); Monocytes # (auto) 1.1 10 ^3/uL (0-1.3); Red Cell Distribution Width 19.2 % (11.8-14.3)
[2022-07-08 04:52] LABS: Basophils % (auto) 0.3 % (0.0-2.0); Hematocrit 23.5 % (41.0-53.0); Hemoglobin 7.6 g/dL (13.5-17.5); Lymphocytes # (auto) 1.3 10 ^3/uL (0.4-5.4); Lymphocytes % (auto) 9.8 % (10.0-50.0); Mean Corpuscular Hemoglobin 29.1 pg (28.0-32.0); Mean Corpuscular Hgb Conc. 32.3 g/dL (32.0-36.0); Mean Corpuscular Volume 90.1 fL (80.0-100.0); Monocytes % (auto) 8.2 % (0.0-12.0); Neutrophils # (auto) 10.7 10 ^3/uL (1.6-8.6); Neutrophils % (auto) 81.5 % (37.0-80.0); Red Blood Cells 2.61 10^6/uL (4.5-5.90); White Blood Cell 13.2 10^3/uL (4.4-10.8)
[2022-07-08 05:01] LABS: Albumin 1.9 g/dL (3.4-5.0); BUN/Creatinine Ratio 79.5; Calcium 7.6 mg/dL (8.5-10.1); Potassium 3.2 mmol/L (3.5-5.1)
[2022-07-08 05:04] LABS: Bilirubin, Total 3.1 mg/dL (0.2-1.0); Total Protein 5.9 g/dL (6.4-8.2)
[2022-07-08] MEDS: METOCLOPRAMIDE HCL 5MG/ml INJ 2ml VIAL IV SCH ×3 (06:13→21:42)
[2022-07-08] MEDS: LACOSAMIDE 100 MG in SODIUM CHL 0.9% 100 ML IV SCH (08:53)
[2022-07-08] MEDS: PANTOPRAZOLE 40 MG/10 ML VIAL INJ IV SCH (09:45)
[2022-07-08] MEDS: levoFLOXacin 500MG 100 ML IV SCH (09:45)
[2022-07-08] MEDS: FUROSEMIDE 20 MG/2 ML VIAL IV SCH (09:46)
[2022-07-08] MEDS: BUDESONIDE (INHALATION) 0.5 MG/2 ML NEB NEB SCH ×2 (10:16→22:07)
[2022-07-08] MEDS: MIDAZOLAM DRIP 50 mg/50mL 50 ML IV SCH (12:45)
[2022-07-08] MEDS: POTASSIUM CHLORIDE 40 MEQ in D5W 5% 1,000 ML IV SCH ×2 (12:55→22:53)
[2022-07-08] MEDS: NOREPINEPHRINE 8 MG/250ML KIT 250 ML IV SCH (14:00)
[2022-07-08] MEDS: LACOSAMIDE 50 MG TAB GT SCH (21:42)
[2022-07-08] MEDS: levETIRAcetam 500 MG/5ML ORAL SOLN UD GT SCH (21:42)
[2022-07-08] MEDS: LACTULOSE 20Gm/30ML SOLN GT PRN (21:43)
[2022-07-09] VITALS (106 sets, daily range): BP systolic 84–126; BP diastolic 52–86
[2022-07-09] MEDS: ACCU-CHEK COMFORT CURVE STRIP VI SCH ×2 (00:30→06:21)
[2022-07-09] MEDS: FREE WATER GT SCH ×4 (00:30→17:43)
[2022-07-09] MEDS: InsuLIN REG 1unit/0.01ml Soln (100units/ml) SC SCH ×2 (00:30→06:00)
[2022-07-09] MEDS: IPRATROPIUM BROM 0.5 MG/2.5ML INH SOL NEB SCH ×6 (02:12→22:40)
[2022-07-09] MEDS: ALBUTEROL MEDNEB 2.5 mg/3ml NEB NEB SCH ×6 (02:12→22:40)
[2022-07-09] MEDS: METOCLOPRAMIDE HCL 5MG/ml INJ 2ml VIAL IV SCH ×3 (06:00→22:09)
[2022-07-09] MEDS: BUDESONIDE (INHALATION) 0.5 MG/2 ML NEB NEB SCH ×2 (06:14→18:54)
[2022-07-09] MEDS: FUROSEMIDE 20 MG/2 ML VIAL IV SCH (09:24)
[2022-07-09] MEDS: POTASSIUM CHLORIDE 40 MEQ in D5W 5% 1,000 ML IV SCH ×3 (09:25→21:21)
[2022-07-09] MEDS: levETIRAcetam 500 MG/5ML ORAL SOLN UD GT SCH ×2 (09:25→22:08)
[2022-07-09] MEDS: levoFLOXacin 500MG 100 ML IV SCH (09:25)
[2022-07-09] MEDS: PANTOPRAZOLE 40 MG/10 ML VIAL INJ IV SCH (09:25)
[2022-07-09] MEDS: LACOSAMIDE 50 MG TAB GT SCH ×2 (10:00→22:08)
[2022-07-09 11:30] LABS: Hematocrit 25.9 % (41.0-53.0); Hemoglobin 8.5 g/dL (13.5-17.5); Mean Corpuscular Hemoglobin 30.6 pg (28.0-32.0); Mean Corpuscular Hgb Conc. 32.6 g/dL (32.0-36.0); Red Blood Cells 2.76 10^6/uL (4.5-5.90); White Blood Cell 9.6 10^3/uL (4.4-10.8)
[2022-07-09 11:39] LABS: Basophils % (manual) 0 (0.0-2.0); Blast Cells 0; Eosinophils % (manual) 0 (0-7); Myelocytes % 0; Promyelocytes % 0
[2022-07-09 11:58] LABS: Calcium 8.1 mg/dL (8.5-10.1); Potassium 4.1 mmol/L (3.5-5.1)
[2022-07-09 12:01] LABS: BUN/Creatinine Ratio 71.4
[2022-07-09 12:03] LABS: Band Neutrophils % (manual) 20; Lymphocytes % (manual) 10 (10.0-50.0); Metamyelocytes % 2; Monocytes % (manual) 7 (0-12); Reactive Lymphocytes 2
[2022-07-09] MEDS: MIDAZOLAM DRIP 50 mg/50mL 50 ML IV SCH (12:45)
[2022-07-09] MEDS: fentaNYL Drip 2500mCg/250mlNS 250 ML IV SCH (12:45)
[2022-07-09] MEDS: NOREPINEPHRINE 8 MG/250ML KIT 250 ML IV SCH (13:56)
[2022-07-10] VITALS (106 sets, daily range): BP systolic 84–146; BP diastolic 24–90
[2022-07-10] MEDS: IPRATROPIUM BROM 0.5 MG/2.5ML INH SOL NEB SCH ×6 (02:06→22:05)
[2022-07-10] MEDS: ALBUTEROL MEDNEB 2.5 mg/3ml NEB NEB SCH ×5 (02:06→22:05)
[2022-07-10] MEDS: fentaNYL Drip 2500mCg/250mlNS 250 ML IV SCH (04:42)
[2022-07-10] MEDS: METOCLOPRAMIDE HCL 5MG/ml INJ 2ml VIAL IV SCH ×3 (05:24→22:28)
[2022-07-10] MEDS: FREE WATER GT SCH ×5 (05:24→23:38)
[2022-07-10] MEDS: BUDESONIDE (INHALATION) 0.5 MG/2 ML NEB NEB SCH (06:21)
[2022-07-10 06:40] LABS: Basophils # (auto) 0.1 10 ^3/uL (0-0.2); Basophils % (auto) 0.6 % (0.0-2.0); Eosinophils # (auto) 0.1 10 ^3/uL (0-0.8); Eosinophils % (auto) 1.4 % (0.0-7.0); Hematocrit 17.6 % (41.0-53.0); Lymphocytes # (auto) 1.2 10 ^3/uL (0.4-5.4); Lymphocytes % (auto) 12.8 % (10.0-50.0); Mean Corpuscular Hemoglobin 30.5 pg (28.0-32.0); Mean Corpuscular Hgb Conc. 33.6 g/dL (32.0-36.0); Mean Corpuscular Volume 90.6 fL (80.0-100.0); Neutrophils % (auto) 74.2 % (37.0-80.0); Red Blood Cells 1.95 10^6/uL (4.5-5.90); White Blood Cell 9.4 10^3/uL (4.4-10.8)
[2022-07-10 06:42] LABS: Red Cell Distribution Width 21.3 % (11.8-14.3)
[2022-07-10 06:44] LABS: Hemoglobin 5.9 g/dL (13.5-17.5)
[2022-07-10 07:01] LABS: BUN/Creatinine Ratio 54.5; Potassium 3.9 mmol/L (3.5-5.1)
[2022-07-10] MEDS: POTASSIUM CHLORIDE 40 MEQ in D5W 5% 1,000 ML IV SCH (07:45)
[2022-07-10] MEDS: LACOSAMIDE 50 MG TAB GT SCH ×3 (09:14→22:27)
[2022-07-10] MEDS: FUROSEMIDE 20 MG/2 ML VIAL IV SCH (09:15)
[2022-07-10] MEDS: PANTOPRAZOLE 40 MG/10 ML VIAL INJ IV SCH (09:15)
[2022-07-10] MEDS: levETIRAcetam 500 MG/5ML ORAL SOLN UD GT SCH ×2 (09:16→22:29)
[2022-07-10] MEDS: MIDAZOLAM DRIP 50 mg/50mL 50 ML IV SCH ×3 (12:45→23:29)
[2022-07-10] MEDS: NOREPINEPHRINE 8 MG/250ML KIT 250 ML IV SCH ×2 (14:00→23:17)
[2022-07-10] MEDS ORDERED: LORazepam 2MG/ML-1ML VIAL ONE (18:48)
[2022-07-10] MEDS: LORazepam 2MG/ML-1ML VIAL IV PRN (19:01)
[2022-07-11] VITALS (106 sets, daily range): BP systolic 99–135; BP diastolic 63–87
[2022-07-11] MEDS: ALBUTEROL MEDNEB 2.5 mg/3ml NEB NEB SCH ×5 (02:02→18:43)
[2022-07-11] MEDS: IPRATROPIUM BROM 0.5 MG/2.5ML INH SOL NEB SCH ×5 (02:03→18:43)
[2022-07-11] MEDS: BUDESONIDE (INHALATION) 0.5 MG/2 ML NEB NEB SCH ×3 (02:03→18:43)
[2022-07-11 05:14] LABS: Basophils # (auto) 0 10 ^3/uL (0-0.2); Basophils % (auto) 0.3 % (0.0-2.0); Eosinophils # (auto) 0.1 10 ^3/uL (0-0.8); Eosinophils % (auto) 1.1 % (0.0-7.0); Hematocrit 28.5 % (41.0-53.0); Hemoglobin 9.8 g/dL (13.5-17.5); Lymphocytes % (auto) 10.9 % (10.0-50.0); Mean Corpuscular Hemoglobin 30.2 pg (28.0-32.0); Mean Corpuscular Hgb Conc. 34.4 g/dL (32.0-36.0); Monocytes # (auto) 1.1 10 ^3/uL (0-1.3); Monocytes % (auto) 12.3 % (0.0-12.0); Neutrophils # (auto) 6.6 10 ^3/uL (1.6-8.6); Neutrophils % (auto) 75.4 % (37.0-80.0); Nucleated Red Blood Cells % 0.1 %; Red Blood Cells 3.24 10^6/uL (4.5-5.90); Red Cell Distribution Width 19.5 % (11.8-14.3); White Blood Cell 8.8 10^3/uL (4.4-10.8)
[2022-07-11 05:28] LABS: BUN/Creatinine Ratio 46.7; Calcium 8.1 mg/dL (8.5-10.1); Potassium 3.6 mmol/L (3.5-5.1)
[2022-07-11] MEDS: METOCLOPRAMIDE HCL 5MG/ml INJ 2ml VIAL IV SCH ×3 (05:56→22:10)
[2022-07-11] MEDS: FREE WATER GT SCH ×3 (05:56→17:41)
[2022-07-11] MEDS: PANTOPRAZOLE 40 MG/10 ML VIAL INJ IV SCH (09:59)
[2022-07-11] MEDS: LACOSAMIDE 50 MG TAB GT SCH ×2 (09:59→22:10)
[2022-07-11] MEDS: FUROSEMIDE 20 MG/2 ML VIAL IV SCH (10:00)
[2022-07-11] MEDS: levETIRAcetam 500 MG/5ML ORAL SOLN UD GT SCH ×2 (10:01→22:11)
[2022-07-12] VITALS (106 sets, daily range): BP systolic 93–127; BP diastolic 54–87
[2022-07-12] MEDS: IPRATROPIUM BROM 0.5 MG/2.5ML INH SOL NEB SCH ×7 (00:27→22:21)
[2022-07-12] MEDS: ALBUTEROL MEDNEB 2.5 mg/3ml NEB NEB SCH ×7 (00:27→22:21)
[2022-07-12] MEDS: FREE WATER GT SCH ×2 (02:02→05:39)
[2022-07-12] MEDS: NOREPINEPHRINE 8 MG/250ML KIT 250 ML IV SCH (03:48)
[2022-07-12] MEDS: fentaNYL Drip 2500mCg/250mlNS 250 ML IV SCH ×2 (04:00→12:45)
[2022-07-12] MEDS: METOCLOPRAMIDE HCL 5MG/ml INJ 2ml VIAL IV SCH ×3 (05:39→21:55)
[2022-07-12 06:29] LABS: Potassium 3.4 mmol/L (3.5-5.1)
[2022-07-12 06:36] LABS: BUN/Creatinine Ratio 51.3
[2022-07-12 06:48] LABS: Basophils # (auto) 0 10 ^3/uL (0-0.2); Basophils % (auto) 0.5 % (0.0-2.0); Eosinophils # (auto) 0.1 10 ^3/uL (0-0.8); Hematocrit 25.3 % (41.0-53.0); Hemoglobin 8.9 g/dL (13.5-17.5); Lymphocytes # (auto) 0.7 10 ^3/uL (0.4-5.4); Lymphocytes % (auto) 9.3 % (10.0-50.0); Mean Corpuscular Hemoglobin 30.8 pg (28.0-32.0); Mean Corpuscular Volume 88.1 fL (80.0-100.0); Monocytes % (auto) 13.8 % (0.0-12.0); Neutrophils # (auto) 5.6 10 ^3/uL (1.6-8.6); Neutrophils % (auto) 75.4 % (37.0-80.0); Nucleated Red Blood Cells % 0.1 %; Red Blood Cells 2.87 10^6/uL (4.5-5.90); White Blood Cell 7.5 10^3/uL (4.4-10.8)
[2022-07-12 07:44] LABS: Red Cell Distribution Width 21.2 % (11.8-14.3)
[2022-07-12] MEDS: LACTULOSE 20Gm/30ML SOLN GT PRN (08:43)
[2022-07-12] MEDS: FUROSEMIDE 20 MG/2 ML VIAL IV SCH (08:43)
[2022-07-12] MEDS: levETIRAcetam 500 MG/5ML ORAL SOLN UD GT SCH ×2 (08:45→22:02)
[2022-07-12] MEDS: BUDESONIDE (INHALATION) 0.5 MG/2 ML NEB NEB SCH ×2 (10:47→22:21)
[2022-07-12] MEDS: LACOSAMIDE 50 MG TAB GT SCH ×2 (12:11→21:55)
[2022-07-12] MEDS: MIDAZOLAM DRIP 50 mg/50mL 50 ML IV SCH (12:45)
[2022-07-13] VITALS (103 sets, daily range): BP systolic 89–141; BP diastolic 54–116
[2022-07-13] MEDS: IPRATROPIUM BROM 0.5 MG/2.5ML INH SOL NEB SCH ×6 (02:24→22:16)
[2022-07-13] MEDS: ALBUTEROL MEDNEB 2.5 mg/3ml NEB NEB SCH ×6 (02:24→22:16)
[2022-07-13] MEDS: LACTULOSE 20Gm/30ML SOLN GT PRN (03:00)
[2022-07-13 05:37] LABS: Hematocrit 28.1 % (41.0-53.0); Hemoglobin 9.5 g/dL (13.5-17.5); Mean Corpuscular Hemoglobin 29.7 pg (28.0-32.0); Mean Corpuscular Hgb Conc. 33.7 g/dL (32.0-36.0); Mean Corpuscular Volume 88.1 fL (80.0-100.0); Red Blood Cells 3.19 10^6/uL (4.5-5.90); White Blood Cell 7.8 10^3/uL (4.4-10.8)
[2022-07-13 05:51] LABS: Calcium 7.9 mg/dL (8.5-10.1)
[2022-07-13 05:54] LABS: BUN/Creatinine Ratio 52.5; Red Cell Distribution Width 21.9 % (11.8-14.3)
[2022-07-13] MEDS: BUDESONIDE (INHALATION) 0.5 MG/2 ML NEB NEB SCH ×2 (05:58→18:30)
[2022-07-13 06:03] LABS: Potassium 2.7 mmol/L (3.5-5.1)
[2022-07-13] MEDS: METOCLOPRAMIDE HCL 5MG/ml INJ 2ml VIAL IV SCH ×3 (06:14→21:40)
[2022-07-13] MEDS: POTASSIUM CHL 20MEQ/100ML 100 ML IV SCH ×3 (06:49→10:19)
[2022-07-13 08:51] LABS: Basophils % (manual) 0 (0.0-2.0); Blast Cells 0; Eosinophils % (manual) 0 (0-7); Myelocytes % 0; Promyelocytes % 0; Reactive Lymphocytes 0
[2022-07-13 08:52] LABS: Band Neutrophils % (manual) 2; Lymphocytes % (manual) 7 (10.0-50.0); Metamyelocytes % 2; Monocytes % (manual) 10 (0-12)
[2022-07-13] MEDS: LACOSAMIDE 50 MG TAB GT SCH ×2 (10:18→21:40)
[2022-07-13] MEDS: FUROSEMIDE 20 MG/2 ML VIAL IV SCH (10:18)
[2022-07-13] MEDS ORDERED: LACOSAMIDE 50 MG TAB ONE (10:18)
[2022-07-13] MEDS: levETIRAcetam 500 MG/5ML ORAL SOLN UD GT SCH ×2 (10:19→21:41)
[2022-07-13] MEDS: NOREPINEPHRINE 8 MG/250ML KIT 250 ML IV SCH (10:20)
[2022-07-13] MEDS: fentaNYL Drip 2500mCg/250mlNS 250 ML IV SCH (10:20)
[2022-07-13] MEDS: MIDAZOLAM DRIP 50 mg/50mL 50 ML IV SCH (10:20)
[2022-07-14] VITALS (106 sets, daily range): BP systolic 82–131; BP diastolic 48–100
[2022-07-14] MEDS: IPRATROPIUM BROM 0.5 MG/2.5ML INH SOL NEB SCH ×6 (02:15→22:37)
[2022-07-14] MEDS: ALBUTEROL MEDNEB 2.5 mg/3ml NEB NEB SCH ×6 (02:15→22:37)
[2022-07-14 05:54] LABS: BUN/Creatinine Ratio 52.6; Calcium 8.1 mg/dL (8.5-10.1); Potassium 3.4 mmol/L (3.5-5.1)
[2022-07-14] MEDS: METOCLOPRAMIDE HCL 5MG/ml INJ 2ml VIAL IV SCH ×3 (05:54→23:06)
[2022-07-14] MEDS: levETIRAcetam 500 MG/5ML ORAL SOLN UD GT SCH ×2 (09:34→23:09)
[2022-07-14] MEDS: LACOSAMIDE 50 MG TAB GT SCH ×2 (09:34→23:06)
[2022-07-14] MEDS: MIDAZOLAM DRIP 50 mg/50mL 50 ML IV SCH (09:35)
[2022-07-14] MEDS: fentaNYL Drip 2500mCg/250mlNS 250 ML IV SCH (09:35)
[2022-07-14] MEDS: FUROSEMIDE 20 MG/2 ML VIAL IV SCH (09:35)
[2022-07-14] MEDS: NOREPINEPHRINE 8 MG/250ML KIT 250 ML IV SCH (09:36)
[2022-07-14] MEDS: BUDESONIDE (INHALATION) 0.5 MG/2 ML NEB NEB SCH ×2 (10:17→18:18)
[2022-07-15] VITALS (80 sets, daily range): BP systolic 88–124; BP diastolic 55–85
[2022-07-15] MEDS: ALBUTEROL MEDNEB 2.5 mg/3ml NEB NEB SCH ×6 (02:01→22:16)
[2022-07-15] MEDS: IPRATROPIUM BROM 0.5 MG/2.5ML INH SOL NEB SCH ×6 (02:01→22:16)
[2022-07-15 05:52] LABS: Basophils # (auto) 0 10 ^3/uL (0-0.2); Basophils % (auto) 0.7 % (0.0-2.0); Eosinophils # (auto) 0.1 10 ^3/uL (0-0.8); Eosinophils % (auto) 1.2 % (0.0-7.0); Hematocrit 24.3 % (41.0-53.0); Hemoglobin 8.8 g/dL (13.5-17.5); Lymphocytes # (auto) 0.9 10 ^3/uL (0.4-5.4); Lymphocytes % (auto) 13.7 % (10.0-50.0); Mean Corpuscular Hemoglobin 31.6 pg (28.0-32.0); Mean Corpuscular Hgb Conc. 36.2 g/dL (32.0-36.0); Mean Corpuscular Volume 87.4 fL (80.0-100.0); Monocytes # (auto) 0.7 10 ^3/uL (0-1.3); Monocytes % (auto) 11.5 % (0.0-12.0); Neutrophils # (auto) 4.7 10 ^3/uL (1.6-8.6); Neutrophils % (auto) 72.9 % (37.0-80.0); Nucleated Red Blood Cells % 0.1 %; Red Blood Cells 2.78 10^6/uL (4.5-5.90); White Blood Cell 6.4 10^3/uL (4.4-10.8)
[2022-07-15 05:58] LABS: Red Cell Distribution Width 22.9 % (11.8-14.3)
[2022-07-15 06:00] LABS: BUN/Creatinine Ratio 52.8; Calcium 8.1 mg/dL (8.5-10.1); Potassium 3.3 mmol/L (3.5-5.1)
[2022-07-15] MEDS: METOCLOPRAMIDE HCL 5MG/ml INJ 2ml VIAL IV SCH ×3 (06:00→22:34)
[2022-07-15] MEDS: fentaNYL Drip 2500mCg/250mlNS 250 ML IV SCH (06:56)
[2022-07-15] MEDS: LACOSAMIDE 50 MG TAB GT SCH ×2 (09:43→22:34)
[2022-07-15] MEDS: FUROSEMIDE 20 MG/2 ML VIAL IV SCH (09:43)
[2022-07-15] MEDS: levETIRAcetam 500 MG/5ML ORAL SOLN UD GT SCH ×2 (09:43→22:34)
[2022-07-15] MEDS: LACTULOSE 20Gm/30ML SOLN GT PRN (09:44)
[2022-07-15] MEDS: NOREPINEPHRINE 8 MG/250ML KIT 250 ML IV SCH (10:05)
[2022-07-15] MEDS: MIDAZOLAM DRIP 50 mg/50mL 50 ML IV SCH (10:05)
[2022-07-15] MEDS ORDERED: PANTOPRAZOLE 40 MG/10 ML VIAL INJ IV ONE (12:00)
[2022-07-15] MEDS: LACTULOSE 20Gm/30ML SOLN PO SCH ×2 (13:06→22:34)
[2022-07-15] MEDS: BUDESONIDE (INHALATION) 0.5 MG/2 ML NEB NEB SCH ×2 (18:29→22:16)
[2022-07-15] MEDS ORDERED: POTASSIUM CHL 20MEQ/100ML 100 ML IV ONE (19:30)
[2022-07-16] VITALS (103 sets, daily range): BP systolic 71–141; BP diastolic 43–86
[2022-07-16] MEDS: IPRATROPIUM BROM 0.5 MG/2.5ML INH SOL NEB SCH ×6 (02:48→22:08)
[2022-07-16] MEDS: ALBUTEROL MEDNEB 2.5 mg/3ml NEB NEB SCH ×6 (02:49→22:08)
[2022-07-16 04:50] LABS: Basophils # (auto) 0 10 ^3/uL (0-0.2); Eosinophils # (auto) 0.1 10 ^3/uL (0-0.8); Hemoglobin 7.9 g/dL (13.5-17.5); Lymphocytes # (auto) 0.9 10 ^3/uL (0.4-5.4); Monocytes # (auto) 0.5 10 ^3/uL (0-1.3); Neutrophils # (auto) 3.9 10 ^3/uL (1.6-8.6); White Blood Cell 5.4 10^3/uL (4.4-10.8)
[2022-07-16 04:51] LABS: Basophils % (auto) 0.8 % (0.0-2.0); Hematocrit 22.9 % (41.0-53.0); Lymphocytes % (auto) 16.7 % (10.0-50.0); Mean Corpuscular Hemoglobin 30.8 pg (28.0-32.0); Mean Corpuscular Hgb Conc. 34.5 g/dL (32.0-36.0); Mean Corpuscular Volume 89.2 fL (80.0-100.0); Monocytes % (auto) 8.6 % (0.0-12.0); Neutrophils % (auto) 72.9 % (37.0-80.0); Red Blood Cells 2.56 10^6/uL (4.5-5.90)
[2022-07-16 04:58] LABS: Red Cell Distribution Width 23.4 % (11.8-14.3)
[2022-07-16 05:10] LABS: BUN/Creatinine Ratio 46.2; Potassium 3.1 mmol/L (3.5-5.1)
[2022-07-16] MEDS: BUDESONIDE (INHALATION) 0.5 MG/2 ML NEB NEB SCH ×2 (06:11→22:08)
[2022-07-16] MEDS: METOCLOPRAMIDE HCL 5MG/ml INJ 2ml VIAL IV SCH ×3 (06:17→21:22)
[2022-07-16] MEDS: LACTULOSE 20Gm/30ML SOLN PO SCH ×3 (06:17→21:22)
[2022-07-16] MEDS: LACOSAMIDE 50 MG TAB GT SCH ×2 (09:01→21:22)
[2022-07-16] MEDS: PANTOPRAZOLE 40 MG/10 ML VIAL INJ IV SCH (09:01)
[2022-07-16] MEDS: levETIRAcetam 500 MG/5ML ORAL SOLN UD GT SCH ×2 (09:02→21:23)
[2022-07-16] MEDS: FUROSEMIDE 20 MG/2 ML VIAL IV SCH (10:00)
[2022-07-16] MEDS: MIDAZOLAM DRIP 50 mg/50mL 50 ML IV SCH (12:45)
[2022-07-16] MEDS: NOREPINEPHRINE 8 MG/250ML KIT 250 ML IV SCH (14:00)
[2022-07-16] MEDS: POTASSIUM CHL 20MEQ/100ML 100 ML IV SCH ×2 (14:14→16:28)
[2022-07-16] MEDS: POTASSIUM EFFERVESENT TAB 25 MEQ GT SCH (16:22)
[2022-07-16] MEDS ORDERED: POTASSIUM CHL 20MEQ/100ML 100 ML IV SCH (19:30)
[2022-07-17] VITALS (91 sets, daily range): BP systolic 75–154; BP diastolic 45–100
[2022-07-17] MEDS: NOREPINEPHRINE 8 MG/250ML KIT 250 ML IV SCH (00:57)
[2022-07-17] MEDS: ALBUTEROL MEDNEB 2.5 mg/3ml NEB NEB SCH ×6 (02:06→22:34)
[2022-07-17] MEDS: IPRATROPIUM BROM 0.5 MG/2.5ML INH SOL NEB SCH ×6 (02:06→22:33)
[2022-07-17 05:23] LABS: Basophils # (auto) 0.1 10 ^3/uL (0-0.2); Basophils % (auto) 0.8 % (0.0-2.0); Eosinophils # (auto) 0.1 10 ^3/uL (0-0.8); Eosinophils % (auto) 1.1 % (0.0-7.0); Hematocrit 23.6 % (41.0-53.0); Hemoglobin 8.1 g/dL (13.5-17.5); Lymphocytes # (auto) 1.1 10 ^3/uL (0.4-5.4); Lymphocytes % (auto) 13.7 % (10.0-50.0); Mean Corpuscular Hemoglobin 31.1 pg (28.0-32.0); Mean Corpuscular Hgb Conc. 34.4 g/dL (32.0-36.0); Mean Corpuscular Volume 90.4 fL (80.0-100.0); Monocytes # (auto) 0.5 10 ^3/uL (0-1.3); Neutrophils # (auto) 6.3 10 ^3/uL (1.6-8.6); Neutrophils % (auto) 78.4 % (37.0-80.0); Nucleated Red Blood Cells % 0.1 %; Red Blood Cells 2.61 10^6/uL (4.5-5.90)
[2022-07-17 05:24] LABS: Red Cell Distribution Width 23.5 % (11.8-14.3)
[2022-07-17 05:37] LABS: Calcium 8.2 mg/dL (8.5-10.1); Potassium 4.1 mmol/L (3.5-5.1)
[2022-07-17 05:38] LABS: BUN/Creatinine Ratio 40.5
[2022-07-17] MEDS: METOCLOPRAMIDE HCL 5MG/ml INJ 2ml VIAL IV SCH ×3 (06:00→21:32)
[2022-07-17] MEDS: LACTULOSE 20Gm/30ML SOLN PO SCH ×3 (06:00→21:32)
[2022-07-17] MEDS: LACOSAMIDE 50 MG TAB GT SCH ×2 (09:27→21:33)
[2022-07-17] MEDS: POTASSIUM EFFERVESENT TAB 25 MEQ GT SCH (09:27)
[2022-07-17] MEDS: PANTOPRAZOLE 40 MG/10 ML VIAL INJ IV SCH (09:27)
[2022-07-17] MEDS: levETIRAcetam 500 MG/5ML ORAL SOLN UD GT SCH ×2 (09:28→21:33)
[2022-07-17] MEDS: BUDESONIDE (INHALATION) 0.5 MG/2 ML NEB NEB SCH ×2 (09:51→17:45)
[2022-07-17] MEDS: MIDAZOLAM DRIP 50 mg/50mL 50 ML IV SCH (12:45)
[2022-07-17 16:34] LABS: Urine Bacteria FEW /hpf (None Seen); Urine Blood 3+ /uL (Negative); Urine Budding Yeast MANY /hpf (None Seen); Urine Specific Gravity 1.019 (1.001-1.035); Urine WBC 74 /hpf (0 - 3)
[2022-07-17] MEDS ORDERED: Vital AF 1.2 Cal 1 liter bottle GT SCH (19:15)
[2022-07-18] VITALS (91 sets, daily range): BP systolic 101–143; BP diastolic 64–99
[2022-07-18] MEDS: IPRATROPIUM BROM 0.5 MG/2.5ML INH SOL NEB SCH ×6 (01:43→22:35)
[2022-07-18] MEDS: ALBUTEROL MEDNEB 2.5 mg/3ml NEB NEB SCH ×6 (01:43→22:34)
[2022-07-18] MEDS: METOCLOPRAMIDE HCL 5MG/ml INJ 2ml VIAL IV SCH ×3 (05:44→21:56)
[2022-07-18] MEDS: LACTULOSE 20Gm/30ML SOLN PO SCH ×4 (05:45→21:58)
[2022-07-18 05:55] LABS: Basophils # (auto) 0 10 ^3/uL (0-0.2); Eosinophils # (auto) 0.1 10 ^3/uL (0-0.8); Eosinophils % (auto) 0.9 % (0.0-7.0)
[2022-07-18 05:57] LABS: Basophils % (auto) 0.5 % (0.0-2.0); Hematocrit 23.6 % (41.0-53.0); Hemoglobin 8.3 g/dL (13.5-17.5); Lymphocytes # (auto) 0.9 10 ^3/uL (0.4-5.4); Lymphocytes % (auto) 11.7 % (10.0-50.0); Mean Corpuscular Hemoglobin 31.4 pg (28.0-32.0); Mean Corpuscular Hgb Conc. 35.1 g/dL (32.0-36.0); Mean Corpuscular Volume 89.6 fL (80.0-100.0); Monocytes # (auto) 0.5 10 ^3/uL (0-1.3); Monocytes % (auto) 5.9 % (0.0-12.0); Neutrophils # (auto) 6.4 10 ^3/uL (1.6-8.6); Nucleated Red Blood Cells % 0.1 %; Red Blood Cells 2.63 10^6/uL (4.5-5.90); White Blood Cell 7.9 10^3/uL (4.4-10.8)
[2022-07-18 06:06] LABS: Red Cell Distribution Width 23.8 % (11.8-14.3)
[2022-07-18 06:30] LABS: Calcium 8.2 mg/dL (8.5-10.1); Potassium 3.7 mmol/L (3.5-5.1)
[2022-07-18] MEDS: BUDESONIDE (INHALATION) 0.5 MG/2 ML NEB NEB SCH ×2 (07:42→22:35)
[2022-07-18] MEDS: PANTOPRAZOLE 40 MG/10 ML VIAL INJ IV SCH (09:51)
[2022-07-18] MEDS: POTASSIUM EFFERVESENT TAB 25 MEQ GT SCH (09:52)
[2022-07-18] MEDS: LACOSAMIDE 50 MG TAB GT SCH ×2 (09:53→21:56)
[2022-07-18] MEDS: levETIRAcetam 500 MG/5ML ORAL SOLN UD GT SCH ×2 (09:55→21:58)
[2022-07-18] MEDS: fentaNYL Drip 2500mCg/250mlNS 250 ML IV SCH (10:00)
[2022-07-18] MEDS: NOREPINEPHRINE 8 MG/250ML KIT 250 ML IV SCH (13:56)
[2022-07-18] MEDS: MIDAZOLAM DRIP 50 mg/50mL 50 ML IV SCH (13:56)
[2022-07-18] MEDS: MORPHINE SULFATE INJ 2 MG/ml SYRG IV PRN ×3 (13:56→21:57)
[2022-07-19] VITALS (103 sets, daily range): BP systolic 96–147; BP diastolic 56–112
[2022-07-19] MEDS: ALBUTEROL MEDNEB 2.5 mg/3ml NEB NEB SCH ×6 (02:03→22:49)
[2022-07-19] MEDS: IPRATROPIUM BROM 0.5 MG/2.5ML INH SOL NEB SCH ×6 (02:04→22:49)
[2022-07-19] MEDS: METOCLOPRAMIDE HCL 5MG/ml INJ 2ml VIAL IV SCH ×2 (05:23→14:00)
[2022-07-19] MEDS: LACTULOSE 20Gm/30ML SOLN PO SCH ×3 (05:23→17:50)
[2022-07-19 05:46] LABS: Calcium 8.4 mg/dL (8.5-10.1); Potassium 3.4 mmol/L (3.5-5.1)
[2022-07-19 06:07] LABS: Eosinophils # (auto) 0.2 10 ^3/uL (0-0.8); Hemoglobin 8.5 g/dL (13.5-17.5); Mean Corpuscular Hemoglobin 31.9 pg (28.0-32.0); Monocytes # (auto) 0.6 10 ^3/uL (0-1.3)
[2022-07-19 06:09] LABS: Basophils # (auto) 0 10 ^3/uL (0-0.2); Basophils % (auto) 0.6 % (0.0-2.0); Eosinophils % (auto) 2.5 % (0.0-7.0); Hematocrit 24.6 % (41.0-53.0); Lymphocytes # (auto) 1.2 10 ^3/uL (0.4-5.4); Lymphocytes % (auto) 15.3 % (10.0-50.0); Mean Corpuscular Hgb Conc. 34.8 g/dL (32.0-36.0); Mean Corpuscular Volume 91.6 fL (80.0-100.0); Monocytes % (auto) 7.4 % (0.0-12.0); Neutrophils # (auto) 5.6 10 ^3/uL (1.6-8.6); Neutrophils % (auto) 74.2 % (37.0-80.0); Nucleated Red Blood Cells % 0.1 %; Red Blood Cells 2.68 10^6/uL (4.5-5.90); White Blood Cell 7.5 10^3/uL (4.4-10.8)
[2022-07-19] MEDS: BUDESONIDE (INHALATION) 0.5 MG/2 ML NEB NEB SCH ×2 (06:17→22:49)
[2022-07-19 06:22] LABS: Red Cell Distribution Width 24.5 % (11.8-14.3)
[2022-07-19] MEDS: PANTOPRAZOLE 40 MG/10 ML VIAL INJ IV SCH (08:48)
[2022-07-19] MEDS: LACOSAMIDE 50 MG TAB GT SCH ×2 (08:49→22:00)
[2022-07-19] MEDS: POTASSIUM EFFERVESENT TAB 25 MEQ GT SCH (08:49)
[2022-07-19] MEDS: levETIRAcetam 500 MG/5ML ORAL SOLN UD GT SCH ×2 (08:50→22:00)
[2022-07-19] MEDS: fentaNYL Drip 2500mCg/250mlNS 250 ML IV SCH (10:00)
[2022-07-19] MEDS: MORPHINE SULFATE INJ 2 MG/ml SYRG IV PRN ×2 (12:18→17:52)
[2022-07-19] MEDS: MIDAZOLAM DRIP 50 mg/50mL 50 ML IV SCH (12:45)
[2022-07-19] MEDS: NOREPINEPHRINE 8 MG/250ML KIT 250 ML IV SCH (14:00)
[2022-07-20] VITALS (75 sets, daily range): BP systolic 90–133; BP diastolic 51–91
[2022-07-20] MEDS: LACTULOSE 20Gm/30ML SOLN PO SCH ×5 (00:12→20:52)
[2022-07-20] MEDS: METOCLOPRAMIDE HCL 5MG/ml INJ 2ml VIAL IV SCH ×3 (00:12→14:16)
[2022-07-20] MEDS: ALBUTEROL MEDNEB 2.5 mg/3ml NEB NEB SCH ×6 (02:25→22:11)
[2022-07-20] MEDS: BUDESONIDE (INHALATION) 0.5 MG/2 ML NEB NEB SCH ×2 (06:24→22:11)
[2022-07-20 06:31] LABS: Basophils # (auto) 0 10 ^3/uL (0-0.2); Basophils % (auto) 0.6 % (0.0-2.0); Eosinophils # (auto) 0.1 10 ^3/uL (0-0.8); Eosinophils % (auto) 1.5 % (0.0-7.0); Hematocrit 23.1 % (41.0-53.0); Hemoglobin 7.8 g/dL (13.5-17.5); Lymphocytes # (auto) 0.9 10 ^3/uL (0.4-5.4); Lymphocytes % (auto) 10.8 % (10.0-50.0); Mean Corpuscular Hgb Conc. 33.8 g/dL (32.0-36.0); Mean Corpuscular Volume 91.5 fL (80.0-100.0); Monocytes # (auto) 0.6 10 ^3/uL (0-1.3); Monocytes % (auto) 7.1 % (0.0-12.0); Neutrophils # (auto) 6.7 10 ^3/uL (1.6-8.6); Red Blood Cells 2.52 10^6/uL (4.5-5.90); White Blood Cell 8.3 10^3/uL (4.4-10.8)
[2022-07-20 06:34] LABS: Red Cell Distribution Width 24.1 % (11.8-14.3)
[2022-07-20 06:39] LABS: Albumin 2.2 g/dL (3.4-5.0); Magnesium 1.8 mg/dL (1.6-2.6); Potassium 3.4 mmol/L (3.5-5.1)
[2022-07-20 06:42] LABS: BUN/Creatinine Ratio 29.5; Bilirubin, Total 3.1 mg/dL (0.2-1.0); Total Protein 6.1 g/dL (6.4-8.2)
[2022-07-20] MEDS: PANTOPRAZOLE 40 MG/10 ML VIAL INJ IV SCH (09:10)
[2022-07-20] MEDS: levETIRAcetam 500 MG/5ML ORAL SOLN UD GT SCH ×2 (09:10→20:53)
[2022-07-20] MEDS: POTASSIUM EFFERVESENT TAB 25 MEQ GT SCH (09:11)
[2022-07-20] MEDS: LACOSAMIDE 50 MG TAB GT SCH ×2 (09:11→20:53)
[2022-07-20] MEDS: fentaNYL Drip 2500mCg/250mlNS 250 ML IV SCH (09:12)
[2022-07-20] MEDS: MORPHINE SULFATE INJ 2 MG/ml SYRG IV PRN (12:56)
[2022-07-20] MEDS: NOREPINEPHRINE 8 MG/250ML KIT 250 ML IV SCH (14:00)
[2022-07-20] MEDS: LORazepam 2MG/ML-1ML VIAL IV PRN (15:01)
[2022-07-21] VITALS (58 sets, daily range): BP systolic 95–139; BP diastolic 62–94
[2022-07-21] MEDS: ALBUTEROL MEDNEB 2.5 mg/3ml NEB NEB SCH ×6 (02:19→22:20)
[2022-07-21] MEDS: LACTULOSE 20Gm/30ML SOLN PO SCH ×4 (05:12→22:00)
[2022-07-21 05:41] LABS: Eosinophils # (auto) 0.2 10 ^3/uL (0-0.8); Hematocrit 22.5 % (41.0-53.0); Hemoglobin 7.8 g/dL (13.5-17.5); Mean Corpuscular Hemoglobin 31.4 pg (28.0-32.0); Mean Corpuscular Hgb Conc. 34.5 g/dL (32.0-36.0); Monocytes # (auto) 0.5 10 ^3/uL (0-1.3); Nucleated Red Blood Cells % 0.1 %; Red Blood Cells 2.48 10^6/uL (4.5-5.90)
[2022-07-21 05:45] LABS: Basophils # (auto) 0.1 10 ^3/uL (0-0.2); Basophils % (auto) 0.9 % (0.0-2.0); Eosinophils % (auto) 3.5 % (0.0-7.0); Lymphocytes # (auto) 0.9 10 ^3/uL (0.4-5.4); Lymphocytes % (auto) 14.9 % (10.0-50.0); Monocytes % (auto) 8.8 % (0.0-12.0); Neutrophils # (auto) 4.2 10 ^3/uL (1.6-8.6); Neutrophils % (auto) 71.9 % (37.0-80.0); White Blood Cell 5.9 10^3/uL (4.4-10.8)
[2022-07-21 05:57] LABS: Red Cell Distribution Width 24.6 % (11.8-14.3)
[2022-07-21 05:58] LABS: Potassium 3.4 mmol/L (3.5-5.1)
[2022-07-21 06:03] LABS: Albumin 2.1 g/dL (3.4-5.0); BUN/Creatinine Ratio 23.5; Calcium 8.2 mg/dL (8.5-10.1)
[2022-07-21 06:06] LABS: Bilirubin, Total 2.9 mg/dL (0.2-1.0)
[2022-07-21] MEDS: BUDESONIDE (INHALATION) 0.5 MG/2 ML NEB NEB SCH ×2 (06:26→22:20)
[2022-07-21] MEDS: fentaNYL Drip 2500mCg/250mlNS 250 ML IV SCH (10:00)
[2022-07-21] MEDS: PANTOPRAZOLE 40 MG/10 ML VIAL INJ IV SCH (10:23)
[2022-07-21] MEDS: levETIRAcetam 500 MG/5ML ORAL SOLN UD GT SCH ×2 (10:24→23:12)
[2022-07-21] MEDS: LACOSAMIDE 50 MG TAB GT SCH ×2 (10:24→23:12)
[2022-07-21] MEDS: POTASSIUM EFFERVESENT TAB 25 MEQ GT SCH (10:24)
[2022-07-21] MEDS: NOREPINEPHRINE 8 MG/250ML KIT 250 ML IV SCH (14:00)
[2022-07-21] MEDS: MORPHINE SULFATE INJ 2 MG/ml SYRG IV PRN ×2 (15:18→22:37)
[2022-07-22] VITALS (54 sets, daily range): BP systolic 101–136; BP diastolic 29–89
[2022-07-22] MEDS: ALBUTEROL MEDNEB 2.5 mg/3ml NEB NEB SCH ×6 (03:12→22:26)
[2022-07-22 05:58] LABS: Basophils # (auto) 0.1 10 ^3/uL (0-0.2); Basophils % (auto) 0.9 % (0.0-2.0); Eosinophils # (auto) 0.3 10 ^3/uL (0-0.8); Lymphocytes # (auto) 1.1 10 ^3/uL (0.4-5.4); Monocytes # (auto) 0.6 10 ^3/uL (0-1.3); Neutrophils # (auto) 4.4 10 ^3/uL (1.6-8.6); White Blood Cell 6.4 10^3/uL (4.4-10.8)
[2022-07-22] MEDS: LACTULOSE 20Gm/30ML SOLN PO SCH ×5 (06:00→22:28)
[2022-07-22 06:01] LABS: Eosinophils % (auto) 4.2 % (0.0-7.0); Hematocrit 22.9 % (41.0-53.0); Hemoglobin 8.1 g/dL (13.5-17.5); Lymphocytes % (auto) 17.2 % (10.0-50.0); Mean Corpuscular Hgb Conc. 35.2 g/dL (32.0-36.0); Monocytes % (auto) 9.5 % (0.0-12.0); Neutrophils % (auto) 68.2 % (37.0-80.0); Nucleated Red Blood Cells % 0.1 %; Red Blood Cells 2.52 10^6/uL (4.5-5.90)
[2022-07-22 06:10] LABS: Red Cell Distribution Width 24.8 % (11.8-14.3)
[2022-07-22 06:15] LABS: Albumin 2.2 g/dL (3.4-5.0); Calcium 8.2 mg/dL (8.5-10.1); Potassium 3.5 mmol/L (3.5-5.1)
[2022-07-22 06:18] LABS: Bilirubin, Total 2.8 mg/dL (0.2-1.0); Total Protein 6.3 g/dL (6.4-8.2)
[2022-07-22] MEDS: fentaNYL Drip 2500mCg/250mlNS 250 ML IV SCH (10:00)
[2022-07-22] MEDS: BUDESONIDE (INHALATION) 0.5 MG/2 ML NEB NEB SCH ×2 (10:02→19:18)
[2022-07-22] MEDS: PANTOPRAZOLE 40 MG/10 ML VIAL INJ IV SCH (11:22)
[2022-07-22] MEDS: LACOSAMIDE 50 MG TAB GT SCH ×2 (11:23→22:24)
[2022-07-22] MEDS: POTASSIUM EFFERVESENT TAB 25 MEQ GT SCH (11:23)
[2022-07-22] MEDS: NOREPINEPHRINE 8 MG/250ML KIT 250 ML IV SCH (14:00)
[2022-07-22] MEDS: levETIRAcetam 500 MG/5ML ORAL SOLN UD GT SCH ×2 (14:54→22:25)
[2022-07-23] VITALS (68 sets, daily range): BP systolic 99–135; BP diastolic 67–86
[2022-07-23] MEDS: ALBUTEROL MEDNEB 2.5 mg/3ml NEB NEB SCH ×6 (02:26→22:07)
[2022-07-23 05:17] LABS: Basophils # (auto) 0 10 ^3/uL (0-0.2); Eosinophils # (auto) 0.1 10 ^3/uL (0-0.8); Lymphocytes # (auto) 0.9 10 ^3/uL (0.4-5.4); Mean Corpuscular Volume 90.8 fL (80.0-100.0); Monocytes # (auto) 0.6 10 ^3/uL (0-1.3)
[2022-07-23 05:18] LABS: Basophils % (auto) 0.6 % (0.0-2.0); Eosinophils % (auto) 1.6 % (0.0-7.0); Hematocrit 20.2 % (41.0-53.0); Lymphocytes % (auto) 16.3 % (10.0-50.0); Mean Corpuscular Hemoglobin 31.2 pg (28.0-32.0); Mean Corpuscular Hgb Conc. 34.4 g/dL (32.0-36.0); Monocytes % (auto) 11.1 % (0.0-12.0); Neutrophils % (auto) 70.4 % (37.0-80.0); Nucleated Red Blood Cells % 0.1 %; Red Blood Cells 2.22 10^6/uL (4.5-5.90); White Blood Cell 5.7 10^3/uL (4.4-10.8)
[2022-07-23 05:30] LABS: INR 1.64 (0.9-1.15); Partial Thromboplastin Time 53.8 sec (24.6-33.4)
[2022-07-23 05:35] LABS: Calcium 7.4 mg/dL (8.5-10.1); Potassium 3.2 mmol/L (3.5-5.1)
[2022-07-23 05:38] LABS: BUN/Creatinine Ratio 32.4; Bilirubin, Total 2.8 mg/dL (0.2-1.0); Total Protein 5.5 g/dL (6.4-8.2)
[2022-07-23 05:41] LABS: Hemoglobin 6.9 g/dL (13.5-17.5)
[2022-07-23] MEDS: LACTULOSE 20Gm/30ML SOLN PO SCH ×3 (06:14→21:44)
[2022-07-23] MEDS ORDERED: PHYTONADIONE (VIT K)10 MG/ML 1ML VIAL SUBCUT ONE ×2 (09:15→17:30)
[2022-07-23] MEDS: fentaNYL Drip 2500mCg/250mlNS 250 ML IV SCH (10:00)
[2022-07-23] MEDS: POTASSIUM EFFERVESENT TAB 25 MEQ GT SCH (10:10)
[2022-07-23] MEDS: LACOSAMIDE 50 MG TAB GT SCH ×2 (10:12→21:47)
[2022-07-23] MEDS: PANTOPRAZOLE 40 MG/10 ML VIAL INJ IV SCH (10:12)
[2022-07-23] MEDS: levETIRAcetam 500 MG/5ML ORAL SOLN UD GT SCH ×2 (10:12→21:45)
[2022-07-23] MEDS: BUDESONIDE (INHALATION) 0.5 MG/2 ML NEB NEB SCH ×2 (10:46→22:07)
[2022-07-23] MEDS: MORPHINE SULFATE INJ 2 MG/ml SYRG IV PRN ×2 (12:26→21:29)
[2022-07-23] MEDS ORDERED: POTASSIUM EFFERVESENT TAB 25 MEQ GT ONE (12:30)
[2022-07-23] MEDS: NOREPINEPHRINE 8 MG/250ML KIT 250 ML IV SCH (14:00)
[2022-07-23 14:48] LABS: INR 1.56 (0.9-1.15); Partial Thromboplastin Time 46.3 sec (24.6-33.4)
[2022-07-24] VITALS (63 sets, daily range): BP systolic 91–135; BP diastolic 59–89
[2022-07-24] MEDS: ALBUTEROL MEDNEB 2.5 mg/3ml NEB NEB SCH ×6 (02:08→21:58)
[2022-07-24 05:42] LABS: Basophils # (auto) 0 10 ^3/uL (0-0.2); Basophils % (auto) 0.5 % (0.0-2.0); Nucleated Red Blood Cells % 0.1 %
[2022-07-24 05:45] LABS: Eosinophils # (auto) 0.2 10 ^3/uL (0-0.8); Eosinophils % (auto) 2.5 % (0.0-7.0); Hematocrit 24.2 % (41.0-53.0); Hemoglobin 8.5 g/dL (13.5-17.5); Lymphocytes % (auto) 16.7 % (10.0-50.0); Mean Corpuscular Volume 91.5 fL (80.0-100.0); Monocytes # (auto) 0.8 10 ^3/uL (0-1.3); Monocytes % (auto) 12.2 % (0.0-12.0); Neutrophils # (auto) 4.2 10 ^3/uL (1.6-8.6); Neutrophils % (auto) 68.1 % (37.0-80.0); Red Blood Cells 2.65 10^6/uL (4.5-5.90); White Blood Cell 6.2 10^3/uL (4.4-10.8)
[2022-07-24 05:46] LABS: INR 1.41 (0.9-1.15); Partial Thromboplastin Time 45.3 sec (24.6-33.4)
[2022-07-24 05:50] LABS: Albumin 2.2 g/dL (3.4-5.0); Calcium 8.4 mg/dL (8.5-10.1); Potassium 3.7 mmol/L (3.5-5.1)
[2022-07-24 05:56] LABS: BUN/Creatinine Ratio 18.9; Bilirubin, Total 2.6 mg/dL (0.2-1.0); Total Protein 6.4 g/dL (6.4-8.2)
[2022-07-24 05:57] LABS: Red Cell Distribution Width 23.3 % (11.8-14.3)
[2022-07-24] MEDS: LACTULOSE 20Gm/30ML SOLN PO SCH ×4 (06:00→22:00)
[2022-07-24] MEDS: BUDESONIDE (INHALATION) 0.5 MG/2 ML NEB NEB SCH ×2 (06:00→18:13)
[2022-07-24] MEDS ORDERED: PHYTONADIONE (VIT K)10 MG/ML 1ML VIAL SUBCUT ONE (08:45)
[2022-07-24] MEDS: levETIRAcetam 500 MG/5ML ORAL SOLN UD GT SCH ×2 (09:05→22:57)
[2022-07-24] MEDS: POTASSIUM EFFERVESENT TAB 25 MEQ GT SCH (09:06)
[2022-07-24] MEDS: PANTOPRAZOLE 40 MG/10 ML VIAL INJ IV SCH (09:06)
[2022-07-24] MEDS: LACOSAMIDE 50 MG TAB GT SCH ×2 (09:06→22:57)
[2022-07-24] MEDS: fentaNYL Drip 2500mCg/250mlNS 250 ML IV SCH ×2 (10:00→17:00)
[2022-07-24 10:55] LABS: INR 1.35 (0.9-1.15)
[2022-07-24] MEDS ORDERED: ROCURONIUM 10MG/ML 10ML VIAL IV ONE (12:48)
[2022-07-24] MEDS ORDERED: SODIUM CHLORIDE LOCK 10 ML ONE (12:48)
[2022-07-24] MEDS ORDERED: HYDROmorphone HCL 2 MG/ML VL/or syr ONE (12:48)
[2022-07-24] MEDS ORDERED: DexAMETHasone SOD PHOS 10MG/1ML VIAL INJ ONE (12:48)
[2022-07-24] MEDS ORDERED: fentaNYL CITRATE 100 MCG/2 ML VL ONE (12:48)
[2022-07-24] MEDS ORDERED: MIDAZOLAM HCL 2MG/2ML 2ml VIAL (1mg/ml) ONE (12:48)
[2022-07-24] MEDS: NOREPINEPHRINE 8 MG/250ML KIT 250 ML IV SCH (14:00)
[2022-07-24] MEDS ORDERED: LIDOCAINE W/ EPINEPHRINE 1% 20ML VIAL ONE (14:53)
[2022-07-24] MEDS: MIDAZOLAM DRIP 50 mg/50mL 50 ML IV SCH (16:30)
[2022-07-24 18:40] LABS: Basophils # (auto) 0 10 ^3/uL (0-0.2); Basophils % (auto) 0.7 % (0.0-2.0); Eosinophils # (auto) 0.1 10 ^3/uL (0-0.8); Eosinophils % (auto) 1.4 % (0.0-7.0); Lymphocytes # (auto) 0.8 10 ^3/uL (0.4-5.4); Monocytes # (auto) 0.7 10 ^3/uL (0-1.3)
[2022-07-24 18:42] LABS: Hematocrit 22.7 % (41.0-53.0); Hemoglobin 7.9 g/dL (13.5-17.5); Lymphocytes % (auto) 14.7 % (10.0-50.0); Mean Corpuscular Volume 91.4 fL (80.0-100.0); Monocytes % (auto) 12.6 % (0.0-12.0); Neutrophils # (auto) 3.7 10 ^3/uL (1.6-8.6); Neutrophils % (auto) 70.6 % (37.0-80.0); Red Blood Cells 2.48 10^6/uL (4.5-5.90); Red Cell Distribution Width 23.4 % (11.8-14.3); White Blood Cell 5.3 10^3/uL (4.4-10.8)
[2022-07-25] VITALS (86 sets, daily range): BP systolic 85–117; BP diastolic 53–78
[2022-07-25] MEDS: ALBUTEROL MEDNEB 2.5 mg/3ml NEB NEB SCH ×6 (01:55→22:13)
[2022-07-25] MEDS: MIDAZOLAM DRIP 50 mg/50mL 50 ML IV SCH (05:11)
[2022-07-25] MEDS: fentaNYL Drip 2500mCg/250mlNS 250 ML IV SCH ×2 (05:12→23:08)
[2022-07-25 06:39] LABS: Basophils # (auto) 0.1 10 ^3/uL (0-0.2); Basophils % (auto) 0.8 % (0.0-2.0); Eosinophils # (auto) 0.1 10 ^3/uL (0-0.8); Eosinophils % (auto) 1.9 % (0.0-7.0); Hematocrit 26.2 % (41.0-53.0); Lymphocytes # (auto) 0.8 10 ^3/uL (0.4-5.4); Lymphocytes % (auto) 11.5 % (10.0-50.0); Mean Corpuscular Hemoglobin 31.6 pg (28.0-32.0); Mean Corpuscular Hgb Conc. 34.4 g/dL (32.0-36.0); Mean Corpuscular Volume 91.9 fL (80.0-100.0); Monocytes # (auto) 0.9 10 ^3/uL (0-1.3); Monocytes % (auto) 14.1 % (0.0-12.0); Neutrophils # (auto) 4.8 10 ^3/uL (1.6-8.6); Neutrophils % (auto) 71.7 % (37.0-80.0); Nucleated Red Blood Cells % 0.1 %; Red Blood Cells 2.85 10^6/uL (4.5-5.90); White Blood Cell 6.7 10^3/uL (4.4-10.8)
[2022-07-25] MEDS: LACTULOSE 20Gm/30ML SOLN PO SCH ×4 (06:42→21:02)
[2022-07-25 06:49] LABS: Red Cell Distribution Width 23.1 % (11.8-14.3)
[2022-07-25 07:07] LABS: Albumin 2.3 g/dL (3.4-5.0); BUN/Creatinine Ratio 26.7; Bilirubin, Total 3.2 mg/dL (0.2-1.0); Calcium 8.3 mg/dL (8.5-10.1); Total Protein 6.3 g/dL (6.4-8.2)
[2022-07-25] MEDS: BUDESONIDE (INHALATION) 0.5 MG/2 ML NEB NEB SCH ×2 (10:24→22:13)
[2022-07-25] MEDS: POTASSIUM EFFERVESENT TAB 25 MEQ GT SCH (10:27)
[2022-07-25] MEDS: LACOSAMIDE 50 MG TAB GT SCH ×2 (10:27→21:01)
[2022-07-25] MEDS: PANTOPRAZOLE 40 MG/10 ML VIAL INJ IV SCH (10:27)
[2022-07-25] MEDS: levETIRAcetam 500 MG/5ML ORAL SOLN UD GT SCH ×2 (10:28→21:01)
[2022-07-25] MEDS: NOREPINEPHRINE 8 MG/250ML KIT 250 ML IV SCH (14:00)
[2022-07-26] VITALS (104 sets, daily range): BP systolic 93–119; BP diastolic 54–73
[2022-07-26] MEDS: ALBUTEROL MEDNEB 2.5 mg/3ml NEB NEB SCH ×6 (02:07→22:07)
[2022-07-26] MEDS: LACTULOSE 20Gm/30ML SOLN PO SCH ×4 (05:38→22:01)
[2022-07-26 06:44] LABS: Basophils # (auto) 0 10 ^3/uL (0-0.2); Hematocrit 23.5 % (41.0-53.0); Hemoglobin 8.1 g/dL (13.5-17.5); Mean Corpuscular Hemoglobin 32.2 pg (28.0-32.0); Neutrophils # (auto) 5.5 10 ^3/uL (1.6-8.6); Neutrophils % (auto) 73.5 % (37.0-80.0); Red Blood Cells 2.52 10^6/uL (4.5-5.90); White Blood Cell 7.5 10^3/uL (4.4-10.8)
[2022-07-26 06:49] LABS: Basophils % (auto) 0.4 % (0.0-2.0); Eosinophils # (auto) 0.1 10 ^3/uL (0-0.8); Eosinophils % (auto) 0.7 % (0.0-7.0); Lymphocytes # (auto) 0.9 10 ^3/uL (0.4-5.4); Lymphocytes % (auto) 12.4 % (10.0-50.0); Mean Corpuscular Hgb Conc. 34.5 g/dL (32.0-36.0); Mean Corpuscular Volume 93.3 fL (80.0-100.0)
[2022-07-26 06:53] LABS: Red Cell Distribution Width 23.5 % (11.8-14.3)
[2022-07-26 07:56] LABS: BUN/Creatinine Ratio 36.6
[2022-07-26] MEDS: LACOSAMIDE 50 MG TAB GT SCH ×2 (09:20→22:01)
[2022-07-26] MEDS: PANTOPRAZOLE 40 MG/10 ML VIAL INJ IV SCH (09:20)
[2022-07-26] MEDS: levETIRAcetam 500 MG/5ML ORAL SOLN UD GT SCH ×2 (09:21→22:01)
[2022-07-26] MEDS: POTASSIUM EFFERVESENT TAB 25 MEQ GT SCH (09:21)
[2022-07-26] MEDS: BUDESONIDE (INHALATION) 0.5 MG/2 ML NEB NEB SCH ×2 (10:32→22:07)
[2022-07-26] MEDS ORDERED: PHYTONADIONE (VIT K)10 MG/ML 1ML VIAL SUBCUT ONE (11:30)
[2022-07-26] MEDS: NOREPINEPHRINE 8 MG/250ML KIT 250 ML IV SCH (14:00)
[2022-07-26] MEDS: MIDAZOLAM DRIP 50 mg/50mL 50 ML IV SCH (16:30)
[2022-07-26] MEDS ORDERED: ALBUTEROL SULF 2.5 MG/0.5ML(0.5%) NEB SOLN ONE ×2 (17:37→21:56)
[2022-07-27] VITALS (106 sets, daily range): BP systolic 99–123; BP diastolic 58–98
[2022-07-27] MEDS ORDERED: ALBUTEROL SULF 2.5 MG/0.5ML(0.5%) NEB SOLN ONE ×6 (01:56→21:39)
[2022-07-27] MEDS: ALBUTEROL MEDNEB 2.5 mg/3ml NEB NEB SCH ×6 (02:06→22:00)
[2022-07-27] MEDS: fentaNYL Drip 2500mCg/250mlNS 250 ML IV SCH ×2 (02:43→14:59)
[2022-07-27] MEDS: LACTULOSE 20Gm/30ML SOLN PO SCH ×4 (05:10→21:18)
[2022-07-27 07:26] LABS: Basophils # (auto) 0 10 ^3/uL (0-0.2); Eosinophils # (auto) 0 10 ^3/uL (0-0.8); Eosinophils % (auto) 0.5 % (0.0-7.0); Hemoglobin 8.4 g/dL (13.5-17.5); Lymphocytes # (auto) 0.7 10 ^3/uL (0.4-5.4)
[2022-07-27 07:30] LABS: Basophils % (auto) 0.2 % (0.0-2.0); Hematocrit 24.3 % (41.0-53.0); Lymphocytes % (auto) 9.2 % (10.0-50.0); Mean Corpuscular Hgb Conc. 34.5 g/dL (32.0-36.0); Mean Corpuscular Volume 92.7 fL (80.0-100.0); Monocytes % (auto) 12.3 % (0.0-12.0); Neutrophils # (auto) 6.2 10 ^3/uL (1.6-8.6); Neutrophils % (auto) 77.8 % (37.0-80.0); Nucleated Red Blood Cells % 0.2 %; Red Blood Cells 2.62 10^6/uL (4.5-5.90)
[2022-07-27 07:45] LABS: Calcium 8.4 mg/dL (8.5-10.1)
[2022-07-27 07:50] LABS: Red Cell Distribution Width 23.9 % (11.8-14.3)
[2022-07-27] MEDS: BUDESONIDE (INHALATION) 0.5 MG/2 ML NEB NEB SCH ×2 (10:30→22:09)
[2022-07-27] MEDS: PANTOPRAZOLE 40 MG/10 ML VIAL INJ IV SCH (12:00)
[2022-07-27] MEDS: POTASSIUM EFFERVESENT TAB 25 MEQ GT SCH (12:00)
[2022-07-27] MEDS: LACOSAMIDE 50 MG TAB GT SCH ×2 (12:00→21:17)
[2022-07-27] MEDS: levETIRAcetam 500 MG/5ML ORAL SOLN UD GT SCH ×2 (12:01→21:17)
[2022-07-27] MEDS: NOREPINEPHRINE 8 MG/250ML KIT 250 ML IV SCH (14:00)
[2022-07-27] MEDS: MIDAZOLAM DRIP 50 mg/50mL 50 ML IV SCH (14:57)
[2022-07-28] VITALS (103 sets, daily range): BP systolic 90–134; BP diastolic 59–91
[2022-07-28] MEDS ORDERED: ALBUTEROL SULF 2.5 MG/0.5ML(0.5%) NEB SOLN ONE ×6 (01:45→21:53)
[2022-07-28] MEDS: ALBUTEROL MEDNEB 2.5 mg/3ml NEB NEB SCH ×6 (02:00→22:19)
[2022-07-28] MEDS: fentaNYL Drip 2500mCg/250mlNS 250 ML IV SCH ×2 (04:18→15:26)
[2022-07-28] MEDS: LACTULOSE 20Gm/30ML SOLN PO SCH ×4 (05:09→22:00)
[2022-07-28 09:16] LABS: Basophils # (auto) 0.1 10 ^3/uL (0-0.2); Basophils % (auto) 0.9 % (0.0-2.0); Eosinophils # (auto) 0 10 ^3/uL (0-0.8); Eosinophils % (auto) 0.5 % (0.0-7.0); Hematocrit 25.6 % (41.0-53.0); Hemoglobin 8.7 g/dL (13.5-17.5); Mean Corpuscular Hemoglobin 31.9 pg (28.0-32.0); Mean Corpuscular Hgb Conc. 34.2 g/dL (32.0-36.0); Mean Corpuscular Volume 93.3 fL (80.0-100.0); Monocytes % (auto) 12.5 % (0.0-12.0); Neutrophils # (auto) 5.8 10 ^3/uL (1.6-8.6); Neutrophils % (auto) 73.1 % (37.0-80.0); Nucleated Red Blood Cells % 0.1 %; Red Blood Cells 2.74 10^6/uL (4.5-5.90); White Blood Cell 7.9 10^3/uL (4.4-10.8)
[2022-07-28 09:19] LABS: BUN/Creatinine Ratio 42.4; Calcium 8.6 mg/dL (8.5-10.1); Potassium 3.9 mmol/L (3.5-5.1)
[2022-07-28] MEDS: levETIRAcetam 500 MG/5ML ORAL SOLN UD GT SCH ×2 (11:05→21:38)
[2022-07-28] MEDS: LACOSAMIDE 50 MG TAB GT SCH ×2 (11:05→21:38)
[2022-07-28] MEDS: PANTOPRAZOLE 40 MG/10 ML VIAL INJ IV SCH (11:07)
[2022-07-28] MEDS: POTASSIUM EFFERVESENT TAB 25 MEQ GT SCH (11:07)
[2022-07-28] MEDS: NOREPINEPHRINE 8 MG/250ML KIT 250 ML IV SCH (14:00)
[2022-07-28] MEDS: BUDESONIDE (INHALATION) 0.5 MG/2 ML NEB NEB SCH ×2 (14:30→22:19)
[2022-07-28] MEDS: MIDAZOLAM DRIP 50 mg/50mL 50 ML IV SCH (15:47)
[2022-07-29] VITALS (104 sets, daily range): BP systolic 88–114; BP diastolic 58–80
[2022-07-29] MEDS ORDERED: ALBUTEROL SULF 2.5 MG/0.5ML(0.5%) NEB SOLN ONE ×6 (02:03→21:59)
[2022-07-29] MEDS: ALBUTEROL MEDNEB 2.5 mg/3ml NEB NEB SCH ×6 (02:35→22:01)
[2022-07-29] MEDS: LACTULOSE 20Gm/30ML SOLN PO SCH ×5 (05:06→22:15)
[2022-07-29] MEDS: fentaNYL Drip 2500mCg/250mlNS 250 ML IV SCH ×2 (05:06→15:47)
[2022-07-29 06:24] LABS: Basophils # (auto) 0 10 ^3/uL (0-0.2); Eosinophils # (auto) 0.1 10 ^3/uL (0-0.8); Hemoglobin 8.3 g/dL (13.5-17.5)
[2022-07-29 06:26] LABS: Basophils % (auto) 0.5 % (0.0-2.0); Hematocrit 23.7 % (41.0-53.0); Lymphocytes # (auto) 1.1 10 ^3/uL (0.4-5.4); Lymphocytes % (auto) 18.4 % (10.0-50.0); Mean Corpuscular Hemoglobin 32.8 pg (28.0-32.0); Mean Corpuscular Volume 93.6 fL (80.0-100.0); Monocytes # (auto) 0.7 10 ^3/uL (0-1.3); Monocytes % (auto) 11.6 % (0.0-12.0); Neutrophils % (auto) 68.5 % (37.0-80.0); Nucleated Red Blood Cells % 0.1 %; Red Blood Cells 2.53 10^6/uL (4.5-5.90); White Blood Cell 5.9 10^3/uL (4.4-10.8)
[2022-07-29 06:35] LABS: Calcium 8.8 mg/dL (8.5-10.1); Potassium 3.7 mmol/L (3.5-5.1)
[2022-07-29 06:38] LABS: BUN/Creatinine Ratio 50.9; Magnesium 1.9 mg/dL (1.6-2.6)
[2022-07-29] MEDS: BUDESONIDE (INHALATION) 0.5 MG/2 ML NEB NEB SCH ×2 (07:04→18:05)
[2022-07-29] MEDS: MIDAZOLAM DRIP 50 mg/50mL 50 ML IV SCH (09:36)
[2022-07-29] MEDS: PANTOPRAZOLE 40 MG/10 ML VIAL INJ IV SCH (09:36)
[2022-07-29] MEDS: LACOSAMIDE 50 MG TAB GT SCH ×2 (09:37→22:15)
[2022-07-29] MEDS: levETIRAcetam 500 MG/5ML ORAL SOLN UD GT SCH ×2 (10:00→22:15)
[2022-07-29] MEDS ORDERED: METOCLOPRAMIDE HCL 5MG/ml INJ 2ml VIAL IV ONE (12:00)
[2022-07-29] MEDS ORDERED: FUROSEMIDE 20 MG/2 ML VIAL IV ONE (12:00)
[2022-07-29] MEDS: POTASSIUM EFFERVESENT TAB 25 MEQ GT SCH (12:33)
[2022-07-29] MEDS: NOREPINEPHRINE 8 MG/250ML KIT 250 ML IV SCH (14:00)
[2022-07-29] MEDS: FREE WATER GT SCH (22:15)
[2022-07-30] VITALS (108 sets, daily range): BP systolic 84–114; BP diastolic 56–80
[2022-07-30] MEDS: MIDAZOLAM DRIP 50 mg/50mL 50 ML IV SCH ×2 (01:01→11:38)
[2022-07-30] MEDS: fentaNYL Drip 2500mCg/250mlNS 250 ML IV SCH ×2 (02:05→13:35)
[2022-07-30] MEDS ORDERED: ALBUTEROL SULF 2.5 MG/0.5ML(0.5%) NEB SOLN ONE ×6 (02:17→21:57)
[2022-07-30] MEDS: ALBUTEROL MEDNEB 2.5 mg/3ml NEB NEB SCH ×6 (02:17→22:36)
[2022-07-30 05:05] LABS: Basophils # (auto) 0 10 ^3/uL (0-0.2); Basophils % (auto) 0.4 % (0.0-2.0); Eosinophils # (auto) 0.1 10 ^3/uL (0-0.8); Hemoglobin 8.4 g/dL (13.5-17.5); Monocytes # (auto) 0.7 10 ^3/uL (0-1.3); Red Blood Cells 2.62 10^6/uL (4.5-5.90)
[2022-07-30 05:07] LABS: Eosinophils % (auto) 0.7 % (0.0-7.0); Hematocrit 23.9 % (41.0-53.0); Lymphocytes % (auto) 13.2 % (10.0-50.0); Mean Corpuscular Hemoglobin 32.1 pg (28.0-32.0); Mean Corpuscular Hgb Conc. 35.2 g/dL (32.0-36.0); Mean Corpuscular Volume 91.3 fL (80.0-100.0); Monocytes % (auto) 10.3 % (0.0-12.0); Neutrophils # (auto) 5.4 10 ^3/uL (1.6-8.6); Neutrophils % (auto) 75.4 % (37.0-80.0); Nucleated Red Blood Cells % 0.1 %; White Blood Cell 7.2 10^3/uL (4.4-10.8)
[2022-07-30 05:12] LABS: Red Cell Distribution Width 24.4 % (11.8-14.3)
[2022-07-30 05:22] LABS: BUN/Creatinine Ratio 40.3; Calcium 8.4 mg/dL (8.5-10.1); Potassium 3.3 mmol/L (3.5-5.1)
[2022-07-30] MEDS: LACTULOSE 20Gm/30ML SOLN PO SCH ×4 (05:40→21:52)
[2022-07-30] MEDS: BUDESONIDE (INHALATION) 0.5 MG/2 ML NEB NEB SCH ×2 (06:04→18:20)
[2022-07-30] MEDS ORDERED: FUROSEMIDE 20 MG/2 ML VIAL IV ONE (09:45)
[2022-07-30] MEDS: POTASSIUM CHLORIDE 40 MEQ in D5W 5% 1,000 ML IV SCH ×2 (09:56→20:12)
[2022-07-30] MEDS: FREE WATER GT SCH ×2 (10:00→22:18)
[2022-07-30] MEDS: levETIRAcetam 500 MG/5ML ORAL SOLN UD GT SCH ×2 (10:00→22:18)
[2022-07-30] MEDS: POTASSIUM EFFERVESENT TAB 25 MEQ GT SCH (13:09)
[2022-07-30] MEDS: PANTOPRAZOLE 40 MG/10 ML VIAL INJ IV SCH (13:10)
[2022-07-30] MEDS: LACOSAMIDE 50 MG TAB GT SCH ×2 (13:10→22:18)
[2022-07-30] MEDS: NOREPINEPHRINE 8 MG/250ML KIT 250 ML IV SCH ×2 (14:00→17:12)
[2022-07-30 23:14] LABS: Magnesium 1.9 mg/dL (1.6-2.6)
[2022-07-31] VITALS (107 sets, daily range): BP systolic 83–104; BP diastolic 55–71
[2022-07-31] MEDS: fentaNYL Drip 2500mCg/250mlNS 250 ML IV SCH (02:00)
[2022-07-31] MEDS: ALBUTEROL MEDNEB 2.5 mg/3ml NEB NEB SCH ×3 (02:00→10:23)
[2022-07-31] MEDS ORDERED: ALBUTEROL SULF 2.5 MG/0.5ML(0.5%) NEB SOLN ONE ×4 (02:00→13:59)
[2022-07-31] MEDS: MIDAZOLAM DRIP 50 mg/50mL 50 ML IV SCH ×2 (03:31→07:39)
[2022-07-31] MEDS: NOREPINEPHRINE 8 MG/250ML KIT 250 ML IV SCH (03:32)
[2022-07-31 05:26] LABS: Hematocrit 23.9 % (41.0-53.0); Hemoglobin 8.2 g/dL (13.5-17.5)
[2022-07-31 05:31] LABS: Basophils # (auto) 0 10 ^3/uL (0-0.2); Basophils % (auto) 0.4 % (0.0-2.0); Eosinophils # (auto) 0.1 10 ^3/uL (0-0.8); Eosinophils % (auto) 1.7 % (0.0-7.0); Lymphocytes # (auto) 1.1 10 ^3/uL (0.4-5.4); Lymphocytes % (auto) 14.4 % (10.0-50.0); Mean Corpuscular Hemoglobin 31.8 pg (28.0-32.0); Mean Corpuscular Hgb Conc. 34.3 g/dL (32.0-36.0); Mean Corpuscular Volume 92.7 fL (80.0-100.0); Monocytes # (auto) 0.7 10 ^3/uL (0-1.3); Neutrophils # (auto) 5.5 10 ^3/uL (1.6-8.6); Neutrophils % (auto) 73.5 % (37.0-80.0); Red Blood Cells 2.58 10^6/uL (4.5-5.90); White Blood Cell 7.5 10^3/uL (4.4-10.8)
[2022-07-31 05:35] LABS: Red Cell Distribution Width 24.7 % (11.8-14.3)
[2022-07-31 05:44] LABS: BUN/Creatinine Ratio 29.5; Calcium 8.3 mg/dL (8.5-10.1)
[2022-07-31] MEDS: LACTULOSE 20Gm/30ML SOLN PO SCH ×4 (06:00→22:53)
[2022-07-31] MEDS: POTASSIUM CHLORIDE 40 MEQ in D5W 5% 1,000 ML IV SCH ×2 (06:24→16:31)
[2022-07-31] MEDS: BUDESONIDE (INHALATION) 0.5 MG/2 ML NEB NEB SCH ×2 (06:42→18:14)
[2022-07-31] MEDS: FREE WATER GT SCH ×2 (10:00→22:55)
[2022-07-31 10:12] LABS: Basophils # (auto) 0 10 ^3/uL (0-0.2); Basophils % (auto) 0.4 % (0.0-2.0); Eosinophils # (auto) 0.2 10 ^3/uL (0-0.8); Eosinophils % (auto) 2.2 % (0.0-7.0); Hematocrit 23.8 % (41.0-53.0); Hemoglobin 8.1 g/dL (13.5-17.5); Lymphocytes # (auto) 1.2 10 ^3/uL (0.4-5.4); Lymphocytes % (auto) 15.1 % (10.0-50.0); Mean Corpuscular Hemoglobin 31.4 pg (28.0-32.0); Mean Corpuscular Hgb Conc. 33.9 g/dL (32.0-36.0); Mean Corpuscular Volume 92.7 fL (80.0-100.0); Monocytes # (auto) 0.8 10 ^3/uL (0-1.3); Monocytes % (auto) 9.9 % (0.0-12.0); Neutrophils # (auto) 5.6 10 ^3/uL (1.6-8.6); Neutrophils % (auto) 72.4 % (37.0-80.0); Nucleated Red Blood Cells % 0.1 %; Red Blood Cells 2.57 10^6/uL (4.5-5.90); Red Cell Distribution Width 24.5 % (11.8-14.3); White Blood Cell 7.7 10^3/uL (4.4-10.8)
[2022-07-31 10:25] LABS: INR 1.75 (0.9-1.15); Partial Thromboplastin Time 63.4 sec (24.6-33.4)
[2022-07-31] MEDS: PANTOPRAZOLE 40 MG/10 ML VIAL INJ IV SCH (10:36)
[2022-07-31] MEDS: levETIRAcetam 500 MG/5ML ORAL SOLN UD GT SCH ×2 (10:39→22:52)
[2022-07-31] MEDS: POTASSIUM EFFERVESENT TAB 25 MEQ GT SCH (10:39)
[2022-07-31] MEDS: LACOSAMIDE 50 MG TAB GT SCH ×2 (10:40→22:52)
[2022-07-31] MEDS: FUROSEMIDE 20 MG/2 ML VIAL IV SCH (10:43)
[2022-07-31] MEDS ORDERED: SODIUM CHLORIDE 0.9 % NEB SOLN 3ML NEB ONE (13:59)
[2022-07-31] MEDS: ALBUTEROL SULF 2.5 MG/0.5ML(0.5%) NEB SOLN NEB SCH ×2 (18:13→22:09)
[2022-08-01] VITALS (103 sets, daily range): BP systolic 84–114; BP diastolic 55–75
[2022-08-01] MEDS: MIDAZOLAM DRIP 50 mg/50mL 50 ML IV SCH ×3 (00:48→15:28)
[2022-08-01] MEDS: ALBUTEROL SULF 2.5 MG/0.5ML(0.5%) NEB SOLN NEB SCH ×6 (02:03→22:25)
[2022-08-01] MEDS: POTASSIUM CHLORIDE 40 MEQ in D5W 5% 1,000 ML IV SCH ×3 (02:48→23:07)
[2022-08-01 05:05] LABS: Basophils # (auto) 0 10 ^3/uL (0-0.2); Eosinophils # (auto) 0.2 10 ^3/uL (0-0.8); Monocytes # (auto) 0.8 10 ^3/uL (0-1.3)
[2022-08-01 05:16] LABS: Basophils % (auto) 0.3 % (0.0-2.0); Eosinophils % (auto) 1.5 % (0.0-7.0); Hematocrit 24.3 % (41.0-53.0); Hemoglobin 8.3 g/dL (13.5-17.5); Lymphocytes % (auto) 8.4 % (10.0-50.0); Mean Corpuscular Hemoglobin 31.2 pg (28.0-32.0); Mean Corpuscular Hgb Conc. 34.1 g/dL (32.0-36.0); Mean Corpuscular Volume 91.4 fL (80.0-100.0); Monocytes % (auto) 6.6 % (0.0-12.0); Neutrophils # (auto) 10.1 10 ^3/uL (1.6-8.6); Neutrophils % (auto) 83.2 % (37.0-80.0); Nucleated Red Blood Cells % 0.1 %; Red Blood Cells 2.65 10^6/uL (4.5-5.90); Red Cell Distribution Width 24.3 % (11.8-14.3); White Blood Cell 12.1 10^3/uL (4.4-10.8)
[2022-08-01 05:18] LABS: Calcium 8.2 mg/dL (8.5-10.1); Potassium 4.9 mmol/L (3.5-5.1)
[2022-08-01 05:20] LABS: BUN/Creatinine Ratio 34.3
[2022-08-01] MEDS: fentaNYL Drip 2500mCg/250mlNS 250 ML IV SCH ×2 (05:28→12:00)
[2022-08-01] MEDS: LACTULOSE 20Gm/30ML SOLN PO SCH ×4 (05:38→21:49)
[2022-08-01] MEDS: BUDESONIDE (INHALATION) 0.5 MG/2 ML NEB NEB SCH ×2 (06:38→19:17)
[2022-08-01] MEDS: PANTOPRAZOLE 40 MG/10 ML VIAL INJ IV SCH (09:38)
[2022-08-01] MEDS: FUROSEMIDE 20 MG/2 ML VIAL IV SCH (09:38)
[2022-08-01] MEDS: LACOSAMIDE 50 MG TAB GT SCH ×2 (09:39→21:49)
[2022-08-01] MEDS: POTASSIUM EFFERVESENT TAB 25 MEQ GT SCH (09:39)
[2022-08-01] MEDS: levETIRAcetam 500 MG/5ML ORAL SOLN UD GT SCH ×2 (09:45→21:55)
[2022-08-01] MEDS: FREE WATER GT SCH ×2 (09:45→21:50)
[2022-08-01] MEDS: NOREPINEPHRINE 8 MG/250ML KIT 250 ML IV SCH (15:22)
[2022-08-02] VITALS (65 sets, daily range): BP systolic 79–110; BP diastolic 48–72
[2022-08-02] MEDS: fentaNYL Drip 2500mCg/250mlNS 250 ML IV SCH ×2 (00:35→12:55)
[2022-08-02] MEDS: ALBUTEROL SULF 2.5 MG/0.5ML(0.5%) NEB SOLN NEB SCH ×4 (02:04→14:42)
[2022-08-02] MEDS: MIDAZOLAM DRIP 50 mg/50mL 50 ML IV SCH ×2 (02:30→09:04)
[2022-08-02] MEDS: LACTULOSE 20Gm/30ML SOLN PO SCH ×4 (05:59→20:52)
[2022-08-02] MEDS: POTASSIUM CHLORIDE 40 MEQ in D5W 5% 1,000 ML IV SCH ×2 (09:04→19:36)
[2022-08-02] MEDS: LACOSAMIDE 50 MG TAB GT SCH ×2 (09:59→20:52)
[2022-08-02] MEDS: PANTOPRAZOLE 40 MG/10 ML VIAL INJ IV SCH (09:59)
[2022-08-02] MEDS: levETIRAcetam 500 MG/5ML ORAL SOLN UD GT SCH ×2 (10:00→20:51)
[2022-08-02] MEDS: FREE WATER GT SCH ×2 (10:00→20:51)
[2022-08-02] MEDS: POTASSIUM EFFERVESENT TAB 25 MEQ GT SCH (10:00)
[2022-08-02] MEDS: FUROSEMIDE 20 MG/2 ML VIAL IV SCH (10:01)
[2022-08-02] MEDS: NOREPINEPHRINE 8 MG/250ML KIT 250 ML IV SCH (10:02)
[2022-08-02] MEDS: BUDESONIDE (INHALATION) 0.5 MG/2 ML NEB NEB SCH (10:17)
[2022-08-02] MEDS: LORazepam 2MG/ML-1ML VIAL IV PRN ×4 (17:04→22:21)
[2022-08-02] MEDS: MORPHINE SULFATE INJ 2 MG/ml SYRG IV PRN ×4 (17:04→23:32)
[2022-08-03] VITALS (14 sets, daily range): BP systolic 75–117; BP diastolic 42–66
[2022-08-03] MEDS: LORazepam 2MG/ML-1ML VIAL IV PRN ×3 (00:48→12:04)
[2022-08-03] MEDS: MORPHINE SULFATE INJ 2 MG/ml SYRG IV PRN ×6 (01:44→13:18)
[2022-08-03] MEDS: LACTULOSE 20Gm/30ML SOLN PO SCH (05:45)
[2022-08-03] MEDS: POTASSIUM CHLORIDE 40 MEQ in D5W 5% 1,000 ML IV SCH (05:45)
== END 2022-08-03 13:53 | DRG 5 ==
LOC: EDBD 20:26 → ER 20:26 → TELE 06-08 00:02 → ICU WEST 06-10 03:00 → ICU CENTRL 06-16 16:55 → DOU IN ICU 06-17 09:50 → ICU CENTRL 06-23 → DOU IN ICU 08-03 02:55
PROVIDERS: ADMIT Nurse Practitioner Family; ATTEND Internal Medicine Pulmonary Disease
PROC: 5A1955Z Respiratory Ventilation, Greater than 96 Consecutive Hours (ICD-10-PCS; 2022-06-10)
PROC: 0BH17EZ Insertion of Endotracheal Airway into Trachea, Via Natural or Artificial Opening (ICD-10-PCS; 2022-06-10)
PROC: XW033E5 Introduction of Remdesivir Anti-infective into Peripheral Vein, Percutaneous Approach, New Technology Group 5 (ICD-10-PCS; 2022-06-22)
PROC: 30233N1 Transfusion of Nonautologous Red Blood Cells into Peripheral Vein, Percutaneous Approach (ICD-10-PCS; 2022-06-25)
PROC: 30233K1 Transfusion of Nonautologous Frozen Plasma into Peripheral Vein, Percutaneous Approach (ICD-10-PCS; 2022-07-23)
PROC: 0B110Z4 Bypass Trachea to Cutaneous, Open Approach (ICD-10-PCS; principal; 2022-07-24 14:34)
DX: A41.9 Sepsis, unspecified organism (principal); R65.21 Severe sepsis with septic shock; J12.82 Pneumonia due to coronavirus disease 2019; G93.41 Metabolic encephalopathy; E43 Unspecified severe protein-calorie malnutrition; U07.1 COVID-19; G40.901 Epilepsy, unspecified, not intractable, with status epilepticus; D68.9 Coagulation defect, unspecified; E87.0 Hyperosmolality and hypernatremia; Z66 Do not resuscitate; J96.01 Acute respiratory failure with hypoxia; J96.02 Acute respiratory failure with hypercapnia; K76.6 Portal hypertension; K76.82 Hepatic encephalopathy; F03.92 Unspecified dementia, unspecified severity, with psychotic disturbance; J44.1 Chronic obstructive pulmonary disease with (acute) exacerbation; S09.90XA Unspecified injury of head, initial encounter; K70.30 Alcoholic cirrhosis of liver without ascites; E78.5 Hyperlipidemia, unspecified; I10 Essential (primary) hypertension; N39.0 Urinary tract infection, site not specified; J15.9 Unspecified bacterial pneumonia; J95.01 Hemorrhage from tracheostomy stoma; K70.31 Alcoholic cirrhosis of liver with ascites; K20.90 Esophagitis, unspecified without bleeding; K22.70 Barrett's esophagus without dysplasia; D63.8 Anemia in other chronic diseases classified elsewhere; D62 Acute posthemorrhagic anemia; E87.6 Hypokalemia; W18.39XA Other fall on same level, initial encounter; J44.0 Chronic obstructive pulmonary disease with (acute) lower respiratory infection; I80.8 Phlebitis and thrombophlebitis of other sites; Z86.711 Personal history of pulmonary embolism; Z86.73 Personal history of transient ischemic attack (TIA), and cerebral infarction without residual deficits; Z88.5 Allergy status to narcotic agent; Z88.0 Allergy status to penicillin; Z79.899 Other long term (current) drug therapy; Z81.8 Family history of other mental and behavioral disorders; Z51.5 Encounter for palliative care; Z78.9 Other specified health status; Z87.828 Personal history of other (healed) physical injury and trauma; Z99.11 Dependence on respirator [ventilator] status; Z68.1 Body mass index [BMI] 19.9 or less, adult; Y93.89 Activity, other specified; Y92.89 Other specified places as the place of occurrence of the external cause; Y99.8 Other external cause status
CPT/HCPCS: 31720; 36415; 36556; 36600; 70450; 71045; 71250; 74018; 76705; 80048; 80053; 80164; 80202; 80320; 81001; 82140; 82805; 82962; 83605; 83735; 83880; 84100; 84132; 84478; 84484; 85007; 85014; 85018; 85025; 85027; 85610; 85730; 86850; 86900; 86901; 86920; 87040; 87070; 87077; 87081; 87086; 87088; 87186; 87205; 87426; 87804; 93005; 93971; 94002; 94003; 94640; 95819; 96365; 96368; 96375; 99291; C9113; C9254; G0378; J0330; J0696; J1100; J1956; J2185; J2250; J2405; J3430; J3480; J7060